=== PATIENT | male | born 1965 | race Caucasian/White ===

== ENCOUNTER 2016-11-14 22:20 | Inpatient (IN) | payer MEDICARE, OTHER ==
[2016-11-14 22:40] LABS: Glucose,Whole Blood 133 mg/dL (75-99)
[2016-11-14] MEDS ORDERED: SODIUM CHLORIDE 0.9% 1,000 ML IV STA (22:41)
--- NOTE | 2016-11-14 22:46 | ED ---
General Adult HPI - General Chief complaint: Weakness Stated complaint: weak Time Seen by Provider: 11/14/16 22:29 Source: patient, EMS, RN notes reviewed Mode of arrival: EMS Limitations: no limitations, physical limitation - History of Present Illness Initial comments: Patient is a 51-year-old male presenting to the emergency Department with generalized weakness. Patient is a poor historian. Patient states he has been more weak over the past 2-3 days. Patient has not been getting out of bed much. Patient did have a fall today however did not hurt himself. Patient has a known right foot infection and is on the wound VAC for this. Patient states he is not currently on antibiotics for this. Patient does have a history of kidney failure. - Related Data Home Medications Medication Instructions Recorded Confirmed Metoprolol Tartrate [Lopressor] 25 mg PO BID 08/09/14 11/11/16 Ubidecarenone [Co Q-10] 200 mg PO DAILY 08/09/14 11/11/16 Ascorbic Acid [Vitamin C] 500 mg PO DAILY 11/04/14 11/11/16 L.acidoph/B.long/L.plant/B.lac 1 cap PO BID 11/04/14 11/11/16 [Probiotic Acidophilus Beads] Sevelamer [Renvela] 3,200 mg PO TID 02/26/15 11/11/16 Amiodarone HCl [Cordarone] 200 mg PO BID 10/26/15 11/11/16 Famotidine [Pepcid] 20 mg PO DAILY 10/26/15 11/11/16 INSULIN LISPRO (humaLOG) [humaLOG See Protocol SQ ACHS 10/26/15 11/11/16 (formulary)] Sodium Bicarbonate Tab 1,300 mg PO BID 10/26/15 11/11/16 Brendon Packet 1 packet PO BID@0800,1700 11/19/15 11/11/16 Magnesium Oxide [Mag-Ox] 400 mg PO DAILY 11/19/15 11/11/16 Metoclopramide [Reglan] 10 mg PO Q8H PRN 11/19/15 11/11/16 Pravastatin Sodium [Pravachol] 80 mg PO HS 11/19/15 11/11/16 Cinacalcet HCl [Sensipar] 30 mg PO HS 01/21/16 11/11/16 Loratadine [Claritin] 10 mg PO DAILY PRN 02/04/16 11/11/16 Allopurinol [Zyloprim] 100 mg PO DAILY 02/16/16 11/11/16 Artificial Tears-Hypromellose 1 drops BOTH EYES Q6H PRN 02/16/16 11/11/16 [Artificial Tear Drops] Bacitracin Ophth Ointment 1 applic BOTH EYES Q2HR 02/16/16 11/11/16 Calcium Polycarbophil [Fibercon] 625 mg PO DAILY 02/16/16 11/11/16 Multivitamins, Thera [Multivitamin] 1 tab PO DAILY@1200 02/16/16 11/11/16 Sodium Chloride 0.65% Nasal [Deep 1 spray EA NOSTRIL QID PRN 02/16/16 11/11/16 Sea] Clopidogrel [Plavix] 75 mg PO DAILY 02/28/16 11/11/16 HYDROcodone/APAP 7.5-325MG [[place] 1 tab PO Q6HR PRN 04/15/16 11/11/16 7.5-325] Serum Tears 1 drop BOTH EYES QID 04/15/16 11/11/16 Cinacalcet [Sensipar] 30 mg PO DAILY 06/03/16 11/11/16 Cholecalciferol (Vitamin D3) 50,000 unit PO Q7DAYS 06/10/16 11/11/16 [Vitamin D3] DULoxetine HCL [Cymbalta] 30 mg PO DAILY 06/24/16 11/11/16 Insulin Detemir [Levemir] 40 unit SQ HS 06/24/16 11/11/16 Sevelamer [Renvela] 800 mg PO TID 06/24/16 11/11/16 Midodrine [ProAmatine] 5 mg PO DAILY 08/26/16 11/11/16 Previous Rx's Medication Instructions Recorded Bisacodyl [Dulcolax] 5 mg PO DAILY PRN #0 tablet. 11/25/15 Zolpidem [Ambien] 5 mg PO HS PRN #20 tab 02/28/16 Allergies Allergy/AdvReac Type Severity Reaction Status Date / Time losartan potassium Allergy Unknown LIGHTHEADED Verified 11/14/16 22:41 [From Cozaar] tomato Allergy Unknown Unknown Verified 01/14/17 22:41 Review of Systems ROS Statement: Those systems with pertinent positive or pertinent negative responses have been documented in the HPI. ROS Other: All systems not noted in ROS Statement are negative. Constitutional: Denies: fever Eyes: Reports: vision change (Chronic). Denies: eye pain ENT: Denies: ear pain Respiratory: Denies: dyspnea Cardiovascular: Denies: chest pain Endocrine: Reports: fatigue Gastrointestinal: Denies: abdominal pain Genitourinary: Denies: dysuria Musculoskeletal: Denies: back pain Skin: Reports: rash Neurological: Reports: weakness (Generalized) Past Medical History Past Medical History: Coronary Artery Disease (CAD), Diabetes Mellitus, Dialysis , Eye Disorder, Hyperlipidemia, Hypertension, Osteoarthritis (OA), Osteoarthritis (OA), Renal Disease, Sleep Apnea/CPAP/BIPAP, Sleep Apnea/CPAP/ BIPAP, Vascular Disorder, Vascular Disorder Additional Past Medical History / Comment(s): legally blind, ESRD with hemodialysis M,W, F-thru lerfupper arm graft, diabetic NEUROPATHY in bilateral legs and feet and , dizziness, PVD, KIDNEY STONES, gout, frequent diarrhea, DJD , anemia, thrombocytopenia. ESRD with hemodialysis M,W, F-thru R upper arm graft, diabetic NEUROPAT, PVD, KIDNEY STONES, gout, frequent diarrhea, DJD, anemia, thrombocytopenia. diabetic NEUROPATHY in bilateral legs and feet and , dizziness, PVD, KIDNEY STONES, gout, frequent diarrhea, DJD, anemia, thrombocytopenia. detached retina with surgeries, ALIYA USES C-PAP MACHINE, ESRD with hemodialysis M,W, F-thru R upper arm graft, diabetic NEUROPATHY bilateral legs and feet and starting in bilateral hands, gait dysfuction, hx of cellulitis bilateral legs/feet-pt states L leg/foot healthy at this time, PVD, KIDNEY STONES, gout, frequent diarrhea, DJD, anemia, thrombocytopenia. History of Any Multi-Drug Resistant Organisms: MRSA, MRSA, VRE Date of last positivie culture/infection: 10/07/16 MDRO Source:: Right Foot both MRSA and VRE Past Surgical History: Cholecystectomy, Coronary Bypass/CABG Additional Past Surgical History / Comment(s): 11/04/15 Keller cath for ABX therapy, , AMPUTATION GREAT L TOE , DEBRIDEMENT OF LEG, left eye surgery including retinal detachment repair and laser surgery and cataract removal, R eye surgery for blood behind eye twice, KIDNEY STONE REMOVAL, Multiple debridements done to the right foot wound. Past Anesthesia/Blood Transfusion Reactions: No Reported Reaction Additional Past Anesthesia/Blood Transfusion Reaction / Comment(s): NEVER HAD BLOOD TRANSFUSION Past Psychological History: Depression Additional Psychological History / Comment(s): PT LIVES WITH OF [address] [facility]. He uses a walker. HIS LEGS GET TIRED AND WEAK and he has had falls. He is legally blind. He is seen at [facility] wound center. He is ESRD and is on hemodialysis 3 days a week. He has a shunt. home. No recent travels. Smoking Status: Former smoker Past Alcohol Use History: None Reported Past Drug Use History: None Reported - Past Family History Father Family Medical History: Cancer Additional Family Medical History / Comment(s): PANCREATIC CANCER Sister(s) Family Medical History: Deep Vein Thrombosis (DVT) General Exam Limitations: physical limitation General appearance: alert, in no apparent distress Head exam: Present: atraumatic Eye exam: Present: other (Severe cataracts especially right eye) ENT exam: Present: mucous membranes dry Neck exam: Present: normal inspection Respiratory exam: Present: normal lung sounds bilaterally Cardiovascular Exam: Present: regular rate, normal rhythm GI/Abdominal exam: Present: soft. Absent: tenderness Extremities exam: Present: other (Right foot with erythema up to the knee. Her some skin desquamation. Wound VAC on the dorsal part of the foot. There is some moisture between the third and fourth toe.). Absent: tenderness Back exam: Present: normal inspection. Absent: tenderness Neurological exam: Present: alert Psychiatric exam: Present: normal affect, normal mood Skin exam: Present: erythema (Right foot and lower leg) Course Vital Signs 11/14/16 11/15/16 22:27 00:07 Temperature 99.1 F 99.4 F Pulse Rate 62 82 Respiratory 18 18 Rate Blood Pressure 147/83 142/78 O2 Sat by Pulse 97 97 Oximetry EKG Findings - EKG Comments: EKG Findings:: Normal sinus rhythm at 81. First-degree AV block with a IA 208. QRS 162. QT 462. QTC 536. Left axis. Left bundle branch block. Nonspecific ST-T. Medical Decision Making - Medical Decision Making Patient reevaluated and resting comfortably in bed. Patient will be covered by IV antibiotics for cellulitis. Record on-call will be consulted. Dr. william has been paged for admission for Dr. Quarles. Patient updated. - Lab Data Result diagrams: 11/14/16 00:05 11/14/16 00:05 Lab Results 11/14/16 11/14/16 11/14/16 Range/Units 00:05 00:05 00:05 WBC 6.2 (3.8-10.6) k/uL RBC 2.33 L (4.30-5.90) m/uL Hgb 7.8 L D (13.0-17.5) gm/dL Hct 24.0 L (39.0-53.0) % MCV 103.2 H (80.0-100.0) fL MCH 33.5 (25.0-35.0) pg MCHC 32.5 (31.0-37.0) g/dL RDW 15.5 (11.5-15.5) % Plt Count 116 L (150-450) k/uL Neutrophils % 88 % Lymphocytes % 5 % Monocytes % 4 % Eosinophils % 0 % Basophils % 0 % Neutrophils # 5.4 (1.3-7.7) k/uL Lymphocytes # 0.3 L (1.0-4.8) k/uL Monocytes # 0.3 (0-1.0) k/uL Eosinophils # 0.0 (0-0.7) k/uL Basophils # 0.0 (0-0.2) k/uL Hypochromasia Slight Poikilocytosis Slight Macrocytosis Slight PT 11.3 (9.0-12.0) sec INR 1.1 (<1.1) APTT 31.6 H (22.0-30.0) sec Sodium 135 L (137-145) mmol/L Potassium 4.0 (3.5-5.1) mmol/L Chloride 92 L (98-107) mmol/L Carbon Dioxide 31 H (22-30) mmol/L Anion Gap 12 mmol/L BUN 62 H (9-20) mg/dL Creatinine 5.80 H* (0.66-1.25) mg/dL Est GFR (MDRD) Af Amer 12 (>60 ml/min/1.73 sqM) Est GFR (MDRD) Non-Af 10 (>60 ml/min/1.73 sqM) Glucose 82 (74-99) mg/dL POC Glucose (mg/dL) (75-99) mg/dL POC [employer] Scientist ID Plasma Lactic Acid Rambo (0.7-2.0) mmol/L Calcium 7.4 L (8.4-10.2) mg/dL Phosphorus 2.8 (2.5-4.5) mg/dL Magnesium 2.0 (1.6-2.3) mg/dL Total Bilirubin 0.6 (0.2-1.3) mg/dL AST 22 (17-59) U/L ALT 57 (21-72) U/L Alkaline Phosphatase 126 (38-126) U/L Total Creatine Kinase (55-170) U/L CK-MB (CK-2) (0.0-2.4) ng/mL CK-MB (CK-2) Rel Index Troponin I (0.000-0.034) ng/mL Total Protein 5.0 L (6.3-8.2) g/dL Albumin 2.8 L (3.5-5.0) g/dL Free T4 1.51 (0.78-2.19) ng/dL Free T3 pg/mL 2.6 L (2.8-5.3) pg/ml Stool Occult Blood (Negative) 11/14/16 11/14/16 11/14/16 Range/Units 00:05 00:05 22:37 WBC (3.8-10.6) k/uL RBC (4.30-5.90) m/uL Hgb (13.0-17.5) gm/dL Hct (39.0-53.0) % MCV (80.0-100.0) fL MCH (25.0-35.0) pg MCHC (31.0-37.0) g/dL RDW (11.5-15.5) % Plt Count (150-450) k/uL Neutrophils % % Lymphocytes % % Monocytes % % Eosinophils % % Basophils % % Neutrophils # (1.3-7.7) k/uL Lymphocytes # (1.0-4.8) k/uL Monocytes # (0-1.0) k/uL Eosinophils # (0-0.7) k/uL Basophils # (0-0.2) k/uL Hypochromasia Poikilocytosis Macrocytosis PT (9.0-12.0) sec INR (<1.1) APTT (22.0-30.0) sec Sodium (137-145) mmol/L Potassium (3.5-5.1) mmol/L Chloride (98-107) mmol/L Carbon Dioxide (22-30) mmol/L Anion Gap mmol/L BUN (9-20) mg/dL Creatinine (0.66-1.25) mg/dL Est GFR (MDRD) Af Amer (>60 ml/min/1.73 sqM) Est GFR (MDRD) Non-Af (>60 ml/min/1.73 sqM) Glucose (74-99) mg/dL POC Glucose (mg/dL) 133 H (75-99) mg/dL POC Glu [employer] Scientist ID Talya Cho A Plasma Lactic Acid Rambo 1.7 (0.7-2.0) mmol/L Calcium (8.4-10.2) mg/dL Phosphorus (2.5-4.5) mg/dL Magnesium (1.6-2.3) mg/dL Total Bilirubin (0.2-1.3) mg/dL AST (17-59) U/L ALT (21-72) U/L Alkaline Phosphatase (38-126) U/L Total Creatine Kinase 79 (55-170) U/L CK-MB (CK-2) 0.9 (0.0-2.4) ng/mL CK-MB (CK-2) Rel Index 1.1 Troponin I 0.029 (0.000-0.034) ng/mL Total Protein (6.3-8.2) g/dL Albumin (3.5-5.0) g/dL Free T4 (0.78-2.19) ng/dL Free T3 pg/mL (2.8-5.3) pg/ml Stool Occult Blood (Negative) 11/15/16 Range/Units 00:50 WBC (3.8-10.6) k/uL RBC (4.30-5.90) m/uL Hgb (13.0-17.5) gm/dL Hct (39.0-53.0) % MCV (80.0-100.0) fL MCH (25.0-35.0) pg MCHC (31.0-37.0) g/dL RDW (11.5-15.5) % Plt Count (150-450) k/uL Neutrophils % % Lymphocytes % % Monocytes % % Eosinophils % % Basophils % % Neutrophils # (1.3-7.7) k/uL Lymphocytes # (1.0-4.8) k/uL Monocytes # (0-1.0) k/uL Eosinophils # (0-0.7) k/uL Basophils # (0-0.2) k/uL Hypochromasia Poikilocytosis Macrocytosis PT (9.0-12.0) sec INR (<1.1) APTT (22.0-30.0) sec Sodium (137-145) mmol/L Potassium (3.5-5.1) mmol/L Chloride (98-107) mmol/L Carbon Dioxide (22-30) mmol/L Anion Gap mmol/L BUN (9-20) mg/dL Creatinine (0.66-1.25) mg/dL Est GFR (MDRD) Af Amer (>60 ml/min/1.73 sqM) Est GFR (MDRD) Non-Af (>60 ml/min/1.73 sqM) Glucose (74-99) mg/dL POC Glucose (mg/dL) (75-99) mg/dL POC Glu [employer] Scientist ID Plasma Lactic Acid Rambo (0.7-2.0) mmol/L Calcium (8.4-10.2) mg/dL Phosphorus (2.5-4.5) mg/dL Magnesium (1.6-2.3) mg/dL Total Bilirubin (0.2-1.3) mg/dL AST (17-59) U/L ALT (21-72) U/L Alkaline Phosphatase (38-126) U/L Total Creatine Kinase (55-170) U/L CK-MB (CK-2) (0.0-2.4) ng/mL CK-MB (CK-2) Rel Index Troponin I (0.000-0.034) ng/mL Total Protein (6.3-8.2) g/dL Albumin (3.5-5.0) g/dL Free T4 (0.78-2.19) ng/dL Free T3 pg/mL (2.8-5.3) pg/ml Stool Occult Blood Negative (Negative) - Radiology Data Radiology results: image reviewed (Chest x-ray shows no acute process. X-ray of the foot shows amputations and soft tissue swelling without specific evidence for osteomyelitis.) Disposition Clinical Impression: Weakness, Cellulitis of leg, right, Anemia Disposition: ADMITTED IP TO THIS HOSP
[2016-11-15 00:26] LABS: INR 1.1 (<1.1); Partial Thromboplastin Time 31.6 sec (22.0-30.0); Prothrombin Time 11.3 sec (9.0-12.0)
[2016-11-15 00:29] LABS: Calcium 7.4 mg/dL (8.4-10.2); Phosphorous 2.8 mg/dL (2.5-4.5); Total Bilirubin 0.6 mg/dL (0.2-1.3)
[2016-11-15 00:30] LABS: Basophils % (A) 0 %; CH 33.4; CHCM 32.6; Eosinophils % (A) 0 %; HDW 3.54; Hypochromasia Slight; Luc # (Auto) 0.15; Luc % (Auto) 2; Lymphocytes # (A) 0.3 k/uL (1.0-4.8); Lymphocytes % (A) 5 %; MCH 33.5 pg (25.0-35.0); MCHC 32.5 g/dL (31.0-37.0); MCV 103.2 fL (80.0-100.0); Macrocytosis Slight; Mean Platelet Volume 7.3; Monocytes # (A) 0.3 k/uL (0-1.0); Monocytes % (A) 4 %; Neutrophils # (A) 5.4 k/uL (1.3-7.7); Neutrophils % (A) 88 %; Poikilocytosis Slight; RBC 2.33 m/uL (4.30-5.90); RDW 15.5 % (11.5-15.5); WBC 6.2 k/uL (3.8-10.6); WBC (Perox) 6.92
[2016-11-15 00:37] LABS: HGB 7.8 gm/dL (13.0-17.5)
[2016-11-15 00:44] LABS: Creatine Kinase MB 0.9 ng/mL (0.0-2.4); Troponin I 0.029 ng/mL (0.000-0.034)
--- NOTE | 2016-11-15 00:53 | XR ---
EXAMINATION TYPE: XR foot complete RT DATE OF EXAM: 11/15/2016 12:41 AM COMPARISON: 10/07/2014 HISTORY: Foot infection. TECHNIQUE: 3 views FINDINGS: There is soft tissue swelling of the foot. There is amputation deformity of the fifth digit and fifth metatarsal. There is amputation of the big toe at the first MP joint. There is some erosio n of the fourth metatarsal head. I see no fracture. There is mild pes planus deformity. IMPRESSION: Amputation deformities. Soft tissue swelling. No specific evidence for osteomyelitis. Fif th metatarsal and fifth toe amputation is new compared to old exam. The pes planus deformity is worse than old exam.
--- NOTE | 2016-11-15 00:55 | XR ---
EXAMINATION TYPE: XR chest 2V DATE OF EXAM: 11/15/2016 12:41 AM COMPARISON: 02/15/2016 HISTORY: Weakness TECHNIQUE: Frontal and lateral views of the chest are obtained. FINDINGS: There is no heart failure nor confluent pneumonic infiltrate. There are no hilar masses. T here are sternal wires. Costophrenic angles are clear. Bony thorax is intact. IMPRESSION: No active cardiopulmonary disease. No change.
[2016-11-15] MEDS ORDERED: NALOXONE 0.4 MG/ML 1 ML VIAL IV PRN (01:53)
[2016-11-15] MEDS ORDERED: AMPICILLIN-SULBACTAM 1.5 GM in SODIUM CHLORIDE 0.9% 50 ML IVPB STA (01:55)
[2016-11-15] MEDS ORDERED: IV VANCOMYCIN PER PHARMACY 1 EACH MISC MISCELLANE PRN (01:55)
[2016-11-15] MEDS ORDERED: VANCOMYCIN 2,000 MG in SODIUM CHLORIDE 0.9% 500 ML IVPB ONE ×2 (03:00→06:00)
[2016-11-15] MEDS: SODIUM CHLORIDE 0.9% 1,000 ML IV SCH (04:17)
[2016-11-15 07:35] LABS: Basophils % (A) 0 %; CH 33.5; CHCM 32.6; Eosinophils % (A) 0 %; HCT 27.7 % (39.0-53.0); HDW 3.46; HGB 8.9 gm/dL (13.0-17.5); Hypochromasia Slight; Luc # (Auto) 0.22; Luc % (Auto) 3; Lymphocytes # (A) 0.4 k/uL (1.0-4.8); Lymphocytes % (A) 6 %; MCH 33.2 pg (25.0-35.0); MCHC 32.1 g/dL (31.0-37.0); MCV 103.3 fL (80.0-100.0); Macrocytosis Slight; Mean Platelet Volume 7.9; Monocytes # (A) 0.3 k/uL (0-1.0); Monocytes % (A) 5 %; Neutrophils # (A) 6.1 k/uL (1.3-7.7); Neutrophils % (A) 86 %; Poikilocytosis Slight; RBC 2.68 m/uL (4.30-5.90); RDW 15.5 % (11.5-15.5); WBC 7.1 k/uL (3.8-10.6); WBC (Perox) 7.65
[2016-11-15 08:04] LABS: Glucose,Whole Blood 85 mg/dL (75-99)
[2016-11-15] MEDS: PANTOPRAZOLE 40 MG/10 ML VIAL IV SCH (08:36)
[2016-11-15] MEDS: AMPICILLIN-SULBACTAM 1.5 GM in SODIUM CHLORIDE 0.9% 50 ML IVPB SCH ×2 (09:06→14:53)
[2016-11-15] MEDS ORDERED: HYDROcodone/APAP 7.5-325MG 1 EACH TAB PO PRN ×2 (09:54→11:59)
--- NOTE | 2016-11-15 11:06 | P.CON ---
Consult Note - . Consult date: 11/15/16 Assessment/Plan:: Vascular surgery consult: Reason for consult: Cellulitis right lower extremity. History of chief complaint: This 51-year-old gentleman is well known to me. He is a very poor historian. He has historically been not very compliant with diet or instructions regarding treatment of his leg. He is diabetic and has chronic renal failure. He is on dialysis. He was admitted for significant swelling and discoloration of the right lower leg. He does not complain of any pain in the area. This is significantly different than recent issues with his leg. We have been treating him for a lateral ulcer on the right foot. His medications are numerous. And are recorded He is an extremely poor historian and we're not able to get a great review of systems. Physical examination: Morbidly obese 51-year-old gentleman looking significantly older than his chronologic years. ENT: Grossly normal. Lungs: Well aerated bilaterally Heart: Normal sinus rhythm Abdomen: Dramatically obese. Extremities: No pulses below the femorals. Ruborous discoloration of the right leg below the knee. Some area of loose and skin which suggests a previous amount of swelling causing some slough of the superficial skin. He has an ulceration on the lateral right foot which is about 1.4 x 3.5 cm in dimension. It is fairly clean and does not appear to be associated with the cellulitic issue of the lower leg. Chest x-ray and foot x-ray showed no related issues. Impression: Cellulitic changes right lower extremity. Contributing factors include his obesity, his diabetes, and his renal failure. His foot has been a bit slow to heal but does appear to be improving and is not likely to be related to the cellulitic change. Recommendation: I would continue to treat his foot as it has been in the wound center. We will get a venous duplex for the sake of completeness. He is on antibiotics. Infectious disease consult might be helpful. Leg elevation and the use of a gentle Odilon wrap for compression may help with the swelling. I'll be happy to follow him as needed.
[2016-11-15 11:54] LABS: Glucose,Whole Blood 195 mg/dL (75-99)
[2016-11-15] MEDS ORDERED: BISACODYL 5 MG TABLET.DR PO PRN (11:59)
[2016-11-15] MEDS ORDERED: ZOLPIDEM 5 MG TAB PO PRN (11:59)
[2016-11-15] MEDS ORDERED: ARTIFICIAL TEARS-HYPROMELLOSE DROPS 15 ML BTL BOTH EYES PRN (11:59)
[2016-11-15] MEDS ORDERED: MULTIVITAMINS, THERA 1 EACH TAB PO SCH (12:00)
[2016-11-15] MEDS ORDERED: DARBEPOETIN ALFA 60 MCG/0.3 ML SYRINGE SQ SCH (12:00)
--- NOTE | 2016-11-15 12:01 | P.NPCON ---
History of Present Illness - Reason for Consult end stage renal disease - Chief Complaint Right foot cellulitis - History of Present Illness This is a 51-year-old male with ESRD on dialysis Wednesday. He was admitted with pain in his right foot since 2 days prior to admission with cellulitis. In the past had amputation of 2 of his right toes. His been mostly off of his feet for the last 1 year because of peripheral vascular disease. No fever chills no nausea vomiting but he has had a poor appetite. He had some occasional loose stools. No abdominal pain. 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 Past Medical History Past Medical History: Coronary Artery Disease (CAD), Diabetes Mellitus, Dialysis , Eye Disorder, Hyperlipidemia, Hypertension, Osteoarthritis (OA), Osteoarthritis (OA), Renal Disease, Sleep Apnea/CPAP/BIPAP, Sleep Apnea/CPAP/ BIPAP, Vascular Disorder, Vascular Disorder Additional Past Medical History / Comment(s): legally blind, ESRD with hemodialysis M,W, F-thru lerfupper arm graft, diabetic NEUROPATHY in bilateral legs and feet and , dizziness, PVD, KIDNEY STONES, gout, frequent diarrhea, DJD , anemia, thrombocytopenia. ESRD with hemodialysis M,W, F-thru R upper arm graft, diabetic NEUROPAT, PVD, KIDNEY STONES, gout, frequent diarrhea, DJD, anemia, thrombocytopenia. diabetic NEUROPATHY in bilateral legs and feet and , dizziness, PVD, KIDNEY STONES, gout, frequent diarrhea, DJD, anemia, thrombocytopenia. detached retina with surgeries, ALIYA USES C-PAP MACHINE, ESRD with hemodialysis M,W, F-thru R upper arm graft, diabetic NEUROPATHY bilateral legs and feet and starting in bilateral hands, gait dysfuction, hx of cellulitis bilateral legs/feet-pt states L leg/foot healthy at this time, PVD, KIDNEY STONES, gout, frequent diarrhea, DJD, anemia, thrombocytopenia. History of Any Multi-Drug Resistant Organisms: MRSA, MRSA, VRE Date of last positivie culture/infection: 10/07/16 MDRO Source:: Right Foot both MRSA and VRE Past Surgical History: Cholecystectomy, Coronary Bypass/CABG Additional Past Surgical History / Comment(s): 11/04/15 Keller cath for ABX therapy, , AMPUTATION GREAT R TOE , DEBRIDEMENT OF LEG, left eye surgery including retinal detachment repair and laser surgery and cataract removal, R eye surgery for blood behind eye twice, KIDNEY STONE REMOVAL, Multiple debridements done to the right foot wound. Past Anesthesia/Blood Transfusion Reactions: No Reported Reaction Additional Past Anesthesia/Blood Transfusion Reaction / Comment(s): NEVER HAD BLOOD TRANSFUSION Past Psychological History: Depression Additional Psychological History / Comment(s): PT LIVES WITH OF 20 YEARS at [facility]. He uses a walker. HIS LEGS GET TIRED AND WEAK and he has had falls. He is legally blind. He is seen at [facility] wound center. He is ESRD and is on hemodialysis 3 days a week. He has a shunt. home. No recent travels. Smoking Status: Current some day smoker Past Alcohol Use History: None Reported Past Drug Use History: None Reported - Past Family History Father Family Medical History: Cancer Additional Family Medical History / Comment(s): PANCREATIC CANCER Sister(s) Family Medical History: Deep Vein Thrombosis (DVT) Medications and Allergies Home Medications Medication Instructions Recorded Confirmed Type Metoprolol Tartrate [Lopressor] 25 mg PO BID 08/09/14 11/15/16 History Ubidecarenone [Co Q-10] 200 mg PO DAILY 08/09/14 11/15/16 History Ascorbic Acid [Vitamin C] 500 mg PO DAILY 11/04/14 11/15/16 History L.acidoph/B.long/L.plant/B.lac 1 cap PO BID 11/04/14 11/15/16 History [Probiotic Acidophilus Beads] Sevelamer [Renvela] 3,200 mg PO TID 02/26/15 11/15/16 History Amiodarone HCl [Cordarone] 200 mg PO BID 10/26/15 11/15/16 History Famotidine [Pepcid] 20 mg PO DAILY 10/26/15 11/15/16 History INSULIN LISPRO (humaLOG) [humaLOG See Protocol SQ ACHS 10/26/15 11/15/16 History (formulary)] Sodium Bicarbonate Tab 1,300 mg PO BID 10/26/15 11/15/16 History Brendon Packet 1 packet PO BID@0800,1700 11/19/15 11/15/16 History Magnesium Oxide [Mag-Ox] 400 mg PO DAILY 11/19/15 11/15/16 History Metoclopramide [Reglan] 10 mg PO Q8H PRN 11/19/15 11/15/16 History Pravastatin Sodium [Pravachol] 80 mg PO HS 11/19/15 11/15/16 History Cinacalcet HCl [Sensipar] 30 mg PO HS 01/21/16 11/15/16 History Loratadine [Claritin] 10 mg PO DAILY PRN 02/04/16 11/15/16 History Allopurinol [Zyloprim] 100 mg PO DAILY 02/16/16 11/15/16 History Artificial Tears-Hypromellose 1 drops BOTH EYES Q6H PRN 02/16/16 11/15/16 History [Artificial Tear Drops] Bacitracin Ophth Ointment 1 applic BOTH EYES Q2HR 02/16/16 11/15/16 History Calcium Polycarbophil [Fibercon] 625 mg PO DAILY 02/16/16 11/15/16 History Multivitamins, Thera [Multivitamin] 1 tab PO DAILY@1200 02/16/16 11/15/16 History Sodium Chloride 0.65% Nasal [Deep 1 spray EA NOSTRIL QID PRN 02/16/16 11/15/16 History Sea] Clopidogrel [Plavix] 75 mg PO DAILY 02/28/16 11/15/16 History HYDROcodone/APAP 7.5-325MG [[place] 1 tab PO Q6HR PRN 04/15/16 11/15/16 History 7.5-325] Serum Tears 1 drop BOTH EYES QID 04/15/16 11/15/16 History Cinacalcet [Sensipar] 30 mg PO DAILY 06/03/16 11/15/16 History Cholecalciferol (Vitamin D3) 50,000 unit PO Q7DAYS 06/10/16 11/15/16 History [Vitamin D3] DULoxetine HCL [Cymbalta] 30 mg PO DAILY 06/24/16 11/15/16 History Insulin Detemir [Levemir] 40 unit SQ HS 06/24/16 11/15/16 History Sevelamer [Renvela] 800 mg PO TID 06/24/16 11/15/16 History Midodrine [ProAmatine] 5 mg PO DAILY 08/26/16 11/15/16 History Allergies Allergy/AdvReac Type Severity Reaction Status Date / Time losartan potassium Allergy Unknown LIGHTHEADED Verified 11/14/16 22:41 [From Cozaar] tomato Allergy Unknown Unknown Verified 11/14/16 22:41 Physical Exam Vitals: Vital Signs Temp Pulse Pulse Resp BP BP Pulse Ox 11/15/16 07:00 98.2 F 79 18 127/56 99 11/15/16 03:47 98.3 F 75 18 114/52 99 11/15/16 02:58 100.3 F H 79 20 128/72 97 Intake and Output 11/14/16 11/15/16 11/15/16 22:59 06:59 14:59 Intake Total 60 Balance 60 Intake: IV 60 Sodium Chloride 0.9% 1, 60 000 ml @ 20 mls/hr IV . Q24H [facility] Rx#:[id number] Other: Voiding Method Urinal Diaper On examination he looks ill in pain HEENT exam exam no JVP neck is supple no facial asymmetry no card bruit thyromegaly or lymphadenopathy in the neck Lungs are clear to auscultation with good air entry bilaterally normal to percussion. Heart sounds are unremarkable for any murmur rub gallop Abdomen soft nontender Extremity exam was mild edema of the right trace on the left. The right foot is inflamed with redness as well as the right lower leg. There is Remote amputation of the rights great and second toe. Warm to touch. Neurologically awake alert oriented. No focal motor deficit Results - Lab Results Most recent lab results Calcium 7.4 mg/dL (8.4-10.2) L 11/14/16 00:05 Phosphorus 2.8 mg/dL (2.5-4.5) 11/14/16 00:05 Magnesium 2.0 mg/dL (1.6-2.3) 11/14/16 00:05 11/15/16 07:04 11/14/16 00:05 Assessment and Plan Plan: Impression. 1. ESRD on dialysis Wednesday was a Wednesday. Fistula in his left upper arm. 2. Admitted with cellulitis right leg and foot. 3. Diabetic complications including retinopathy and nephropathy and neuropathy. 4. Peripheral vascular disease with remote amputation of right great toe and second toe. 5. History of obstructive sleep apnea, ASHD with coronary artery bypass graft, cholelithiasis, peripheral vascular disease, sleep apnea,. 6. Anemia with hemoglobin is 8.9, rule out an deficiency. 7. Hypocalcemia is an 7.4 with ionized calcium 4.1 which is low normal being 4.5. 8. Phosphorus was normal at 2.8. 9. Malnutrition with Albumin 2.8 Recommendation. 1. Dialysis tomorrow, 4 hours, 1 L of 2. Start calcitriol 0.25 g daily because of the low calcium. 3. Check iron saturation. 4. Start Aranesp, 60 stacie q wk 5. DC IV fluids
--- NOTE | 2016-11-15 12:45 | US ---
EXAMINATION TYPE: US venous doppler duplex LE BI DATE OF EXAM: 11/15/2016 12:22 PM COMPARISON: NONE CLINICAL HISTORY: Bilateral leg swelling, morbidly obese patient carrying most of weight in abdomen, some technical limitations. SIDE PERFORMED: Bilateral TECHNOLOGIST IMPRESSION: prominent lymph nodes noted in groin, largest measuring 3.2cm VESSELS IMAGED: External Iliac Vein (EIV) Common Femoral Vein Deep Femoral Vein Greater Saphenous Vein * Femoral Vein Popliteal Vein Small Saphenous Vein * Proximal Calf Veins (* superficial vessels) Right Leg: Negative for DVT Left Leg: Negative for DVT IMPRESSION: Normal exam. No evidence of deep venous thrombosis in the left and right leg.
[2016-11-15] MEDS: INSULIN LISPRO (humaLOG) 300 UNIT/3 ML VIAL SQ SCH ×3 (13:12→21:10)
[2016-11-15] MEDS: CALCITRIOL 0.25 MCG CAP PO SCH (13:13)
[2016-11-15] MEDS ORDERED: MORPHINE SULFATE 4 MG/ML SYRINGE IVP PRN (14:05)
[2016-11-15 14:14] LABS: Appearance,Urine Clear (Clear); Bilirubin,Urine Negative (Negative); Glucose,Urine (UA) Negative (Negative); Ketones,Urine Negative (Negative); Leukocyte Esterase,Urine Negative (Negative); Nitrite,Urine Negative (Negative); PH, Urine 8.5 (5.0-8.0); Particle Count 972; Protein,Urine 2+ (Negative); RBC,Urine 8 /hpf (0-5); Specific Gravity,Urine 1.009 (1.001-1.035); UA Billing (MACRO vs. MICRO) MICRO; Urobilinogen,Urine <2.0 mg/dL (<2.0); WBC,Urine 2 /hpf (0-5)
[2016-11-15] MEDS: HYDROcodone/APAP 7.5-325MG 1 EACH TAB PO PRN (14:44)
[2016-11-15] MEDS: BACITRACIN BOTH EYES SCH ×6 (14:53→23:34)
[2016-11-15] MEDS: HYDROmorphone 1 MG/ML 1 ML SYRINGE IM PRN ×3 (14:55→21:09)
--- NOTE | 2016-11-15 15:19 | P.CONS ---
History of Present Illness - Reason for Consult Consult date: 11/15/16 - Chief Complaint Cellulitis right leg - History of Present Illness 51-year-old male please note infectious disease service from his many hospitalizations and ongoing difficulties with ulceration to his right foot. His many Occasions to his diabetes mellitus type 2 that included peripheral vascular disease, coronary disease, end-stage renal disease on hemodialysis. 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 And also has had other toe amputations. In the fall he was having difficulties with severe ulceration of the foot and underwent further amputation. He was treated with a protracted course of intravenous antibiotic therapy for the hospitalist service foot. Eventually this improved and his antibiotic therapy completed. He's been following the wound center with some local wound care. Was doing relatively well [place] had the sudden onset of pain and swelling and erythema to the right leg. With this he presented to Hospital and had evaluation was requested. The patient relates that he's had a bit of a fever in the home setting. In the legs become uncomfortable swollen and quite tender to touch. He believes he is and a low-grade fever with chill but no rigor. Left leg without acute change. Has been going to dialysis. It apparently and his last dialysis he actually arrived at a lower than his normal dry weight because he was started to feel poorly. Review of Systems HEENT: Currently without headaches but has had some headaches. He has noted his vision is now considerably worse than even a few months ago due to his diabetic retinopathy and bleeds. He's had several surgeries with little improvement of his vision. He finds is very discouraging. Lungs: Denies cough, sputum production, or hemoptysis. Cardiovascular: Relates to some ongoing shortness of breath but denies chest pain, chest wall pain, orthopnea, dyspnea on exertion, syncope Gastrointestinal:Denies nausea, vomiting, diarrhea, constipation, hematemesis, melena, hematochezia. No no significant change of bowel habit noticed. Musculoskeletal: Complains of diffuse pains from his multiple falls. With his diabetes he has significant neuropathy which also causes further difficulties. Especially of pain to his extremities. Skin: Complains of worsening wounds to the right leg Neuro: No headache currently but has been having chronic headaches, complaints of the vertigo. Currently while lying in bed has no dizziness or headache. Psychiatric:Denies anxiety or depression. Endocrine: Denies significant fatigue, denies significant weight loss or weight gain. 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 Past Medical History Past Medical History: Coronary Artery Disease (CAD), Diabetes Mellitus, Dialysis , Eye Disorder, Hyperlipidemia, Hypertension, Osteoarthritis (OA), Osteoarthritis (OA), Renal Disease, Sleep Apnea/CPAP/BIPAP, Sleep Apnea/CPAP/ BIPAP, Vascular Disorder, Vascular Disorder Additional Past Medical History / Comment(s): legally blind, ESRD with hemodialysis M,W, F-thru lerfupper arm graft, diabetic NEUROPATHY in bilateral legs and feet and , dizziness, PVD, KIDNEY STONES, gout, frequent diarrhea, DJD , anemia, thrombocytopenia. ESRD with hemodialysis M,W, F-thru R upper arm graft, diabetic NEUROPAT, PVD, KIDNEY STONES, gout, frequent diarrhea, DJD, anemia, thrombocytopenia. diabetic NEUROPATHY in bilateral legs and feet and , dizziness, PVD, KIDNEY STONES, gout, frequent diarrhea, DJD, anemia, thrombocytopenia. detached retina with surgeries, ALIYA USES C-PAP MACHINE, ESRD with hemodialysis M,W, F-thru R upper arm graft, diabetic NEUROPATHY bilateral legs and feet and starting in bilateral hands, gait dysfuction, hx of cellulitis bilateral legs/feet-pt states L leg/foot healthy at this time, PVD, KIDNEY STONES, gout, frequent diarrhea, DJD, anemia, thrombocytopenia. History of Any Multi-Drug Resistant Organisms: MRSA, MRSA, VRE Year Discovered:: 10/07/16 MDRO Source:: Right Foot both MRSA and VRE Past Surgical History: Cholecystectomy, Coronary Bypass/CABG Additional Past Surgical History / Comment(s): 11/04/15 [place] cath for ABX therapy, , AMPUTATION GREAT R TOE , DEBRIDEMENT OF LEG, left eye surgery including retinal detachment repair and laser surgery and cataract removal, R eye surgery for blood behind eye twice, KIDNEY STONE REMOVAL, Multiple debridements done to the right foot wound. Past Anesthesia/Blood Transfusion Reactions: No Reported Reaction Additional Past Anesthesia/Blood Transfusion Reaction / Comm: NEVER HAD BLOOD TRANSFUSION Past Psychological History: Depression Additional Psychological History / Comment(s): PT LIVES WITH OF 20 YEARS at [facility]. He uses a walker. HIS LEGS GET TIRED AND WEAK and he has had falls. He is legally blind. He is seen at [facility] wound center. He is ESRD and is on hemodialysis 3 days a week. He has a shunt. home. No recent travels. Smoking Status: Current some day smoker Past Alcohol Use History: None Reported Past Drug Use History: None Reported - Past Family History Father Family Medical History: Cancer Additional Family Medical History / Comment(s): PANCREATIC CANCER Sister(s) Family Medical History: Deep Vein Thrombosis (DVT) Medications and Allergies Home Medications and Allergies Comment(s): Current Medications Acetaminophen/Hydrocodone Bitart ([place] 7.5-325) 1 each PO Q4HR PRN PRN Reason: Pain Last Admin: 11/15/16 14:44 Dose: 1 each Allopurinol (Zyloprim) 100 mg PO DAILY [facility] Amiodarone HCl (Cordarone) 200 mg PO BID [facility] Artificial Tears (Artificial Tear Drops) 1 drops BOTH EYES Q6H PRN PRN Reason: DRY EYES Last Admin: 11/15/16 14:57 Dose: 1 drops Ascorbic Acid (Vitamin C) 500 mg PO DAILY [facility] Bacitracin (Bacitracin Ophth Ointment) 1 applic BOTH EYES Q2HR [facility] Last Admin: 11/15/16 15:04 Dose: Not Given Bisacodyl (Dulcolax) 5 mg PO DAILY PRN PRN Reason: Constipation Calcitriol (Rocaltrol) 0.25 mcg PO Q48H [facility] Last Admin: 11/15/16 13:13 Dose: 0.25 mcg Calcium Polycarbophil (Fibercon) 625 mg PO DAILY [facility] Cinacalcet (Sensipar) 30 mg PO BID [facility] Clopidogrel Bisulfate (Plavix) 75 mg PO DAILY [facility] Darbepoetin Beto (Aranesp) 60 mcg SQ Q7D [facility] Last Admin: 11/15/16 14:52 Dose: 60 mcg Duloxetine HCl (Cymbalta) 30 mg PO DAILY [facility] Ergocalciferol (Vitamin D2) 50,000 unit PO Q7DAYS [facility] Famotidine (Pepcid) 20 mg PO DAILY [facility] Hydromorphone HCl (Dilaudid) 1 mg IM Q3HR PRN PRN Reason: Pain Last Admin: 11/15/16 14:55 Dose: 1 mg Sodium Chloride (Saline 0.9%) 1,000 mls @ 20 mls/hr IV .Q24H [facility] Last Admin: 11/15/16 04:17 Dose: Not Given Ampicillin Sodium/Sulbactam (Sodium 1.5 gm/ Sodium Chloride) 50 mls @ 100 mls/ hr IVPB Q8HR [facility] Last Admin: 11/15/16 14:53 Dose: 100 mls/hr Vancomycin HCl 2,000 mg/ (Sodium Chloride) 500 mls @ 167 mls/hr IVPB ONCE ONE Stop: 11/16/16 08:59 Insulin Detemir (Levemir) 40 unit SQ HS [facility] Insulin Human Lispro (Humalog) 0 unit SQ ACHS [facility] PRN Reason: Protocol Last Admin: 11/15/16 13:12 Dose: 3 unit Metoprolol Tartrate (Lopressor) 25 mg PO BID [facility] Miscellaneous Information (Pharmacy To Dose Iv Vancomycin) 1 each MISCELLANE DIRECTED PRN PRN Reason: Per Protocol Multivitamins (Theragran) 1 each PO DAILY@1200 [facility] Last Admin: 11/15/16 13:13 Dose: 1 each Naloxone HCl (Narcan) 0.2 mg IV Q2M PRN PRN Reason: Opioid Reversal Pantoprazole Sodium (Protonix) 40 mg IV DAILY [facility] Last Admin: 11/15/16 08:36 Dose: 40 mg Pravastatin Sodium (Pravachol) 80 mg PO HS [facility] Sevelamer Carbonate (Renvela) 3,200 mg PO TID-W/MEALS [facility] Sodium Bicarbonate (Sodium Bicarbonate Tab) 1,300 mg PO BID [facility] Tramadol HCl (Ultram) 50 mg PO QID [facility] Zolpidem Tartrate (Ambien) 5 mg PO HS PRN PRN Reason: Insomnia Home Medications Medication Instructions Recorded Confirmed Type Metoprolol Tartrate [Lopressor] 25 mg PO BID 08/09/14 11/15/16 History Ubidecarenone [Co Q-10] 200 mg PO DAILY 08/09/14 11/15/16 History Ascorbic Acid [Vitamin C] 500 mg PO DAILY 11/04/14 11/15/16 History L.acidoph/B.long/L.plant/B.lac 1 cap PO BID 11/04/14 11/15/16 History [Probiotic Acidophilus Beads] Sevelamer [Renvela] 3,200 mg PO TID@0800,1200,1700 02/26/15 11/15/16 History Amiodarone HCl [Cordarone] 200 mg PO BID 10/26/15 11/15/16 History Famotidine [Pepcid] 20 mg PO DAILY 10/26/15 11/15/16 History INSULIN LISPRO (humaLOG) [humaLOG 19 units SQ AC-TID 10/26/15 11/15/16 History (formulary)] [place]on Packet 1 packet PO BID 11/19/15 11/15/16 History Magnesium Oxide [Mag-Ox] 400 mg PO DAILY 11/19/15 11/15/16 History Pravastatin Sodium [Pravachol] 80 mg PO HS 11/19/15 11/15/16 History Cinacalcet HCl [Sensipar] 30 mg PO HS 01/21/16 11/15/16 History Loratadine [Claritin] 10 mg PO DAILY PRN 02/04/16 11/15/16 History Allopurinol [Zyloprim] 100 mg PO DAILY 02/16/16 11/15/16 History Artificial Tears-Hypromellose 1 drops BOTH EYES BID PRN 02/16/16 11/15/16 History [Artificial Tear Drops] Bacitracin Ophth Ointment 1 applic BOTH EYES BID 02/16/16 11/15/16 History Multivitamins, Thera [Multivitamin] 1 tab PO DAILY 02/16/16 11/15/16 History Clopidogrel [Plavix] 75 mg PO DAILY 02/28/16 11/15/16 History HYDROcodone/APAP 7.5-325MG [[place] 1 tab PO Q4H PRN 04/15/16 11/15/16 History 7.5-325] DULoxetine HCL [Cymbalta] 30 mg PO DAILY 06/24/16 11/15/16 History Insulin Detemir [Levemir] 42 unit SQ HS 06/24/16 11/15/16 History Midodrine [ProAmatine] 5 mg PO MOWEFR 08/26/16 11/15/16 History Atropine Sulfate [Atropine Sulfate 1 drop RIGHT EYE DAILY 11/15/16 11/15/16 History 1%] Difluprednate [Durezol] 1 drop RIGHT EYE QID 11/15/16 11/15/16 History Diphenox-Atrop 2.5-0.025 mg 2 tab PO QID PRN 11/15/16 11/15/16 History [Lomotil] Ergocalciferol (Vitamin D2) 50,000 unit PO [facility] 11/15/16 11/15/16 History [Vitamin D2] INSULIN LISPRO (humaLOG) [HumaLOG] See Protocol SQ ACHS 11/15/16 11/15/16 History Allergies Allergy/AdvReac Type Severity Reaction Status Date / Time losartan potassium Allergy Unknown LIGHTHEADED Verified 11/15/16 12:01 [From Cozaar] tomato Allergy Unknown Unknown Verified 11/15/16 12:01 Physical Exam Vitals: Vital Signs Temp Pulse Pulse Resp BP BP Pulse Ox 11/15/16 08:00 18 11/15/16 07:00 98.2 F 79 18 127/56 99 11/15/16 03:47 98.3 F 75 18 114/52 99 11/15/16 02:58 100.3 F H 79 20 128/72 97 Intake and Output 11/15/16 11/15/16 11/15/16 06:59 14:59 22:59 Intake Total 60 Output Total 1200 Balance 60 -1200 Intake: IV 60 Sodium Chloride 0.9% 1, 60 000 ml @ 20 mls/hr IV . Q24H [facility] Rx#:[id number] Output: Urine 1200 Straight 600 Other: Voiding Method Urinal Diaper Diaper 51-year-old male who suffers from superobesity, and sleep apnea. Relates it is not very comfortable because of pain to the right leg. HEENT: Anicteric conjunctiva are pink and moist nasal mucosa grossly intact without significant lesions, there is no thrush. Poor dentition Neck: The neck is supple without significant lymphadenopathy or thyromegaly. Lungs: Symmetrical air entry is noted. Expiratory wheezes are scattered throughout the lung joseph. But no joshua bronchial sounds are heard. No egophony. Heart: Irregular with an audible S1 and S2 positive S4 no audible murmur click or rub. Abdomen: Obese, Positive bowel sounds soft and nontender without palpable masses or organomegaly. There was no guarding or rebound. Extremities: The upper extremity show evidence of no stiff in lesions and the shunt to the left arm is functioning well But no open ulcers are seen on the right upper extremity left arm without lesions. IV site looks intact in the right arm. the right anterior chest wall is without erythema or tenderness. The lower extremity show evidence of some lower extremity edema greater on the right than the left. Left foot without acute lesions. The right lower extremity shows evidence of the significant changes. There is evidence of extensive erythema that is present from the foot to the leg especially anteriorly. There is been some skin peeling. It is tender it is with some warmth and erythema. The chronic ulceration to the lateral aspect of the foot is quite stable. There is some granulation and some slough. There is no sticking gangrenous change seen at that area. There is some drainage that's evident between the toes. But they're not very tender but he does have snoring and neuropathy. Neuro: Awake alert oriented to person place and time. He has very poor vision and has significant peripheral neuropathy from his diabetes but no acute gross focal sensory motor deficits are noted. Results CBC & Chem 7: 11/15/16 07:04 11/14/16 00:05 Labs: Abnormal Lab Results - Last 24 Hours (Table) 11/15/16 11/15/16 11/15/16 Range/Units 07:04 07:04 11:43 RBC 2.68 L (4.30-5.90) m/uL Hgb 8.9 L (13.0-17.5) gm/dL Hct 27.7 L (39.0-53.0) % MCV 103.3 H (80.0-100.0) fL Plt Count 129 L (150-450) k/uL Lymphocytes # 0.4 L (1.0-4.8) k/uL POC Glucose (mg/dL) 195 H (75-99) mg/dL Ionized Calcium Hai 4.1 L (4.5-5.3) mg/dL Laboratory Results WBC 7.1 k/uL (3.8-10.6) 11/15/16 07:04 RBC 2.68 m/uL (4.30-5.90) L 11/15/16 07:04 Hgb 8.9 gm/dL (13.0-17.5) L 11/15/16 07:04 Hct 27.7 % (39.0-53.0) L 11/15/16 07:04 MCV 103.3 fL (80.0-100.0) H 11/15/16 07:04 MCH 33.2 pg (25.0-35.0) 11/15/16 07:04 MCHC 32.1 g/dL (31.0-37.0) 11/15/16 07:04 RDW 15.5 % (11.5-15.5) 11/15/16 07:04 Plt Count 129 k/uL (150-450) L 11/15/16 07:04 Neutrophils % 86 % 11/15/16 07:04 Lymphocytes % 6 % 11/15/16 07:04 Monocytes % 5 % 11/15/16 07:04 Eosinophils % 0 % 11/15/16 07:04 Basophils % 0 % 11/15/16 07:04 Neutrophils # 6.1 k/uL (1.3-7.7) 11/15/16 07:04 Lymphocytes # 0.4 k/uL (1.0-4.8) L 11/15/16 07:04 Monocytes # 0.3 k/uL (0-1.0) 11/15/16 07:04 Eosinophils # 0.0 k/uL (0-0.7) 11/15/16 07:04 Basophils # 0.0 k/uL (0-0.2) 11/15/16 07:04 Hypochromasia Slight 11/15/16 07:04 Poikilocytosis Slight 11/15/16 07:04 Macrocytosis Slight 11/15/16 07:04 PT 11.3 sec (9.0-12.0) 11/14/16 00:05 INR 1.1 (<1.1) 11/14/16 00:05 APTT 31.6 sec (22.0-30.0) H 11/14/16 00:05 Sodium 135 mmol/L (137-145) L 11/14/16 00:05 Potassium 4.0 mmol/L (3.5-5.1) 11/14/16 00:05 Chloride 92 mmol/L (98-107) L 11/14/16 00:05 Carbon Dioxide 31 mmol/L (22-30) H 11/14/16 00:05 Anion Gap 12 mmol/L 11/14/16 00:05 BUN 62 mg/dL (9-20) H 11/14/16 00:05 Creatinine 5.80 mg/dL (0.66-1.25) H* 11/14/16 00:05 Est GFR (MDRD) Af Amer 12 (>60 ml/min/1.73 sqM) 11/14/16 00:05 Est GFR (MDRD) Non-Af 10 (>60 ml/min/1.73 sqM) 11/14/16 00:05 Glucose 82 mg/dL (74-99) 11/14/16 00:05 POC Glucose (mg/dL) 195 mg/dL (75-99) H 11/15/16 11:43 POC Glu Rn Case Manager Hospice ID Nidhi Jaffe 11/15/16 11:43 Plasma Lactic Acid [place] 1.7 mmol/L (0.7-2.0) 11/14/16 00:05 Calcium 7.4 mg/dL (8.4-10.2) L 11/14/16 00:05 Ionized Calcium Hai 4.1 mg/dL (4.5-5.3) L 11/15/16 07:04 Phosphorus 2.8 mg/dL (2.5-4.5) 11/14/16 00:05 Magnesium 2.0 mg/dL (1.6-2.3) 11/14/16 00:05 Total Bilirubin 0.6 mg/dL (0.2-1.3) 11/14/16 00:05 AST 22 U/L (17-59) 11/14/16 00:05 ALT 57 U/L (21-72) 11/14/16 00:05 Alkaline Phosphatase 126 U/L (38-126) 11/14/16 00:05 Total Creatine Kinase 79 U/L (55-170) 11/14/16 00:05 CK-MB (CK-2) 0.9 ng/mL (0.0-2.4) 11/14/16 00:05 CK-MB (CK-2) Rel Index 1.1 11/14/16 00:05 Troponin I 0.029 ng/mL (0.000-0.034) 11/14/16 00:05 Total Protein 5.0 g/dL (6.3-8.2) L 11/14/16 00:05 Albumin 2.8 g/dL (3.5-5.0) L 11/14/16 00:05 TSH 2.760 mIU/L (0.465-4.680) 11/14/16 00:05 Free T4 1.51 ng/dL (0.78-2.19) 11/14/16 00:05 Free T3 pg/mL 2.6 pg/ml (2.8-5.3) L 11/14/16 00:05 Urine Color Yellow 11/14/16 13:55 Urine Appearance Clear (Clear) 11/14/16 13:55 Urine pH 8.5 (5.0-8.0) H 11/14/16 13:55 Ur Specific [place] 1.009 (1.001-1.035) 11/14/16 13:55 Urine Protein 2+ (Negative) H 11/14/16 13:55 Urine Glucose (UA) Negative (Negative) 11/14/16 13:55 Urine Ketones Negative (Negative) 11/14/16 13:55 Urine Blood Negative (Negative) 11/14/16 13:55 Urine Nitrate Negative (Negative) 11/14/16 13:55 Urine Bilirubin Negative (Negative) 11/14/16 13:55 Urine Urobilinogen <2.0 mg/dL (<2.0) 11/14/16 13:55 Ur Leukocyte Esterase Negative (Negative) 11/14/16 13:55 Urine RBC 8 /hpf (0-5) H 11/14/16 13:55 Urine WBC 2 /hpf (0-5) 11/14/16 13:55 Stool Occult Blood Negative (Negative) 11/15/16 00:50 Microbiology 11/14/16 23:30 Leg - Right Gram Stain - Preliminary 11/14/16 23:30 Leg - Right Wound Culture - Preliminary Assessment and Plan (1) Cellulitis of leg, right Narrative/Plan: 51-year-old male who has multiple medical troubles that include end- stage renal disease, diabetes mellitus type 2, peripheral vascular disease. His CSF and ulceration to his right foot throughout the last year has had the amputation of the fourth and fifth toes. This pattern open ulceration the recent evaluation 10 showed evidence of no ongoing active osteomyelitis. Recent x-rays at this time also failed to show evidence of osteomyelitis. However there is no extensive cellulitis occurring to that right lower extremity it is quite uncomfortable. The patient does feel poorly overall related to this acute infectious process. Antibiotic therapy with vancomycin will be utilized and also adding gram-negative coverage with his known history of prior pseudomonas at that site. Ceftazidime will be initiated and local wound care can be done with a Silvadene wrap and minimal compression. Elevational he is at rest. Has been evaluated by vascular surgery without plans for an acute surgical intervention. Continue with his hemodialysis to maintain as much edema control as possible. Ongoing close glucose monitoring. His anemia is about his baseline and does not have significant leukocytosis. Fever is improved. Status: Acute (2) Fever Status: Acute (3) Atherosclerosis of [place] artery of left lower extremity with ulceration Status: Acute
[2016-11-15] MEDS ORDERED: SEVELAMER 800 MG TAB PO SCH ×2 (16:00)
[2016-11-15 17:12] LABS: Glucose,Whole Blood 179 mg/dL (75-99)
[2016-11-15] MEDS: SEVELAMER 800 MG TAB PO SCH (18:04)
[2016-11-15] MEDS: traMADol 50 MG TAB PO SCH ×2 (18:11→22:41)
[2016-11-15] MEDS: SILVER sulfADIAZINE Cream 400 GM 1 APPLIC APPLIC TOPICAL SCH (19:24)
[2016-11-15 20:09] LABS: Glucose,Whole Blood 211 mg/dL (75-99)
[2016-11-15] MEDS: SODIUM BICARBONATE TAB 650 MG TAB PO SCH (21:10)
[2016-11-15] MEDS: INSULIN DETEMIR 100 UNIT/ML 10 ML VIAL SQ SCH (21:10)
--- NOTE | 2016-11-15 21:10 | HP ---
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 Patient denied any nausea, vomiting. Patient had fever at home. Patient denied any nausea, vomiting. Patient denied any abdominal pain. Patient in the past had wound VAC in the past. Patient has multiple comorbidities. REVIEW OF SYSTEMS: CONSTITUTIONAL: No fever, no malaise, no fatigue. HEENT: No recent visual problems or hearing problems. Denied any sore throat. CARDIOVASCULAR: No chest pain, orthopnea, PND, no palpitations, no syncope. PULMONARY: No shortness of breath, no cough, no hemoptysis. GASTROINTESTINAL: No diarrhea, no nausea, no vomiting, no abdominal pain. Normoactive bowel sounds. NEUROLOGICAL: No headaches, no weakness, no numbness. HEMATOLOGICAL: Denies any bleeding or petechiae. GENITOURINARY: Denies any burning micturition, frequency, or urgency. MUSCULOSKELETAL/RHEUMATOLOGICAL: Denies any joint pain, swelling, or any muscle pain. ENDOCRINE: Denies any polyuria or polydipsia. Dermatologic: As described in history of present illness. The rest of the 14 point review of systems is negative. Medications include: 1. Metoprolol. 2. ( ). 3. Ascorbic acid. 4. ( ) Amiodarone. 5. Famotidine. 6. Insulin. 7. Sodium bicarb. 8. Magnesium oxide. 9. Metoclopramide. 10. Pravastatin. 11. ( ). 12. Loratadine. 13. Artificial tears. 14. Bacitracin. 15. Plavix. 16. Hydrocodone. 17. Acetaminophen. 18. Cholecalciferol. 19. Duloxetine. 20. ( ). 21. Midodrine. 22. Bisacodyl. 23. Ambien on a p.r.n. basis. ALLERGIES: ALLERGIC TO LOSARTAN AND TOMATO. Past medical history significant for coronary artery disease, diabetes mellitus, hyperlipidemia, hypertension, osteoarthritis, sleep apnea, peripheral vascular disease, uses CPAP machine at home, end stage renal disease, hemodialysis-dependent and patient has diabetic nephropathy, cholecystectomy. 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 Psychological history is significant for depression. FAMILY HISTORY: Significant for pancreatic cancer in father. Mother and sister had DVT in the past. PHYSICAL EXAMINATION: VITAL SIGNS: Temperature 98.2, pulse of 79, respiratory rate of 18, blood pressure is 127/56, saturating at 98% on room air. GENERAL: Morbidly obese gentleman and alert and oriented x3, is in severe pain and is in distress because of severe pain in the right lower leg and right extremity patient has a beefy looking reddish discoloration of the right leg extending up to a few cm above the knee with multiple skin breakdowns with areas of pus pockets and foul-smelling discharge coming out of the multiple areas of skin breakdowns which are stage III ulcers multiple of them. HEENT: Pupils are round and equally reacting to light. EOMI. No scleral icterus. No conjunctival pallor. Normocephalic, atraumatic. No pharyngeal erythema. No thyromegaly. CARDIOVASCULAR: S1 and S2 present. No murmurs, rubs, or gallops. PULMONARY: Chest is clear to auscultation, no wheezing or crackles. ABDOMEN: Soft, nontender, nondistended, normoactive bowel sounds. No palpable organomegaly. MUSCULOSKELETAL: No joint swelling or deformity. EXTREMITIES: No cyanosis, clubbing, or pedal edema. NEUROLOGICAL: Gross neurological examination did not reveal any focal deficits. SKIN: No rashes. LABORATORY DATA: CBC and BMP are abnormal for macrocytic anemia, We will obtain a B12 level and BUN of 62, creatinine of 5.8. UA is essentially negative. A chest x-ray did not show any significant abnormality. Venous Doppler of the lower extremity any right lower extremity negative for DVT and foot x-ray did not show any significant osteomyelitis and fifth metatarsal amputation. ASSESSMENT AND PLAN: 1. Sepsis secondary to severe right lower limb cellulitis with wounds which are secondary to peripheral vascular disease as well as diabetes mellitus. Patient was started on broad-spectrum antibiotics and infectious disease was consulted. Patient was started on vancomycin and Unasyn, considering that patient has pseudomonas in the past, probably patient will be benefit from Zosyn and local wound care. I will leave the decision of changing the antibiotic to Dr. Carlos. 2. Urinary retention from narcotic pain medications, but patient is having severe pain so I have to go ahead and give him morphine and we do not have much other choices. Actually Dilaudid is preferable because of his renal dysfunction. 3. End stage renal disease, the patient is hemodialysis -dependent. Patient is Wednesday, Wednesday, Wednesday hemodialysis, which he will start from tomorrow here. Nephrology was consulted. 4. End stage renal disease secondary to diabetic nephropathy. 5. Anemia of chronic disease or anemia of chronic kidney disease, although patient has microcytic anemia and I will obtain a B12 level. Patient may have mixed anemia. 6. Legally blind. 7. Type 2 diabetes mellitus. 8. Metabolic bone disease and ( ) for which patient is on high doses of ( ), which will be continued. 9. Peripheral vascular disease. 10. History of carotid endarterectomy and multiple amputation procedures in the past. Patient has multiple medical problems, on multiple medications and IV antibiotics. Continue hemodialysis. Pain management. Consult infectious disease.
[2016-11-15] MEDS: PRAVASTATIN SODIUM 80 MG TAB PO SCH (21:11)
[2016-11-15] MEDS: CINACALCET 30 MG TAB PO SCH (21:11)
[2016-11-15] MEDS: METOPROLOL TARTRATE 25 MG TAB PO SCH (21:11)
[2016-11-15] MEDS: AMIODARONE 200 MG TAB PO SCH (21:12)
[2016-11-16] MEDS: BACITRACIN BOTH EYES SCH ×12 (02:34→23:44)
[2016-11-16] MEDS: HYDROmorphone 1 MG/ML 1 ML SYRINGE IM PRN ×3 (02:36→20:16)
[2016-11-16] MEDS: HYDROcodone/APAP 7.5-325MG 1 EACH TAB PO PRN ×3 (02:39→20:15)
[2016-11-16] MEDS: SODIUM CHLORIDE 0.9% 1,000 ML IV SCH (05:35)
[2016-11-16] MEDS ORDERED: VANCOMYCIN 2,000 MG in SODIUM CHLORIDE 0.9% 500 ML IVPB ONE (06:00)
[2016-11-16 07:36] LABS: CH 33.1; CHCM 31.6; HCT 28.2 % (39.0-53.0); HDW 3.31; HGB 8.8 gm/dL (13.0-17.5); Hypochromasia Slight; MCH 32.9 pg (25.0-35.0); MCHC 31.1 g/dL (31.0-37.0); MCV 105.5 fL (80.0-100.0); Macrocytosis Moderate; Mean Platelet Volume 8.5; RBC 2.67 m/uL (4.30-5.90); RDW 15.6 % (11.5-15.5)
[2016-11-16 08:03] LABS: Glucose,Whole Blood 138 mg/dL (75-99)
[2016-11-16 08:40] LABS: Calcium 7.8 mg/dL (8.4-10.2); Phosphorous 4.4 mg/dL (2.5-4.5); Potassium 4.5 mmol/L (3.5-5.1)
[2016-11-16 08:56] LABS: Hemoglobin A1C 5.3 % (4.2-6.1)
[2016-11-16] MEDS ORDERED: CINACALCET 30 MG TAB PO SCH (09:00)
[2016-11-16] MEDS: INSULIN LISPRO (humaLOG) 300 UNIT/3 ML VIAL SQ SCH ×4 (09:44→20:21)
[2016-11-16] MEDS: SEVELAMER 800 MG TAB PO SCH ×3 (09:52→18:50)
[2016-11-16] MEDS: ALLOPURINOL 100 MG TAB PO SCH (09:54)
[2016-11-16] MEDS: AMIODARONE 200 MG TAB PO SCH ×2 (09:54→20:18)
[2016-11-16] MEDS: CLOPIDOGREL 75 MG TAB PO SCH (09:56)
[2016-11-16] MEDS: CALCIUM POLYCARBOPHIL 625 MG TAB PO SCH (09:56)
[2016-11-16] MEDS: CINACALCET 30 MG TAB PO SCH ×2 (09:57→20:17)
[2016-11-16] MEDS: DULoxetine HCL 30 MG CAPSULE.DR PO SCH (09:58)
[2016-11-16] MEDS: FAMOTIDINE 20 MG TAB PO SCH (09:58)
[2016-11-16] MEDS: METOPROLOL TARTRATE 25 MG TAB PO SCH ×2 (09:58→20:18)
[2016-11-16] MEDS: SILVER sulfADIAZINE Cream 400 GM 1 APPLIC APPLIC TOPICAL SCH ×2 (09:59→20:18)
[2016-11-16] MEDS: PANTOPRAZOLE 40 MG/10 ML VIAL IV SCH (09:59)
[2016-11-16] MEDS: SODIUM BICARBONATE TAB 650 MG TAB PO SCH ×2 (10:00→20:18)
[2016-11-16] MEDS ORDERED: GELATIN SPONGE,ABSORB (SMALL) 1 EACH SPONGE ONE (10:00)
[2016-11-16] MEDS: traMADol 50 MG TAB PO SCH ×4 (10:03→23:12)
--- NOTE | 2016-11-16 10:35 | P.PN ---
Subjective Patient is seen in follow-up for end-stage renal disease. He is maintained on hemodialysis on a Wednesday schedule via left upper extremity AV fistula. Patient presented with weakness and aches in his right lower extremity. Appetite is good. Denies any chest pain or shortness of breath. No vomiting or diarrhea. Currently maintained on antibiotics for cellulitis. Vital signs are stable. General: The patient appeared well nourished and normally developed. HEENT: Head exam is unremarkable. Neck is without jugular venous distension. LUNGS: Lungs are clear to auscultation and percussion. Breath sounds decreased. HEART: Rate and Rhythm are regular. First and second heart sounds normal. No murmurs, rubs or gallops. ABDOMEN: Abdominal exam reveals normal bowel sounds. Non-tender and non- distended. No evidence of peritonitis. EXTREMITITES: No clubbing, cyanosis, or edema. No obvious drainage from wound dressing. Objective - Vital Signs Vital signs: Vital Signs Temp 97.9 F 11/16/16 07:00 Pulse 73 11/16/16 07:00 Resp 17 11/16/16 07:00 BP 129/61 11/16/16 07:00 Pulse Ox 98 11/16/16 07:00 Intake & Output 11/15/16 11/16/16 11/16/16 18:59 06:59 18:59 Intake Total 420 Output Total 1200 Balance -1200 420 Intake: IV 240 Sodium Chloride 0.9% 1, 240 000 ml @ 20 mls/hr IV . Q24H [facility] Rx#:[id number] Oral 180 Output: Urine 1200 Straight 600 Other: Voiding Method Diaper Diaper - Labs CBC & Chem 7: 11/16/16 07:08 11/16/16 07:08 Labs: Abnormal Lab Results - Last 24 Hours (Table) 11/15/16 11/15/16 11/15/16 Range/Units 11:43 17:10 20:02 RBC (4.30-5.90) m/uL Hgb (13.0-17.5) gm/dL Hct (39.0-53.0) % MCV (80.0-100.0) fL RDW (11.5-15.5) % Plt Count (150-450) k/uL Sodium (137-145) mmol/L Chloride (98-107) mmol/L BUN (9-20) mg/dL Creatinine (0.66-1.25) mg/dL Glucose (74-99) mg/dL POC Glucose (mg/dL) 195 H 179 H 211 H (75-99) mg/dL Calcium (8.4-10.2) mg/dL 11/16/16 11/16/16 11/16/16 Range/Units 07:08 07:08 07:43 RBC 2.67 L (4.30-5.90) m/uL Hgb 8.8 L (13.0-17.5) gm/dL Hct 28.2 L (39.0-53.0) % MCV 105.5 H (80.0-100.0) fL RDW 15.6 H (11.5-15.5) % Plt Count 115 L (150-450) k/uL Sodium 134 L (137-145) mmol/L Chloride 92 L (98-107) mmol/L BUN 92 H* (9-20) mg/dL Creatinine 8.17 H* (0.66-1.25) mg/dL Glucose 137 H (74-99) mg/dL POC Glucose (mg/dL) 138 H (75-99) mg/dL Calcium 7.8 L (8.4-10.2) mg/dL Assessment and Plan Plan: Assessment: #1. End-stage renal disease maintained on hemodialysis on a Wednesday schedule via left upper extremity AV fistula. #2. Right lower extremity cellulitis. #3. Anemia of chronic kidney disease. #4. Chronic kidney disease mineral bone disease. #5. Diabetes mellitus. #6. Hypocalcemia secondary to chronic kidney disease as well as hypoalbuminemia. Plan: Hemodialysis today with goal to liters ultrafiltration. Maintain Aranesp. Check ferritin level and iron studies. Maintain Renvela with meals. Nephrocaps daily. Antibiotics per infectious disease recommendations. Monitor bicarb and calcium. Doses of bicarbonate supplementation as well as calcitriol may need to be decreased.
[2016-11-16 11:23] LABS: % Iron Saturation 20.2 % (20-50)
[2016-11-16 11:41] LABS: Glucose,Whole Blood 138 mg/dL (75-99)
[2016-11-16] MEDS: FOLIC ACID-VIT B COMPLEX-VIT C 1 CAP PO SCH (12:34)
[2016-11-16] MEDS: ASCORBIC ACID 500 MG TAB PO SCH (12:35)
--- NOTE | 2016-11-16 15:17 | P.PN ---
Subjective Date of service 11/16/2016. Progress note being dictated for Dr. Matthews asthma. Interval history: This 51-year-old gentleman admitted with sepsis secondary to severe right lower limb cellulitis, wounds related to peripheral vascular disease, diabetes mellitus, in a patient with history of Pseudomonas, end-stage renal disease on dialysis and multiple other medical issues. Maintained on Zosyn and vancomycin as per infectious disease. Scheduled for dialysis today. Good diet intake with no nausea or vomiting. Denies chest pain, palpitations or increasing shortness of breath. Objective - Vital Signs Vital signs: Vital Signs Temp 97.9 F 11/16/16 07:00 Pulse 73 11/16/16 07:00 Resp 17 11/16/16 07:00 BP 129/61 11/16/16 07:00 Pulse Ox 98 11/16/16 07:00 Intake & Output 11/15/16 11/16/16 11/16/16 18:59 06:59 18:59 Intake Total 420 Output Total 1200 Balance -1200 420 Intake: IV 240 Sodium Chloride 0.9% 1, 240 000 ml @ 20 mls/hr IV . Q24H [facility] Rx#:[id number] Oral 180 Output: Urine 1200 Straight 600 Other: Voiding Method Diaper Diaper - Exam PHYSICAL EXAM: VITAL SIGNS: As above GENERAL: [Sitting up in bed, a & O 3, tired appearing] HEENT: conjunctiva normal, normocephalic, atraumatic.] NECK: [Supple, no JVD] RESPIRATORY EFFORT:[Normal] LUNGS: [Diminished, no wheezing, no crackles] CARDIOVASCULAR[regular S1 and S2, no murmurs rubs or gallops] GI: [Abdomen soft, nontender, positive bowel sounds, no organomegaly.] PSYCH: [Alert and oriented -3, mood and affect normal.] SKIN: Right leg dressing clean dry and intact NEURO: Gross neurological examination did not reveal any focal deficits Microbiology 11/14/16 13:55 Urine,Catheterized Urine Culture - Final 11/14/16 00:05 Blood Blood Culture - Preliminary No Growth after 24 hours 11/14/16 23:30 Leg - Right Gram Stain - Preliminary 11/14/16 23:30 Leg - Right Wound Culture - Preliminary - Labs CBC & Chem 7: 11/16/16 07:08 11/16/16 07:08 Labs: Abnormal Lab Results - Last 24 Hours (Table) 11/15/16 11/15/16 11/16/16 Range/Units 17:10 20:02 07:08 RBC (4.30-5.90) m/uL Hgb (13.0-17.5) gm/dL Hct (39.0-53.0) % MCV (80.0-100.0) fL RDW (11.5-15.5) % Plt Count (150-450) k/uL Sodium 134 L (137-145) mmol/L Chloride 92 L (98-107) mmol/L BUN 92 H* (9-20) mg/dL Creatinine 8.17 H* (0.66-1.25) mg/dL Glucose 137 H (74-99) mg/dL POC Glucose (mg/dL) 179 H 211 H (75-99) mg/dL Calcium 7.8 L (8.4-10.2) mg/dL 11/16/16 11/16/16 11/16/16 Range/Units 07:08 07:43 11:35 RBC 2.67 L (4.30-5.90) m/uL Hgb 8.8 L (13.0-17.5) gm/dL Hct 28.2 L (39.0-53.0) % MCV 105.5 H (80.0-100.0) fL RDW 15.6 H (11.5-15.5) % Plt Count 115 L (150-450) k/uL Sodium (137-145) mmol/L Chloride (98-107) mmol/L BUN (9-20) mg/dL Creatinine (0.66-1.25) mg/dL Glucose (74-99) mg/dL POC Glucose (mg/dL) 138 H 138 H (75-99) mg/dL Calcium (8.4-10.2) mg/dL Assessment and Plan Plan: 1. [Sepsis secondary to severe right lower limb cellulitis with wounds, related to peripheral vascular disease and diabetes mellitus in a patient with history of Pseudomonas]. 2. [Urinary retention secondary to narcotics]. 3. [End-stage renal disease on hemodialysis Wednesday, Wednesday, Wednesday]. 4. [Anemia, of chronic disease]. 5. [Legally blind]. 6. [Diabetes mellitus type 2]. 7. [Chronic kidney disease Min[place] bone disease]. 8. Peripheral vascular disease 9. History of carotid endarterectomy and multiple amputation procedures in the past. 10. Hypocalcemia secondary to CKD, hypoalbuminemia Plan: Continue on current medication regime ,monitoring and symptomatic treatment. Ferritin/iron studies pending. Antibiotics and wound care as per ID. Scheduled for dialysis today. Pain management. Further recommendations to follow. The impression and plan of care has been dictated as directed. : I performed a H&P examination of this patient and discussed the same with the dictator. I agree with the dictator's note. Any additional findings/opinions/ etc. will be noted.
[2016-11-16 17:25] LABS: Hepatitis B Surface Ag Index 0.08
[2016-11-16 17:25] LABS: Glucose,Whole Blood 113 mg/dL (75-99)
[2016-11-16 17:30] LABS: Hepatitis B Core IgM Index 0.03
[2016-11-16 17:44] LABS: Hepatitis B Surface Antibody Negative (Negative)
[2016-11-16 20:17] LABS: Glucose,Whole Blood 135 mg/dL (75-99)
[2016-11-16] MEDS: PRAVASTATIN SODIUM 80 MG TAB PO SCH (20:18)
[2016-11-16] MEDS: INSULIN DETEMIR 100 UNIT/ML 10 ML VIAL SQ SCH (20:20)
--- NOTE | 2016-11-16 22:17 | P.PN ---
Subjective Principal diagnosis: cellulitis right leg 51-year-old male please note infectious disease service from his many hospitalizations and ongoing difficulties with ulceration to his right foot. His many Occasions to his diabetes mellitus type 2 that included peripheral vascular disease, coronary disease, end-stage renal disease on hemodialysis. 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 And also has had other toe amputations. In the fall he was having difficulties with severe ulceration of the foot and underwent further amputation. He was treated with a protracted course of intravenous antibiotic therapy for the hospitalist service foot. Eventually this improved and his antibiotic therapy completed. He's been following the wound center with some local wound care. Was doing relatively well [place] had the sudden onset of pain and swelling and erythema to the right leg. With this he presented to Hospital and had evaluation was requested. The patient relates that he's had a bit of a fever in the home setting. In the legs become uncomfortable swollen and quite tender to touch. He believes he is and a low-grade fever with chill but no rigor. Left leg without acute change. Has been going to dialysis. as just completed dialysis today. The leg is feeling better. Objective - Vital Signs Vital signs: Vital Signs Temp 97.6 F 11/16/16 15:00 Pulse 67 11/16/16 16:00 Resp 18 11/16/16 16:00 BP 117/59 11/16/16 15:00 Pulse Ox 98 11/16/16 15:00 Intake & Output 11/16/16 11/16/16 11/17/16 06:59 18:59 06:59 Intake Total 420 240 Balance 420 240 Intake: IV 240 240 Sodium Chloride 0.9% 1, 240 240 000 ml @ 20 mls/hr IV . Q24H [facility] Rx#:[id number] Oral 180 Other: Voiding Method Diaper Diaper - Exam 51-year-old male who suffers from superobesity, and sleep apnea. Relates it is not very comfortable because of pain to the right leg. HEENT: Anicteric conjunctiva are pink and moist nasal mucosa grossly intact without significant lesions, there is no thrush. Poor dentition Neck: The neck is supple without significant lymphadenopathy or thyromegaly. Lungs: Symmetrical air entry is noted. Expiratory wheezes are scattered throughout the lung joseph. But no joshua bronchial sounds are heard. No egophony. Heart: Irregular with an audible S1 and S2 positive S4 no audible murmur click or rub. Abdomen: Obese, Positive bowel sounds soft and nontender without palpable masses or organomegaly. There was no guarding or rebound. Extremities: The upper extremity show evidence of no stiff in lesions and the shunt to the left arm is functioning well But no open ulcers are seen on the right upper extremity left arm without lesions. IV site looks intact in the right arm. the right anterior chest wall is without erythema or tenderness. The lower extremity show evidence of some lower extremity edema greater on the right than the left. Left foot without acute lesions. The right lower extremity shows evidence of the significant changes. There is evidence of extensive erythema that is present from the foot to the leg especially anteriorly. There is been some skin peeling. It is tender it is with some warmth and erythema. The chronic ulceration to the lateral aspect of the foot is quite stable. There is some granulation and some slough. There is no gangrenous change seen at that area. There is some drainage that's evident between the toes. But they're not very tender but he does have neuropathy. Neuro: Awake alert oriented to person place and time. He has very poor vision and has significant peripheral neuropathy from his diabetes but no acute gross focal sensory motor deficits are noted. - Labs CBC & Chem 7: 11/16/16 07:08 11/16/16 07:08 Labs: Abnormal Lab Results - Last 24 Hours (Table) 11/16/16 11/16/16 11/16/16 Range/Units 07:08 07:08 07:08 RBC 2.67 L (4.30-5.90) m/uL Hgb 8.8 L (13.0-17.5) gm/dL Hct 28.2 L (39.0-53.0) % MCV 105.5 H (80.0-100.0) fL RDW 15.6 H (11.5-15.5) % Plt Count 115 L (150-450) k/uL Sodium 134 L (137-145) mmol/L Chloride 92 L (98-107) mmol/L BUN 92 H* (9-20) mg/dL Creatinine 8.17 H* (0.66-1.25) mg/dL Glucose 137 H (74-99) mg/dL POC Glucose (mg/dL) (75-99) mg/dL Calcium 7.8 L (8.4-10.2) mg/dL Iron 39 L (49-181) ug/dL TIBC 193 L (261-462) ug/dL Ferritin 1970 H (18-464) ng/mL 11/16/16 11/16/16 11/16/16 Range/Units 07:43 11:35 17:16 RBC (4.30-5.90) m/uL Hgb (13.0-17.5) gm/dL Hct (39.0-53.0) % MCV (80.0-100.0) fL RDW (11.5-15.5) % Plt Count (150-450) k/uL Sodium (137-145) mmol/L Chloride (98-107) mmol/L BUN (9-20) mg/dL Creatinine (0.66-1.25) mg/dL Glucose (74-99) mg/dL POC Glucose (mg/dL) 138 H 138 H 113 H (75-99) mg/dL Calcium (8.4-10.2) mg/dL Iron (49-181) ug/dL TIBC (261-462) ug/dL Ferritin (18-464) ng/mL 11/16/16 Range/Units 20:13 RBC (4.30-5.90) m/uL Hgb (13.0-17.5) gm/dL Hct (39.0-53.0) % MCV (80.0-100.0) fL RDW (11.5-15.5) % Plt Count (150-450) k/uL Sodium (137-145) mmol/L Chloride (98-107) mmol/L BUN (9-20) mg/dL Creatinine (0.66-1.25) mg/dL Glucose (74-99) mg/dL POC Glucose (mg/dL) 135 H (75-99) mg/dL Calcium (8.4-10.2) mg/dL Iron (49-181) ug/dL TIBC (261-462) ug/dL Ferritin (18-464) ng/mL Laboratory Results WBC 7.0 k/uL (3.8-10.6) 11/16/16 07:08 RBC 2.67 m/uL (4.30-5.90) L 11/16/16 07:08 Hgb 8.8 gm/dL (13.0-17.5) L 11/16/16 07:08 Hct 28.2 % (39.0-53.0) L 11/16/16 07:08 MCV 105.5 fL (80.0-100.0) H 11/16/16 07:08 MCH 32.9 pg (25.0-35.0) 11/16/16 07:08 MCHC 31.1 g/dL (31.0-37.0) 11/16/16 07:08 RDW 15.6 % (11.5-15.5) H 11/16/16 07:08 Plt Count 115 k/uL (150-450) L 11/16/16 07:08 Neutrophils % 86 % 11/15/16 07:04 Lymphocytes % 6 % 11/15/16 07:04 Monocytes % 5 % 11/15/16 07:04 Eosinophils % 0 % 11/15/16 07:04 Basophils % 0 % 11/15/16 07:04 Neutrophils # 6.1 k/uL (1.3-7.7) 11/15/16 07:04 Lymphocytes # 0.4 k/uL (1.0-4.8) L 11/15/16 07:04 Monocytes # 0.3 k/uL (0-1.0) 11/15/16 07:04 Eosinophils # 0.0 k/uL (0-0.7) 11/15/16 07:04 Basophils # 0.0 k/uL (0-0.2) 11/15/16 07:04 Hypochromasia Slight 11/16/16 07:08 Poikilocytosis Slight 11/15/16 07:04 Macrocytosis Moderate 11/16/16 07:08 PT 11.3 sec (9.0-12.0) 11/14/16 00:05 INR 1.1 (<1.1) 11/14/16 00:05 APTT 31.6 sec (22.0-30.0) H 11/14/16 00:05 Sodium 134 mmol/L (137-145) L 11/16/16 07:08 Potassium 4.5 mmol/L (3.5-5.1) 11/16/16 07:08 Chloride 92 mmol/L (98-107) L 11/16/16 07:08 Carbon Dioxide 26 mmol/L (22-30) 11/16/16 07:08 Anion Gap 16 mmol/L 11/16/16 07:08 BUN 92 mg/dL (9-20) H* 11/16/16 07:08 Creatinine 8.17 mg/dL (0.66-1.25) H* 11/16/16 07:08 Est GFR (MDRD) Af Amer 8 (>60 ml/min/1.73 sqM) 11/16/16 07:08 Est GFR (MDRD) Non-Af 7 (>60 ml/min/1.73 sqM) 11/16/16 07:08 Glucose 137 mg/dL (74-99) H 11/16/16 07:08 POC Glucose (mg/dL) 135 mg/dL (75-99) H 11/16/16 20:13 POC Glu [employer] Maintenance Supervisor Laurie Peterson 11/16/16 20:[address] Glu mg/dL 105 mg/dL 11/15/16 07:04 Hemoglobin A1c 5.3 % (4.2-6.1) 11/15/16 07:04 Plasma Lactic Acid Rambo 1.7 mmol/L (0.7-2.0) 11/14/16 00:05 Calcium 7.8 mg/dL (8.4-10.2) L 11/16/16 07:08 Ionized Calcium Hai 4.1 mg/dL (4.5-5.3) L 11/15/16 07:04 Phosphorus 4.4 mg/dL (2.5-4.5) 11/16/16 07:08 Magnesium 2.0 mg/dL (1.6-2.3) 11/14/16 00:05 Iron 39 ug/dL (49-181) L 11/16/16 07:08 TIBC 193 ug/dL (261-462) L 11/16/16 07:08 % Saturation 20.2 % (20-50) 11/16/16 07:08 Ferritin 1970 ng/mL (18-464) H 11/16/16 07:08 Total Bilirubin 0.6 mg/dL (0.2-1.3) 11/14/16 00:05 AST 22 U/L (17-59) 11/14/16 00:05 ALT 57 U/L (21-72) 11/14/16 00:05 Alkaline Phosphatase 126 U/L (38-126) 11/14/16 00:05 Total Creatine Kinase 79 U/L (55-170) 11/14/16 00:05 CK-MB (CK-2) 0.9 ng/mL (0.0-2.4) 11/14/16 00:05 CK-MB (CK-2) Rel Index 1.1 11/14/16 00:05 Troponin I 0.029 ng/mL (0.000-0.034) 11/14/16 00:05 Total Protein 5.0 g/dL (6.3-8.2) L 11/14/16 00:05 Albumin 2.8 g/dL (3.5-5.0) L 11/14/16 00:05 Vitamin B12 393 pg/mL (239-931) 11/16/16 07:08 TSH 2.760 mIU/L (0.465-4.680) 11/14/16 00:05 Free T4 1.51 ng/dL (0.78-2.19) 11/14/16 00:05 Free T3 pg/mL 2.6 pg/ml (2.8-5.3) L 11/14/16 00:05 Urine Color Yellow 11/14/16 13:55 Urine Appearance Clear (Clear) 11/14/16 13:55 Urine pH 8.5 (5.0-8.0) H 11/14/16 13:55 Ur Specific [facility] [place] 1.009 (1.001-1.035) 11/14/16 13:55 Urine Protein 2+ (Negative) H 11/14/16 13:55 Urine Glucose (UA) Negative (Negative) 11/14/16 13:55 Urine Ketones Negative (Negative) 11/14/16 13:55 Urine Blood Negative (Negative) 11/14/16 13:55 Urine Nitrate Negative (Negative) 11/14/16 13:55 Urine Bilirubin Negative (Negative) 11/14/16 13:55 Urine Urobilinogen <2.0 mg/dL (<2.0) 11/14/16 13:55 Ur Leukocyte Esterase Negative (Negative) 11/14/16 13:55 Urine RBC 8 /hpf (0-5) H 11/14/16 13:55 Urine WBC 2 /hpf (0-5) 11/14/16 13:55 Stool Occult Blood Negative (Negative) 11/15/16 00:50 Hep Bs Antigen Negative 11/16/16 16:12 Hep Bs Antibody Negative (Negative) 11/16/16 16:12 Hep B Core IgM Ab NEGATIVE 11/16/16 16:12 Microbiology 11/14/16 13:55 Urine,Catheterized Urine Culture - Final 11/14/16 00:05 Blood Blood Culture - Preliminary No Growth after 24 hours 11/14/16 23:30 Leg - Right Gram Stain - Preliminary 11/14/16 23:30 Leg - Right Wound Culture - Preliminary Assessment and Plan (1) Cellulitis of leg, right Narrative/Plan: 51-year-old male who has multiple medical troubles that include end- stage renal disease, diabetes mellitus type 2, peripheral vascular disease. His CSF and ulceration to his right foot throughout the last year has had the amputation of the fourth and fifth toes. This pattern open ulceration the recent evaluation 10 showed evidence of no ongoing active osteomyelitis. Recent x-rays at this time also failed to show evidence of osteomyelitis. However there is no extensive cellulitis occurring to that right lower extremity it is quite uncomfortable. The patient does feel poorly overall related to this acute infectious process. Antibiotic therapy with vancomycin will be utilized and also adding gram-negative coverage with his known history of prior pseudomonas at that site. Ceftazidime will be initiated and local wound care can be done with a Silvadene wrap and minimal compression. Elevational he is at rest. Has been evaluated by vascular surgery without plans for an acute surgical intervention. Continue with his hemodialysis to maintain as much edema control as possible. The leg is heavily improved today. Erythema is improved. There is evidence of some residual blistering but this is also improved. No other new lesions are seen. Patient does feel better. Did well with dialysis. Ongoing close glucose monitoring. His anemia is about his baseline and does not have significant leukocytosis. Fever is improved. 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
[2016-11-17] MEDS: HYDROcodone/APAP 7.5-325MG 1 EACH TAB PO PRN ×4 (00:49→18:15)
[2016-11-17] MEDS: BACITRACIN BOTH EYES SCH ×11 (00:55→22:58)
[2016-11-17] MEDS: SODIUM CHLORIDE 0.9% 1,000 ML IV SCH (04:35)
[2016-11-17 08:15] LABS: Glucose,Whole Blood 107 mg/dL (75-99)
[2016-11-17 08:21] LABS: Calcium 7.7 mg/dL (8.4-10.2); Potassium 4.1 mmol/L (3.5-5.1)
[2016-11-17] MEDS: INSULIN LISPRO (humaLOG) 300 UNIT/3 ML VIAL SQ SCH ×4 (08:26→21:26)
[2016-11-17] MEDS: traMADol 50 MG TAB PO SCH ×4 (08:37→21:33)
[2016-11-17] MEDS: SEVELAMER 800 MG TAB PO SCH ×3 (08:38→18:16)
[2016-11-17] MEDS: AMIODARONE 200 MG TAB PO SCH ×2 (08:39→21:26)
[2016-11-17] MEDS: ALLOPURINOL 100 MG TAB PO SCH (08:39)
[2016-11-17] MEDS: CINACALCET 30 MG TAB PO SCH ×2 (08:40→21:26)
[2016-11-17] MEDS: CALCIUM POLYCARBOPHIL 625 MG TAB PO SCH (08:40)
[2016-11-17] MEDS: ASCORBIC ACID 500 MG TAB PO SCH (08:41)
[2016-11-17] MEDS: SODIUM BICARBONATE TAB 650 MG TAB PO SCH (08:41)
[2016-11-17] MEDS: DULoxetine HCL 30 MG CAPSULE.DR PO SCH (08:41)
[2016-11-17] MEDS: CLOPIDOGREL 75 MG TAB PO SCH (08:41)
[2016-11-17] MEDS: FAMOTIDINE 20 MG TAB PO SCH (08:41)
[2016-11-17] MEDS: METOPROLOL TARTRATE 25 MG TAB PO SCH ×2 (08:42→21:26)
[2016-11-17] MEDS: SILVER sulfADIAZINE Cream 400 GM 1 APPLIC APPLIC TOPICAL SCH ×2 (08:42→21:27)
[2016-11-17] MEDS: PANTOPRAZOLE 40 MG/10 ML VIAL IV SCH (08:42)
[2016-11-17] MEDS: FOLIC ACID-VIT B COMPLEX-VIT C 1 CAP PO SCH (08:43)
[2016-11-17] MEDS: HYDROmorphone 1 MG/ML 1 ML SYRINGE IM PRN (11:26)
--- NOTE | 2016-11-17 11:31 | P.PN ---
Subjective Patient is seen in follow-up for end-stage renal disease. He is maintained on hemodialysis on a Wednesday schedule via left upper extremity AV fistula. Patient presented with weakness and aches in his right lower extremity. Appetite is good. Denies any chest pain or shortness of breath. No vomiting or diarrhea. Currently maintained on antibiotics for cellulitis. No other complaints at this time. Vital signs are stable. General: The patient appeared well nourished and normally developed. HEENT: Head exam is unremarkable. Neck is without jugular venous distension. LUNGS: Lungs are clear to auscultation and percussion. Breath sounds decreased. HEART: Rate and Rhythm are regular. First and second heart sounds normal. No murmurs, rubs or gallops. ABDOMEN: Abdominal exam reveals normal bowel sounds. Non-tender and non- distended. No evidence of peritonitis. EXTREMITITES: No clubbing, cyanosis, or edema. No obvious drainage from wound dressing. Objective - Vital Signs Vital signs: Vital Signs Temp 98.1 F 11/17/16 07:00 Pulse 72 11/17/16 08:00 Resp 16 11/17/16 08:00 BP 107/49 11/17/16 07:00 Pulse Ox 98 11/17/16 07:00 Intake & Output 11/16/16 11/17/16 11/17/16 18:59 06:59 18:59 Intake Total 240 780 Balance 240 780 Intake: IV 240 260 Sodium Chloride 0.9% 1, 240 260 000 ml @ 20 mls/hr IV . Q24H [facility] Rx#:[id number] Oral 520 Other: Voiding Method Diaper Toilet Toilet - Labs CBC & Chem 7: 11/16/16 07:08 11/17/16 07:31 Labs: Abnormal Lab Results - Last 24 Hours (Table) 11/16/16 11/16/16 11/16/16 Range/Units 07:08 11:35 17:16 Sodium (137-145) mmol/L Chloride (98-107) mmol/L BUN (9-20) mg/dL Creatinine (0.66-1.25) mg/dL Glucose (74-99) mg/dL POC Glucose (mg/dL) 138 H 113 H (75-99) mg/dL Calcium (8.4-10.2) mg/dL Iron 39 L (49-181) ug/dL TIBC 193 L (261-462) ug/dL Ferritin 1970 H (18-464) ng/mL 11/16/16 11/17/16 11/17/16 Range/Units 20:13 07:31 08:01 Sodium 135 L (137-145) mmol/L Chloride 92 L (98-107) mmol/L BUN 67 H (9-20) mg/dL Creatinine 6.82 H* (0.66-1.25) mg/dL Glucose 111 H (74-99) mg/dL POC Glucose (mg/dL) 135 H 107 H (75-99) mg/dL Calcium 7.7 L (8.4-10.2) mg/dL Iron (49-181) ug/dL TIBC (261-462) ug/dL Ferritin (18-464) ng/mL Assessment and Plan Plan: Assessment: #1. End-stage renal disease maintained on hemodialysis on a Wednesday schedule via left upper extremity AV fistula. #2. Right lower extremity cellulitis. #3. Anemia of chronic kidney disease. #4. Chronic kidney disease mineral bone disease. #5. Diabetes mellitus. #6. Hypocalcemia secondary to chronic kidney disease as well as hypoalbuminemia. Plan: Hemodialysis tomorrow with goal 2 liters ultrafiltration. Maintain Aranesp. Maintain Renvela with meals. Nephrocaps daily. Antibiotics per infectious disease recommendations. Discontinue sodium bicarbonate supplementation.
[2016-11-17 13:02] LABS: Glucose,Whole Blood 183 mg/dL (75-99)
[2016-11-17] MEDS: CALCITRIOL 0.25 MCG CAP PO SCH (13:43)
--- NOTE | 2016-11-17 17:39 | P.PN ---
Subjective Date of service 11/17/2016. Progress note being dictated for Dr. Zapata. Interval history: This 51-year-old gentleman admitted with sepsis secondary to severe right lower limb cellulitis, wounds related to peripheral vascular disease, diabetes mellitus, in a patient with history of Pseudomonas, end-stage renal disease on dialysis and multiple other medical issues. Received dialysis yesterday, tolerated well. Feeling better today, less pain/discomfort. Maintained on IV antibiotics as per infectious disease for cellulitis. Fair diet intake with no nausea or vomiting. Denies chest pain, palpitations or increasing shortness of breath. Afebrile Objective - Vital Signs Vital signs: Vital Signs Temp 98.1 F 11/17/16 07:00 Pulse 72 11/17/16 16:00 Resp 16 11/17/16 16:00 BP 107/49 11/17/16 07:00 Pulse Ox 98 11/17/16 07:00 Intake & Output 11/16/16 11/17/16 11/17/16 18:59 06:59 18:59 Intake Total 240 780 Balance 240 780 Intake: IV 240 260 Sodium Chloride 0.9% 1, 240 260 000 ml @ 20 mls/hr IV . Q24H [facility] Rx#:[id number] Oral 520 Other: Voiding Method Diaper Toilet Toilet - Exam PHYSICAL EXAM: VITAL SIGNS: As above GENERAL: [Sitting up in bed, a & O 3, no acute distress HEENT: conjunctiva normal, normocephalic, atraumatic.] NECK: [Supple, no JVD] RESPIRATORY EFFORT:[Normal] LUNGS: [Diminished, no wheezing, no crackles] CARDIOVASCULAR[regular S1 and S2, no murmurs rubs or gallops] GI: [Abdomen soft, nontender, positive bowel sounds, no organomegaly.] PSYCH: [Alert and oriented -3, mood and affect normal.] SKIN: Right leg dressing clean dry and intact, left upper extremity AV fistula dressing clean dry and intact NEURO: Gross neurological examination did not reveal any focal deficits Microbiology 11/14/16 23:30 Leg - Right Gram Stain - Final 11/14/16 23:30 Leg - Right Wound Culture - Final 11/14/16 00:05 Blood Blood Culture - Preliminary No Growth after 48 hours 11/14/16 13:55 Urine,Catheterized Urine Culture - Final - Labs CBC & Chem 7: 11/16/16 07:08 11/17/16 07:31 Labs: Abnormal Lab Results - Last 24 Hours (Table) 11/16/16 11/17/16 11/17/16 Range/Units 20:13 07:31 08:01 Sodium 135 L (137-145) mmol/L Chloride 92 L (98-107) mmol/L BUN 67 H (9-20) mg/dL Creatinine 6.82 H* (0.66-1.25) mg/dL Glucose 111 H (74-99) mg/dL POC Glucose (mg/dL) 135 H 107 H (75-99) mg/dL Calcium 7.7 L (8.4-10.2) mg/dL 11/17/16 Range/Units 12:25 Sodium (137-145) mmol/L Chloride (98-107) mmol/L BUN (9-20) mg/dL Creatinine (0.66-1.25) mg/dL Glucose (74-99) mg/dL POC Glucose (mg/dL) 183 H (75-99) mg/dL Calcium (8.4-10.2) mg/dL Assessment and Plan Plan: 1. [Sepsis secondary to severe right lower limb cellulitis with wounds, related to peripheral vascular disease and diabetes mellitus in a patient with history of Pseudomonas]. 2. [Urinary retention secondary to narcotics]. 3. [End-stage renal disease on hemodialysis Wednesday, Wednesday, Wednesday]. 4. [Anemia, of chronic disease]. 5. [Legally blind]. 6. [Diabetes mellitus type 2]. 7. [Chronic kidney disease Mineral bone disease]. 8. Peripheral vascular disease 9. History of carotid endarterectomy and multiple amputation procedures in the past. 10. Hypocalcemia secondary to CKD, hypoalbuminemia Plan: Continue on current medication regime ,monitoring and symptomatic treatment. Sodium bicarb discontinued as per nephrology. Follow cultures closely. Antibiotics and wound care as per ID. close monitoring of Accu-Cheks .Scheduled for dialysis tomorrow. Further recommendations to follow. The impression and plan of care has been dictated as directed. : I performed a H&P examination of this patient and discussed the same with the dictator. I agree with the dictator's note. Any additional findings/opinions/ etc. will be noted.
[2016-11-17 17:52] LABS: Glucose,Whole Blood 216 mg/dL (75-99)
[2016-11-17 20:33] LABS: Glucose,Whole Blood 202 mg/dL (75-99)
[2016-11-17] MEDS: PRAVASTATIN SODIUM 80 MG TAB PO SCH (21:26)
[2016-11-17] MEDS: INSULIN DETEMIR 100 UNIT/ML 10 ML VIAL SQ SCH (21:27)
--- NOTE | 2016-11-17 22:09 | P.PN ---
Subjective Principal diagnosis: cellulitis right leg 51-year-old male please note infectious disease service from his many hospitalizations and ongoing difficulties with ulceration to his right foot. His many Occasions to his diabetes mellitus type 2 that included peripheral vascular disease, coronary disease, end-stage renal disease on hemodialysis. 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 And also has had other toe amputations. In the fall he was having difficulties with severe ulceration of the foot and underwent further amputation. He was treated with a protracted course of intravenous antibiotic therapy for the hospitalist service foot. Eventually this improved and his antibiotic therapy completed. He's been following the wound center with some local wound care. Was doing relatively well [place] had the sudden onset of pain and swelling and erythema to the right leg. With this he presented to Hospital and had evaluation was requested. The patient relates that he's had a bit of a fever in the home setting. In the legs become uncomfortable swollen and quite tender to touch. He believes he is and a low-grade fever with chill but no rigor. Left leg without acute change. Has been going well with dialysis. The leg is feeling better. Objective - Vital Signs Vital signs: Vital Signs Temp 98 F 11/17/16 15:00 Pulse 72 11/17/16 16:00 Resp 16 11/17/16 16:00 BP 89/55 11/17/16 15:00 Pulse Ox 95 11/17/16 15:00 Intake & Output 11/17/16 11/17/16 11/18/16 06:59 18:59 06:59 Intake Total 780 Balance 780 Intake: IV 260 Sodium Chloride 0.9% 1, 260 000 ml @ 20 mls/hr IV . Q24H [facility] Rx#:[id number] Oral 520 Other: Voiding Method Toilet Toilet - Exam 51-year-old male who suffers from superobesity, and sleep apnea. Relates it is not very comfortable because of pain to the right leg. HEENT: Anicteric conjunctiva are pink and moist nasal mucosa grossly intact without significant lesions, there is no thrush. Poor dentition Neck: The neck is supple without significant lymphadenopathy or thyromegaly. Lungs: Symmetrical air entry is noted. Expiratory wheezes are scattered throughout the lung joseph. But no joshua bronchial sounds are heard. No egophony. Heart: Irregular with an audible S1 and S2 positive S4 no audible murmur click or rub. Abdomen: Obese, Positive bowel sounds soft and nontender without palpable masses or organomegaly. There was no guarding or rebound. Extremities: The upper extremity show evidence of no stiff in lesions and the shunt to the left arm is functioning well But no open ulcers are seen on the right upper extremity left arm without lesions. IV site looks intact in the right arm. the right anterior chest wall is without erythema or tenderness. The lower extremity show evidence of some lower extremity edema greater on the right than the left. Left foot without acute lesions. The right lower extremity shows evidence of the significant changes. There is evidence of extensive erythema that is present from the foot to the leg especially anteriorly. There is been some skin peeling. It is tender it is with some warmth and erythema. The chronic ulceration to the lateral aspect of the foot is quite stable. There is some granulation and some slough. There is no gangrenous change seen at that area. There is some drainage that's evident between the toes But they're not very tender but he does have neuropathy. The erythema does track upon the anterior thigh this area is also tender but improved from yesterday Neuro: Awake alert oriented to person place and time. He has very poor vision and has significant peripheral neuropathy from his diabetes but no acute gross focal sensory motor deficits are noted. - Labs CBC & Chem 7: 11/16/16 07:08 11/17/16 07:31 Labs: Abnormal Lab Results - Last 24 Hours (Table) 11/17/16 11/17/16 11/17/16 Range/Units 07:31 08:01 12:25 Sodium 135 L (137-145) mmol/L Chloride 92 L (98-107) mmol/L BUN 67 H (9-20) mg/dL Creatinine 6.82 H* (0.66-1.25) mg/dL Glucose 111 H (74-99) mg/dL POC Glucose (mg/dL) 107 H 183 H (75-99) mg/dL Calcium 7.7 L (8.4-10.2) mg/dL 11/17/16 11/17/16 Range/Units 17:21 20:31 Sodium (137-145) mmol/L Chloride (98-107) mmol/L BUN (9-20) mg/dL Creatinine (0.66-1.25) mg/dL Glucose (74-99) mg/dL POC Glucose (mg/dL) 216 H 202 H (75-99) mg/dL Calcium (8.4-10.2) mg/dL Laboratory Results WBC 7.0 k/uL (3.8-10.6) 11/16/16 07:08 RBC 2.67 m/uL (4.30-5.90) L 11/16/16 07:08 Hgb 8.8 gm/dL (13.0-17.5) L 11/16/16 07:08 Hct 28.2 % (39.0-53.0) L 11/16/16 07:08 MCV 105.5 fL (80.0-100.0) H 11/16/16 07:08 MCH 32.9 pg (25.0-35.0) 11/16/16 07:08 MCHC 31.1 g/dL (31.0-37.0) 11/16/16 07:08 RDW 15.6 % (11.5-15.5) H 11/16/16 07:08 Plt Count 115 k/uL (150-450) L 11/16/16 07:08 Neutrophils % 86 % 11/15/16 07:04 Lymphocytes % 6 % 11/15/16 07:04 Monocytes % 5 % 11/15/16 07:04 Eosinophils % 0 % 11/15/16 07:04 Basophils % 0 % 11/15/16 07:04 Neutrophils # 6.1 k/uL (1.3-7.7) 11/15/16 07:04 Lymphocytes # 0.4 k/uL (1.0-4.8) L 11/15/16 07:04 Monocytes # 0.3 k/uL (0-1.0) 11/15/16 07:04 Eosinophils # 0.0 k/uL (0-0.7) 11/15/16 07:04 Basophils # 0.0 k/uL (0-0.2) 11/15/16 07:04 Hypochromasia Slight 11/16/16 07:08 Poikilocytosis Slight 11/15/16 07:04 Macrocytosis Moderate 11/16/16 07:08 PT 11.3 sec (9.0-12.0) 11/14/16 00:05 INR 1.1 (<1.1) 11/14/16 00:05 APTT 31.6 sec (22.0-30.0) H 11/14/16 00:05 Sodium 135 mmol/L (137-145) L 11/17/16 07:31 Potassium 4.1 mmol/L (3.5-5.1) 11/17/16 07:31 Chloride 92 mmol/L (98-107) L 11/17/16 07:31 Carbon Dioxide 30 mmol/L (22-30) 11/17/16 07:31 Anion Gap 13 mmol/L 11/17/16 07:31 BUN 67 mg/dL (9-20) H 11/17/16 07:31 Creatinine 6.82 mg/dL (0.66-1.25) H* 11/17/16 07:31 Est GFR (MDRD) Af Amer 10 (>60 ml/min/1.73 sqM) 11/17/16 07:31 Est GFR (MDRD) Non-Af 9 (>60 ml/min/1.73 sqM) 11/17/16 07:31 Glucose 111 mg/dL (74-99) H 11/17/16 07:31 POC Glucose (mg/dL) 202 mg/dL (75-99) H 11/17/16 20:31 POC Glu [employer] Lathe Machine Operator ID [place] 11/17/16 20:[address] Glu mg/dL 105 mg/dL 11/15/16 07:04 Hemoglobin A1c 5.3 % (4.2-6.1) 11/15/16 07:04 Plasma Lactic Acid [place] 1.7 mmol/L (0.7-2.0) 11/14/16 00:05 Calcium 7.7 mg/dL (8.4-10.2) L 11/17/16 07:31 Ionized Calcium Hai 4.1 mg/dL (4.5-5.3) L 11/15/16 07:04 Phosphorus 4.4 mg/dL (2.5-4.5) 11/16/16 07:08 Magnesium 2.0 mg/dL (1.6-2.3) 11/14/16 00:05 Iron 39 ug/dL (49-181) L 11/16/16 07:08 TIBC 193 ug/dL (261-462) L 11/16/16 07:08 % Saturation 20.2 % (20-50) 11/16/16 07:08 Ferritin 1970 ng/mL (18-464) H 11/16/16 07:08 Total Bilirubin 0.6 mg/dL (0.2-1.3) 11/14/16 00:05 AST 22 U/L (17-59) 11/14/16 00:05 ALT 57 U/L (21-72) 11/14/16 00:05 Alkaline Phosphatase 126 U/L (38-126) 11/14/16 00:05 Total Creatine Kinase 79 U/L (55-170) 11/14/16 00:05 CK-MB (CK-2) 0.9 ng/mL (0.0-2.4) 11/14/16 00:05 CK-MB (CK-2) Rel Index 1.1 11/14/16 00:05 Troponin I 0.029 ng/mL (0.000-0.034) 11/14/16 00:05 Total Protein 5.0 g/dL (6.3-8.2) L 11/14/16 00:05 Albumin 2.8 g/dL (3.5-5.0) L 11/14/16 00:05 Vitamin B12 393 pg/mL (239-931) 11/16/16 07:08 TSH 2.760 mIU/L (0.465-4.680) 11/14/16 00:05 Free T4 1.51 ng/dL (0.78-2.19) 11/14/16 00:05 Free T3 pg/mL 2.6 pg/ml (2.8-5.3) L 11/14/16 00:05 Urine Color Yellow 11/14/16 13:55 Urine Appearance Clear (Clear) 11/14/16 13:55 Urine pH 8.5 (5.0-8.0) H 11/14/16 13:55 Ur Specific [place] 1.009 (1.001-1.035) 11/14/16 13:55 Urine Protein 2+ (Negative) H 11/14/16 13:55 Urine Glucose (UA) Negative (Negative) 11/14/16 13:55 Urine Ketones Negative (Negative) 11/14/16 13:55 Urine Blood Negative (Negative) 11/14/16 13:55 Urine Nitrate Negative (Negative) 11/14/16 13:55 Urine Bilirubin Negative (Negative) 11/14/16 13:55 Urine Urobilinogen <2.0 mg/dL (<2.0) 11/14/16 13:55 Ur Leukocyte Esterase Negative (Negative) 11/14/16 13:55 Urine RBC 8 /hpf (0-5) H 11/14/16 13:55 Urine WBC 2 /hpf (0-5) 11/14/16 13:55 Stool Occult Blood Negative (Negative) 11/15/16 00:50 Hep Bs Antigen Negative 11/16/16 16:12 Hep Bs Antibody Negative (Negative) 11/16/16 16:12 Hep B Core IgM Ab NEGATIVE 11/16/16 16:12 Microbiology 11/14/16 23:30 Leg - Right Gram Stain - Final 11/14/16 23:30 Leg - Right Wound Culture - Final 11/14/16 00:05 Blood Blood Culture - Preliminary No Growth after 48 hours 11/14/16 13:55 Urine,Catheterized Urine Culture - Final Assessment and Plan (1) Cellulitis of leg, right Narrative/Plan: 51-year-old male who has multiple medical troubles that include end- stage renal disease, diabetes mellitus type 2, peripheral vascular disease. His diabetic ulceration to his right foot throughout the last year has had the amputation of the fourth and fifth toes. This pattern open ulceration the recent evaluation 10 showed evidence of no ongoing active osteomyelitis. Recent x-rays at this time also failed to show evidence of osteomyelitis. However there is no extensive cellulitis occurring to that right lower extremity it is quite uncomfortable. The patient does feel poorly overall related to this acute infectious process. Antibiotic therapy with vancomycin will be utilized and also adding gram- negative coverage with his known history of prior pseudomonas at that site. Ceftazidime will be initiated and local wound care can be done with a Silvadene wrap and minimal compression. Elevational he is at rest. Elevation is stressed again today. Has been evaluated by vascular surgery without plans for an acute surgical intervention. Continue with his hemodialysis to maintain as much edema control as possible. The leg is improved today. Erythema is improved. There is evidence of some residual blistering but this is also improved. No other new lesions are seen. Patient does feel better. Did well with dialysis. Ongoing close glucose monitoring. His anemia is about his baseline and does not have significant leukocytosis. Fever is improved. 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
[2016-11-18] MEDS: BACITRACIN BOTH EYES SCH ×5 (05:30→20:43)
[2016-11-18] MEDS: SODIUM CHLORIDE 0.9% 1,000 ML IV SCH (07:30)
[2016-11-18 07:46] LABS: Glucose,Whole Blood 80 mg/dL (75-99)
[2016-11-18 08:14] LABS: Calcium 7.8 mg/dL (8.4-10.2); Potassium 4.1 mmol/L (3.5-5.1)
[2016-11-18] MEDS: SEVELAMER 800 MG TAB PO SCH ×3 (09:06→17:48)
[2016-11-18] MEDS: INSULIN LISPRO (humaLOG) 300 UNIT/3 ML VIAL SQ SCH ×4 (09:06→20:43)
[2016-11-18] MEDS: AMIODARONE 200 MG TAB PO SCH ×2 (09:07→20:43)
[2016-11-18] MEDS: ASCORBIC ACID 500 MG TAB PO SCH (09:07)
[2016-11-18] MEDS: ALLOPURINOL 100 MG TAB PO SCH (09:07)
[2016-11-18] MEDS: CALCIUM POLYCARBOPHIL 625 MG TAB PO SCH (09:07)
[2016-11-18] MEDS: CLOPIDOGREL 75 MG TAB PO SCH (09:08)
[2016-11-18] MEDS: METOPROLOL TARTRATE 25 MG TAB PO SCH ×2 (09:08→20:46)
[2016-11-18] MEDS: DULoxetine HCL 30 MG CAPSULE.DR PO SCH (09:08)
[2016-11-18] MEDS: FAMOTIDINE 20 MG TAB PO SCH (09:08)
[2016-11-18] MEDS: FOLIC ACID-VIT B COMPLEX-VIT C 1 CAP PO SCH (09:08)
[2016-11-18] MEDS: CINACALCET 30 MG TAB PO SCH ×2 (09:08→20:43)
[2016-11-18] MEDS: SILVER sulfADIAZINE Cream 400 GM 1 APPLIC APPLIC TOPICAL SCH ×2 (09:09→20:44)
[2016-11-18] MEDS: traMADol 50 MG TAB PO SCH ×4 (09:17→22:24)
[2016-11-18 12:07] LABS: Glucose,Whole Blood 134 mg/dL (75-99)
[2016-11-18] MEDS: HYDROcodone/APAP 7.5-325MG 1 EACH TAB PO PRN (12:26)
--- NOTE | 2016-11-18 14:13 | P.PN ---
Subjective Patient is seen in follow-up for end-stage renal disease. He is maintained on hemodialysis on a Wednesday schedule via left upper extremity AV fistula. Patient presented with weakness and aches in his right lower extremity. Appetite is good. Denies any chest pain or shortness of breath. No vomiting or diarrhea. Currently maintained on antibiotics for cellulitis. No other complaints at this time. Vital signs are stable. General: The patient appeared well nourished and normally developed. HEENT: Head exam is unremarkable. Neck is without jugular venous distension. LUNGS: Lungs are clear to auscultation and percussion. Breath sounds decreased. HEART: Rate and Rhythm are regular. First and second heart sounds normal. No murmurs, rubs or gallops. ABDOMEN: Abdominal exam reveals normal bowel sounds. Non-tender and non- distended. No evidence of peritonitis. EXTREMITITES: No clubbing, cyanosis, or edema. No obvious drainage from wound dressing. Objective - Vital Signs Vital signs: Vital Signs Temp 98.1 F 11/18/16 07:00 Pulse 71 11/18/16 07:00 Resp 18 11/18/16 07:00 BP 110/65 11/18/16 07:00 Pulse Ox 99 11/18/16 07:00 Intake & Output 11/17/16 11/18/16 11/18/16 18:59 06:59 18:59 Intake Total 400 Balance 400 Intake: IV 160 Sodium Chloride 0.9% 1, 160 000 ml @ 20 mls/hr IV . Q24H [facility] Rx#:[id number] Oral 240 Other: Voiding Method Toilet Toilet Toilet # Voids 2 - Labs CBC & Chem 7: 11/16/16 07:08 11/18/16 07:26 Labs: Abnormal Lab Results - Last 24 Hours (Table) 11/17/16 11/17/16 11/18/16 Range/Units 17:21 20:31 07:26 Sodium 135 L (137-145) mmol/L Chloride 92 L (98-107) mmol/L BUN 87 H* (9-20) mg/dL Creatinine 8.19 H* (0.66-1.25) mg/dL POC Glucose (mg/dL) 216 H 202 H (75-99) mg/dL Calcium 7.8 L (8.4-10.2) mg/dL 11/18/16 Range/Units 11:43 Sodium (137-145) mmol/L Chloride (98-107) mmol/L BUN (9-20) mg/dL Creatinine (0.66-1.25) mg/dL POC Glucose (mg/dL) 134 H (75-99) mg/dL Calcium (8.4-10.2) mg/dL Assessment and Plan Plan: Assessment: #1. End-stage renal disease maintained on hemodialysis on a Wednesday schedule via left upper extremity AV fistula. #2. Right lower extremity cellulitis. #3. Anemia of chronic kidney disease. #4. Chronic kidney disease mineral bone disease. #5. Diabetes mellitus. #6. Hypocalcemia secondary to chronic kidney disease as well as hypoalbuminemia. Plan: Hemodialysis today with goal 2 liters ultrafiltration. Maintain Aranesp. Maintain Renvela with meals. Nephrocaps daily. Antibiotics per infectious disease recommendations. Discontinued sodium bicarbonate supplementation as of November 17.
[2016-11-18] MEDS: HYDROmorphone 1 MG/ML 1 ML SYRINGE IM PRN ×2 (15:33→20:17)
[2016-11-18 17:01] LABS: Glucose,Whole Blood 164 mg/dL (75-99)
--- NOTE | 2016-11-18 17:48 | P.PN ---
Subjective Principal diagnosis: Patient resting comfortably in bed no complaints expressed Objective - Vital Signs Vital signs: Vital Signs Temp 98.1 F 11/18/16 07:00 Pulse 71 11/18/16 07:00 Resp 18 11/18/16 07:00 BP 110/65 11/18/16 07:00 Pulse Ox 99 11/18/16 07:00 Intake & Output 11/17/16 11/18/16 11/18/16 18:59 06:59 18:59 Intake Total 400 160 Balance 400 160 Intake: IV 160 160 Sodium Chloride 0.9% 1, 160 160 000 ml @ 20 mls/hr IV . Q24H [facility] Rx#:[id number] Oral 240 Other: Voiding Method Toilet Toilet Toilet # Voids 2 - Constitutional General appearance: Present: obese - EENT Eyes: Present: PERRLA Ears: bilateral: normal - Neck Neck: Present: normal ROM - Respiratory Respiratory: bilateral: CTA - Cardiovascular Rhythm: regular - Gastrointestinal General gastrointestinal: Present: soft - Integumentary Integumentary Comment(s): Erythema noted to right lower extremity to the knee - Neurologic Neurologic: Present: CNII-XII intact - Musculoskeletal Musculoskeletal: Present: generalized weakness - Psychiatric Psychiatric: Present: A&O x's 3, appropriate affect, intact judgment & insight - Labs CBC & Chem 7: 11/16/16 07:08 11/18/16 07:26 Labs: Abnormal Lab Results - Last 24 Hours (Table) 11/17/16 11/17/16 11/18/16 Range/Units 17:21 20:31 07:26 Sodium 135 L (137-145) mmol/L Chloride 92 L (98-107) mmol/L BUN 87 H* (9-20) mg/dL Creatinine 8.19 H* (0.66-1.25) mg/dL POC Glucose (mg/dL) 216 H 202 H (75-99) mg/dL Calcium 7.8 L (8.4-10.2) mg/dL 11/18/16 11/18/16 Range/Units 11:43 16:41 Sodium (137-145) mmol/L Chloride (98-107) mmol/L BUN (9-20) mg/dL Creatinine (0.66-1.25) mg/dL POC Glucose (mg/dL) 134 H 164 H (75-99) mg/dL Calcium (8.4-10.2) mg/dL Assessment and Plan Plan: Assessment Sepsis secondary severe right lower limb cellulitis Urinary retention from narcotic pain medication End-stage renal disease patient is on hemodialysis on Wednesday and Wednesday Anemia chronic disease microcytic anemia Medically blind Diabetes type 2 Peripheral vascular disease Plan IV antibiotics continued hemodialysis pain management Consult with vascular surgeon Dr. Olivas Continue consultation with Dr. Terrance Gerwal for hemodialysis
[2016-11-18 20:29] LABS: Glucose,Whole Blood 214 mg/dL (75-99)
[2016-11-18] MEDS: PRAVASTATIN SODIUM 80 MG TAB PO SCH (20:43)
[2016-11-18] MEDS: INSULIN DETEMIR 100 UNIT/ML 10 ML VIAL SQ SCH (20:43)
--- NOTE | 2016-11-18 21:48 | P.PN ---
Subjective Principal diagnosis: cellulitis right leg 51-year-old male please note infectious disease service from his many hospitalizations and ongoing difficulties with ulceration to his right foot. His many Occasions to his diabetes mellitus type 2 that included peripheral vascular disease, coronary disease, end-stage renal disease on hemodialysis. 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 And also has had other toe amputations. In the fall he was having difficulties with severe ulceration of the foot and underwent further amputation. He was treated with a protracted course of intravenous antibiotic therapy for the hospitalist service foot. Eventually this improved and his antibiotic therapy completed. He's been following the wound center with some local wound care. Was doing relatively well [place] had the sudden onset of pain and swelling and erythema to the right leg. With this he presented to Hospital and had evaluation was requested. The patient relates that he's had a bit of a fever in the home setting. The right leg became uncomfortable swollen and quite tender to touch. He believes he is having a low-grade fever with chill but no rigor. Left leg without acute change. Has been going well with dialysis. The leg is feeling better. Still has significant tenderness especially at the medial aspect of the knee on the right. Objective - Vital Signs Vital signs: Vital Signs Temp 98.1 F 11/18/16 07:00 Pulse 71 11/18/16 07:00 Resp 18 11/18/16 07:00 BP 110/65 11/18/16 07:00 Pulse Ox 99 11/18/16 07:00 Intake & Output 11/18/16 11/18/16 11/19/16 06:59 18:59 06:59 Intake Total 400 160 Balance 400 160 Intake: IV 160 160 Sodium Chloride 0.9% 1, 160 160 000 ml @ 20 mls/hr IV . Q24H [facility] Rx#:[id number] Oral 240 Other: Voiding Method Toilet Toilet # Voids 2 - Exam 51-year-old male who suffers from superobesity, and sleep apnea. Relates it is not very comfortable because of pain to the right leg. HEENT: Anicteric conjunctiva are pink and moist nasal mucosa grossly intact without significant lesions, there is no thrush. Poor dentition Neck: The neck is supple without significant lymphadenopathy or thyromegaly. Lungs: Symmetrical air entry is noted. Expiratory wheezes are scattered throughout the lung joseph. But no joshua bronchial sounds are heard. No egophony. Heart: Irregular with an audible S1 and S2 positive S4 no audible murmur click or rub. Abdomen: Obese, Positive bowel sounds soft and nontender without palpable masses or organomegaly. There was no guarding or rebound. Extremities: The upper extremity show evidence of no stiff in lesions and the shunt to the left arm is functioning well But no open ulcers are seen on the right upper extremity left arm without lesions. IV site looks intact in the right arm. the right anterior chest wall is without erythema or tenderness. The lower extremity show evidence of some lower extremity edema greater on the right than the left. Left foot without acute lesions. The right lower extremity shows evidence of the significant changes. There is evidence of extensive erythema that is present from the foot to the leg especially anteriorly. There is been some skin peeling. It is tender it is with some warmth and erythema. The chronic ulceration to the lateral aspect of the foot is quite stable. There is some granulation and some slough. There is no gangrenous change seen at that area. There is some drainage that's evident between the toes But they're not very tender but he does have neuropathy. The erythema does track upon the anterior thigh this area is also tender but improved from yesterday but is very tender at the medial aspect of the knee. This is increased from yesterday. Neuro: Awake alert oriented to person place and time. He has very poor vision and has significant peripheral neuropathy from his diabetes but no acute gross focal sensory motor deficits are noted. - Labs CBC & Chem 7: 11/16/16 07:08 11/18/16 07:26 Labs: Abnormal Lab Results - Last 24 Hours (Table) 11/18/16 11/18/16 11/18/16 Range/Units 07:26 11:43 16:41 Sodium 135 L (137-145) mmol/L Chloride 92 L (98-107) mmol/L BUN 87 H* (9-20) mg/dL Creatinine 8.19 H* (0.66-1.25) mg/dL POC Glucose (mg/dL) 134 H 164 H (75-99) mg/dL Calcium 7.8 L (8.4-10.2) mg/dL 11/18/16 Range/Units 20:27 Sodium (137-145) mmol/L Chloride (98-107) mmol/L BUN (9-20) mg/dL Creatinine (0.66-1.25) mg/dL POC Glucose (mg/dL) 214 H (75-99) mg/dL Calcium (8.4-10.2) mg/dL Laboratory Results WBC 7.0 k/uL (3.8-10.6) 11/16/16 07:08 RBC 2.67 m/uL (4.30-5.90) L 11/16/16 07:08 Hgb 8.8 gm/dL (13.0-17.5) L 11/16/16 07:08 Hct 28.2 % (39.0-53.0) L 11/16/16 07:08 MCV 105.5 fL (80.0-100.0) H 11/16/16 07:08 MCH 32.9 pg (25.0-35.0) 11/16/16 07:08 MCHC 31.1 g/dL (31.0-37.0) 11/16/16 07:08 RDW 15.6 % (11.5-15.5) H 11/16/16 07:08 Plt Count 115 k/uL (150-450) L 11/16/16 07:08 Neutrophils % 86 % 11/15/16 07:04 Lymphocytes % 6 % 11/15/16 07:04 Monocytes % 5 % 11/15/16 07:04 Eosinophils % 0 % 11/15/16 07:04 Basophils % 0 % 11/15/16 07:04 Neutrophils # 6.1 k/uL (1.3-7.7) 11/15/16 07:04 Lymphocytes # 0.4 k/uL (1.0-4.8) L 11/15/16 07:04 Monocytes # 0.3 k/uL (0-1.0) 11/15/16 07:04 Eosinophils # 0.0 k/uL (0-0.7) 11/15/16 07:04 Basophils # 0.0 k/uL (0-0.2) 11/15/16 07:04 Hypochromasia Slight 11/16/16 07:08 Poikilocytosis Slight 11/15/16 07:04 Macrocytosis Moderate 11/16/16 07:08 PT 11.3 sec (9.0-12.0) 11/14/16 00:05 INR 1.1 (<1.1) 11/14/16 00:05 APTT 31.6 sec (22.0-30.0) H 11/14/16 00:05 Sodium 135 mmol/L (137-145) L 11/18/16 07:26 Potassium 4.1 mmol/L (3.5-5.1) 11/18/16 07:26 Chloride 92 mmol/L (98-107) L 11/18/16 07:26 Carbon Dioxide 26 mmol/L (22-30) 11/18/16 07:26 Anion Gap 17 mmol/L 11/18/16 07:26 BUN 87 mg/dL (9-20) H* 11/18/16 07:26 Creatinine 8.19 mg/dL (0.66-1.25) H* 11/18/16 07:26 Est GFR (MDRD) Af Amer 8 (>60 ml/min/1.73 sqM) 11/18/16 07:26 Est GFR (MDRD) Non-Af 7 (>60 ml/min/1.73 sqM) 11/18/16 07:26 Glucose 78 mg/dL (74-99) 11/18/16 07:26 POC Glucose (mg/dL) 214 mg/dL (75-99) H 11/18/16 20:27 POC Glu [employer] ID [place]y Sol[place] 11/18/16 20:[address] Glu mg/dL 105 mg/dL 11/15/16 07:04 Hemoglobin A1c 5.3 % (4.2-6.1) 11/15/16 07:04 Plasma Lactic Acid Rambo 1.7 mmol/L (0.7-2.0) 11/14/16 00:05 Calcium 7.8 mg/dL (8.4-10.2) L 11/18/16 07:26 Ionized Calcium Hai 4.1 mg/dL (4.5-5.3) L 11/15/16 07:04 Phosphorus 4.4 mg/dL (2.5-4.5) 11/16/16 07:08 Magnesium 2.0 mg/dL (1.6-2.3) 11/14/16 00:05 Iron 39 ug/dL (49-181) L 11/16/16 07:08 TIBC 193 ug/dL (261-462) L 11/16/16 07:08 % Saturation 20.2 % (20-50) 11/16/16 07:08 Ferritin 1970 ng/mL (18-464) H 11/16/16 07:08 Total Bilirubin 0.6 mg/dL (0.2-1.3) 11/14/16 00:05 AST 22 U/L (17-59) 11/14/16 00:05 ALT 57 U/L (21-72) 11/14/16 00:05 Alkaline Phosphatase 126 U/L (38-126) 11/14/16 00:05 Total Creatine Kinase 79 U/L (55-170) 11/14/16 00:05 CK-MB (CK-2) 0.9 ng/mL (0.0-2.4) 11/14/16 00:05 CK-MB (CK-2) Rel Index 1.1 11/14/16 00:05 Troponin I 0.029 ng/mL (0.000-0.034) 11/14/16 00:05 Total Protein 5.0 g/dL (6.3-8.2) L 11/14/16 00:05 Albumin 2.8 g/dL (3.5-5.0) L 11/14/16 00:05 Vitamin B12 393 pg/mL (239-931) 11/16/16 07:08 TSH 2.760 mIU/L (0.465-4.680) 11/14/16 00:05 Free T4 1.51 ng/dL (0.78-2.19) 11/14/16 00:05 Free T3 pg/mL 2.6 pg/ml (2.8-5.3) L 11/14/16 00:05 Urine Color Yellow 11/14/16 13:55 Urine Appearance Clear (Clear) 11/14/16 13:55 Urine pH 8.5 (5.0-8.0) H 11/14/16 13:55 Ur Specific [place] 1.009 (1.001-1.035) 11/14/16 13:55 Urine Protein 2+ (Negative) H 11/14/16 13:55 Urine Glucose (UA) Negative (Negative) 11/14/16 13:55 Urine Ketones Negative (Negative) 11/14/16 13:55 Urine Blood Negative (Negative) 11/14/16 13:55 Urine Nitrate Negative (Negative) 11/14/16 13:55 Urine Bilirubin Negative (Negative) 11/14/16 13:55 Urine Urobilinogen <2.0 mg/dL (<2.0) 11/14/16 13:55 Ur Leukocyte Esterase Negative (Negative) 11/14/16 13:55 Urine RBC 8 /hpf (0-5) H 11/14/16 13:55 Urine WBC 2 /hpf (0-5) 11/14/16 13:55 Stool Occult Blood Negative (Negative) 11/15/16 00:50 Random Vancomycin 20.2 ug/mL 11/18/16 07:26 Hep Bs Antigen Negative 11/16/16 16:12 Hep Bs Antibody Negative (Negative) 11/16/16 16:12 Hep B Core IgM Ab NEGATIVE 11/16/16 16:12 Microbiology 11/14/16 00:05 Blood Blood Culture - Preliminary No Growth after 72 hours 11/14/16 23:30 Leg - Right Gram Stain - Final 11/14/16 23:30 Leg - Right Wound Culture - Final 11/14/16 13:55 Urine,Catheterized Urine Culture - Final Assessment and Plan (1) Cellulitis of leg, right Narrative/Plan: 51-year-old male who has multiple medical troubles that include end- stage renal disease, diabetes mellitus type 2, peripheral vascular disease. His diabetic ulceration to his right foot throughout the last year has had the amputation of the fourth and fifth toes. This pattern open ulceration the recent evaluation 10 showed evidence of no ongoing active osteomyelitis. Recent x-rays at this time also failed to show evidence of osteomyelitis. However there is no extensive cellulitis occurring to that right lower extremity it is quite uncomfortable. The patient does feel poorly overall related to this acute infectious process. Antibiotic therapy with vancomycin will be utilized and also adding gram- negative coverage with his known history of prior pseudomonas at that site. Ceftazidime will be initiated and local wound care can be done with a Silvadene wrap and minimal compression. Elevational he is at rest. Elevation is stressed again today. Has been evaluated by vascular surgery without plans for an acute surgical intervention. Continue with his hemodialysis to maintain as much edema control as possible. There is some improvement of the leg today. The swelling and erythema distally seems to be improved. Peeling skin is showing evidence of some intact tissue beneath. However along the medial aspect of the right knee there is no increasing amounts of erythema is very tender. There are gas will be requested. Concern is could be gout. Also endorsing infection. Vancomycin changed to daptomycin. Continue ceftazidime for now while cultures are in process. There is evidence of some residual blistering but this is also improved. No other new lesions are seen. Patient does feel better. Did well with dialysis. Ongoing close glucose monitoring. His anemia is about his baseline and does not have significant leukocytosis. Fever is improved. Status: Acute (2) Fever Status: Acute (3) Atherosclerosis of [place] artery of left lower extremity with ulceration Status: Acute
[2016-11-18] MEDS ORDERED: DAPTOmycin 500 MG in SODIUM CHLORIDE 0.9% 50 ML IV SCH (22:00)
[2016-11-19] MEDS: HYDROcodone/APAP 7.5-325MG 1 EACH TAB PO PRN ×3 (02:16→18:44)
[2016-11-19] MEDS ORDERED: VANCOMYCIN 2,000 MG in SODIUM CHLORIDE 0.9% 500 ML IVPB ONE (06:00)
[2016-11-19 07:34] LABS: Glucose,Whole Blood 96 mg/dL (75-99)
[2016-11-19] MEDS: SODIUM CHLORIDE 0.9% 1,000 ML IV SCH ×2 (08:28)
[2016-11-19] MEDS: INSULIN LISPRO (humaLOG) 300 UNIT/3 ML VIAL SQ SCH ×4 (08:29→21:40)
[2016-11-19] MEDS: SEVELAMER 800 MG TAB PO SCH ×3 (08:29→17:53)
[2016-11-19] MEDS: AMIODARONE 200 MG TAB PO SCH ×2 (08:30→21:39)
[2016-11-19] MEDS: CLOPIDOGREL 75 MG TAB PO SCH (08:30)
[2016-11-19] MEDS: METOPROLOL TARTRATE 25 MG TAB PO SCH ×2 (08:31→21:39)
[2016-11-19] MEDS: ALLOPURINOL 100 MG TAB PO SCH (08:31)
[2016-11-19] MEDS: traMADol 50 MG TAB PO SCH ×4 (08:32→21:39)
[2016-11-19] MEDS: CALCIUM POLYCARBOPHIL 625 MG TAB PO SCH (08:34)
[2016-11-19] MEDS: ASCORBIC ACID 500 MG TAB PO SCH (08:34)
[2016-11-19] MEDS: DULoxetine HCL 30 MG CAPSULE.DR PO SCH (08:34)
[2016-11-19] MEDS: CINACALCET 30 MG TAB PO SCH ×2 (08:34→21:39)
[2016-11-19] MEDS: FAMOTIDINE 20 MG TAB PO SCH (08:35)
[2016-11-19] MEDS: FOLIC ACID-VIT B COMPLEX-VIT C 1 CAP PO SCH (08:35)
[2016-11-19] MEDS: SILVER sulfADIAZINE Cream 400 GM 1 APPLIC APPLIC TOPICAL SCH ×2 (08:36→21:41)
[2016-11-19] MEDS: BACITRACIN BOTH EYES SCH ×2 (08:36→21:39)
[2016-11-19 08:40] LABS: Calcium 7.8 mg/dL (8.4-10.2); Potassium 4.1 mmol/L (3.5-5.1)
--- NOTE | 2016-11-19 10:52 | P.PN ---
Subjective Patient is seen in follow-up for end-stage renal disease. He is maintained on hemodialysis on a Wednesday schedule via left upper extremity AV fistula. Patient presented with weakness and aches in his right lower extremity. Appetite is good. Denies any chest pain or shortness of breath. No vomiting or diarrhea. Currently maintained on antibiotics for cellulitis. No other complaints at this time. Underwent hemodialysis yesterday without any problems. Vital signs are stable. General: The patient appeared well nourished and normally developed. HEENT: Head exam is unremarkable. Neck is without jugular venous distension. LUNGS: Lungs are clear to auscultation and percussion. Breath sounds decreased. HEART: Rate and Rhythm are regular. First and second heart sounds normal. No murmurs, rubs or gallops. ABDOMEN: Abdominal exam reveals normal bowel sounds. Non-tender and non- distended. No evidence of peritonitis. EXTREMITITES: No clubbing, cyanosis, or edema. No obvious drainage from wound dressing. Objective - Vital Signs Vital signs: Vital Signs Temp 97.6 F 11/19/16 07:00 Pulse 63 11/19/16 07:00 Resp 17 11/19/16 07:00 BP 103/54 11/19/16 07:00 Pulse Ox 98 11/19/16 09:23 Intake & Output 11/18/16 11/19/16 11/19/16 18:59 06:59 18:59 Intake Total 160 480 Balance 160 480 Intake: IV 160 Sodium Chloride 0.9% 1, 160 000 ml @ 20 mls/hr IV . Q24H [facility] Rx#:[id number] Oral 480 Other: Voiding Method Toilet Toilet - Labs CBC & Chem 7: 11/16/16 07:08 11/19/16 08:00 Labs: Abnormal Lab Results - Last 24 Hours (Table) 11/18/16 11/18/16 11/18/16 Range/Units 11:43 16:41 20:27 Sodium (137-145) mmol/L Chloride (98-107) mmol/L BUN (9-20) mg/dL Creatinine (0.66-1.25) mg/dL POC Glucose (mg/dL) 134 H 164 H 214 H (75-99) mg/dL Calcium (8.4-10.2) mg/dL 11/19/16 Range/Units 08:00 Sodium 136 L (137-145) mmol/L Chloride 94 L (98-107) mmol/L BUN 65 H (9-20) mg/dL Creatinine 6.26 H* (0.66-1.25) mg/dL POC Glucose (mg/dL) (75-99) mg/dL Calcium 7.8 L (8.4-10.2) mg/dL Assessment and Plan Plan: Assessment: #1. End-stage renal disease maintained on hemodialysis on a Wednesday schedule via left upper extremity AV fistula. #2. Right lower extremity cellulitis. #3. Anemia of chronic kidney disease. #4. Chronic kidney disease mineral bone disease. #5. Diabetes mellitus. #6. Hypocalcemia secondary to chronic kidney disease as well as hypoalbuminemia. Plan: Hemodialysis tomorrow with goal 2 liters ultrafiltration. Maintain Aranesp. Maintain Renvela with meals. Nephrocaps daily. Antibiotics per infectious disease recommendations. Discontinued sodium bicarbonate supplementation as of November 17.
[2016-11-19 11:39] LABS: Glucose,Whole Blood 119 mg/dL (75-99)
[2016-11-19] MEDS: HYDROmorphone 1 MG/ML 1 ML SYRINGE IM PRN (11:42)
--- NOTE | 2016-11-19 12:02 | P.PN ---
Subjective Patient resting comfortably in bed. Noted continued erythema to the right lower leg with open blisters to all heel area. Patient is under the care of infectious disease Objective - Vital Signs Vital signs: Vital Signs Temp 97.6 F 11/19/16 07:00 Pulse 63 11/19/16 07:00 Resp 17 11/19/16 08:00 BP 103/54 11/19/16 07:00 Pulse Ox 98 11/19/16 09:23 Intake & Output 11/18/16 11/19/16 11/19/16 18:59 06:59 18:59 Intake Total 160 480 Balance 160 480 Intake: IV 160 Sodium Chloride 0.9% 1, 160 000 ml @ 20 mls/hr IV . Q24H [facility] Rx#:[id number] Oral 480 Other: Voiding Method Toilet Toilet Toilet - Constitutional General appearance: Present: morbidly obese - EENT EENT Comment(s): Patient medically blind Eyes: Present: PERRLA Ears: bilateral: normal - Neck Neck: Present: normal ROM - Respiratory Respiratory: bilateral: CTA - Cardiovascular Rhythm: regular - Gastrointestinal General gastrointestinal: Present: soft - Integumentary Integumentary Comment(s): Erythema and open blistering noted to right lower leg - Neurologic Neurologic: Present: CNII-XII intact - Musculoskeletal Musculoskeletal: Present: generalized weakness - Psychiatric Psychiatric: Present: A&O x's 3, appropriate affect, intact judgment & insight - Labs CBC & Chem 7: 11/16/16 07:08 11/19/16 08:00 Labs: Abnormal Lab Results - Last 24 Hours (Table) 11/18/16 11/18/16 11/18/16 Range/Units 11:43 16:41 20:27 Sodium (137-145) mmol/L Chloride (98-107) mmol/L BUN (9-20) mg/dL Creatinine (0.66-1.25) mg/dL POC Glucose (mg/dL) 134 H 164 H 214 H (75-99) mg/dL Calcium (8.4-10.2) mg/dL 11/19/16 11/19/16 Range/Units 08:00 11:35 Sodium 136 L (137-145) mmol/L Chloride 94 L (98-107) mmol/L BUN 65 H (9-20) mg/dL Creatinine 6.26 H* (0.66-1.25) mg/dL POC Glucose (mg/dL) 119 H (75-99) mg/dL Calcium 7.8 L (8.4-10.2) mg/dL Assessment and Plan Plan: Assessment Sepsis secondary to severe right lower limb cellulitis secondary to peripheral vascular disease as well as diabetes Urinary retention from narcotic medication End-stage renal disease with hemodialysis Wednesday and Wednesday Anemia chronic disease Legally blind Diabetes type 2 Peripheral vascular disease Atherosclerosis with right leg ulceration Plan Continue consultation with Dr. Avendaño regarding hemodialysis Dr. Olivas vascular surgeon Continue consultation with Dr. Carlos regarding cellulitis
[2016-11-19] MEDS: chlorproMAZINE 25 MG TAB PO SCH (13:01)
[2016-11-19] MEDS: CALCITRIOL 0.25 MCG CAP PO SCH (13:01)
[2016-11-19 16:52] LABS: Glucose,Whole Blood 210 mg/dL (75-99)
[2016-11-19 20:40] LABS: Glucose,Whole Blood 159 mg/dL (75-99)
[2016-11-19] MEDS: PRAVASTATIN SODIUM 80 MG TAB PO SCH (21:39)
[2016-11-19] MEDS: INSULIN DETEMIR 100 UNIT/ML 10 ML VIAL SQ SCH (21:40)
--- NOTE | 2016-11-19 23:02 | P.PN ---
Subjective Principal diagnosis: cellulitis right leg 51-year-old male please note infectious disease service from his many hospitalizations and ongoing difficulties with ulceration to his right foot. His many Occasions to his diabetes mellitus type 2 that included peripheral vascular disease, coronary disease, end-stage renal disease on hemodialysis. 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 And also has had other toe amputations. In the fall he was having difficulties with severe ulceration of the foot and underwent further amputation. He was treated with a protracted course of intravenous antibiotic therapy for the hospitalist service foot. Eventually this improved and his antibiotic therapy completed. He's been following the wound center with some local wound care. Was doing relatively well [place] had the sudden onset of pain and swelling and erythema to the right leg. With this he presented to Hospital and had evaluation was requested. The patient relates that he's had a bit of a fever in the home setting. The right leg became uncomfortable swollen and quite tender to touch. He believes he is having a low-grade fever with chill but no rigor. Left leg without acute change. Has been going well with dialysis. The leg is feeling better. The significant tenderness from the right medial aspect of the knee is improved tonight. Not resolved Objective - Vital Signs Vital signs: Vital Signs Temp 97.6 F 11/19/16 22:42 Pulse 64 11/19/16 22:42 Resp 20 11/19/16 22:42 BP 107/61 11/19/16 22:42 Pulse Ox 100 11/19/16 22:42 Intake & Output 11/19/16 11/19/16 11/20/16 06:59 18:59 06:59 Other: Voiding Method Toilet # Voids 1 # Bowel Movements 1 - Exam 51-year-old male who suffers from superobesity, and sleep apnea. Relates it is not very comfortable because of pain to the right leg. HEENT: Anicteric conjunctiva are pink and moist nasal mucosa grossly intact without significant lesions, there is no thrush. Poor dentition Neck: The neck is supple without significant lymphadenopathy or thyromegaly. Lungs: Symmetrical air entry is noted. Expiratory wheezes are scattered throughout the lung joseph. But no joshua bronchial sounds are heard. No egophony. Heart: Irregular with an audible S1 and S2 positive S4 no audible murmur click or rub. Abdomen: Obese, Positive bowel sounds soft and nontender without palpable masses or organomegaly. There was no guarding or rebound. Extremities: The upper extremity show evidence of no stiff in lesions and the shunt to the left arm is functioning well But no open ulcers are seen on the right upper extremity left arm without lesions. IV site looks intact in the right arm. the right anterior chest wall is without erythema or tenderness. The lower extremity show evidence of some lower extremity edema greater on the right than the left. Left foot without acute lesions. The right lower extremity shows evidence of the significant changes. There is evidence of extensive erythema that is present from the foot to the leg especially anteriorly. There is been some skin peeling. It is tender it is with some warmth and erythema. The chronic ulceration to the lateral aspect of the foot is quite stable. There is some granulation and some slough. There is no gangrenous change seen at that area. There is some drainage that's evident between the toes But they're not very tender but he does have neuropathy. The erythema does track upon the anterior thigh this area is also tender but improved from yesterday. The area of intense tenderness to the medial aspect of the right knee is definitely improved today. She believes at least 50% better than yesterday. No other lesions are seen. Neuro: Awake alert oriented to person place and time. He has very poor vision and has significant peripheral neuropathy from his diabetes but no acute gross focal sensory motor deficits are noted. - Labs CBC & Chem 7: 11/16/16 07:08 11/19/16 08:00 Labs: Abnormal Lab Results - Last 24 Hours (Table) 11/19/16 11/19/16 Range/Units 16:44 20:18 POC Glucose (mg/dL) 210 H 159 H (75-99) mg/dL Laboratory Results WBC 7.0 k/uL (3.8-10.6) 11/16/16 07:08 RBC 2.67 m/uL (4.30-5.90) L 11/16/16 07:08 Hgb 8.8 gm/dL (13.0-17.5) L 11/16/16 07:08 Hct 28.2 % (39.0-53.0) L 11/16/16 07:08 MCV 105.5 fL (80.0-100.0) H 11/16/16 07:08 MCH 32.9 pg (25.0-35.0) 11/16/16 07:08 MCHC 31.1 g/dL (31.0-37.0) 11/16/16 07:08 RDW 15.6 % (11.5-15.5) H 11/16/16 07:08 Plt Count 115 k/uL (150-450) L 11/16/16 07:08 Neutrophils % 86 % 11/15/16 07:04 Lymphocytes % 6 % 11/15/16 07:04 Monocytes % 5 % 11/15/16 07:04 Eosinophils % 0 % 11/15/16 07:04 Basophils % 0 % 11/15/16 07:04 Neutrophils # 6.1 k/uL (1.3-7.7) 11/15/16 07:04 Lymphocytes # 0.4 k/uL (1.0-4.8) L 11/15/16 07:04 Monocytes # 0.3 k/uL (0-1.0) 11/15/16 07:04 Eosinophils # 0.0 k/uL (0-0.7) 11/15/16 07:04 Basophils # 0.0 k/uL (0-0.2) 11/15/16 07:04 Hypochromasia Slight 11/16/16 07:08 Poikilocytosis Slight 11/15/16 07:04 Macrocytosis Moderate 11/16/16 07:08 PT 11.3 sec (9.0-12.0) 11/14/16 00:05 INR 1.1 (<1.1) 11/14/16 00:05 APTT 31.6 sec (22.0-30.0) H 11/14/16 00:05 Sodium 136 mmol/L (137-145) L 11/19/16 08:00 Potassium 4.1 mmol/L (3.5-5.1) 11/19/16 08:00 Chloride 94 mmol/L (98-107) L 11/19/16 08:00 Carbon Dioxide 22 mmol/L (22-30) 11/19/16 08:00 Anion Gap 20 mmol/L 11/19/16 08:00 BUN 65 mg/dL (9-20) H 11/19/16 08:00 Creatinine 6.26 mg/dL (0.66-1.25) H* 11/19/16 08:00 Est GFR (MDRD) Af Amer 11 (>60 ml/min/1.73 sqM) 11/19/16 08:00 Est GFR (MDRD) Non-Af 9 (>60 ml/min/1.73 sqM) 11/19/16 08:00 Glucose 74 mg/dL (74-99) 11/19/16 08:00 POC Glucose (mg/dL) 159 mg/dL (75-99) H 11/19/16 20:18 POC Glu Manganese Wheeler ID Sahara Villalobos 11/19/16 20:[address] Glu mg/dL 105 mg/dL 11/15/16 07:04 Hemoglobin A1c 5.3 % (4.2-6.1) 11/15/16 07:04 Plasma Lactic Acid Rambo 1.7 mmol/L (0.7-2.0) 11/14/16 00:05 Uric Acid 7.2 mg/dL (3.5-8.5) 11/18/16 07:26 Calcium 7.8 mg/dL (8.4-10.2) L 11/19/16 08:00 Ionized Calcium Hai 4.1 mg/dL (4.5-5.3) L 11/15/16 07:04 Phosphorus 4.4 mg/dL (2.5-4.5) 11/16/16 07:08 Magnesium 2.0 mg/dL (1.6-2.3) 11/14/16 00:05 Iron 39 ug/dL (49-181) L 11/16/16 07:08 TIBC 193 ug/dL (261-462) L 11/16/16 07:08 % Saturation 20.2 % (20-50) 11/16/16 07:08 Ferritin 1970 ng/mL (18-464) H 11/16/16 07:08 Total Bilirubin 0.6 mg/dL (0.2-1.3) 11/14/16 00:05 AST 22 U/L (17-59) 11/14/16 00:05 ALT 57 U/L (21-72) 11/14/16 00:05 Alkaline Phosphatase 126 U/L (38-126) 11/14/16 00:05 Total Creatine Kinase 79 U/L (55-170) 11/14/16 00:05 CK-MB (CK-2) 0.9 ng/mL (0.0-2.4) 11/14/16 00:05 CK-MB (CK-2) Rel Index 1.1 11/14/16 00:05 Troponin I 0.029 ng/mL (0.000-0.034) 11/14/16 00:05 Total Protein 5.0 g/dL (6.3-8.2) L 11/14/16 00:05 Albumin 2.8 g/dL (3.5-5.0) L 11/14/16 00:05 Vitamin B12 393 pg/mL (239-931) 11/16/16 07:08 TSH 2.760 mIU/L (0.465-4.680) 11/14/16 00:05 Free T4 1.51 ng/dL (0.78-2.19) 11/14/16 00:05 Free T3 pg/mL 2.6 pg/ml (2.8-5.3) L 11/14/16 00:05 Urine Color Yellow 11/14/16 13:55 Urine Appearance Clear (Clear) 11/14/16 13:55 Urine pH 8.5 (5.0-8.0) H 11/14/16 13:55 Ur Specific [place] 1.009 (1.001-1.035) 11/14/16 13:55 Urine Protein 2+ (Negative) H 11/14/16 13:55 Urine Glucose (UA) Negative (Negative) 11/14/16 13:55 Urine Ketones Negative (Negative) 11/14/16 13:55 Urine Blood Negative (Negative) 11/14/16 13:55 Urine Nitrate Negative (Negative) 11/14/16 13:55 Urine Bilirubin Negative (Negative) 11/14/16 13:55 Urine Urobilinogen <2.0 mg/dL (<2.0) 11/14/16 13:55 Ur Leukocyte Esterase Negative (Negative) 11/14/16 13:55 Urine RBC 8 /hpf (0-5) H 11/14/16 13:55 Urine WBC 2 /hpf (0-5) 11/14/16 13:55 Stool Occult Blood Negative (Negative) 11/15/16 00:50 Random Vancomycin 20.2 ug/mL 11/18/16 07:26 Hep Bs Antigen Negative 11/16/16 16:12 Hep Bs Antibody Negative (Negative) 11/16/16 16:12 Hep B Core IgM Ab NEGATIVE 11/16/16 16:12 Microbiology 11/14/16 00:05 Blood Blood Culture - Preliminary No Growth after 96 hours 11/14/16 23:30 Leg - Right Gram Stain - Final 11/14/16 23:30 Leg - Right Wound Culture - Final 11/14/16 13:55 Urine,Catheterized Urine Culture - Final Uric acid normal at 7.2 Assessment and Plan (1) Cellulitis of leg, right Narrative/Plan: 51-year-old male who has multiple medical troubles that include end- stage renal disease, diabetes mellitus type 2, peripheral vascular disease. His diabetic ulceration to his right foot throughout the last year has had the amputation of the fourth and fifth toes. This pattern open ulceration the recent evaluation 10 showed evidence of no ongoing active osteomyelitis. Recent x-rays at this time also failed to show evidence of osteomyelitis. However there is no extensive cellulitis occurring to that right lower extremity it is quite uncomfortable. The patient does feel poorly overall related to this acute infectious process. Antibiotic therapy with vancomycin will be utilized and also adding gram- negative coverage with his known history of prior pseudomonas at that site. Ceftazidime will be initiated and local wound care can be done with a Silvadene wrap and minimal compression. Elevational he is at rest. Elevation is stressed again today. Has been evaluated by vascular surgery without plans for an acute surgical intervention. Continue with his hemodialysis to maintain as much edema control as possible. There is some improvement of the leg today. The swelling and erythema distally seems to be improved. Peeling skin is showing evidence of some intact tissue beneath. However along the medial aspect of the right knee there is no increasing amounts of erythema is very tender. Concerns to doubt and uric acid was checked and appears to be normal. Does not rule out possibility but seems less likely In [place] vancomycin was not treating underlying infection and antibiotic therapy was changed Vancomycin changed to daptomycin. Continue ceftazidime for now while cultures are in process. There is evidence of some residual blistering but this is also improved. No other new lesions are seen. Patient does feel better. Did well with dialysis. Ongoing close glucose monitoring. His anemia is about his baseline and does not have significant leukocytosis. Fever is improved. Status: Acute (2) Fever Status: Acute (3) Atherosclerosis of [place] artery of left lower extremity with ulceration Status: Acute
[2016-11-20 07:34] LABS: Glucose,Whole Blood 108 mg/dL (75-99)
[2016-11-20 07:59] VITALS: RESP 18
[2016-11-20 08:00] LABS: Calcium 7.7 mg/dL (8.4-10.2); Potassium 4.5 mmol/L (3.5-5.1)
--- NOTE | 2016-11-20 08:26 | P.PN ---
Subjective Patient is seen in follow-up for end-stage renal disease. He is maintained on hemodialysis on a Wednesday schedule via left upper extremity AV fistula. Patient presented with weakness and aches in his right lower extremity. Appetite is good. Denies any chest pain or shortness of breath. No vomiting or diarrhea. Currently maintained on antibiotics for lower extremity cellulitis. No other complaints at this time. He is eager to go home. Vital signs are stable. General: The patient appeared well nourished and normally developed. HEENT: Head exam is unremarkable. Neck is without jugular venous distension. LUNGS: Lungs are clear to auscultation and percussion. Breath sounds decreased. HEART: Rate and Rhythm are regular. First and second heart sounds normal. No murmurs, rubs or gallops. ABDOMEN: Abdominal exam reveals normal bowel sounds. Non-tender and non- distended. No evidence of peritonitis. EXTREMITITES: No clubbing, cyanosis, or edema. No obvious drainage from wound dressing. Objective - Vital Signs Vital signs: Vital Signs Temp 97.9 F 11/20/16 07:00 Pulse 65 11/20/16 07:00 Resp 18 11/20/16 07:00 BP 116/53 11/20/16 07:00 Pulse Ox 98 11/20/16 07:00 Intake & Output 11/19/16 11/20/16 11/20/16 18:59 06:59 18:59 Intake Total 160 Balance 160 Intake: IV 160 Sodium Chloride 0.9% 1, 160 000 ml @ 20 mls/hr IV . Q24H [facility] Rx#:[id number] Other: Voiding Method Toilet Toilet # Voids 1 # Bowel Movements 1 - Labs CBC & Chem 7: 11/16/16 07:08 11/20/16 07:05 Labs: Abnormal Lab Results - Last 24 Hours (Table) 11/19/16 11/19/16 11/20/16 Range/Units 16:44 20:18 07:01 Sodium (137-145) mmol/L Chloride (98-107) mmol/L Carbon Dioxide (22-30) mmol/L BUN (9-20) mg/dL Creatinine (0.66-1.25) mg/dL Glucose (74-99) mg/dL POC Glucose (mg/dL) 210 H 159 H 108 H (75-99) mg/dL Calcium (8.4-10.2) mg/dL 11/20/16 Range/Units 07:05 Sodium 136 L (137-145) mmol/L Chloride 97 L (98-107) mmol/L Carbon Dioxide 21 L (22-30) mmol/L BUN 89 H* (9-20) mg/dL Creatinine 8.12 H* (0.66-1.25) mg/dL Glucose 101 H (74-99) mg/dL POC Glucose (mg/dL) (75-99) mg/dL Calcium 7.7 L (8.4-10.2) mg/dL Assessment and Plan Plan: Assessment: #1. End-stage renal disease maintained on hemodialysis on a Wednesday schedule via left upper extremity AV fistula. #2. Right lower extremity cellulitis. #3. Anemia of chronic kidney disease. #4. Chronic kidney disease mineral bone disease. #5. Diabetes mellitus. #6. Hypocalcemia secondary to chronic kidney disease as well as hypoalbuminemia. Plan: Hemodialysis today with goal 2 liters ultrafiltration. Maintain Aranesp. Maintain Renvela with meals. Nephrocaps daily. Antibiotics per infectious disease recommendations. Stable to be discharged back to [facility] from nephrology standpoint after dialysis today.
[2016-11-20] MEDS: SODIUM CHLORIDE 0.9% 1,000 ML IV SCH ×2 (08:59→09:10)
[2016-11-20] MEDS: HYDROcodone/APAP 7.5-325MG 1 EACH TAB PO PRN ×2 (09:02→14:01)
[2016-11-20] MEDS: INSULIN LISPRO (humaLOG) 300 UNIT/3 ML VIAL SQ SCH ×2 (09:04→13:12)
[2016-11-20] MEDS: SEVELAMER 800 MG TAB PO SCH ×2 (09:04→13:12)
[2016-11-20] MEDS: FOLIC ACID-VIT B COMPLEX-VIT C 1 CAP PO SCH (09:05)
[2016-11-20] MEDS: DULoxetine HCL 30 MG CAPSULE.DR PO SCH (09:05)
[2016-11-20] MEDS: CLOPIDOGREL 75 MG TAB PO SCH (09:05)
[2016-11-20] MEDS: CALCIUM POLYCARBOPHIL 625 MG TAB PO SCH (09:06)
[2016-11-20] MEDS: CINACALCET 30 MG TAB PO SCH (09:06)
[2016-11-20] MEDS: chlorproMAZINE 25 MG TAB PO SCH (09:06)
[2016-11-20] MEDS: FAMOTIDINE 20 MG TAB PO SCH (09:07)
[2016-11-20] MEDS: AMIODARONE 200 MG TAB PO SCH (09:07)
[2016-11-20] MEDS: BACITRACIN BOTH EYES SCH (09:07)
[2016-11-20] MEDS: ALLOPURINOL 100 MG TAB PO SCH (09:07)
[2016-11-20] MEDS: ASCORBIC ACID 500 MG TAB PO SCH (09:08)
[2016-11-20] MEDS: METOPROLOL TARTRATE 25 MG TAB PO SCH (09:08)
[2016-11-20] MEDS: traMADol 50 MG TAB PO SCH ×2 (09:09→13:13)
[2016-11-20] MEDS: SILVER sulfADIAZINE Cream 400 GM 1 APPLIC APPLIC TOPICAL SCH (09:10)
[2016-11-20] MEDS ORDERED: GELATIN SPONGE,ABSORB (SMALL) 1 EACH SPONGE ONE (10:00)
[2016-11-20 11:30] LABS: Glucose,Whole Blood 150 mg/dL (75-99)
[2016-11-20 15:00] VITALS: BP 105/52; PULSE 71; TEMP 98
--- NOTE | 2016-11-20 16:48 | DS ---
DATE OF ADMISSION: 11/19/2016 DATE OF DISCHARGE: FINAL DIAGNOSES: 1. Acute severe right lower leg cellulitis with sepsis related to peripheral vascular disease and diabetes mellitus in a patient with history of pseudomonas aeruginosa. The current cultures are showing no significant growth. 2. Urinary retention secondary to narcotics. 3. Endstage renal disease, chronic kidney disease stage IV on hemodialysis Wednesday, Wednesday, Wednesday. 4. Anemia of chronic disease secondary to renal disease. 5. Legally blind. 6. Diabetes mellitus type 2. 7. Chronic kidney disease with mineral bone disease. 8. Peripheral vascular disease. 9. History of carotid endarterectomy, multiple amputation procedures in the past. 10. Hypocalcemia secondary to CKD. 11. Hypoalbuminemia. DISCHARGE DISPOSITION: The patient will be discharged in stable condition with guarded with guarded prognosis. Discharge cleared by multiple consultants. Total time taken 35 minutes. HISTORY OF PRESENT ILLNESS: This 51-year-old gentleman with a past medical history of multiple medical problems being followed by Dr. Des Acuña in the outpatient setting presented from the long-term with features of acute right leg cellulitis and blisters. The patient was treated IV antibiotics. Dr. Carlos saw the patient and local treatment was also provided. Patient improved significantly. On exam, vitals are stable. CARDIOVASCULAR: S1, S2. ABDOMEN: Soft, nontender. NERVOUS SYSTEM: No focal deficits. Right leg cellulitis present. The patient will be discharged to [facility] with the following advice: 1. Diet is cardiac. 2. Activity limited until follow up. 3. Follow-up with Dr. Quarles in 1 to 2 days. 4. Follow with Dr. Des Acuña in 2 to 3 weeks after discharge from the [facility]. 5. Follow with Dr. Carlos as recommended and follow-up labs. Medications are: 1. Allopurinol 100 mg p.o. daily. 2. Cordarone 200 mg p.o. b.i.d. 3. Artificial Tears both eyes p.r.n. for dry eyes. 4. Vitamin C 500 mg p.o. daily. 5. Atropine sulfate one drop right eye daily. 6. Bacitracin one application both eyes b.i.d. 7. Dulcolax 5 mg daily p.r.n. for constipation. 8. Calcitriol 0.25 mg q.48h. 9. Calcium polycarbophil 620 mg p.o. daily. 10. Fortaz 2 grams IV Mondays, Wednesday and Wednesday per ID. 11. Sensipar 30 mg q.h.s. 12. Plavix 75 mg p.o. daily. 13. Cubicin 500 mg IV q.48 hours x4 bags. 14. Cymbalta 30 mg p.o. daily. 15. Durezol one drop right eye q.i.d. 16. Diphenoxylate atropine 2.5/0.0252, two tablets q.i.d. p.r.n. 17. Vitamin D2, 50,000 units q.7 days. 18. Pepcid 20 mg daily. 19. Foltx 1 p.o. daily. 20. [place] 7.5 q.6 p.r.n. 21. Humalog 19 units a.c. t.i.d. 22. Humalog scale per protocol 100 to 200 two units, 201 to 250 four, 251 to 300 six, 301 to 350 eight, 351 to 400 ten, more than 400 call. 23. Levemir 42 units subcu q.h.s. 25. Lactobacillus acidophilus 1 p.o. b.i.d. 26. Claritin 10 mg daily p.r.n. 27. Magnesium oxide 400 mg p.o. daily. 28. Lopressor 25 mg p.o. b.i.d. 29. Midodrine 5 mg p.o. Wednesday, Wednesday, Wednesday. 30. Multivitamin 1 p.o. daily. 31. Pravachol 80 mg q.h.s. 32. Sulfadiazine local cream for application. 33. Wound care per Infectious Disease. 34. Renvela 3.2 grams p.o. t.i.d. 35. Co-Enzyme Q 200 mg p.o. daily. 36. Ambien 5 mg q.h.s. p.r.n. Once again the patient will be discharged in a stable condition with guarded prognosis. MTDD
--- NOTE | 2016-11-20 23:21 | P.PN ---
Subjective Principal diagnosis: cellulitis right leg 51-year-old male please note infectious disease service from his many hospitalizations and ongoing difficulties with ulceration to his right foot. His many Occasions to his diabetes mellitus type 2 that included peripheral vascular disease, coronary disease, end-stage renal disease on hemodialysis. 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 And also has had other toe amputations. In the fall he was having difficulties with severe ulceration of the foot and underwent further amputation. He was treated with a protracted course of intravenous antibiotic therapy for the hospitalist service foot. Eventually this improved and his antibiotic therapy completed. He's been following the wound center with some local wound care. Was doing relatively well [place] had the sudden onset of pain and swelling and erythema to the right leg. With this he presented to Hospital and had evaluation was requested. The patient relates that he's had a bit of a fever in the home setting. The right leg became uncomfortable swollen and quite tender to touch. He believes he is having a low-grade fever with chill but no rigor. Left leg without acute change. Has been going well with dialysis. The leg is feeling better. The significant tenderness from the right medial aspect of the knee is further improved Objective - Vital Signs Vital signs: Vital Signs Temp 98.0 F 11/20/16 15:00 Pulse 71 11/20/16 15:00 Resp 18 11/20/16 15:00 BP 105/52 11/20/16 15:00 Pulse Ox 100 11/20/16 15:00 Intake & Output 11/20/16 11/20/16 11/21/16 06:59 18:59 06:59 Intake Total 160 160 Output Total 2500 Balance 160 -2340 Intake: IV 160 160 Sodium Chloride 0.9% 1, 160 160 000 ml @ 20 mls/hr IV . Q24H PRISCILLA Rx#:[id number] Output: Other 2500 Other: Voiding Method Toilet Toilet # Voids 1 # Bowel Movements 1 - Exam 51-year-old male who suffers from superobesity, and sleep apnea. Relates it is not very comfortable because of pain to the right leg. HEENT: Anicteric conjunctiva are pink and moist nasal mucosa grossly intact without significant lesions, there is no thrush. Poor dentition Neck: The neck is supple without significant lymphadenopathy or thyromegaly. Lungs: Symmetrical air entry is noted. Expiratory wheezes are scattered throughout the lung joseph. But no joshua bronchial sounds are heard. No egophony. Heart: Irregular with an audible S1 and S2 positive S4 no audible murmur click or rub. Abdomen: Obese, Positive bowel sounds soft and nontender without palpable masses or organomegaly. There was no guarding or rebound. Extremities: The upper extremity show evidence of no stiff in lesions and the shunt to the left arm is functioning well But no open ulcers are seen on the right upper extremity left arm without lesions. IV site looks intact in the right arm. the right anterior chest wall is without erythema or tenderness. The lower extremity show evidence of some lower extremity edema greater on the right than the left. Left foot without acute lesions. The right lower extremity shows evidence of the significant changes. There is evidence of extensive erythema that is present from the foot to the leg especially anteriorly. There is been some skin peeling. It is tender it is with some warmth and erythema. The chronic ulceration to the lateral aspect of the foot is quite stable. There is some granulation and some slough. There is no gangrenous change seen at that area. There is some drainage that's evident between the toes But they're not very tender but he does have neuropathy. The erythema does track upon the anterior thigh this area is also tender but improved from yesterday. The area of intense tenderness to the medial aspect of the right knee is definitely improved today. the pain and erythema to the knee has further improved. Neuro: Awake alert oriented to person place and time. He has very poor vision and has significant peripheral neuropathy from his diabetes but no acute gross focal sensory motor deficits are noted. - Labs CBC & Chem 7: 11/16/16 07:08 11/20/16 07:05 Labs: Abnormal Lab Results - Last 24 Hours (Table) 11/20/16 11/20/16 11/20/16 Range/Units 07:01 07:05 11:25 Sodium 136 L (137-145) mmol/L Chloride 97 L (98-107) mmol/L Carbon Dioxide 21 L (22-30) mmol/L BUN 89 H* (9-20) mg/dL Creatinine 8.12 H* (0.66-1.25) mg/dL Glucose 101 H (74-99) mg/dL POC Glucose (mg/dL) 108 H 150 H (75-99) mg/dL Calcium 7.7 L (8.4-10.2) mg/dL Laboratory Results WBC 7.0 k/uL (3.8-10.6) 11/16/16 07:08 RBC 2.67 m/uL (4.30-5.90) L 11/16/16 07:08 Hgb 8.8 gm/dL (13.0-17.5) L 11/16/16 07:08 Hct 28.2 % (39.0-53.0) L 11/16/16 07:08 MCV 105.5 fL (80.0-100.0) H 11/16/16 07:08 MCH 32.9 pg (25.0-35.0) 11/16/16 07:08 MCHC 31.1 g/dL (31.0-37.0) 11/16/16 07:08 RDW 15.6 % (11.5-15.5) H 11/16/16 07:08 Plt Count 115 k/uL (150-450) L 11/16/16 07:08 Neutrophils % 86 % 11/15/16 07:04 Lymphocytes % 6 % 11/15/16 07:04 Monocytes % 5 % 11/15/16 07:04 Eosinophils % 0 % 11/15/16 07:04 Basophils % 0 % 11/15/16 07:04 Neutrophils # 6.1 k/uL (1.3-7.7) 11/15/16 07:04 Lymphocytes # 0.4 k/uL (1.0-4.8) L 11/15/16 07:04 Monocytes # 0.3 k/uL (0-1.0) 11/15/16 07:04 Eosinophils # 0.0 k/uL (0-0.7) 11/15/16 07:04 Basophils # 0.0 k/uL (0-0.2) 11/15/16 07:04 Hypochromasia Slight 11/16/16 07:08 Poikilocytosis Slight 11/15/16 07:04 Macrocytosis Moderate 11/16/16 07:08 PT 11.3 sec (9.0-12.0) 11/14/16 00:05 INR 1.1 (<1.1) 11/14/16 00:05 APTT 31.6 sec (22.0-30.0) H 11/14/16 00:05 Sodium 136 mmol/L (137-145) L 11/20/16 07:05 Potassium 4.5 mmol/L (3.5-5.1) 11/20/16 07:05 Chloride 97 mmol/L (98-107) L 11/20/16 07:05 Carbon Dioxide 21 mmol/L (22-30) L 11/20/16 07:05 Anion Gap 18 mmol/L 11/20/16 07:05 BUN 89 mg/dL (9-20) H* 11/20/16 07:05 Creatinine 8.12 mg/dL (0.66-1.25) H* 11/20/16 07:05 Est GFR (MDRD) Af Amer 8 (>60 ml/min/1.73 sqM) 11/20/16 07:05 Est GFR (MDRD) Non-Af 7 (>60 ml/min/1.73 sqM) 11/20/16 07:05 Glucose 101 mg/dL (74-99) H 11/20/16 07:05 POC Glucose (mg/dL) 150 mg/dL (75-99) H 11/20/16 11:25 POC Glu Hide Paster ID Nidhi Jaffe 11/20/16 11:[address] Glu mg/dL 105 mg/dL 11/15/16 07:04 Hemoglobin A1c 5.3 % (4.2-6.1) 11/15/16 07:04 Plasma Lactic Acid Rambo 1.7 mmol/L (0.7-2.0) 11/14/16 00:05 Uric Acid 7.2 mg/dL (3.5-8.5) 11/18/16 07:26 Calcium 7.7 mg/dL (8.4-10.2) L 11/20/16 07:05 Ionized Calcium Hai 4.1 mg/dL (4.5-5.3) L 11/15/16 07:04 Phosphorus 4.4 mg/dL (2.5-4.5) 11/16/16 07:08 Magnesium 2.0 mg/dL (1.6-2.3) 11/14/16 00:05 Iron 39 ug/dL (49-181) L 11/16/16 07:08 TIBC 193 ug/dL (261-462) L 11/16/16 07:08 % Saturation 20.2 % (20-50) 11/16/16 07:08 Ferritin 1970 ng/mL (18-464) H 11/16/16 07:08 Total Bilirubin 0.6 mg/dL (0.2-1.3) 11/14/16 00:05 AST 22 U/L (17-59) 11/14/16 00:05 ALT 57 U/L (21-72) 11/14/16 00:05 Alkaline Phosphatase 126 U/L (38-126) 11/14/16 00:05 Total Creatine Kinase 79 U/L (55-170) 11/14/16 00:05 CK-MB (CK-2) 0.9 ng/mL (0.0-2.4) 11/14/16 00:05 CK-MB (CK-2) Rel Index 1.1 11/14/16 00:05 Troponin I 0.029 ng/mL (0.000-0.034) 11/14/16 00:05 Total Protein 5.0 g/dL (6.3-8.2) L 11/14/16 00:05 Albumin 2.8 g/dL (3.5-5.0) L 11/14/16 00:05 Vitamin B12 393 pg/mL (239-931) 11/16/16 07:08 TSH 2.760 mIU/L (0.465-4.680) 11/14/16 00:05 Free T4 1.51 ng/dL (0.78-2.19) 11/14/16 00:05 Free T3 pg/mL 2.6 pg/ml (2.8-5.3) L 11/14/16 00:05 Urine Color Yellow 11/14/16 13:55 Urine Appearance Clear (Clear) 11/14/16 13:55 Urine pH 8.5 (5.0-8.0) H 11/14/16 13:55 Ur Specific [place] 1.009 (1.001-1.035) 11/14/16 13:55 Urine Protein 2+ (Negative) H 11/14/16 13:55 Urine Glucose (UA) Negative (Negative) 11/14/16 13:55 Urine Ketones Negative (Negative) 11/14/16 13:55 Urine Blood Negative (Negative) 11/14/16 13:55 Urine Nitrate Negative (Negative) 11/14/16 13:55 Urine Bilirubin Negative (Negative) 11/14/16 13:55 Urine Urobilinogen <2.0 mg/dL (<2.0) 11/14/16 13:55 Ur Leukocyte Esterase Negative (Negative) 11/14/16 13:55 Urine RBC 8 /hpf (0-5) H 11/14/16 13:55 Urine WBC 2 /hpf (0-5) 11/14/16 13:55 Stool Occult Blood Negative (Negative) 11/15/16 00:50 Random Vancomycin 20.2 ug/mL 11/18/16 07:26 Hep Bs Antigen Negative 11/16/16 16:12 Hep Bs Antibody Negative (Negative) 11/16/16 16:12 Hep B Core IgM Ab NEGATIVE 11/16/16 16:12 Microbiology 11/14/16 00:05 Blood Blood Culture - Preliminary No Growth after 120 hours 11/14/16 23:30 Leg - Right Gram Stain - Final 11/14/16 23:30 Leg - Right Wound Culture - Final 11/14/16 13:55 Urine,Catheterized Urine Culture - Final Assessment and Plan (1) Cellulitis of leg, right Narrative/Plan: 51-year-old male who has multiple medical troubles that include end- stage renal disease, diabetes mellitus type 2, peripheral vascular disease. His diabetic ulceration to his right foot throughout the last year has had the amputation of the fourth and fifth toes. This pattern open ulceration the recent evaluation 10 showed evidence of no ongoing active osteomyelitis. Recent x-rays at this time also failed to show evidence of osteomyelitis. However there is no extensive cellulitis occurring to that right lower extremity it is quite uncomfortable. The patient does feel poorly overall related to this acute infectious process. Antibiotic therapy with vancomycin will be utilized and also adding gram- negative coverage with his known history of prior pseudomonas at that site. Ceftazidime will be initiated and local wound care can be done with a Silvadene wrap and minimal compression. Elevational he is at rest. Elevation is stressed again today. Has been evaluated by vascular surgery without plans for an acute surgical intervention. Continue with his hemodialysis to maintain as much edema control as possible. There is some improvement of the leg today. The swelling and erythema distally seems to be improved. Peeling skin is showing evidence of some intact tissue beneath. However along the medial aspect of the right knee there is no increasing amounts of erythema is very tender. Concerns to doubt and uric acid was checked and appears to be normal. Does not rule out possibility but seems less likely In [place] vancomycin was not treating underlying infection and antibiotic therapy was changed Vancomycin changed to daptomycin. Continue ceftazidime also planning for 2 weeks at the [facility] where the IV antibiotic will be arranged There is evidence of some residual blistering but this is also improved. No other new lesions are seen. Patient does feel better. Did well with dialysis. Ongoing close glucose monitoring. His anemia is about his baseline and does not have significant leukocytosis. Fever is improved. Status: Acute (2) Fever Status: Acute (3) Atherosclerosis of [place] artery of left lower extremity with ulceration Status: Acute
[2016-11-22] MEDS ORDERED: ERGOCALCIFEROL 50,000 UNIT CAP PO SCH (09:00)
== END 2016-11-20 17:30 | DRG 871 ==
LOC: SUPCPDRO 22:20 → EC 22:20 → INTOOBSV 11-15 01:53 → 5MS5E 11-15 01:53 → OBSVTOIN 11-19 14:07
PROVIDERS: ADMIT Family Medicine; ATTEND Family Medicine
PROC: 5A1D60Z (ICD-10-PCS; principal; 2016-11-16)
DX: A41.9 Sepsis, unspecified organism (principal); N18.6 End stage renal disease; E11.21 Type 2 diabetes mellitus with diabetic nephropathy; I12.0 Hypertensive chronic kidney disease with stage 5 chronic kidney disease or end stage renal disease; D69.6 Thrombocytopenia, unspecified; E46 Unspecified protein-calorie malnutrition; L03.115 Cellulitis of right lower limb; Z68.41 Body mass index [BMI] 40.0-44.9, adult; L97.812 Non-pressure chronic ulcer of other part of right lower leg with fat layer exposed; E11.40 Type 2 diabetes mellitus with diabetic neuropathy, unspecified; E11.51 Type 2 diabetes mellitus with diabetic peripheral angiopathy without gangrene; D50.9 Iron deficiency anemia, unspecified; E83.51 Hypocalcemia; E88.09 Other disorders of plasma-protein metabolism, not elsewhere classified; E11.22 Type 2 diabetes mellitus with diabetic chronic kidney disease; D63.1 Anemia in chronic kidney disease; E78.5 Hyperlipidemia, unspecified; I25.10 Atherosclerotic heart disease of native coronary artery without angina pectoris; T40.605A Adverse effect of unspecified narcotics, initial encounter; E66.01 Morbid (severe) obesity due to excess calories; E11.319 Type 2 diabetes mellitus with unspecified diabetic retinopathy without macular edema; R33.0 Drug induced retention of urine; G47.33 Obstructive sleep apnea (adult) (pediatric); E11.621 Type 2 diabetes mellitus with foot ulcer; I44.0 Atrioventricular block, first degree; H54.8 Legal blindness, as defined in USA; I44.7 Left bundle-branch block, unspecified; E11.628 Type 2 diabetes mellitus with other skin complications; E11.622 Type 2 diabetes mellitus with other skin ulcer; M19.90 Unspecified osteoarthritis, unspecified site; F32.9 Major depressive disorder, single episode, unspecified; R29.6 Repeated falls; R53.1 Weakness; M10.9 Gout, unspecified; R51 Headache; R42 Dizziness and giddiness; R06.6 Hiccough; F17.200 Nicotine dependence, unspecified, uncomplicated; Z91.81 History of falling; Z79.4 Long term (current) use of insulin; Z99.2 Dependence on renal dialysis; Z95.1 Presence of aortocoronary bypass graft; Z16.24 Resistance to multiple antibiotics; Z86.79 Personal history of other diseases of the circulatory system; Z86.19 Personal history of other infectious and parasitic diseases; Z86.14 Personal history of Methicillin resistant Staphylococcus aureus infection; Z88.8 Allergy status to other drugs, medicaments and biological substances; Z91.018 Allergy to other foods; Z90.49 Acquired absence of other specified parts of digestive tract; Z87.442 Personal history of urinary calculi; Z80.0 Family history of malignant neoplasm of digestive organs; Z98.49 Cataract extraction status, unspecified eye; Z79.02 Long term (current) use of antithrombotics/antiplatelets; Z79.891 Long term (current) use of opiate analgesic; Z79.899 Other long term (current) drug therapy; Z91.11 Patient's noncompliance with dietary regimen; Z91.19 Patient's noncompliance with other medical treatment and regimen; Z89.411 Acquired absence of right great toe; Z89.421 Acquired absence of other right toe(s)
CPT/HCPCS: 36415; 71020; 80048; 80053; 80202; 81001; 82272; 82330; 82550; 82553; 82607; 82728; 83036; 83540; 83550; 83605; 83735; 84100; 84439; 84443; 84481; 84484; 84550; 85025; 85027; 85610; 85730; 86705; 86706; 87040; 87070; 87086; 87205; 87340; 90935; 93005; 93965; 93970; 94760; 96361; 96365; 96366; 96367; 96372; 96375; 99285

== ENCOUNTER 2017-08-11 08:12 | Inpatient (IN) | payer MEDICARE, OTHER ==
[2017-08-11] MEDS ORDERED: ACETAMINOPHEN TAB 500 MG TAB PO STA (08:49)
[2017-08-11] MEDS ORDERED: IBUPROFEN 600 MG TAB PO STA (08:49)
--- NOTE | 2017-08-11 08:53 | ED ---
General Adult HPI - General Chief complaint: Fever Stated complaint: vomiting, sick Time Seen by Provider: 08/11/17 08:20 Source: patient, RN notes reviewed Mode of arrival: wheelchair Limitations: no limitations - History of Present Illness Initial comments: This is a 52-year-old male who presents emergency department with past medical history significant for dialysis as well as diabetes. Patient comes in today stating that he has been sick for a month. Patient states this morning Dr. Quarles was supposed to come to the medical [place] where he resides and did not. Patient states because of that he came in for his 8:00 wound care appointment decided to skip that and be seen in the emergency department. Patient states everything is wrong. Patient complains about having chronic back pain chronic leg pain states his whole abdomen hurts patient complains about a sore throat patient planes about sinus congestion patient states she also had a fever. Patient states all of these things have been ongoing for a month. Patient denies any chest pain palpitations difficulty breathing or shortness of breath. Patient denies any headache patient denies numbness or weakness. Patient denies any lightheadedness dizziness or near syncopal episode. Patient states there was no acute episode of symptoms that brought him into the emergency department today he stated that he came in because Dr. Quarles didn't see him and he figured this was a way to be seen immediately even though his symptoms have been ongoing for 1 month - Related Data Home Medications Medication Instructions Recorded Confirmed Metoprolol Tartrate [Lopressor] 25 mg PO BID 08/09/14 08/11/17 Ubidecarenone [Co Q-10] 200 mg PO DAILY 08/09/14 08/11/17 Ascorbic Acid [Vitamin C] 500 mg PO HS 11/04/14 08/11/17 Sevelamer [Renvela] 3,200 mg PO TID@0800,1200,1700 02/26/15 08/11/17 Amiodarone HCl [Cordarone] 100 mg PO DAILY 10/26/15 08/11/17 Famotidine [Pepcid] 20 mg PO DAILY 10/26/15 08/11/17 INSULIN LISPRO (humaLOG) [humaLOG 19 units SQ AC-TID 10/26/15 08/11/17 (formulary)] Brendon Packet 1 packet PO BID 11/19/15 08/11/17 Loratadine [Claritin] 10 mg PO HS 02/04/16 08/11/17 Allopurinol [Zyloprim] 100 mg PO DAILY 02/16/16 08/11/17 Multivitamins, Thera [Multivitamin 1 tab PO DAILY 02/16/16 08/11/17 (formulary)] Clopidogrel [Plavix] 75 mg PO HS 02/28/16 08/11/17 DULoxetine HCL [Cymbalta] 30 mg PO DAILY 06/24/16 08/11/17 Midodrine [ProAmatine] 5 mg PO MOWEFR 08/26/16 08/11/17 Atropine Sulfate [Atropine Sulfate 1 drop RIGHT EYE DAILY 11/15/16 08/11/17 1%] Difluprednate [Durezol] 1 drop RIGHT EYE QID 11/15/16 08/11/17 Diphenox-Atrop 2.5-0.025 mg 2 tab PO Q4H PRN 11/15/16 08/11/17 [Lomotil] Autologous Serum Tears 50% 1 drop BOTH EYES BID 08/11/17 08/11/17 Cinacalcet HCl [Sensipar] 60 mg PO HS 08/11/17 08/11/17 Fluticasone Nasal [place] [Flonase 1 spray EA NOSTRIL BID 08/11/17 08/11/17 Nasal [place]] HYDROcodone/APAP 7.5-325MG [[place] 1 tab PO Q4H PRN 08/11/17 08/11/17 7.5-325] Insulin Glargine [Lantus] 42 unit SQ DAILY@199908/11/17 08/11/17 L.acidoph,Paracasei, B.lactis 1 cap PO BID 08/11/17 08/11/17 [Probiotic] Pravastatin Sodium [Pravachol] 40 mg PO HS 08/11/17 08/11/17 Saline Nasal [place] 1 spray EA NOSTRIL Q1H PRN 08/11/17 08/11/17 guaiFENesin [guaiFENesin Oral 200 mg PO Q4H PRN 08/11/17 08/11/17 Solution] Previous Rx's Medication Instructions Recorded Zolpidem [Ambien] 5 mg PO HS PRN #20 tab 11/20/16 Amoxicillin/Potassium Clav 1 each PO Q12HR #28 tab 08/11/17 [Augmentin 875-125 Tablet] Allergies Allergy/AdvReac Type Severity Reaction Status Date / Time tomato Allergy Unknown Unknown Verified 08/11/17 08:23 losartan potassium AdvReac Unknown LIGHTHEADED Verified 08/11/17 08:40 [From Cozaar] Review of Systems ROS Statement: Those systems with pertinent positive or pertinent negative responses have been documented in the HPI. ROS Other: All systems not noted in ROS Statement are negative. Past Medical History Past Medical History: Coronary Artery Disease (CAD), Diabetes Mellitus, Dialysis , Eye Disorder, Hyperlipidemia, Hypertension, Osteoarthritis (OA), Osteoarthritis (OA), Renal Disease, Sleep Apnea/CPAP/BIPAP, Sleep Apnea/CPAP/ BIPAP, Vascular Disorder, Vascular Disorder Additional Past Medical History / Comment(s): legally blind, ESRD with hemodialysis M,W, F-thru lerfupper arm graft, diabetic NEUROPATHY in bilateral legs and feet and , dizziness, PVD, KIDNEY STONES, gout, frequent diarrhea, DJD , anemia, thrombocytopenia. ESRD with hemodialysis M,W, F-thru R upper arm graft, diabetic NEUROPAT, PVD, KIDNEY STONES, gout, frequent diarrhea, DJD, anemia, thrombocytopenia. diabetic NEUROPATHY in bilateral legs and feet and , dizziness, PVD, KIDNEY STONES, gout, frequent diarrhea, DJD, anemia, thrombocytopenia. detached retina with surgeries, ALIYA USES C-PAP MACHINE, ESRD with hemodialysis M,W, F-thru R upper arm graft, diabetic NEUROPATHY bilateral legs and feet and starting in bilateral hands, gait dysfuction, hx of cellulitis bilateral legs/feet-pt states L leg/foot healthy at this time, PVD, KIDNEY STONES, gout, frequent diarrhea, DJD, anemia, thrombocytopenia. History of Any Multi-Drug Resistant Organisms: MRSA, MRSA, VRE Date of last positivie culture/infection: 10/07/16 MDRO Source:: [email or web address] Past Surgical History: Cholecystectomy, Coronary Bypass/CABG Additional Past Surgical History / Comment(s): 11/04/15 [place] cath for ABX therapy, , AMPUTATION GREAT R TOE , DEBRIDEMENT OF LEG, left eye surgery including retinal detachment repair and laser surgery and cataract removal, R eye surgery for blood behind eye twice, KIDNEY STONE REMOVAL, Multiple debridements done to the right foot wound. Past Anesthesia/Blood Transfusion Reactions: No Reported Reaction Additional Past Anesthesia/Blood Transfusion Reaction / Comment(s): NEVER HAD BLOOD TRANSFUSION Past Psychological History: Depression Smoking Status: Current some day smoker Past Alcohol Use History: None Reported Past Drug Use History: None Reported - Past Family History Father Family Medical History: Cancer Additional Family Medical History / Comment(s): PANCREATIC CANCER Sister(s) Family Medical History: Deep Vein Thrombosis (DVT) General Exam - General Exam Comments Initial Comments: GENERAL: Patient is well-developed and well-nourished. Patient is nontoxic and well- hydrated and is in mild distress. ENT: Neck is soft and supple. No significant lymphadenopathy is noted. Oropharynx is clear. Moist mucous membranes. Neck has full range of motion without eliciting any pain. EYES: The sclera were anicteric and conjunctiva were pink and moist. Extraocular movements were intact and pupils were equal round and reactive to light. Eyelids were unremarkable. PULMONARY: Unlabored respirations. Good breath sounds bilaterally. No audible rales rhonchi or wheezing was noted. CARDIOVASCULAR: There is a regular rate and rhythm without any murmurs gallops or rubs. ABDOMEN: Soft and nontender with normal bowel sounds. No palpable organomegaly was noted. There is no palpable pulsatile mass. SKIN: Skin is clear with no lesions or rashes and otherwise unremarkable. NEUROLOGIC: Patient is alert and oriented x3. Cranial nerves II through XII are grossly intact. Motor and sensory are also intact. Normal speech, volume and content. Symmetrical smile. MUSCULOSKELETAL: Normal extremities with adequate strength and full range of motion. Patient is wearing a protective boot on the left foot LYMPHATICS: No significant lymphadenopathy is noted PSYCHIATRIC: Normal psychiatric evaluation. Limitations: no limitations Course Vital Signs 08/11/17 08/11/17 08/11/17 08:19 09:27 10:19 Temperature 100.5 F H 99.0 F 99.2 F Pulse Rate 95 87 91 Respiratory 22 18 18 Rate Blood Pressure 108/52 97/63 92/47 O2 Sat by Pulse 100 100 100 Oximetry 08/11/17 08/11/17 11:45 12:28 Temperature Pulse Rate 85 87 Respiratory 100 H 18 Rate Blood Pressure 93/55 115/53 O2 Sat by Pulse 98 98 Oximetry Medical Decision Making - Medical Decision Making EKG shows normal sinus rhythm at 93 bpm AL interval is 176 QRS is 176 QT interval is 458 QTC is 569. Patient has a left bundle branch block. Chest x-ray shows no acute abnormality. I spoke with Dr. Quarles about this and he agreed that the patient could be followed up by himself tomorrow. I gave the patient a gram of Rocephin and sent the patient home on Augmentin. The patient's blood pressure started to drop a little bit in because of this associated with the fever and the white count I decided to admit the patient. No source was found at this time. I spoke with Dr. Vivas he agreed to accept the patient's admission and we continued the Rocephin as an inpatient. I wrote admitting orders. - Lab Data Result diagrams: 08/11/17 08:42 08/11/17 08:42 Lab Results 08/11/17 08/11/17 08/11/17 Range/Units 08:42 08:42 08:42 WBC 11.7 H (3.8-10.6) k/uL RBC 2.87 L (4.30-5.90) m/uL Hgb 9.3 L (13.0-17.5) gm/dL Hct 28.7 L (39.0-53.0) % MCV 100.0 (80.0-100.0) fL MCH 32.5 (25.0-35.0) pg MCHC 32.5 (31.0-37.0) g/dL RDW 15.5 (11.5-15.5) % Plt Count 208 (150-450) k/uL Neutrophils % 88 % Lymphocytes % 5 % Monocytes % 5 % Eosinophils % 0 % Basophils % 0 % Neutrophils # 10.3 H (1.3-7.7) k/uL Lymphocytes # 0.6 L (1.0-4.8) k/uL Monocytes # 0.6 (0-1.0) k/uL Eosinophils # 0.0 (0-0.7) k/uL Basophils # 0.0 (0-0.2) k/uL Hypochromasia Slight Poikilocytosis Slight Macrocytosis Slight PT (9.0-12.0) sec INR (<1.2) APTT (22.0-30.0) sec Sodium 133 L (137-145) mmol/L Potassium 4.2 (3.5-5.1) mmol/L Chloride 87 L (98-107) mmol/L Carbon Dioxide 24 (22-30) mmol/L Anion Gap 22 mmol/L BUN 80 H* (9-20) mg/dL Creatinine 8.90 H* (0.66-1.25) mg/dL Est GFR (MDRD) Af Amer 8 (>60 ml/min/1.73 sqM) Est GFR (MDRD) Non-Af 6 (>60 ml/min/1.73 sqM) Glucose 202 H (74-99) mg/dL Lactic Ac Sepsis Rflx Plasma Lactic Acid Rambo 2.1 H* (0.7-2.0) mmol/L Calcium 8.0 L (8.4-10.2) mg/dL Total Bilirubin 0.8 (0.2-1.3) mg/dL AST 20 (17-59) U/L ALT 29 (21-72) U/L Alkaline Phosphatase 186 H (38-126) U/L Total Protein 6.7 (6.3-8.2) g/dL Albumin 3.6 (3.5-5.0) g/dL Urine Color Urine Appearance (Clear) Urine pH (5.0-8.0) Ur Specific [place] (1.001-1.035) Urine Protein (Negative) Urine Glucose (UA) (Negative) Urine Ketones (Negative) Urine Blood (Negative) Urine Nitrite (Negative) Urine Bilirubin (Negative) Urine Urobilinogen (<2.0) mg/dL Ur Leukocyte Esterase (Negative) Urine RBC (0-5) /hpf Urine WBC (0-5) /hpf Ur Squamous Epith Cells (0-4) /hpf 08/11/17 08/11/17 08/11/17 Range/Units 08:42 09:33 10:31 WBC (3.8-10.6) k/uL RBC (4.30-5.90) m/uL Hgb (13.0-17.5) gm/dL Hct (39.0-53.0) % MCV (80.0-100.0) fL MCH (25.0-35.0) pg MCHC (31.0-37.0) g/dL RDW (11.5-15.5) % Plt Count (150-450) k/uL Neutrophils % % Lymphocytes % % Monocytes % % Eosinophils % % Basophils % % Neutrophils # (1.3-7.7) k/uL Lymphocytes # (1.0-4.8) k/uL Monocytes # (0-1.0) k/uL Eosinophils # (0-0.7) k/uL Basophils # (0-0.2) k/uL Hypochromasia Poikilocytosis Macrocytosis PT 11.7 (9.0-12.0) sec INR 1.2 H (<1.2) APTT 30.0 (22.0-30.0) sec Sodium (137-145) mmol/L Potassium (3.5-5.1) mmol/L Chloride (98-107) mmol/L Carbon Dioxide (22-30) mmol/L Anion Gap mmol/L BUN (9-20) mg/dL Creatinine (0.66-1.25) mg/dL Est GFR (MDRD) Af Amer (>60 ml/min/1.73 sqM) Est GFR (MDRD) Non-Af (>60 ml/min/1.73 sqM) Glucose (74-99) mg/dL Lactic Ac Sepsis Rflx Y Plasma Lactic Acid [place] (0.7-2.0) mmol/L Calcium (8.4-10.2) mg/dL Total Bilirubin (0.2-1.3) mg/dL AST (17-59) U/L ALT (21-72) U/L Alkaline Phosphatase (38-126) U/L Total Protein (6.3-8.2) g/dL Albumin (3.5-5.0) g/dL Urine Color Yellow Urine Appearance Clear (Clear) Urine pH 7.5 (5.0-8.0) Ur Specific [place] 1.012 (1.001-1.035) Urine Protein 2+ H (Negative) Urine Glucose (UA) Negative (Negative) Urine Ketones Negative (Negative) Urine Blood Negative (Negative) Urine Nitrite Negative (Negative) Urine Bilirubin Negative (Negative) Urine Urobilinogen <2.0 (<2.0) mg/dL Ur Leukocyte Esterase Negative (Negative) Urine RBC 1 (0-5) /hpf Urine WBC 4 (0-5) /hpf Ur Squamous Epith Cells <1 (0-4) /hpf Disposition Clinical Impression: Febrile illness, Renal failure Disposition: ADMITTED IP TO THIS HOSP Prescriptions: Amoxicillin/Potassium Clav [Augmentin 875-125 Tablet] 1 each PO Q12HR #28 tab Referrals: Des Acuña MD [STAFF PHYSICIAN] - 1-2 days Time of Disposition: 12:24
[2017-08-11 09:03] LABS: Basophils % (A) 0 %; CH 32.3; CHCM 32.5; Eosinophils % (A) 0 %; HCT 28.7 % (39.0-53.0); HDW 3.57; HGB 9.3 gm/dL (13.0-17.5); Hypochromasia Slight; Luc # (Auto) 0.15; Luc % (Auto) 1; Lymphocytes # (A) 0.6 k/uL (1.0-4.8); Lymphocytes % (A) 5 %; MCH 32.5 pg (25.0-35.0); MCHC 32.5 g/dL (31.0-37.0); Macrocytosis Slight; Mean Platelet Volume 8.1; Monocytes # (A) 0.6 k/uL (0-1.0); Monocytes % (A) 5 %; Neutrophils # (A) 10.3 k/uL (1.3-7.7); Neutrophils % (A) 88 %; Poikilocytosis Slight; RBC 2.87 m/uL (4.30-5.90); RDW 15.5 % (11.5-15.5); WBC 11.7 k/uL (3.8-10.6); WBC (Perox) 12.01
[2017-08-11 09:12] LABS: INR 1.2 (<1.2); Prothrombin Time 11.7 sec (9.0-12.0)
[2017-08-11 09:13] LABS: Potassium 4.2 mmol/L (3.5-5.1); Total Bilirubin 0.8 mg/dL (0.2-1.3); Total Protein 6.7 g/dL (6.3-8.2)
--- NOTE | 2017-08-11 09:41 | XR ---
2 view chest x-ray HISTORY: Fever, COPD 2 views of the chest correlated to prior 11/15/2016 There is no significant interval change. Postoperative changes are again noted. Central venous cathet er is present as on prior exam, distal tip overlying the cavoatrial junction level. Stents are presen t within the left upper extremity as on prior exam. There is elevation of the right hemidiaphragm. Pa tient is post median sternotomy. No airspace disease, pneumothorax, or pleural effusion. Cardiomedias tinal silhouette, pulmonary vascularity and echo are stable. IMPRESSION: No acute cardiopulmonary disease evident
[2017-08-11 10:44] LABS: Appearance,Urine Clear (Clear); Bilirubin,Urine Negative (Negative); Glucose,Urine (UA) Negative (Negative); Ketones,Urine Negative (Negative); Leukocyte Esterase,Urine Negative (Negative); Nitrite,Urine Negative (Negative); PH, Urine 7.5 (5.0-8.0); Particle Count 2962; Protein,Urine 2+ (Negative); RBC,Urine 1 /hpf (0-5); Specific Gravity,Urine 1.012 (1.001-1.035); Squamous Epithelial Cell,Urine <1 /hpf (0-4); UA Billing (MACRO vs. MICRO) MICRO; Urobilinogen,Urine <2.0 mg/dL (<2.0); WBC,Urine 4 /hpf (0-5)
[2017-08-11] MEDS ORDERED: SODIUM CHLORIDE 0.9% 500 ML IV ONE (12:29)
[2017-08-11] MEDS ORDERED: SODIUM CHLORIDE 0.9% 1,000 ML IV ONE (12:41)
[2017-08-11] MEDS ORDERED: ZOLPIDEM 5 MG TAB PO PRN (16:46)
[2017-08-11] MEDS ORDERED: guaiFENesin SYRUP 100MG/5ML 200 MG/10 ML CUP PO PRN (16:46)
[2017-08-11] MEDS ORDERED: SODIUM CHLORIDE 0.65% NASAL SPRAY 44 ML BTL NASAL PRN (16:46)
[2017-08-11 16:52] LABS: Glucose,Whole Blood 191 mg/dL (75-99)
[2017-08-11] MEDS ORDERED: NON-FORMULARY DRUG (Difluprednate [Durezol] 1 DROP) RIGHT EYE SCH (18:00)
[2017-08-11] MEDS: MIDODRINE 5 MG TAB PO SCH (20:08)
[2017-08-11] MEDS: SEVELAMER 800 MG TAB PO SCH (20:08)
[2017-08-11] MEDS ORDERED: JUVEN PO SCH (21:00)
[2017-08-11] MEDS ORDERED: [UNRECOGNIZED DRUG - OTHER] BOTH EYES SCH (21:00)
[2017-08-11 21:17] LABS: Glucose,Whole Blood 192 mg/dL (75-99)
[2017-08-11] MEDS: ASCORBIC ACID 500 MG TAB PO SCH (21:30)
[2017-08-11] MEDS: METOPROLOL TARTRATE 25 MG TAB PO SCH (21:30)
[2017-08-11] MEDS: PRAVASTATIN SODIUM 40 MG TAB PO SCH (21:30)
[2017-08-11] MEDS: FLUTICASONE 50MCG/SPRAY NASAL 16GM EA NOSTRIL SCH (21:30)
[2017-08-11] MEDS: CLOPIDOGREL 75 MG TAB PO SCH (21:30)
[2017-08-11] MEDS: LORATADINE 10 MG TAB PO SCH (21:30)
[2017-08-11] MEDS: INSULIN LISPRO (humaLOG) 300 UNIT/3 ML VIAL SQ SCH ×2 (21:31→21:37)
[2017-08-11] MEDS: INSULIN GLARGINE 100 UNIT/ML 10 ML VIAL SQ SCH (21:31)
[2017-08-11] MEDS ORDERED: IV VANCOMYCIN PER PHARMACY 1 EACH MISC MISCELLANE PRN (21:36)
--- NOTE | 2017-08-11 21:36 | P.CONS ---
History of Present Illness - Reason for Consult Consult date: 08/11/17 - Chief Complaint Fever and weakness - History of Present Illness 52-year-old male presents to the emergency center from his extended care facility complaining of a month of increasing illness. The patient relates over the last several weeks he's having increasing weakness and generalized malaise. He continues to go to dialysis but despite that he is feeling worse. He's had some generalized abdominal pain. He's had difficulty with some nausea without emesis or hematemesis. He is denying diarrhea again has some generalized abdominal discomfort. He has increasing fatigue and malaise. He's had some headache. He's had some generalized body ache. Abdomen is developed some fever. He denies high-grade chills or rigors but is aware of his fever. A continues relate that he just feels poorly overall. Upon arrival to the emergency center a fever was noted that he has been admitted. The concerns of sepsis the infectious diseases consultation was requested. Review of Systems As noted is complaining of fever and generalized malaise. HEENT: Currently without headaches but has had some headaches. He has noted his vision is now considerably worse than even a few months ago due to his diabetic retinopathy and bleeds. He's had several surgeries with little improvement of his vision. He finds is very discouraging. Lungs: Denies cough, sputum production, or hemoptysis. Cardiovascular: Relates to some ongoing shortness of breath but denies chest pain, chest wall pain, orthopnea, dyspnea on exertion, syncope Gastrointestinal: He's had some generalized abdominal pain. Appetite poor. Denies nausea or emesis or hematemesis. Denies significant diarrhea. Musculoskeletal: Complains of diffuse pains from his multiple falls. With his diabetes he has significant neuropathy which also causes further difficulties. Especially of pain to his extremities. Skin: Complains of worsening wounds to the right leg Neuro: No headache currently but has been having chronic headaches, complaints of the vertigo. Currently while lying in bed has no dizziness or headache. Psychiatric:Denies anxiety or depression. Endocrine: He has ongoing worsening fatigue, is maintaining his dry weight at hemodialysis. 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 Past Medical History Past Medical History: Asthma, Coronary Artery Disease (CAD), Diabetes Mellitus, Dialysis, Eye Disorder, Hyperlipidemia, Hypertension, Osteoarthritis (OA), Osteoarthritis (OA), Renal Disease, Skin Disorder, Sleep Apnea/CPAP/BIPAP, Sleep Apnea/CPAP/BIPAP, Vascular Disorder, Vascular Disorder Additional Past Medical History / Comment(s): Current R foot wound-diaz 2 ulcer-seen in wound center, ESRD with hemodialysis M,W, F-thru left upper arm graft-last hemo on 08/09/17, IDDM type II, diabetic NEUROPATHY in bilateral legs and feet and starting in his hands, legally blind-pt unsure why but thinks could be d/t retinopathy, vertigo, PVD, KIDNEY STONES, gout, frequent diarrhea, DJD, anemia, thrombocytopenia, ALIYA USES C-PAP MACHINE, DJD, arthritis bilateral hips and knees, back pain at times, gait dysfuction, hx of cellulitis bilateral legs/feet, BPH, bronchitis, bacterial overgrowth syndrome, past L wrist fracture. History of Any Multi-Drug Resistant Organisms: MRSA, MRSA, VRE Year Discovered:: 10/07/16 MDRO Source:: [email or web address] Past Surgical History: Cholecystectomy, Coronary Bypass/CABG, Heart Catheterization, Orthopedic Surgery Additional Past Surgical History / Comment(s): 11/04/15 Keller cath for ABX therapy, , AMPUTATION GREAT R TOE , DEBRIDEMENT OF LEG/R foot, left eye surgery including retinal detachment repair and laser surgery and cataract removal, R eye surgery for blood behind eye twice, KIDNEY STONE REMOVAL, R carpal tunnel surgery, CABG-4 vessel, EGD/colonoscopy. Past Anesthesia/Blood Transfusion Reactions: No Reported Reaction Additional Past Anesthesia/Blood Transfusion Reaction / Comm: NEVER HAD BLOOD TRANSFUSION Additional Psychological History / Comment(s): PT LIVES WITH OF 20 YEARS at [facility]. He uses a walker. HIS LEGS GET TIRED AND WEAK and he has had falls. He is legally blind. He is seen at [facility] wound center. He is ESRD and is on hemodialysis 3 days a week. He has a shunt. home. No recent travels. Smoking Status: Current some day smoker - Past Family History Mother Family Medical History: No Reported History Additional Family Medical History / Comment(s): Mother is 77yrs old and healthy. She is still working. Father Family Medical History: Cancer Additional Family Medical History / Comment(s): CANCER-Pt is unsure of type. Father at the age of 77yrs. Sister(s) Family Medical History: Deep Vein Thrombosis (DVT) Medications and Allergies Home Medications and Allergies Comment(s): Current Medications Amiodarone HCl (Cordarone) 100 mg PO DAILY [facility] Ascorbic Acid (Vitamin C) 500 mg PO HS [facility] Atropine Sulfate (Isopto Atropine 1% 5ml) 1 drops RIGHT EYE DAILY [facility] Clopidogrel Bisulfate (Plavix) 75 mg PO HS [facility] Diphenoxylate HCl/Atropine (Lomotil) 2 each PO Q4H PRN PRN Reason: Diarrhea Duloxetine HCl (Cymbalta) 30 mg PO DAILY [facility] Enoxaparin Sodium (Lovenox) 40 mg SQ DAILY [facility] Famotidine (Pepcid) 20 mg PO DAILY [facility] Fluticasone Propionate (Flonase Nasal [place]) 1 spray EA NOSTRIL BID [facility] Guaifenesin (Robitussin) 200 mg PO Q4H PRN PRN Reason: Cough Ceftriaxone Sodium 1,000 mg/ (Sodium Chloride) 50 mls @ 100 mls/hr IVPB Q24HR [facility] Sodium Chloride (Saline 0.9%) 1,000 mls @ 75 mls/hr IV .[id number] ONE Stop: 08/12/17 02:00 Last Admin: 08/11/17 13:54 Dose: 75 mls/hr Insulin Glargine (Lantus) 42 unit SQ DAILY@2000 [facility] Insulin Human Lispro (Humalog) 19 unit SQ AC-TID [facility] Loratadine (Claritin) 10 mg PO HS [facility] Metoprolol Tartrate (Lopressor) 25 mg PO BID [facility] Midodrine (Proamatine) 5 mg PO MOWEFR [facility] Last Admin: 08/11/17 20:08 Dose: Not Given Multivitamins (Theragran) 1 each PO DAILY@1200 [facility] Non-Formulary Medication (Difluprednate [Durezol]) 1 drop RIGHT EYE QID [facility] Pravastatin Sodium (Pravachol) 40 mg PO HS [facility] Sevelamer Carbonate (Renvela) 3,200 mg PO TID@0800,1200,1700 [facility] Last Admin: 08/11/17 20:08 Dose: Not Given Sodium Chloride (Deep Sea) 1 spray NASAL Q1H PRN PRN Reason: DRYNESS Zolpidem Tartrate (Ambien) 5 mg PO HS PRN PRN Reason: Insomnia Home Medications Medication Instructions Recorded Confirmed Type Metoprolol Tartrate [Lopressor] 25 mg PO BID 08/09/14 08/11/17 History Ubidecarenone [Co Q-10] 200 mg PO DAILY 08/09/14 08/11/17 History Ascorbic Acid [Vitamin C] 500 mg PO HS 11/04/14 08/11/17 History Sevelamer [Renvela] 3,200 mg PO TID@0800,1200,1700 02/26/15 08/11/17 History Amiodarone HCl [Cordarone] 100 mg PO DAILY 10/26/15 08/11/17 History Famotidine [Pepcid] 20 mg PO DAILY 10/26/15 08/11/17 History INSULIN LISPRO (humaLOG) [humaLOG 19 units SQ AC-TID 10/26/15 08/11/17 History (formulary)] Brendon Packet 1 packet PO BID 11/19/15 08/11/17 History Loratadine [Claritin] 10 mg PO HS 02/04/16 08/11/17 History Allopurinol [Zyloprim] 100 mg PO DAILY 02/16/16 08/11/17 History Multivitamins, Thera [Multivitamin 1 tab PO DAILY 02/16/16 08/11/17 History (formulary)] Clopidogrel [Plavix] 75 mg PO HS 02/28/16 08/11/17 History DULoxetine HCL [Cymbalta] 30 mg PO DAILY 06/24/16 08/11/17 History Midodrine [ProAmatine] 5 mg PO MOWEFR 08/26/16 08/11/17 History Atropine Sulfate [Atropine Sulfate 1 drop RIGHT EYE DAILY 11/15/16 08/11/17 History 1%] Difluprednate [Durezol] 1 drop RIGHT EYE QID 11/15/16 08/11/17 History Diphenox-Atrop 2.5-0.025 mg 2 tab PO Q4H PRN 11/15/16 08/11/17 History [Lomotil] Zolpidem [Ambien] 5 mg PO HS PRN #20 tab 11/20/16 08/11/17 Rx Amoxicillin/Potassium Clav 1 each PO Q12HR #28 tab 08/11/17 Rx [Augmentin 875-125 Tablet] Autologous Serum Tears 50% 1 drop BOTH EYES BID 08/11/17 08/11/17 History Cinacalcet HCl [Sensipar] 60 mg PO HS 08/11/17 08/11/17 History Fluticasone Nasal [place] [Flonase 1 spray EA NOSTRIL BID 08/11/17 08/11/17 History Nasal [place]] HYDROcodone/APAP 7.5-325MG [[place] 1 tab PO Q4H PRN 08/11/17 08/11/17 History 7.5-325] Insulin Glargine [Lantus] 42 unit SQ DAILY@199908/11/17 08/11/17 History L.acidoph,Paracasei, B.lactis 1 cap PO BID 08/11/17 08/11/17 History [Probiotic] Pravastatin Sodium [Pravachol] 40 mg PO HS 08/11/17 08/11/17 History Saline Nasal [place] 1 spray EA NOSTRIL Q1H PRN 08/11/17 08/11/17 History guaiFENesin [guaiFENesin Oral 200 mg PO Q4H PRN 08/11/17 08/11/17 History Solution] Allergies Allergy/AdvReac Type Severity Reaction Status Date / Time tomato Allergy Unknown Unknown Verified 08/11/17 08:23 losartan potassium AdvReac Unknown LIGHTHEADED Verified 08/11/17 08:40 [From [facility]] Physical Exam Vitals: Vital Signs Temp Pulse Pulse Resp BP BP Pulse Ox 08/11/17 15:35 97.0 F L 78 16 85/48 96 08/11/17 14:21 98.8 F 91 18 96/51 98 08/11/17 13:58 98.8 F 91 18 96/51 98 08/11/17 12:28 87 18 115/53 98 08/11/17 11:45 85 100 H 93/55 98 08/11/17 10:19 99.2 F 91 18 92/47 100 08/11/17 09:27 99.0 F 87 18 97/63 100 08/11/17 08:19 100.5 F H 95 22 108/52 100 Intake and Output 08/11/17 08/11/17 08/11/17 06:59 14:59 22:59 Intake Total 100 Balance 100 Intake: Oral 100 Other: Weight 136.985 kg Patient Weight 08/12/17 06:59 Weight 136.985 kg 52-year-old male who suffers from superobesity, and sleep apnea. Relates it is not very comfortable but does not complain of one distinct problem at this time HEENT: Anicteric conjunctiva are pink and moist nasal mucosa grossly intact without significant lesions, there is no thrush. Poor dentition Neck: The neck is supple without significant lymphadenopathy or thyromegaly. Lungs: Symmetrical air entry is noted. Expiratory wheezes are scattered throughout the lung joseph. But no joshua bronchial sounds are heard. No egophony. Heart: Irregular with an audible S1 and S2 positive S4 no audible murmur click or rub. Abdomen: Obese, Positive bowel sounds soft and nontender without palpable masses or organomegaly. There was no guarding or rebound. Extremities: The upper extremity show evidence of no significant lesions and the shunt to the left and right arms are not functioning well But no open ulcers are seen on the right upper extremity left arm without lesions. IV site looks intact in the right arm. the right anterior chest wall is without erythema or tenderness. The lower extremity show evidence of some lower extremity edema greater on the right than the left. Left foot without acute lesions. The right lower extremity shows evidence of the near healing of the prior surgical amputation sites. Dry eschar is seen laterally on the foot without drainage on the dressings. Neuro: Awake alert oriented to person place and time. He has very poor vision and has significant peripheral neuropathy from his diabetes but no acute gross focal sensory motor deficits are noted. Results CBC & Chem 7: 08/11/17 08:42 08/11/17 08:42 Labs: Abnormal Lab Results - Last 24 Hours (Table) 08/11/17 08/11/17 08/11/17 Range/Units 08:42 08:42 08:42 WBC 11.7 H (3.8-10.6) k/uL RBC 2.87 L (4.30-5.90) m/uL Hgb 9.3 L (13.0-17.5) gm/dL Hct 28.7 L (39.0-53.0) % Neutrophils # 10.3 H (1.3-7.7) k/uL Lymphocytes # 0.6 L (1.0-4.8) k/uL INR (<1.2) Sodium 133 L (137-145) mmol/L Chloride 87 L (98-107) mmol/L BUN 80 H* (9-20) mg/dL Creatinine 8.90 H* (0.66-1.25) mg/dL Glucose 202 H (74-99) mg/dL POC Glucose (mg/dL) (75-99) mg/dL Plasma Lactic Acid Rambo 2.1 H* (0.7-2.0) mmol/L Calcium 8.0 L (8.4-10.2) mg/dL Alkaline Phosphatase 186 H (38-126) U/L Urine Protein (Negative) 08/11/17 08/11/17 08/11/17 Range/Units 08:42 10:31 16:45 WBC (3.8-10.6) k/uL RBC (4.30-5.90) m/uL Hgb (13.0-17.5) gm/dL Hct (39.0-53.0) % Neutrophils # (1.3-7.7) k/uL Lymphocytes # (1.0-4.8) k/uL INR 1.2 H (<1.2) Sodium (137-145) mmol/L Chloride (98-107) mmol/L BUN (9-20) mg/dL Creatinine (0.66-1.25) mg/dL Glucose (74-99) mg/dL POC Glucose (mg/dL) 191 H (75-99) mg/dL Plasma Lactic Acid Rambo (0.7-2.0) mmol/L Calcium (8.4-10.2) mg/dL Alkaline Phosphatase (38-126) U/L Urine Protein 2+ H (Negative) 08/11/17 Range/Units 21:15 WBC (3.8-10.6) k/uL RBC (4.30-5.90) m/uL Hgb (13.0-17.5) gm/dL Hct (39.0-53.0) % Neutrophils # (1.3-7.7) k/uL Lymphocytes # (1.0-4.8) k/uL INR (<1.2) Sodium (137-145) mmol/L Chloride (98-107) mmol/L BUN (9-20) mg/dL Creatinine (0.66-1.25) mg/dL Glucose (74-99) mg/dL POC Glucose (mg/dL) 192 H (75-99) mg/dL Plasma Lactic Acid Rambo (0.7-2.0) mmol/L Calcium (8.4-10.2) mg/dL Alkaline Phosphatase (38-126) U/L Urine Protein (Negative) Microbiology - Last 24 Hours (Table) 08/11/17 10:31 Urine Culture - Preliminary Urine,Catheterized Laboratory Results WBC 11.7 k/uL (3.8-10.6) H 08/11/17 08:42 RBC 2.87 m/uL (4.30-5.90) L 08/11/17 08:42 Hgb 9.3 gm/dL (13.0-17.5) L 08/11/17 08:42 Hct 28.7 % (39.0-53.0) L 08/11/17 08:42 MCV 100.0 fL (80.0-100.0) 08/11/17 08:42 MCH 32.5 pg (25.0-35.0) 08/11/17 08:42 MCHC 32.5 g/dL (31.0-37.0) 08/11/17 08:42 RDW 15.5 % (11.5-15.5) 08/11/17 08:42 Plt Count 208 k/uL (150-450) 08/11/17 08:42 Neutrophils % 88 % 08/11/17 08:42 Lymphocytes % 5 % 08/11/17 08:42 Monocytes % 5 % 08/11/17 08:42 Eosinophils % 0 % 08/11/17 08:42 Basophils % 0 % 08/11/17 08:42 Neutrophils # 10.3 k/uL (1.3-7.7) H 08/11/17 08:42 Lymphocytes # 0.6 k/uL (1.0-4.8) L 08/11/17 08:42 Monocytes # 0.6 k/uL (0-1.0) 08/11/17 08:42 Eosinophils # 0.0 k/uL (0-0.7) 08/11/17 08:42 Basophils # 0.0 k/uL (0-0.2) 08/11/17 08:42 Hypochromasia Slight 08/11/17 08:42 Poikilocytosis Slight 08/11/17 08:42 Macrocytosis Slight 08/11/17 08:42 PT 11.7 sec (9.0-12.0) 08/11/17 08:42 INR 1.2 (<1.2) H 08/11/17 08:42 APTT 30.0 sec (22.0-30.0) 08/11/17 08:42 Sodium 133 mmol/L (137-145) L 08/11/17 08:42 Potassium 4.2 mmol/L (3.5-5.1) 08/11/17 08:42 Chloride 87 mmol/L (98-107) L 08/11/17 08:42 Carbon Dioxide 24 mmol/L (22-30) 08/11/17 08:42 Anion Gap 22 mmol/L 08/11/17 08:42 BUN 80 mg/dL (9-20) H* 08/11/17 08:42 Creatinine 8.90 mg/dL (0.66-1.25) H* 08/11/17 08:42 Est GFR (MDRD) Af Amer 8 (>60 ml/min/1.73 sqM) 08/11/17 08:42 Est GFR (MDRD) Non-Af 6 (>60 ml/min/1.73 sqM) 08/11/17 08:42 Glucose 202 mg/dL (74-99) H 08/11/17 08:42 POC Glucose (mg/dL) 192 mg/dL (75-99) H 08/11/17 21:15 POC Glu Administrative Office Assistant ID Omar Vela 08/11/17 21:15 Lactic Ac Sepsis Rflx Y 08/11/17 09:33 Plasma Lactic Acid Rambo 1.2 mmol/L (0.7-2.0) 08/11/17 12:50 Calcium 8.0 mg/dL (8.4-10.2) L 08/11/17 08:42 Total Bilirubin 0.8 mg/dL (0.2-1.3) 08/11/17 08:42 AST 20 U/L (17-59) 08/11/17 08:42 ALT 29 U/L (21-72) 08/11/17 08:42 Alkaline Phosphatase 186 U/L (38-126) H 08/11/17 08:42 Total Protein 6.7 g/dL (6.3-8.2) 08/11/17 08:42 Albumin 3.6 g/dL (3.5-5.0) 08/11/17 08:42 Urine Color Yellow 08/11/17 10:31 Urine Appearance Clear (Clear) 08/11/17 10:31 Urine pH 7.5 (5.0-8.0) 08/11/17 10:31 Ur Specific [place] 1.012 (1.001-1.035) 08/11/17 10:31 Urine Protein 2+ (Negative) H 08/11/17 10:31 Urine Glucose (UA) Negative (Negative) 08/11/17 10:31 Urine Ketones Negative (Negative) 08/11/17 10:31 Urine Blood Negative (Negative) 08/11/17 10:31 Urine Nitrite Negative (Negative) 08/11/17 10:31 Urine Bilirubin Negative (Negative) 08/11/17 10:31 Urine Urobilinogen <2.0 mg/dL (<2.0) 08/11/17 10:31 Ur Leukocyte Esterase Negative (Negative) 08/11/17 10:31 Urine RBC 1 /hpf (0-5) 08/11/17 10:31 Urine WBC 4 /hpf (0-5) 08/11/17 10:31 Ur Squamous Epith Cells <1 /hpf (0-4) 08/11/17 10:31 Microbiology 08/11/17 10:31 Urine,Catheterized Urine Culture - Preliminary Assessment and Plan (1) Fever Narrative/Plan: 52-year-old male presents [facility] with a month history of feeling poorly. The patient relates that over this last month he's been having increasing generalized malaise and fatigue. He's having some vague abdominal symptoms. She's not having nausea or emesis but appetites poor. Denies significant diarrhea nonrotation of melena or hematochezia. He does have hemodialysis via the catheter in the right anterior chest wall. Shows the arms are not working. He relates is being followed by the vascular surgeons in [place] and when he is well the plan and placing a specialty fistula on his right anterior chest wall to eliminate the external catheter. If this time blood cultures are pending and there is concern that he could have catheter-related infection. It is not noted some data from the current dialysis center for there have been positive cultures as of late. The patient has a minimal leukocytosis is being monitored. The near foot losing infections to the right foot are unremarkable controlled this point in time. Only one small eschar is seen in appears to be completely healed around the site. Dry dressings can be used. No other acute sources of infection being seen at this point in time. Cultures are in process. Vancomycin will be added pending further culture data. Status: Acute (2) ESRD (end stage renal disease) on dialysis Status: Acute (3) Leukocytosis Status: Acute
[2017-08-11] MEDS ORDERED: VANCOMYCIN 2,000 MG in SODIUM CHLORIDE 0.9% 500 ML IVPB ONE (23:00)
[2017-08-12] MEDS ORDERED: ONDANSETRON 4 MG/2 ML VIAL IVP PRN (04:01)
[2017-08-12] MEDS: HYDROcodone/APAP 5-325MG 1 EACH TAB PO PRN ×2 (04:20→13:59)
[2017-08-12 06:00] LABS: Glucose,Whole Blood 179 mg/dL (75-99)
[2017-08-12] MEDS: INSULIN LISPRO (humaLOG) 300 UNIT/3 ML VIAL SQ SCH ×4 (07:12→17:10)
[2017-08-12] MEDS: ATROPINE OPHTH SOLN 1% 5ML BTL RIGHT EYE SCH (08:57)
[2017-08-12] MEDS: FLUTICASONE 50MCG/SPRAY NASAL 16GM EA NOSTRIL SCH ×2 (08:57→20:52)
[2017-08-12] MEDS: ENOXAPARIN 40 MG/0.4 ML SYRINGE SQ SCH (08:57)
[2017-08-12] MEDS ORDERED: DARBEPOETIN ALFA 40 MCG/0.4 ML SYRINGE SQ SCH (10:00)
--- NOTE | 2017-08-12 10:20 | P.NPCON ---
History of Present Illness - Reason for Consult end stage renal disease - History of Present Illness Reason for consultation: End-stage renal disease History of present illness: Patient is a 52-year-old male seen in renal consultation for end-stage renal disease. He is maintained on hemodialysis on a Wednesday schedule via right chest permacath. Patient states he's been feeling ill for about the last 1 month now. He's been having fever along with a sore throat. Also admits to chronic pain in his neck and also discomfort in his abdomen. He was having emesis which seems to have resolved now. His oral intake is gradually improving. In the hospital he is noted to be afebrile. Hemodynamically he is stable with a blood pressure of 108/46 from this morning. He is currently resting in bed. He feels tired. Denies cough. Denies any drainage from his catheter site. Vital signs are stable. General: The patient appeared well nourished and normally developed. HEENT: Head exam is unremarkable. Neck is without jugular venous distension. LUNGS: Lungs are clear to auscultation and percussion. Breath sounds decreased. HEART: Rate and Rhythm are regular. First and second heart sounds normal. No murmurs, rubs or gallops. ABDOMEN: Abdominal exam reveals normal bowel sounds. Mild generalized tenderness. EXTREMITITES: No clubbing, cyanosis, or edema. Past Medical History Past Medical History: Asthma, Coronary Artery Disease (CAD), Diabetes Mellitus, Dialysis, Eye Disorder, Hyperlipidemia, Hypertension, Osteoarthritis (OA), Osteoarthritis (OA), Renal Disease, Skin Disorder, Sleep Apnea/CPAP/BIPAP, Sleep Apnea/CPAP/BIPAP, Vascular Disorder, Vascular Disorder Additional Past Medical History / Comment(s): Current R foot wound-diaz 2 ulcer-seen in wound center, ESRD with hemodialysis M,W, F-thru left upper arm graft-last hemo on 08/09/17, IDDM type II, diabetic NEUROPATHY in bilateral legs and feet and starting in his hands, legally blind-pt unsure why but thinks could be d/t retinopathy, vertigo, PVD, KIDNEY STONES, gout, frequent diarrhea, DJD, anemia, thrombocytopenia, ALIYA USES C-PAP MACHINE, DJD, arthritis bilateral hips and knees, back pain at times, gait dysfuction, hx of cellulitis bilateral legs/feet, BPH, bronchitis, bacterial overgrowth syndrome, past L wrist fracture. History of Any Multi-Drug Resistant Organisms: MRSA, MRSA, VRE Date of last positivie culture/infection: 10/07/16 MDRO Source:: [email or web address] Past Surgical History: Cholecystectomy, Coronary Bypass/CABG, Heart Catheterization, Orthopedic Surgery Additional Past Surgical History / Comment(s): 11/04/15 Keller cath for ABX therapy, , AMPUTATION GREAT R TOE , DEBRIDEMENT OF LEG/R foot, left eye surgery including retinal detachment repair and laser surgery and cataract removal, R eye surgery for blood behind eye twice, KIDNEY STONE REMOVAL, R carpal tunnel surgery, CABG-4 vessel, EGD/colonoscopy. Past Anesthesia/Blood Transfusion Reactions: No Reported Reaction Additional Past Anesthesia/Blood Transfusion Reaction / Comment(s): NEVER HAD BLOOD TRANSFUSION Additional Psychological History / Comment(s): PT LIVES WITH OF [address] [facility]. He uses a walker. HIS LEGS GET TIRED AND WEAK and he has had falls. He is legally blind. He is seen at [facility] wound center. He is ESRD and is on hemodialysis 3 days a week. He has a shunt. home. No recent travels. Smoking Status: Current some day smoker - Past Family History Mother Family Medical History: No Reported History Additional Family Medical History / Comment(s): Mother is 77yrs old and healthy. She is still working. Father Family Medical History: Cancer Additional Family Medical History / Comment(s): CANCER-Pt is unsure of type. Father at the age of 77yrs. Sister(s) Family Medical History: Deep Vein Thrombosis (DVT) Medications and Allergies Home Medications Medication Instructions Recorded Confirmed Type Metoprolol Tartrate [Lopressor] 25 mg PO BID 08/09/14 08/11/17 History Ubidecarenone [Co Q-10] 200 mg PO DAILY 08/09/14 08/11/17 History Ascorbic Acid [Vitamin C] 500 mg PO HS 11/04/14 08/11/17 History Sevelamer [Renvela] 3,200 mg PO TID@0800,1200,1700 02/26/15 08/11/17 History Amiodarone HCl [Cordarone] 100 mg PO DAILY 10/26/15 08/11/17 History Famotidine [Pepcid] 20 mg PO DAILY 10/26/15 08/11/17 History INSULIN LISPRO (humaLOG) [humaLOG 19 units SQ AC-TID 10/26/15 08/11/17 History (formulary)] Brendon Packet 1 packet PO BID 11/19/15 08/11/17 History Loratadine [Claritin] 10 mg PO HS 02/04/16 08/11/17 History Allopurinol [Zyloprim] 100 mg PO DAILY 02/16/16 08/11/17 History Multivitamins, Thera [Multivitamin 1 tab PO DAILY 02/16/16 08/11/17 History (formulary)] Clopidogrel [Plavix] 75 mg PO HS 02/28/16 08/11/17 History DULoxetine HCL [Cymbalta] 30 mg PO DAILY 06/24/16 08/11/17 History Midodrine [ProAmatine] 5 mg PO MOWEFR 08/26/16 08/11/17 History Atropine Sulfate [Atropine Sulfate 1 drop RIGHT EYE DAILY 11/15/16 08/11/17 History 1%] Difluprednate [Durezol] 1 drop RIGHT EYE QID 11/15/16 08/11/17 History Diphenox-Atrop 2.5-0.025 mg 2 tab PO Q4H PRN 11/15/16 08/11/17 History [Lomotil] Zolpidem [Ambien] 5 mg PO HS PRN #20 tab 11/20/16 08/11/17 Rx Amoxicillin/Potassium Clav 1 each PO Q12HR #28 tab 08/11/17 Rx [Augmentin 875-125 Tablet] Autologous Serum Tears 50% 1 drop BOTH EYES BID 08/11/17 08/11/17 History Cinacalcet HCl [Sensipar] 60 mg PO HS 08/11/17 08/11/17 History Fluticasone Nasal [place] [Flonase 1 spray EA NOSTRIL BID 08/11/17 08/11/17 History Nasal [place]] HYDROcodone/APAP 7.5-325MG [[place] 1 tab PO Q4H PRN 08/11/17 08/11/17 History 7.5-325] Insulin Glargine [Lantus] 42 unit SQ DAILY@199908/11/17 08/11/17 History L.acidoph,Paracasei, B.lactis 1 cap PO BID 08/11/17 08/11/17 History [Probiotic] Pravastatin Sodium [Pravachol] 40 mg PO HS 08/11/17 08/11/17 History Saline Nasal [place] 1 spray EA NOSTRIL Q1H PRN 08/11/17 08/11/17 History guaiFENesin [guaiFENesin Oral 200 mg PO Q4H PRN 08/11/17 08/11/17 History Solution] Allergies Allergy/AdvReac Type Severity Reaction Status Date / Time tomato Allergy Unknown Unknown Verified 08/11/17 08:23 losartan potassium AdvReac Unknown LIGHTHEADED Verified 08/11/17 08:40 [From Jam] Physical Exam Vitals: Vital Signs Temp Pulse Pulse Resp BP BP Pulse Ox 08/12/17 08:30 97.8 F 85 18 100/49 96 08/12/17 06:15 94 08/12/17 03:55 98.6 F 105 H 18 108/46 97 08/12/17 00:00 97.1 F L 83 18 128/54 100 08/11/17 20:00 96.9 F L 77 18 115/51 100 08/11/17 15:35 97.0 F L 78 16 85/48 96 08/11/17 14:21 98.8 F 91 18 96/51 98 08/11/17 13:58 98.8 F 91 18 96/51 98 08/11/17 12:28 87 18 115/53 98 08/11/17 11:45 85 100 H 93/55 98 08/11/17 10:19 99.2 F 91 18 92/47 100 Intake and Output 08/11/17 08/12/17 08/12/17 22:59 06:59 14:59 Intake Total 100 1175 0 Balance 100 1175 0 Intake: Intake, IV Titration 375 Amount Sodium Chloride 0.9% 1, 375 000 ml @ 75 mls/hr IV . [id number] ONE Rx#:[id number] Oral 100 800 0 Other: Voiding Method Urinal Urinal Urinal Weight 141.5 kg Results - Lab Results Most recent lab results Calcium 8.0 mg/dL (8.4-10.2) L 08/11/17 08:42 08/11/17 08:42 08/11/17 08:42 Assessment and Plan Plan: Assessment: #1. End-stage renal disease maintained on hemodialysis on a Wednesday schedule via right chest permacath. Patient missed yesterday's treatment. #2. Fever. Seems to have resolved now. No evidence of UTI or pneumonia. Doubt catheter related infection but definitely a possibility. #3. Anemia of chronic kidney disease. Rule out iron deficiency. #4. Chronic kidney disease mineral bone disease. #5. Diabetes mellitus. Plan: Hemodialysis today with goal 1-1/2 L ultrafiltration. Another treatment tomorrow per his outpatient schedule. Check iron studies. Check phosphorus level. Maintain Renvela with meals. Start Aranesp. Follow-up cultures. I will also check a set of cultures from the catheter during dialysis today. Infectious disease following. Thank you for the consultation. I will continue to follow the patient with you during his hospital stay.
[2017-08-12 10:44] LABS: Phosphorous 3.5 mg/dL (2.5-4.5)
[2017-08-12 11:58] LABS: Glucose,Whole Blood 125 mg/dL (75-99)
--- NOTE | 2017-08-12 12:31 | P.HPIM ---
History of Present Illness 52-year-old male was brought to the emergency room with complaints of just not feeling well for 1 month[address] Has been seeing Dr. Quarles. Has been residing in assisted living. Patient's end-stage renal failure on dialysis. His diabetic with peripheral vascular disease patient to be evaluated by infectious disease Dr. Carlos and and Efe for dialysis orders Review of Systems Constitutional: Reports fatigue Ears, nose, mouth and throat: Reports sinus pressure, Reports sore throat Musculoskeletal: Reports low back pain Past Medical History Past Medical History: Asthma, Coronary Artery Disease (CAD), Diabetes Mellitus, Dialysis, Eye Disorder, Hyperlipidemia, Hypertension, Osteoarthritis (OA), Osteoarthritis (OA), Renal Disease, Skin Disorder, Sleep Apnea/CPAP/BIPAP, Sleep Apnea/CPAP/BIPAP, Vascular Disorder, Vascular Disorder Additional Past Medical History / Comment(s): Current R foot wound-diaz 2 ulcer-seen in wound center, ESRD with hemodialysis M,W, F-thru left upper arm graft-last hemo on 08/09/17, IDDM type II, diabetic NEUROPATHY in bilateral legs and feet and starting in his hands, legally blind-pt unsure why but thinks could be d/t retinopathy, vertigo, PVD, KIDNEY STONES, gout, frequent diarrhea, DJD, anemia, thrombocytopenia, ALIYA USES C-PAP MACHINE, DJD, arthritis bilateral hips and knees, back pain at times, gait dysfuction, hx of cellulitis bilateral legs/feet, BPH, bronchitis, bacterial overgrowth syndrome, past L wrist fracture. History of Any Multi-Drug Resistant Organisms: MRSA, MRSA, VRE Date of last positivie culture/infection: 10/07/16 MDRO Source:: [email or web address] Past Surgical History: Cholecystectomy, Coronary Bypass/CABG, Heart Catheterization, Orthopedic Surgery Additional Past Surgical History / Comment(s): 11/04/15 Keller cath for ABX therapy, , AMPUTATION GREAT R TOE , DEBRIDEMENT OF LEG/R foot, left eye surgery including retinal detachment repair and laser surgery and cataract removal, R eye surgery for blood behind eye twice, KIDNEY STONE REMOVAL, R carpal tunnel surgery, CABG-4 vessel, EGD/colonoscopy. Past Anesthesia/Blood Transfusion Reactions: No Reported Reaction Additional Past Anesthesia/Blood Transfusion Reaction / Comment(s): NEVER HAD BLOOD TRANSFUSION Additional Psychological History / Comment(s): PT LIVES WITH OF 20 YEARS at [facility]. He uses a walker. HIS LEGS GET TIRED AND WEAK and he has had falls. He is legally blind. He is seen at [facility] center. He is ESRD and is on hemodialysis 3 days a week. He has a shunt. home. No recent travels. Smoking Status: Current some day smoker - Past Family History Mother Family Medical History: No Reported History Additional Family Medical History / Comment(s): Mother is 77yrs old and healthy. She is still working. Father Family Medical History: Cancer Additional Family Medical History / Comment(s): CANCER-Pt is unsure of type. Father at the age of 77yrs. Sister(s) Family Medical History: Deep Vein Thrombosis (DVT) Medications and Allergies Home Medications Medication Instructions Recorded Confirmed Type Metoprolol Tartrate [Lopressor] 25 mg PO BID 08/09/14 08/11/17 History Ubidecarenone [Co Q-10] 200 mg PO DAILY 08/09/14 08/11/17 History Ascorbic Acid [Vitamin C] 500 mg PO HS 11/04/14 08/11/17 History Sevelamer [Renvela] 3,200 mg PO TID@0800,1200,1700 02/26/15 08/11/17 History Amiodarone HCl [Cordarone] 100 mg PO DAILY 10/26/15 08/11/17 History Famotidine [Pepcid] 20 mg PO DAILY 10/26/15 08/11/17 History INSULIN LISPRO (humaLOG) [humaLOG 19 units SQ AC-TID 10/26/15 08/11/17 History (formulary)] Brendon Packet 1 packet PO BID 11/19/15 08/11/17 History Loratadine [Claritin] 10 mg PO HS 02/04/16 08/11/17 History Allopurinol [Zyloprim] 100 mg PO DAILY 02/16/16 08/11/17 History Multivitamins, Thera [Multivitamin 1 tab PO DAILY 02/16/16 08/11/17 History (formulary)] Clopidogrel [Plavix] 75 mg PO HS 02/28/16 08/11/17 History DULoxetine HCL [Cymbalta] 30 mg PO DAILY 06/24/16 08/11/17 History Midodrine [ProAmatine] 5 mg PO MOWEFR 08/26/16 08/11/17 History Atropine Sulfate [Atropine Sulfate 1 drop RIGHT EYE DAILY 11/15/16 08/11/17 History 1%] Difluprednate [Durezol] 1 drop RIGHT EYE QID 11/15/16 08/11/17 History Diphenox-Atrop 2.5-0.025 mg 2 tab PO Q4H PRN 11/15/16 08/11/17 History [Lomotil] Zolpidem [Ambien] 5 mg PO HS PRN #20 tab 11/20/16 08/11/17 Rx Amoxicillin/Potassium Clav 1 each PO Q12HR #28 tab 08/11/17 Rx [Augmentin 875-125 Tablet] Autologous Serum Tears 50% 1 drop BOTH EYES BID 08/11/17 08/11/17 History Cinacalcet HCl [Sensipar] 60 mg PO HS 08/11/17 08/11/17 History Fluticasone Nasal [place] [Flonase 1 spray EA NOSTRIL BID 08/11/17 08/11/17 History Nasal [place]] HYDROcodone/APAP 7.5-325MG [[place] 1 tab PO Q4H PRN 08/11/17 08/11/17 History 7.5-325] Insulin Glargine [Lantus] 42 unit SQ DAILY@199908/11/17 08/11/17 History L.acidoph,Paracasei, B.lactis 1 cap PO BID 08/11/17 08/11/17 History [Probiotic] Pravastatin Sodium [Pravachol] 40 mg PO HS 08/11/17 08/11/17 History Saline Nasal [place] 1 spray EA NOSTRIL Q1H PRN 08/11/17 08/11/17 History guaiFENesin [guaiFENesin Oral 200 mg PO Q4H PRN 08/11/17 08/11/17 History Solution] Allergies Allergy/AdvReac Type Severity Reaction Status Date / Time tomato Allergy Unknown Unknown Verified 08/11/17 08:23 losartan potassium AdvReac Unknown LIGHTHEADED Verified 08/11/17 08:40 [From [facility]] Physical Exam Vitals: Vital Signs Temp Pulse Pulse Resp BP BP Pulse Ox 08/12/17 08:30 97.8 F 85 18 100/49 96 08/12/17 06:15 94 08/12/17 03:55 98.6 F 105 H 18 108/46 97 08/12/17 00:00 97.1 F L 83 18 128/54 100 08/11/17 20:00 96.9 F L 77 18 115/51 100 08/11/17 15:35 97.0 F L 78 16 85/48 96 08/11/17 14:21 98.8 F 91 18 96/51 98 08/11/17 13:58 98.8 F 91 18 96/51 98 08/11/17 12:28 87 18 115/53 98 Intake and Output 08/11/17 08/12/17 08/12/17 22:59 06:59 14:59 Intake Total 100 1175 0 Balance 100 1175 0 Intake: Intake, IV Titration 375 Amount Sodium Chloride 0.9% 1, 375 000 ml @ 75 mls/hr IV . [id number] ONE Rx#:[id number] Oral 100 800 0 Other: Voiding Method Urinal Urinal Urinal Weight 141.5 kg 141.5 kg Patient Weight 08/13/17 06:59 Weight 141.5 kg - Constitutional General appearance: mild distress, morbidly obese - EENT Patient legally blind Ears: bilateral: normal - Respiratory Respiratory: bilateral: CTA - Gastrointestinal General gastrointestinal: soft - Integumentary Has boot to right foot Integumentary: normal - Neurologic Neurologic: CNII-XII intact - Musculoskeletal Musculoskeletal: generalized weakness - Psychiatric Psychiatric: A&O x's 3, appropriate affect, intact judgment & insight Results CBC & Chem 7: 08/11/17 08:42 08/11/17 08:42 Labs: Abnormal Lab Results - Last 24 Hours (Table) 08/11/17 08/11/17 08/11/17 Range/Units 08:42 16:45 21:15 POC Glucose (mg/dL) 191 H 192 H (75-99) mg/dL Iron 34 L (49-181) ug/dL 08/12/17 08/12/17 Range/Units 05:58 11:47 POC Glucose (mg/dL) 179 H 125 H (75-99) mg/dL Iron (49-181) ug/dL Microbiology - Last 24 Hours (Table) 08/11/17 08:42 Blood Culture - Preliminary Blood No Growth after 24 hours 08/11/17 08:42 Blood Culture Gram Stain - Preliminary Blood 08/11/17 10:31 Urine Culture - Preliminary Urine,Catheterized Chest x-ray: report reviewed Thrombosis Risk Factor Assmnt - Choose All That Apply Any of the Below Risk Factors Present?: Yes Each Factor Represents 1 point: Age 41-60 years, Obesity (BMI >25) Other Risk Factors: No Other congenital or acquired thrombophilia - If yes, enter type in comment: No Thrombosis Risk Factor Assessment Total Risk Factor Score: 2 Thrombosis Risk Factor Assessment Level: Low Risk Assessment and Plan Plan: Assessment Leukocytosis with sepsis End-stage renal failure on dialysis Anemia secondary to chronic renal failure Legally blind Morbid obesity History of coronary disease with CABG History of asthma stable Diabetes type 2 Sleep apnea Peripheral vascular disease Right foot wound history of MRSA Plan Continued scheduled dialysis with orders for Dr. Wilks Continue consultation with Dr. Carlos on vancomycin Rocephin If determined that the dialysis catheter is a source of infection patient will need to be transferred to [place] for a catheter change
[2017-08-12] MEDS ORDERED: HEPARIN SODIUM,PORCINE 5,000 UNIT/ML 1 ML VIAL ONE (13:30)
[2017-08-12] MEDS: SEVELAMER 800 MG TAB PO SCH ×3 (13:43→17:08)
[2017-08-12] MEDS: DULoxetine HCL 30 MG CAPSULE.DR PO SCH (13:45)
[2017-08-12] MEDS: AMIODARONE 100 MG TAB PO SCH (13:45)
[2017-08-12] MEDS: METOPROLOL TARTRATE 25 MG TAB PO SCH ×2 (13:45→20:52)
[2017-08-12] MEDS: FAMOTIDINE 20 MG TAB PO SCH (13:45)
[2017-08-12] MEDS: MULTIVITAMINS, THERA 1 EACH TAB PO SCH (13:46)
[2017-08-12 15:19] LABS: Iron Saturation 10.48 (15.00-50.00)
[2017-08-12 16:56] LABS: Glucose,Whole Blood 157 mg/dL (75-99)
--- NOTE | 2017-08-12 20:23 | P.PN ---
Subjective Progress Note Date: 08/12/17 Principal diagnosis: Fever 52-year-old male presents to the emergency center from his extended care facility complaining of a month of increasing illness. The patient relates over the last several weeks he's having increasing weakness and generalized malaise. He continues to go to dialysis but despite that he is feeling worse. He's had some generalized abdominal pain. He's had difficulty with some nausea without emesis or hematemesis. He is denying diarrhea again has some generalized abdominal discomfort. He has increasing fatigue and malaise. He's had some headache. He's had some generalized body ache. Abdomen is developed some fever. He denies high-grade chills or rigors but is aware of his fever. A continues relate that he just feels poorly overall. Upon arrival to the emergency center a fever was noted that he has been admitted. Objective - Vital Signs Vital signs: Vital Signs Temp 97.2 F L 08/12/17 15:21 Pulse 92 08/12/17 15:21 Resp 18 08/12/17 15:21 BP 104/59 08/12/17 15:21 Pulse Ox 95 08/12/17 15:21 Intake & Output 08/12/17 08/12/17 08/13/17 06:59 18:59 06:59 Intake Total 1175 200 Balance 1175 200 Weight 141.5 kg 141.5 kg Intake: Intake, IV Titration 375 Amount Sodium Chloride 0.9% 1, 375 000 ml @ 75 mls/hr IV . [id number] ONE Rx#:[id number] Oral 800 200 Other: Voiding Method Urinal Urinal # Voids 0 - Exam 52-year-old male who suffers from superobesity, and sleep apnea. Relates it is not very comfortable but does not complain of one distinct problem at this time HEENT: Anicteric conjunctiva are pink and moist nasal mucosa grossly intact without significant lesions, there is no thrush. Poor dentition Neck: The neck is supple without significant lymphadenopathy or thyromegaly. Lungs: Symmetrical air entry is noted. Expiratory wheezes are scattered throughout the lung joseph. But no joshua bronchial sounds are heard. No egophony. Heart: Irregular with an audible S1 and S2 positive S4 no audible murmur click or rub. Abdomen: Obese, Positive bowel sounds soft and nontender without palpable masses or organomegaly. There was no guarding or rebound. Extremities: The upper extremity show evidence of no significant lesions and the shunt to the left and right arms are not functioning well But no open ulcers are seen on the right upper extremity left arm without lesions. IV site looks intact in the right arm. the right anterior chest wall is without erythema or tenderness. The lower extremity show evidence of some lower extremity edema greater on the right than the left. Left foot without acute lesions. The right lower extremity shows evidence of the near healing of the prior surgical amputation sites. Dry eschar is seen laterally on the foot without drainage on the dressings. Neuro: Awake alert oriented to person place and time. He has very poor vision and has significant peripheral neuropathy from his diabetes but no acute gross focal sensory motor deficits are noted. - Labs CBC & Chem 7: 08/11/17 08:42 08/11/17 08:42 Labs: Abnormal Lab Results - Last 24 Hours (Table) 08/11/17 08/11/17 08/11/17 Range/Units 08:42 08:42 21:15 POC Glucose (mg/dL) 192 H (75-99) mg/dL Iron 34 L 22 L (49-181) ug/dL TIBC 210 L (228-460) ug/dL Iron Saturation 10.48 L (15.00-50.00) 08/12/17 08/12/17 08/12/17 Range/Units 05:58 11:47 16:37 POC Glucose (mg/dL) 179 H 125 H 157 H (75-99) mg/dL Iron (49-181) ug/dL TIBC (228-460) ug/dL Iron Saturation (15.00-50.00) Microbiology - Last 24 Hours (Table) 08/11/17 10:31 Urine Culture - Final Urine,Catheterized 08/11/17 08:42 Blood Culture - Preliminary Blood No Growth after 24 hours 08/11/17 08:42 Blood Culture Gram Stain - Preliminary Blood Laboratory Results WBC 11.7 k/uL (3.8-10.6) H 08/11/17 08:42 RBC 2.87 m/uL (4.30-5.90) L 08/11/17 08:42 Hgb 9.3 gm/dL (13.0-17.5) L 08/11/17 08:42 Hct 28.7 % (39.0-53.0) L 08/11/17 08:42 MCV 100.0 fL (80.0-100.0) 08/11/17 08:42 MCH 32.5 pg (25.0-35.0) 08/11/17 08:42 MCHC 32.5 g/dL (31.0-37.0) 08/11/17 08:42 RDW 15.5 % (11.5-15.5) 08/11/17 08:42 Plt Count 208 k/uL (150-450) 08/11/17 08:42 Neutrophils % 88 % 08/11/17 08:42 Lymphocytes % 5 % 08/11/17 08:42 Monocytes % 5 % 08/11/17 08:42 Eosinophils % 0 % 08/11/17 08:42 Basophils % 0 % 08/11/17 08:42 Neutrophils # 10.3 k/uL (1.3-7.7) H 08/11/17 08:42 Lymphocytes # 0.6 k/uL (1.0-4.8) L 08/11/17 08:42 Monocytes # 0.6 k/uL (0-1.0) 08/11/17 08:42 Eosinophils # 0.0 k/uL (0-0.7) 08/11/17 08:42 Basophils # 0.0 k/uL (0-0.2) 08/11/17 08:42 Hypochromasia Slight 08/11/17 08:42 Poikilocytosis Slight 08/11/17 08:42 Macrocytosis Slight 08/11/17 08:42 PT 11.7 sec (9.0-12.0) 08/11/17 08:42 INR 1.2 (<1.2) H 08/11/17 08:42 APTT 30.0 sec (22.0-30.0) 08/11/17 08:42 Sodium 133 mmol/L (137-145) L 08/11/17 08:42 Potassium 4.2 mmol/L (3.5-5.1) 08/11/17 08:42 Chloride 87 mmol/L (98-107) L 08/11/17 08:42 Carbon Dioxide 24 mmol/L (22-30) 08/11/17 08:42 Anion Gap 22 mmol/L 08/11/17 08:42 BUN 80 mg/dL (9-20) H* 08/11/17 08:42 Creatinine 8.90 mg/dL (0.66-1.25) H* 08/11/17 08:42 Est GFR (MDRD) Af Amer 8 (>60 ml/min/1.73 sqM) 08/11/17 08:42 Est GFR (MDRD) Non-Af 6 (>60 ml/min/1.73 sqM) 08/11/17 08:42 Glucose 202 mg/dL (74-99) H 08/11/17 08:42 POC Glucose (mg/dL) 157 mg/dL (75-99) H 08/12/17 16:37 POC Glu Slate Worker Nidhi Patterson 08/12/17 16:37 Lactic Ac Sepsis Rflx Y 08/11/17 09:33 Plasma Lactic Acid Rambo 1.2 mmol/L (0.7-2.0) 08/11/17 12:50 Calcium 8.0 mg/dL (8.4-10.2) L 08/11/17 08:42 Phosphorus 3.5 mg/dL (2.5-4.5) 08/11/17 08:42 Iron 22 ug/dL (65-175) L 08/11/17 08:42 TIBC 210 ug/dL (228-460) L 08/11/17 08:42 Iron Saturation 10.48 (15.00-50.00) L 08/11/17 08:42 Total Bilirubin 0.8 mg/dL (0.2-1.3) 08/11/17 08:42 AST 20 U/L (17-59) 08/11/17 08:42 ALT 29 U/L (21-72) 08/11/17 08:42 Alkaline Phosphatase 186 U/L (38-126) H 08/11/17 08:42 Total Protein 6.7 g/dL (6.3-8.2) 08/11/17 08:42 Albumin 3.6 g/dL (3.5-5.0) 08/11/17 08:42 Urine Color Yellow 08/11/17 10:31 Urine Appearance Clear (Clear) 08/11/17 10:31 Urine pH 7.5 (5.0-8.0) 08/11/17 10:31 Ur Specific [place] 1.012 (1.001-1.035) 08/11/17 10:31 Urine Protein 2+ (Negative) H 08/11/17 10:31 Urine Glucose (UA) Negative (Negative) 08/11/17 10:31 Urine Ketones Negative (Negative) 08/11/17 10:31 Urine Blood Negative (Negative) 08/11/17 10:31 Urine Nitrite Negative (Negative) 08/11/17 10:31 Urine Bilirubin Negative (Negative) 08/11/17 10:31 Urine Urobilinogen <2.0 mg/dL (<2.0) 08/11/17 10:31 Ur Leukocyte Esterase Negative (Negative) 08/11/17 10:31 Urine RBC 1 /hpf (0-5) 08/11/17 10:31 Urine WBC 4 /hpf (0-5) 08/11/17 10:31 Ur Squamous Epith Cells <1 /hpf (0-4) 08/11/17 10:31 Microbiology 08/11/17 10:31 Urine,Catheterized Urine Culture - Final 08/11/17 08:42 Blood Blood Culture - Preliminary No Growth after 24 hours 08/11/17 08:42 Blood Blood Culture Gram Stain - Preliminary Assessment and Plan (1) Fever Narrative/Plan: 52-year-old male presents neck [facility] with a month history of feeling poorly. The patient relates that over this last month he's been having increasing generalized malaise and fatigue. He's having some vague abdominal symptoms. She's not having nausea or emesis but appetites poor. Denies significant diarrhea nonrotation of melena or hematochezia. He does have hemodialysis via the catheter in the right anterior chest wall. Shows the arms are not working. He relates is being followed by the vascular surgeons in [place] and when he is well the plan and placing a specialty fistula on his right anterior chest wall to eliminate the external catheter. There is now a positive blood culture and there is concern that he could have catheter-related infection. It is not noted some data from the current dialysis center for there have been positive cultures as of late. The patient has a minimal leukocytosis is being monitored. The near foot losing infections to the right foot are unremarkable controlled this point in time. Only one small eschar is seen in appears to be completely healed around the site. Dry dressings can be used. No other acute sources of infection being seen at this point in time. Cultures are in process. Vancomycin will be added pending further culture data. The follow-up cultures are currently pending. Multiple positive cultures are obtained within need transfer to his vascular surgeon in the [place] area for removal of the current hemodialysis catheter and further IV access could not be placed at this facility. Status: Acute (2) ESRD (end stage renal disease) on dialysis Status: Acute (3) Leukocytosis Status: Acute
[2017-08-12] MEDS: PRAVASTATIN SODIUM 40 MG TAB PO SCH (20:52)
[2017-08-12] MEDS: ASCORBIC ACID 500 MG TAB PO SCH (20:52)
[2017-08-12] MEDS: LORATADINE 10 MG TAB PO SCH (20:52)
[2017-08-12] MEDS: CLOPIDOGREL 75 MG TAB PO SCH (20:52)
[2017-08-12 20:55] LABS: Glucose,Whole Blood 141 mg/dL (75-99)
[2017-08-12] MEDS ORDERED: VANCOMYCIN 2,000 MG in SODIUM CHLORIDE 0.9% 500 ML IVPB ONE (21:00)
[2017-08-12] MEDS: INSULIN GLARGINE 100 UNIT/ML 10 ML VIAL SQ SCH (21:03)
[2017-08-13] MEDS: HYDROcodone/APAP 5-325MG 1 EACH TAB PO PRN ×2 (03:10→19:03)
[2017-08-13] MEDS: INSULIN LISPRO (humaLOG) 300 UNIT/3 ML VIAL SQ SCH ×3 (06:18→19:00)
[2017-08-13 06:24] LABS: Glucose,Whole Blood 127 mg/dL (75-99)
[2017-08-13 07:06] LABS: Basophils % (A) 0 %; CHCM 31.3; Eosinophils # (A) 0.1 k/uL (0-0.7); Eosinophils % (A) 1 %; HCT 23.5 % (39.0-53.0); Hypochromasia Moderate; Luc # (Auto) 0.19; Luc % (Auto) 2; Lymphocytes # (A) 0.7 k/uL (1.0-4.8); Lymphocytes % (A) 8 %; MCH 31.3 pg (25.0-35.0); MCHC 30.4 g/dL (31.0-37.0); MCV 103.2 fL (80.0-100.0); Macrocytosis Moderate; Mean Platelet Volume 8.3; Monocytes # (A) 0.6 k/uL (0-1.0); Monocytes % (A) 6 %; Neutrophils # (A) 7.8 k/uL (1.3-7.7); Neutrophils % (A) 83 %; Poikilocytosis Slight; RBC 2.27 m/uL (4.30-5.90); RDW 15.8 % (11.5-15.5); WBC 9.4 k/uL (3.8-10.6); WBC (Perox) 9.75
[2017-08-13 07:22] LABS: Calcium 7.8 mg/dL (8.4-10.2); Potassium 3.8 mmol/L (3.5-5.1)
[2017-08-13 07:28] LABS: HGB 7.1 gm/dL (13.0-17.5)
[2017-08-13] MEDS: SEVELAMER 800 MG TAB PO SCH ×3 (10:20→18:59)
[2017-08-13] MEDS: ATROPINE OPHTH SOLN 1% 5ML BTL RIGHT EYE SCH (10:20)
[2017-08-13] MEDS: ENOXAPARIN 40 MG/0.4 ML SYRINGE SQ SCH (10:20)
[2017-08-13] MEDS: FLUTICASONE 50MCG/SPRAY NASAL 16GM EA NOSTRIL SCH ×3 (10:20→20:48)
--- NOTE | 2017-08-13 11:28 | P.PN ---
Subjective Patient is seen in follow-up for end-stage renal disease. He is maintained on hemodialysis on a Wednesday schedule via right chest permacath. Patient presented with generalized weakness along with a fever and sore throat. One set of blood cultures is positive for staph aureus. Patient's currently sitting up in chair. Denies vomiting or diarrhea. He is afebrile this morning. Denies chest pain or shortness of breath. Vital signs are stable. General: The patient appeared well nourished and normally developed. HEENT: Head exam is unremarkable. Neck is without jugular venous distension. LUNGS: Lungs are clear to auscultation and percussion. Breath sounds decreased. HEART: Rate and Rhythm are regular. First and second heart sounds normal. No murmurs, rubs or gallops. ABDOMEN: Abdominal exam reveals normal bowel sounds. Non-tender and non- distended. No evidence of peritonitis. EXTREMITITES: No clubbing, cyanosis, or edema. Objective - Vital Signs Vital signs: Vital Signs Temp 98.9 F 08/13/17 08:00 Pulse 90 08/13/17 08:00 Resp 18 08/13/17 08:00 BP 108/65 08/13/17 08:00 Pulse Ox 95 08/13/17 08:00 Intake & Output 08/12/17 08/13/17 08/13/17 18:59 06:59 18:59 Intake Total 200 1120 Balance 200 1120 Weight 141.5 kg 140 kg Intake: IV 220 0.9% 220 Intake, IV Titration 60 Amount Sodium Chloride 0.9% 1, 60 000 ml @ 75 mls/hr IV . [id number] ONE Rx#:[id number] Oral 200 840 Other: Voiding Method Urinal Urinal Urinal # Voids 0 0 - Labs CBC & Chem 7: 08/13/17 06:21 08/13/17 06:21 Labs: Abnormal Lab Results - Last 24 Hours (Table) 08/11/17 08/12/17 08/12/17 Range/Units 08:42 11:47 16:37 RBC (4.30-5.90) m/uL Hgb (13.0-17.5) gm/dL Hct (39.0-53.0) % MCV (80.0-100.0) fL MCHC (31.0-37.0) g/dL RDW (11.5-15.5) % Neutrophils # (1.3-7.7) k/uL Lymphocytes # (1.0-4.8) k/uL Sodium (137-145) mmol/L Chloride (98-107) mmol/L BUN (9-20) mg/dL Creatinine (0.66-1.25) mg/dL Glucose (74-99) mg/dL POC Glucose (mg/dL) 125 H 157 H (75-99) mg/dL Calcium (8.4-10.2) mg/dL Iron 22 L (65-175) ug/dL TIBC 210 L (228-460) ug/dL Iron Saturation 10.48 L (15.00-50.00) Ferritin 3281.0 H (22.0-322.0) ng/mL 08/12/17 08/13/17 08/13/17 Range/Units 20:53 06:14 06:21 RBC 2.27 L (4.30-5.90) m/uL Hgb 7.1 L D (13.0-17.5) gm/dL Hct 23.5 L (39.0-53.0) % MCV 103.2 H (80.0-100.0) fL MCHC 30.4 L (31.0-37.0) g/dL RDW 15.8 H (11.5-15.5) % Neutrophils # 7.8 H (1.3-7.7) k/uL Lymphocytes # 0.7 L (1.0-4.8) k/uL Sodium (137-145) mmol/L Chloride (98-107) mmol/L BUN (9-20) mg/dL Creatinine (0.66-1.25) mg/dL Glucose (74-99) mg/dL POC Glucose (mg/dL) 141 H 127 H (75-99) mg/dL Calcium (8.4-10.2) mg/dL Iron (65-175) ug/dL TIBC (228-460) ug/dL Iron Saturation (15.00-50.00) Ferritin (22.0-322.0) ng/mL 08/13/17 Range/Units 06:21 RBC (4.30-5.90) m/uL Hgb (13.0-17.5) gm/dL Hct (39.0-53.0) % MCV (80.0-100.0) fL MCHC (31.0-37.0) g/dL RDW (11.5-15.5) % Neutrophils # (1.3-7.7) k/uL Lymphocytes # (1.0-4.8) k/uL Sodium 135 L (137-145) mmol/L Chloride 94 L (98-107) mmol/L BUN 59 H (9-20) mg/dL Creatinine 7.16 H* (0.66-1.25) mg/dL Glucose 115 H (74-99) mg/dL POC Glucose (mg/dL) (75-99) mg/dL Calcium 7.8 L (8.4-10.2) mg/dL Iron (65-175) ug/dL TIBC (228-460) ug/dL Iron Saturation (15.00-50.00) Ferritin (22.0-322.0) ng/mL Microbiology - Last 24 Hours (Table) 08/11/17 08:42 Blood Culture - Preliminary Blood No Growth after 48 hours 08/11/17 08:42 Blood Culture Gram Stain - Preliminary Blood Blood Culture - Preliminary Presumptive Staph aureus 08/12/17 10:20 Blood Culture Gram Stain - Preliminary Blood 08/12/17 10:20 Blood Culture - Final Blood 08/11/17 10:31 Urine Culture - Final Urine,Catheterized Assessment and Plan Plan: Assessment: #1. End-stage renal disease maintained on hemodialysis on a Wednesday schedule via right chest permacath. #2. Fever. Seems to have resolved now. No evidence of UTI or pneumonia. One set of blood cultures positive for staph aureus. Dialysis catheter possible source. #3. Anemia of chronic kidney disease. #4. Chronic kidney disease mineral bone disease. #5. Diabetes mellitus. Plan: Hemodialysis today with goal 1-1/2 L ultrafiltration. Maintain Renvela with meals. Maintain Aranesp. Antibiotics per infectious disease recommendations. Follow-up cultures. Patient's dialysis catheter may need to be removed to keep him catheter free to bacteremia resolves. His vascular surgeon is out of [place] and may need to be transferred there.
[2017-08-13 11:52] LABS: Glucose,Whole Blood 188 mg/dL (75-99)
[2017-08-13] MEDS: DIPHENOX-ATROP 2.5-0.025 MG 1 EACH TAB PO PRN ×2 (14:30→18:57)
[2017-08-13] MEDS ORDERED: LIDOCAINE 1% (PF) 10 MG/ML (30 ML SDV) SQ ONE (16:30)
[2017-08-13 16:45] LABS: Glucose,Whole Blood 163 mg/dL (75-99)
--- NOTE | 2017-08-13 17:51 | P.PN ---
Subjective Progress Note Date: 08/13/17 Principal diagnosis: Fever 52-year-old male presents to the emergency center from his extended care facility complaining of a month of increasing illness. The patient relates over the last several weeks he's having increasing weakness and generalized malaise. He continues to go to dialysis but despite that he is feeling worse. He's had some generalized abdominal pain. He's had difficulty with some nausea without emesis or hematemesis. He is denying diarrhea again has some generalized abdominal discomfort. He has increasing fatigue and malaise. He's had some headache. He's had some generalized body ache. Abdomen is developed some fever. He denies high-grade chills or rigors but is aware of his fever. He continues relate that he just feels poorly overall. Upon arrival to the emergency center a fever was noted that he has been admitted. The fever is now improving. Objective - Vital Signs Vital signs: Vital Signs Temp 97.1 F L 08/13/17 16:22 Pulse 82 08/13/17 16:22 Resp 16 08/13/17 16:22 BP 135/60 08/13/17 16:22 Pulse Ox 95 08/13/17 16:22 Intake & Output 08/12/17 08/13/17 08/13/17 18:59 06:59 18:59 Intake Total 200 1120 90 Balance 200 1120 90 Weight 141.5 kg 140 kg 140 kg Intake: IV 220 0.9% 220 Intake, IV Titration 60 Amount Sodium Chloride 0.9% 1, 60 000 ml @ 75 mls/hr IV . [id number] ONE Rx#:[id number] Oral 200 840 90 Blood Product 0 Rc As-1 Unit 0 [id number] Other: Voiding Method Urinal Urinal Urinal # Voids 0 0 # Bowel Movements 1 - Exam 52-year-old male who suffers from superobesity, and sleep apnea. Relates it is not very comfortable but does not complain of one distinct problem at this time HEENT: Anicteric conjunctiva are pink and moist nasal mucosa grossly intact without significant lesions, there is no thrush. Poor dentition Neck: The neck is supple without significant lymphadenopathy or thyromegaly. Lungs: Symmetrical air entry is noted. Expiratory wheezes are scattered throughout the lung joseph. But no joshua bronchial sounds are heard. No egophony. Heart: Irregular with an audible S1 and S2 positive S4 no audible murmur click or rub. Abdomen: Obese, Positive bowel sounds soft and nontender without palpable masses or organomegaly. There was no guarding or rebound. Extremities: The upper extremity show evidence of no significant lesions and the shunt to the left and right arms are not functioning well But no open ulcers are seen on the right upper extremity left arm without lesions. IV site looks intact in the right arm. the right anterior chest wall is without erythema or tenderness. The lower extremity show evidence of some lower extremity edema greater on the right than the left. Left foot without acute lesions. The right lower extremity shows evidence of the near healing of the prior surgical amputation sites. Dry eschar is seen laterally on the foot without drainage on the dressings. Neuro: Awake alert oriented to person place and time. He has very poor vision and has significant peripheral neuropathy from his diabetes but no acute gross focal sensory motor deficits are noted. - Labs CBC & Chem 7: 08/13/17 06:21 08/13/17 06:21 Labs: Abnormal Lab Results - Last 24 Hours (Table) 08/11/17 08/12/17 08/13/17 Range/Units 08:42 20:53 06:14 RBC (4.30-5.90) m/uL Hgb (13.0-17.5) gm/dL Hct (39.0-53.0) % MCV (80.0-100.0) fL MCHC (31.0-37.0) g/dL RDW (11.5-15.5) % Neutrophils # (1.3-7.7) k/uL Lymphocytes # (1.0-4.8) k/uL Sodium (137-145) mmol/L Chloride (98-107) mmol/L BUN (9-20) mg/dL Creatinine (0.66-1.25) mg/dL Glucose (74-99) mg/dL POC Glucose (mg/dL) 141 H 127 H (75-99) mg/dL Calcium (8.4-10.2) mg/dL Ferritin 3281.0 H (22.0-322.0) ng/mL Crossmatch 08/13/17 08/13/17 08/13/17 Range/Units 06:21 06:21 11:42 RBC 2.27 L (4.30-5.90) m/uL Hgb 7.1 L D (13.0-17.5) gm/dL Hct 23.5 L (39.0-53.0) % MCV 103.2 H (80.0-100.0) fL MCHC 30.4 L (31.0-37.0) g/dL RDW 15.8 H (11.5-15.5) % Neutrophils # 7.8 H (1.3-7.7) k/uL Lymphocytes # 0.7 L (1.0-4.8) k/uL Sodium 135 L (137-145) mmol/L Chloride 94 L (98-107) mmol/L BUN 59 H (9-20) mg/dL Creatinine 7.16 H* (0.66-1.25) mg/dL Glucose 115 H (74-99) mg/dL POC Glucose (mg/dL) 188 H (75-99) mg/dL Calcium 7.8 L (8.4-10.2) mg/dL Ferritin (22.0-322.0) ng/mL Crossmatch 08/13/17 08/13/17 Range/Units 14:10 16:40 RBC (4.30-5.90) m/uL Hgb (13.0-17.5) gm/dL Hct (39.0-53.0) % MCV (80.0-100.0) fL MCHC (31.0-37.0) g/dL RDW (11.5-15.5) % Neutrophils # (1.3-7.7) k/uL Lymphocytes # (1.0-4.8) k/uL Sodium (137-145) mmol/L Chloride (98-107) mmol/L BUN (9-20) mg/dL Creatinine (0.66-1.25) mg/dL Glucose (74-99) mg/dL POC Glucose (mg/dL) 163 H (75-99) mg/dL Calcium (8.4-10.2) mg/dL Ferritin (22.0-322.0) ng/mL Crossmatch See Detail Microbiology - Last 24 Hours (Table) 08/12/17 10:20 Blood Culture Gram Stain - Preliminary Blood 08/11/17 08:42 Blood Culture - Preliminary Blood No Growth after 48 hours 08/11/17 08:42 Blood Culture Gram Stain - Preliminary Blood Blood Culture - Preliminary Presumptive Staph aureus 08/12/17 10:20 Blood Culture - Final Blood 08/11/17 10:31 Urine Culture - Final Urine,Catheterized Laboratory Results WBC 9.4 k/uL (3.8-10.6) 08/13/17 06:21 RBC 2.27 m/uL (4.30-5.90) L 08/13/17 06:21 Hgb 7.1 gm/dL (13.0-17.5) L D 08/13/17 06:21 Hct 23.5 % (39.0-53.0) L 08/13/17 06:21 MCV 103.2 fL (80.0-100.0) H 08/13/17 06:21 MCH 31.3 pg (25.0-35.0) 08/13/17 06:21 MCHC 30.4 g/dL (31.0-37.0) L 08/13/17 06:21 RDW 15.8 % (11.5-15.5) H 08/13/17 06:21 Plt Count 186 k/uL (150-450) 08/13/17 06:21 Neutrophils % 83 % 08/13/17 06:21 Lymphocytes % 8 % 08/13/17 06:21 Monocytes % 6 % 08/13/17 06:21 Eosinophils % 1 % 08/13/17 06:21 Basophils % 0 % 08/13/17 06:21 Neutrophils # 7.8 k/uL (1.3-7.7) H 08/13/17 06:21 Lymphocytes # 0.7 k/uL (1.0-4.8) L 08/13/17 06:21 Monocytes # 0.6 k/uL (0-1.0) 08/13/17 06:21 Eosinophils # 0.1 k/uL (0-0.7) 08/13/17 06:21 Basophils # 0.0 k/uL (0-0.2) 08/13/17 06:21 Hypochromasia Moderate 08/13/17 06:21 Poikilocytosis Slight 08/13/17 06:21 Macrocytosis Moderate 08/13/17 06:21 PT 11.7 sec (9.0-12.0) 08/11/17 08:42 INR 1.2 (<1.2) H 08/11/17 08:42 APTT 30.0 sec (22.0-30.0) 08/11/17 08:42 Sodium 135 mmol/L (137-145) L 08/13/17 06:21 Potassium 3.8 mmol/L (3.5-5.1) 08/13/17 06:21 Chloride 94 mmol/L (98-107) L 08/13/17 06:21 Carbon Dioxide 26 mmol/L (22-30) 08/13/17 06:21 Anion Gap 15 mmol/L 08/13/17 06:21 BUN 59 mg/dL (9-20) H 08/13/17 06:21 Creatinine 7.16 mg/dL (0.66-1.25) H* 08/13/17 06:21 Est GFR (MDRD) Af Amer 10 (>60 ml/min/1.73 sqM) 08/13/17 06:21 Est GFR (MDRD) Non-Af 8 (>60 ml/min/1.73 sqM) 08/13/17 06:21 Glucose 115 mg/dL (74-99) H 08/13/17 06:21 POC Glucose (mg/dL) 163 mg/dL (75-99) H 08/13/17 16:40 POC Glu Refining Supervisor Nidhi Patterson 08/13/17 16:40 Lactic Ac Sepsis Rflx Y 08/11/17 09:33 Plasma Lactic Acid Rambo 1.2 mmol/L (0.7-2.0) 08/11/17 12:50 Calcium 7.8 mg/dL (8.4-10.2) L 08/13/17 06:21 Phosphorus 3.5 mg/dL (2.5-4.5) 08/11/17 08:42 Iron 22 ug/dL (65-175) L 08/11/17 08:42 TIBC 210 ug/dL (228-460) L 08/11/17 08:42 Iron Saturation 10.48 (15.00-50.00) L 08/11/17 08:42 Ferritin 3281.0 ng/mL (22.0-322.0) H 08/11/17 08:42 Total Bilirubin 0.8 mg/dL (0.2-1.3) 08/11/17 08:42 AST 20 U/L (17-59) 08/11/17 08:42 ALT 29 U/L (21-72) 08/11/17 08:42 Alkaline Phosphatase 186 U/L (38-126) H 08/11/17 08:42 Total Protein 6.7 g/dL (6.3-8.2) 08/11/17 08:42 Albumin 3.6 g/dL (3.5-5.0) 08/11/17 08:42 Urine Color Yellow 08/11/17 10:31 Urine Appearance Clear (Clear) 08/11/17 10:31 Urine pH 7.5 (5.0-8.0) 08/11/17 10:31 Ur Specific [place] 1.012 (1.001-1.035) 08/11/17 10:31 Urine Protein 2+ (Negative) H 08/11/17 10:31 Urine Glucose (UA) Negative (Negative) 08/11/17 10:31 Urine Ketones Negative (Negative) 08/11/17 10:31 Urine Blood Negative (Negative) 08/11/17 10:31 Urine Nitrite Negative (Negative) 08/11/17 10:31 Urine Bilirubin Negative (Negative) 08/11/17 10:31 Urine Urobilinogen <2.0 mg/dL (<2.0) 08/11/17 10:31 Ur Leukocyte Esterase Negative (Negative) 08/11/17 10:31 Urine RBC 1 /hpf (0-5) 08/11/17 10:31 Urine WBC 4 /hpf (0-5) 08/11/17 10:31 Ur Squamous Epith Cells <1 /hpf (0-4) 08/11/17 10:31 Random Vancomycin 29.4 ug/mL 08/13/17 06:21 Blood Type A Positive 08/13/17 14:10 Blood Type Recheck No 08/13/17 14:10 Antibody Screen NEGATIVE 08/13/17 14:10 Crossmatch See Detail 08/13/17 14:10 Spec Expiration Date 08/16/2017 - 230908/13/17 14:10 Microbiology 08/12/17 10:20 Blood Blood Culture Gram Stain - Preliminary 08/11/17 08:42 Blood Blood Culture - Preliminary No Growth after 48 hours 08/11/17 08:42 Blood Blood Culture Gram Stain - Preliminary 08/11/17 08:42 Blood Blood Culture - Preliminary Presumptive Staph aureus 08/12/17 10:20 Blood Blood Culture - Final 08/11/17 10:31 Urine,Catheterized Urine Culture - Final Assessment and Plan (1) Fever Narrative/Plan: 52-year-old male presents neck [facility] with a month history of feeling poorly. The patient relates that over this last month he's been having increasing generalized malaise and fatigue. He's having some vague abdominal symptoms. She's not having nausea or emesis but appetites poor. Denies significant diarrhea nonrotation of melena or hematochezia. He does have hemodialysis via the catheter in the right anterior chest wall. Shows the arms are not working. He relates is being followed by the vascular surgeons in [place] and when he is well the plan and placing a specialty fistula on his right anterior chest wall to eliminate the external catheter. There is now a positive blood culture and there is concern that he could have catheter-related infection. It is not noted some data from the current dialysis center for there have been positive cultures as of late. The patient has a minimal leukocytosis is being monitored. The near foot losing infections to the right foot are unremarkable controlled this point in time. Only one small eschar is seen in appears to be completely healed around the site. Dry dressings can be used. No other acute sources of infection being seen at this point in time. Blood Cultures are all revealing evidence of staph aureus, await if it is MRSA. Vancomycin will be added pending further culture data. The case was discussed with the weatherstrip machine operator as well as the vascular surgeon. Given the multiple positive blood cultures with staph aureus it is highly likely that he has catheter-related sepsis. After his dialysis session today the catheter will be removed. He will then be without dialysis catheter until early next week. If the patient does not want our local surgeons may need transfer to his vascular surgeon in [place]. Implantation of any permanent material though is on hold until he clears his current infection over the next few weeks. Status: Acute (2) ESRD (end stage renal disease) on dialysis Status: Acute (3) Leukocytosis Status: Acute
[2017-08-13] MEDS: AMIODARONE 100 MG TAB PO SCH (18:58)
[2017-08-13] MEDS: MULTIVITAMINS, THERA 1 EACH TAB PO SCH (18:58)
[2017-08-13] MEDS: FAMOTIDINE 20 MG TAB PO SCH (18:58)
[2017-08-13] MEDS: METOPROLOL TARTRATE 25 MG TAB PO SCH ×2 (18:58→20:43)
[2017-08-13] MEDS: DULoxetine HCL 30 MG CAPSULE.DR PO SCH (18:58)
[2017-08-13] MEDS: MIDODRINE 5 MG TAB PO SCH (18:59)
[2017-08-13 20:39] LABS: Glucose,Whole Blood 266 mg/dL (75-99)
[2017-08-13] MEDS: PRAVASTATIN SODIUM 40 MG TAB PO SCH (20:42)
[2017-08-13] MEDS: INSULIN GLARGINE 100 UNIT/ML 10 ML VIAL SQ SCH (20:42)
[2017-08-13] MEDS: ASCORBIC ACID 500 MG TAB PO SCH (20:43)
[2017-08-13] MEDS: CLOPIDOGREL 75 MG TAB PO SCH (20:43)
[2017-08-13] MEDS: LORATADINE 10 MG TAB PO SCH (20:43)
[2017-08-14] MEDS: HYDROcodone/APAP 5-325MG 1 EACH TAB PO PRN ×3 (03:13→21:01)
[2017-08-14 05:47] LABS: Glucose,Whole Blood 193 mg/dL (75-99)
[2017-08-14 06:23] LABS: Anisocytosis Slight; Basophils % (A) 0 %; CH 32.2; CHCM 31.8; Eosinophils # (A) 0.1 k/uL (0-0.7); Eosinophils % (A) 1 %; HCT 26.9 % (39.0-53.0); HGB 8.5 gm/dL (13.0-17.5); Hypochromasia Slight; Luc % (Auto) 2; Lymphocytes # (A) 0.8 k/uL (1.0-4.8); Lymphocytes % (A) 8 %; MCH 32.1 pg (25.0-35.0); MCHC 31.4 g/dL (31.0-37.0); MCV 102.1 fL (80.0-100.0); Macrocytosis Slight; Mean Platelet Volume 8.2; Monocytes # (A) 0.6 k/uL (0-1.0); Monocytes % (A) 6 %; Neutrophils # (A) 7.7 k/uL (1.3-7.7); Neutrophils % (A) 82 %; Poikilocytosis Slight; RBC 2.63 m/uL (4.30-5.90); RDW 16.2 % (11.5-15.5); WBC 9.3 k/uL (3.8-10.6); WBC (Perox) 9.47
[2017-08-14 06:39] LABS: Calcium 7.9 mg/dL (8.4-10.2); Potassium 3.7 mmol/L (3.5-5.1)
[2017-08-14] MEDS: INSULIN LISPRO (humaLOG) 300 UNIT/3 ML VIAL SQ SCH ×3 (07:05→17:21)
--- NOTE | 2017-08-14 09:08 | P.PN ---
Subjective Patient is seen in follow-up for end-stage renal disease. He is maintained on hemodialysis on a Wednesday schedule via right chest permacath. Patient presented with generalized weakness along with a fever and sore throat. Blood cultures are positive for staph aureus. Patient's currently resting in bed. Denies vomiting or diarrhea. He did have a fever of 100.4F last night. Denies chest pain or shortness of breath. Vital signs are stable. General: The patient appeared well nourished and normally developed. HEENT: Head exam is unremarkable. Neck is without jugular venous distension. LUNGS: Lungs are clear to auscultation and percussion. Breath sounds decreased. HEART: Rate and Rhythm are regular. First and second heart sounds normal. No murmurs, rubs or gallops. ABDOMEN: Abdominal exam reveals normal bowel sounds. Non-tender and non- distended. No evidence of peritonitis. EXTREMITITES: No clubbing, cyanosis, or edema. Feet wrapped. No obvious drainage. Objective - Vital Signs Vital signs: Vital Signs Temp 100.4 F H 08/14/17 03:10 Pulse 88 08/14/17 03:10 Resp 18 08/14/17 03:10 BP 112/53 08/14/17 03:10 Pulse Ox 99 08/14/17 03:10 Intake & Output 08/13/17 08/14/17 08/14/17 18:59 06:59 18:59 Intake Total 630 240 440 Output Total 0 Balance 630 240 440 Weight 140 kg 140 kg Intake: Oral 320 240 440 Blood Product 310 Rc As-1 Unit 310 [id number] Output: Urine 0 Other: Voiding Method Urinal Urinal # Bowel Movements 1 - Labs CBC & Chem 7: 08/14/17 05:33 08/14/17 05:33 Labs: Abnormal Lab Results - Last 24 Hours (Table) 08/13/17 08/13/17 08/13/17 Range/Units 11:42 14:10 16:40 RBC (4.30-5.90) m/uL Hgb (13.0-17.5) gm/dL Hct (39.0-53.0) % MCV (80.0-100.0) fL RDW (11.5-15.5) % Lymphocytes # (1.0-4.8) k/uL Sodium (137-145) mmol/L Chloride (98-107) mmol/L BUN (9-20) mg/dL Creatinine (0.66-1.25) mg/dL Glucose (74-99) mg/dL POC Glucose (mg/dL) 188 H 163 H (75-99) mg/dL Calcium (8.4-10.2) mg/dL Crossmatch See Detail 08/13/17 08/14/17 08/14/17 Range/Units 20:37 05:33 05:33 RBC 2.63 L (4.30-5.90) m/uL Hgb 8.5 L (13.0-17.5) gm/dL Hct 26.9 L (39.0-53.0) % MCV 102.1 H (80.0-100.0) fL RDW 16.2 H (11.5-15.5) % Lymphocytes # 0.8 L (1.0-4.8) k/uL Sodium 135 L (137-145) mmol/L Chloride 95 L (98-107) mmol/L BUN 44 H (9-20) mg/dL Creatinine 5.60 H* (0.66-1.25) mg/dL Glucose 188 H (74-99) mg/dL POC Glucose (mg/dL) 266 H (75-99) mg/dL Calcium 7.9 L (8.4-10.2) mg/dL Crossmatch 08/14/17 Range/Units 05:45 RBC (4.30-5.90) m/uL Hgb (13.0-17.5) gm/dL Hct (39.0-53.0) % MCV (80.0-100.0) fL RDW (11.5-15.5) % Lymphocytes # (1.0-4.8) k/uL Sodium (137-145) mmol/L Chloride (98-107) mmol/L BUN (9-20) mg/dL Creatinine (0.66-1.25) mg/dL Glucose (74-99) mg/dL POC Glucose (mg/dL) 193 H (75-99) mg/dL Calcium (8.4-10.2) mg/dL Crossmatch Microbiology - Last 24 Hours (Table) 08/11/17 08:42 Blood Culture Gram Stain - Final Blood Blood Culture - Final Staphylococcus aureus 08/12/17 10:20 Blood Culture Gram Stain - Preliminary Blood Blood Culture - Preliminary Presumptive Staph aureus 08/11/17 08:42 Blood Culture - Preliminary Blood No Growth after 48 hours Assessment and Plan Plan: Assessment: #1. End-stage renal disease maintained on hemodialysis on a Wednesday schedule via right chest permacath. #2. Staph aureus bacteremia. Permacath catheter appears to be the source. #3. Anemia of chronic kidney disease. #4. Chronic kidney disease mineral bone disease. #5. Diabetes mellitus. Plan: Maintain Renvela with meals. Maintain Aranesp. Antibiotics per infectious disease recommendations. Case was discussed with infectious disease. Permacatheter to be discontinued today. He will need a new catheter in the next 48-72 hours. Hopefully repeat cultures are negative by then.
[2017-08-14] MEDS: SEVELAMER 800 MG TAB PO SCH ×3 (09:10→17:19)
[2017-08-14] MEDS: FAMOTIDINE 20 MG TAB PO SCH (09:12)
[2017-08-14] MEDS: AMIODARONE 100 MG TAB PO SCH (09:13)
[2017-08-14] MEDS: ENOXAPARIN 30 MG/0.3 ML SYRINGE SQ SCH (09:13)
[2017-08-14] MEDS: ATROPINE OPHTH SOLN 1% 5ML BTL RIGHT EYE SCH (09:13)
[2017-08-14] MEDS: FLUTICASONE 50MCG/SPRAY NASAL 16GM EA NOSTRIL SCH ×2 (09:14→21:10)
[2017-08-14] MEDS: METOPROLOL TARTRATE 25 MG TAB PO SCH ×2 (09:14→21:09)
[2017-08-14] MEDS: DULoxetine HCL 30 MG CAPSULE.DR PO SCH (09:15)
[2017-08-14] MEDS: MULTIVITAMINS, THERA 1 EACH TAB PO SCH (11:15)
[2017-08-14] MEDS: DIPHENOX-ATROP 2.5-0.025 MG 1 EACH TAB PO PRN ×2 (11:15→21:01)
[2017-08-14 11:43] LABS: Glucose,Whole Blood 248 mg/dL (75-99)
--- NOTE | 2017-08-14 13:21 | CONS ---
CONSULTATION This is a 52-year-old gentleman who has a history of chronic failure, history of peripheral disease, history of diabetes. Patient has been on dialysis for a long time. He had multiple of upper arm grafts placed in the past which have been occluded, and he had also on the right upper arm placed in [place]. His graft was occluded and he went for evaluation. He had a dialysis catheter placed in the right neck and he was scheduled to have placement of a HeRO catheter. He has been admitted to [facility] with a positive blood culture of Staph aureus x4. I was called in by Dr. James Carlos to remove this catheter. I have discussed with him in detail. We will remove this catheter. If the jugular vein is not accessible, then he will need a dialysis catheter in the left groin. PAST HISTORY: Patient had multiple catheters and fistulas in both arms. He had a right iliac stent placed in the past. He has a chronic venostasis ulcer, lower extremity, under care of Dr. Carlos. PHYSICAL EXAMINATION: NECK: Supple. No tenderness noted in the neck area. No discharge noted. His chest has a few crackles at lung bases. ABDOMEN: Soft. Femorals are 1+. I had a long discussion with the patient. 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 We will consider placing in the femoral vein, and he understands. We will remove the catheter, send for culture and repeat the culture in 48 hours. MMODL / IJN: [id number] /
--- NOTE | 2017-08-14 13:40 | P.PN ---
Subjective patient with end-stage renal disease, on hemodialysis legally blind is admitted for bacteremia secondary to insulin distant staph aureus patient is on IV antibiotics central line which is in this which is a subclavian line was discontinued awaiting repeat blood cultures. Constitutional: Denied any fatigue denied any fever. Cardio vascular: denied any chest pain, palpitations Gastrointestinal denied any nausea vomiting Pulmonary: Denied any shortness of breath cough Neurologic denied any new focal deficits Objective - Vital Signs Vital signs: Vital Signs Temp 100.4 F H 08/14/17 03:10 Pulse 80 08/14/17 09:15 Resp 18 08/14/17 09:15 BP 112/53 08/14/17 03:10 Pulse Ox 99 08/14/17 03:10 Intake & Output 08/13/17 08/14/17 08/14/17 18:59 06:59 18:59 Intake Total 630 240 440 Output Total 0 Balance 630 240 440 Weight 140 kg 140 kg Intake: Oral 320 240 440 Blood Product 310 Rc As-1 Unit 310 [id number] Output: Urine 0 Other: Voiding Method Urinal Urinal Urinal # Voids 0 # Bowel Movements 1 0 - Exam PHYSICAL EXAMINATION: GENERAL: The patient is alert and oriented x3, not in any acute distress. Well developed, well nourished. HEENT: patient is legally blind. No scleral icterus. No conjunctival pallor. Normocephalic, atraumatic. No pharyngeal erythema. No thyromegaly. CARDIOVASCULAR: S1 and S2 present. No murmurs, rubs, or gallops. PULMONARY: Chest is clear to auscultation, no wheezing or crackles. ABDOMEN: Soft, nontender, nondistended, normoactive bowel sounds. No palpable organomegaly. MUSCULOSKELETAL: No joint swelling or deformity. EXTREMITIES: No cyanosis, clubbing, or pedal edema. NEUROLOGICAL: Gross neurological examination did not reveal any focal deficits. SKIN: No rashes. - Labs CBC & Chem 7: 08/14/17 05:33 08/14/17 05:33 Labs: Abnormal Lab Results - Last 24 Hours (Table) 08/13/17 08/13/17 08/13/17 Range/Units 14:10 16:40 20:37 RBC (4.30-5.90) m/uL Hgb (13.0-17.5) gm/dL Hct (39.0-53.0) % MCV (80.0-100.0) fL RDW (11.5-15.5) % Lymphocytes # (1.0-4.8) k/uL Sodium (137-145) mmol/L Chloride (98-107) mmol/L BUN (9-20) mg/dL Creatinine (0.66-1.25) mg/dL Glucose (74-99) mg/dL POC Glucose (mg/dL) 163 H 266 H (75-99) mg/dL Calcium (8.4-10.2) mg/dL Crossmatch See Detail 08/14/17 08/14/17 08/14/17 Range/Units 05:33 05:33 05:45 RBC 2.63 L (4.30-5.90) m/uL Hgb 8.5 L (13.0-17.5) gm/dL Hct 26.9 L (39.0-53.0) % MCV 102.1 H (80.0-100.0) fL RDW 16.2 H (11.5-15.5) % Lymphocytes # 0.8 L (1.0-4.8) k/uL Sodium 135 L (137-145) mmol/L Chloride 95 L (98-107) mmol/L BUN 44 H (9-20) mg/dL Creatinine 5.60 H* (0.66-1.25) mg/dL Glucose 188 H (74-99) mg/dL POC Glucose (mg/dL) 193 H (75-99) mg/dL Calcium 7.9 L (8.4-10.2) mg/dL Crossmatch 08/14/17 Range/Units 11:32 RBC (4.30-5.90) m/uL Hgb (13.0-17.5) gm/dL Hct (39.0-53.0) % MCV (80.0-100.0) fL RDW (11.5-15.5) % Lymphocytes # (1.0-4.8) k/uL Sodium (137-145) mmol/L Chloride (98-107) mmol/L BUN (9-20) mg/dL Creatinine (0.66-1.25) mg/dL Glucose (74-99) mg/dL POC Glucose (mg/dL) 248 H (75-99) mg/dL Calcium (8.4-10.2) mg/dL Crossmatch Microbiology - Last 24 Hours (Table) 08/11/17 08:42 Blood Culture - Preliminary Blood No Growth after 72 hours 08/11/17 08:42 Blood Culture Gram Stain - Final Blood Blood Culture - Final Staphylococcus aureus 08/12/17 10:20 Blood Culture Gram Stain - Preliminary Blood Blood Culture - Preliminary Presumptive Staph aureus Assessment and Plan Plan: #1 sepsis and bacteremia secondary to hemodialysis catheter-related infection, which was removed and patient is on IV vancomycin antibiotics as per infectious disease, hematemesis catheter was removed #2end-stage renal disease secondary diabetic nephropathy patient will be reinitiated back on hemodialysis once his bacteremia clears and receives and another central line for hemodialysis, patient is not in respiratory failure at doesn't have any pulmonary edema at this point of time. #3 type 2 diabetes mellitus continue present regimen blood sugars are uncontrolled titrate depending on his blood sugars next 24 hours #4hyperlipidemia #5 coronary artery disease #6 asthma without any acute exacerbation #7 hypertension #8 obesity #9 obstructive sleep apnea for which patient uses CPAP machine. For above-mentioned chronic medical problems patient will be continued on appropriate home medications
--- NOTE | 2017-08-14 13:57 | PCN ---
PROCEDURE NOTE PREOP DIAGNOSIS: Chronic renal failure with positive blood culture x4 for Staph aureus. PROCEDURE: Removal of the dialysis catheter. DESCRIPTION OF PROCEDURE: The patient was seen in his room. Right side of the neck and chest were prepped and draped in the usual sterile manner. 1% lidocaine was infiltrated. A small incision made at the exit site of the catheter, went circumferentially around the catheter and the catheter was removed. The tip of the catheter was sent for cultures and sensitivity. Pressure was held. An occlusive dressing was applied. The patient tolerated the procedure well. MMODL / IJN: [id number] /
[2017-08-14 17:00] LABS: Glucose,Whole Blood 261 mg/dL (75-99)
[2017-08-14] MEDS: PRAVASTATIN SODIUM 40 MG TAB PO SCH (21:09)
[2017-08-14] MEDS: ASCORBIC ACID 500 MG TAB PO SCH (21:09)
[2017-08-14] MEDS: CLOPIDOGREL 75 MG TAB PO SCH (21:09)
[2017-08-14] MEDS: LORATADINE 10 MG TAB PO SCH (21:09)
[2017-08-14] MEDS: INSULIN GLARGINE 100 UNIT/ML 10 ML VIAL SQ SCH (21:09)
[2017-08-14 21:13] LABS: Glucose,Whole Blood 255 mg/dL (75-99)
[2017-08-15 05:54] LABS: Glucose,Whole Blood 214 mg/dL (75-99)
[2017-08-15 07:05] LABS: CHCM 30.9; HCT 25.5 % (39.0-53.0); HDW 3.69; HGB 7.9 gm/dL (13.0-17.5); Hypochromasia Moderate; MCH 31.1 pg (25.0-35.0); MCHC 30.9 g/dL (31.0-37.0); MCV 100.9 fL (80.0-100.0); Macrocytosis Slight; Mean Platelet Volume 7.4; Poikilocytosis Slight; RBC 2.53 m/uL (4.30-5.90); RDW 15.5 % (11.5-15.5); WBC 8.5 k/uL (3.8-10.6)
[2017-08-15 07:17] LABS: Potassium 3.9 mmol/L (3.5-5.1)
[2017-08-15] MEDS: INSULIN LISPRO (humaLOG) 300 UNIT/3 ML VIAL SQ SCH ×3 (07:18→20:49)
[2017-08-15] MEDS: SEVELAMER 800 MG TAB PO SCH ×3 (08:37→16:35)
[2017-08-15] MEDS: METOPROLOL TARTRATE 25 MG TAB PO SCH ×2 (08:38→22:20)
[2017-08-15] MEDS: ATROPINE OPHTH SOLN 1% 5ML BTL RIGHT EYE SCH (08:39)
[2017-08-15] MEDS: FAMOTIDINE 20 MG TAB PO SCH (08:40)
[2017-08-15] MEDS: DULoxetine HCL 30 MG CAPSULE.DR PO SCH (08:40)
[2017-08-15] MEDS ORDERED: VANCOMYCIN 2,000 MG in SODIUM CHLORIDE 0.9% 500 ML IVPB ONE (09:00)
--- NOTE | 2017-08-15 09:07 | P.PN ---
Subjective Patient is seen in follow-up for end-stage renal disease. He is maintained on hemodialysis on a Wednesday schedule via right chest permacath. Patient presented with generalized weakness along with a fever and sore throat. Blood cultures are positive for staph aureus. Patient's currently resting in bed. Denies vomiting or diarrhea. Denies chest pain or shortness of breath. P- cath discontinued on 08/14/17. Vital signs are stable. General: The patient appeared well nourished and normally developed. HEENT: Head exam is unremarkable. Neck is without jugular venous distension. LUNGS: Lungs are clear to auscultation and percussion. Breath sounds decreased. HEART: Rate and Rhythm are regular. First and second heart sounds normal. No murmurs, rubs or gallops. ABDOMEN: Abdominal exam reveals normal bowel sounds. Non-tender and non- distended. No evidence of peritonitis. EXTREMITITES: No clubbing, cyanosis, or edema. Feet wrapped. No obvious drainage. Objective - Vital Signs Vital signs: Vital Signs Temp 98.6 F 08/15/17 04:00 Pulse 80 08/15/17 08:00 Resp 19 08/15/17 08:00 BP 112/58 08/15/17 08:00 Pulse Ox 96 08/15/17 08:00 Intake & Output 08/14/17 08/15/17 08/15/17 18:59 06:59 18:59 Intake Total 1110 200 Output Total 200 Balance 910 200 Weight 140 kg Intake: Intake, IV Titration 50 Amount cefTRIAXone 1,000 mg In 50 Sodium Chloride 0.9% 50 ml @ 100 mls/hr IVPB Q24HR [facility] Rx#:[id number] Oral 1060 200 Output: Urine 200 Other: Voiding Method Urinal Urinal # Voids 0 0 # Bowel Movements 0 - Labs CBC & Chem 7: 08/15/17 06:04 08/15/17 06:04 Labs: Abnormal Lab Results - Last 24 Hours (Table) 08/14/17 08/14/17 08/14/17 Range/Units 11:32 16:53 21:09 RBC (4.30-5.90) m/uL Hgb (13.0-17.5) gm/dL Hct (39.0-53.0) % MCV (80.0-100.0) fL MCHC (31.0-37.0) g/dL Chloride (98-107) mmol/L BUN (9-20) mg/dL Creatinine (0.66-1.25) mg/dL Glucose (74-99) mg/dL POC Glucose (mg/dL) 248 H 261 H 255 H (75-99) mg/dL Calcium (8.4-10.2) mg/dL 08/15/17 08/15/17 08/15/17 Range/Units 05:52 06:04 06:04 RBC 2.53 L (4.30-5.90) m/uL Hgb 7.9 L (13.0-17.5) gm/dL Hct 25.5 L (39.0-53.0) % MCV 100.9 H (80.0-100.0) fL MCHC 30.9 L (31.0-37.0) g/dL Chloride 97 L (98-107) mmol/L BUN 62 H (9-20) mg/dL Creatinine 7.81 H* (0.66-1.25) mg/dL Glucose 197 H (74-99) mg/dL POC Glucose (mg/dL) 214 H (75-99) mg/dL Calcium 8.0 L (8.4-10.2) mg/dL Microbiology - Last 24 Hours (Table) 08/12/17 10:20 Blood Culture Gram Stain - Final Blood Blood Culture - Final Staphylococcus aureus 08/14/17 10:30 Catheter Tip Culture - Preliminary Catheter Tip 08/11/17 08:42 Blood Culture - Preliminary Blood No Growth after 72 hours Assessment and Plan Plan: Assessment: #1. End-stage renal disease maintained on hemodialysis on a Wednesday schedule via right chest permacath. #2. Staph aureus bacteremia. Permacath catheter appears to be the source. #3. Anemia of chronic kidney disease. #4. Chronic kidney disease mineral bone disease. #5. Diabetes mellitus. Plan: Maintain Renvela with meals. Maintain Aranesp. Antibiotics per infectious disease recommendations. Case was discussed with infectious disease. Permacatheter discontinued . Repeat blood cultures today. Continue to assess on day-to-day basis for need for renal replacement therapy.
[2017-08-15] MEDS: FLUTICASONE 50MCG/SPRAY NASAL 16GM EA NOSTRIL SCH (11:07)
[2017-08-15] MEDS: MULTIVITAMINS, THERA 1 EACH TAB PO SCH (11:08)
[2017-08-15] MEDS: ENOXAPARIN 30 MG/0.3 ML SYRINGE SQ SCH (11:15)
[2017-08-15] MEDS: AMIODARONE 100 MG TAB PO SCH (11:15)
[2017-08-15 11:55] LABS: Glucose,Whole Blood 123 mg/dL (75-99)
--- NOTE | 2017-08-15 14:36 | P.PN ---
Subjective patient with end-stage renal disease, on hemodialysis legally blind is admitted for bacteremia secondary to insulin distant staph aureus patient is on IV antibiotics central line which is in this which is a subclavian line was discontinued awaiting repeat blood cultures. 08/15/2017 No overnight events patient is clinically doing well without any fevers. Continue with antibiotics repeat cultures from 12 the positive. We'll repeat the blood cultures today and tomorrow again Constitutional: Denied any fatigue denied any fever. Cardio vascular: denied any chest pain, palpitations Gastrointestinal denied any nausea vomiting Pulmonary: Denied any shortness of breath cough Neurologic denied any new focal deficits Objective - Vital Signs Vital signs: Vital Signs Temp 98.6 F 08/15/17 04:00 Pulse 84 08/15/17 12:33 Resp 18 08/15/17 12:33 BP 116/65 08/15/17 12:33 Pulse Ox 95 08/15/17 12:33 Intake & Output 08/14/17 08/15/17 08/15/17 18:59 06:59 18:59 Intake Total 1110 200 500 Output Total 200 Balance 910 200 500 Weight 140 kg Intake: Intake, IV Titration 50 Amount cefTRIAXone 1,000 mg In 50 Sodium Chloride 0.9% 50 ml @ 100 mls/hr IVPB Q24HR [facility] Rx#:[id number] Oral 1060 200 500 Output: Urine 200 Other: Voiding Method Urinal Urinal # Voids 0 0 # Bowel Movements 0 - Exam PHYSICAL EXAMINATION: GENERAL: The patient is alert and oriented x3, not in any acute distress. Well developed, well nourished. HEENT: patient is legally blind. No scleral icterus. No conjunctival pallor. Normocephalic, atraumatic. No pharyngeal erythema. No thyromegaly. CARDIOVASCULAR: S1 and S2 present. No murmurs, rubs, or gallops. PULMONARY: Chest is clear to auscultation, no wheezing or crackles. ABDOMEN: Soft, nontender, nondistended, normoactive bowel sounds. No palpable organomegaly. MUSCULOSKELETAL: No joint swelling or deformity. EXTREMITIES: No cyanosis, clubbing, or pedal edema. NEUROLOGICAL: Gross neurological examination did not reveal any focal deficits. SKIN: No rashes. - Labs CBC & Chem 7: 08/15/17 06:04 08/15/17 06:04 Labs: Abnormal Lab Results - Last 24 Hours (Table) 08/14/17 08/14/17 08/15/17 Range/Units 16:53 21:09 05:52 RBC (4.30-5.90) m/uL Hgb (13.0-17.5) gm/dL Hct (39.0-53.0) % MCV (80.0-100.0) fL MCHC (31.0-37.0) g/dL Chloride (98-107) mmol/L BUN (9-20) mg/dL Creatinine (0.66-1.25) mg/dL Glucose (74-99) mg/dL POC Glucose (mg/dL) 261 H 255 H 214 H (75-99) mg/dL Calcium (8.4-10.2) mg/dL 08/15/17 08/15/17 08/15/17 Range/Units 06:04 06:04 11:37 RBC 2.53 L (4.30-5.90) m/uL Hgb 7.9 L (13.0-17.5) gm/dL Hct 25.5 L (39.0-53.0) % MCV 100.9 H (80.0-100.0) fL MCHC 30.9 L (31.0-37.0) g/dL Chloride 97 L (98-107) mmol/L BUN 62 H (9-20) mg/dL Creatinine 7.81 H* (0.66-1.25) mg/dL Glucose 197 H (74-99) mg/dL POC Glucose (mg/dL) 123 H (75-99) mg/dL Calcium 8.0 L (8.4-10.2) mg/dL Microbiology - Last 24 Hours (Table) 08/11/17 08:42 Blood Culture - Preliminary Blood No Growth after 96 hours 08/14/17 10:30 Catheter Tip Culture - Preliminary Catheter Tip 08/12/17 10:20 Blood Culture Gram Stain - Final Blood Blood Culture - Final Staphylococcus aureus Assessment and Plan Plan: #1 sepsis and bacteremia secondary to hemodialysis catheter-related infection, which was removed and patient is on IV vancomycin antibiotics as per infectious disease, hematemesis catheter was removed #2end-stage renal disease secondary diabetic nephropathy patient will be reinitiated back on hemodialysis once his bacteremia clears and receives and another central line for hemodialysis, patient is not in respiratory failure at doesn't have any pulmonary edema at this point of time. #3 type 2 diabetes mellitus continue present regimen blood sugars are uncontrolled titrate depending on his blood sugars #4hyperlipidemia #5 coronary artery disease #6 asthma without any acute exacerbation #7 hypertension #8 obesity #9 obstructive sleep apnea for which patient uses CPAP machine. For above-mentioned chronic medical problems patient will be continued on appropriate home medications
[2017-08-15 17:08] LABS: Glucose,Whole Blood 201 mg/dL (75-99)
[2017-08-15 21:18] LABS: Glucose,Whole Blood 234 mg/dL (75-99)
[2017-08-15] MEDS: INSULIN GLARGINE 100 UNIT/ML 10 ML VIAL SQ SCH (22:17)
[2017-08-15] MEDS: LORATADINE 10 MG TAB PO SCH (22:19)
[2017-08-15] MEDS: CLOPIDOGREL 75 MG TAB PO SCH (22:19)
[2017-08-15] MEDS: PRAVASTATIN SODIUM 40 MG TAB PO SCH (22:19)
[2017-08-15] MEDS: HYDROcodone/APAP 5-325MG 1 EACH TAB PO PRN (22:24)
[2017-08-16 05:58] LABS: Glucose,Whole Blood 219 mg/dL (75-99)
[2017-08-16] MEDS: INSULIN LISPRO (humaLOG) 300 UNIT/3 ML VIAL SQ SCH ×3 (07:00→18:14)
[2017-08-16] MEDS: FLUTICASONE 50MCG/SPRAY NASAL 16GM EA NOSTRIL SCH ×3 (07:01→22:22)
[2017-08-16] MEDS: ASCORBIC ACID 500 MG TAB PO SCH ×2 (07:02→22:21)
--- NOTE | 2017-08-16 07:52 | P.PN ---
Subjective Patient is seen in follow-up for end-stage renal disease. He is maintained on hemodialysis on a Wednesday schedule via right chest permacath. Patient presented with generalized weakness along with a fever and sore throat. Blood cultures are positive for staph aureus. Patient's currently resting in bed. Denies vomiting or diarrhea. Denies chest pain or shortness of breath. P- cath discontinued on 08/14/17. He is afebrile now. Hemodynamically stable. Vital signs are stable. General: The patient appeared well nourished and normally developed. HEENT: Head exam is unremarkable. Neck is without jugular venous distension. LUNGS: Lungs are clear to auscultation and percussion. Breath sounds decreased. HEART: Rate and Rhythm are regular. First and second heart sounds normal. No murmurs, rubs or gallops. ABDOMEN: Abdominal exam reveals normal bowel sounds. Non-tender and non- distended. No evidence of peritonitis. EXTREMITITES: No clubbing, cyanosis, or edema. Feet wrapped. No obvious drainage. Objective - Vital Signs Vital signs: Vital Signs Temp 98.0 F 08/16/17 00:00 Pulse 80 08/16/17 00:00 Resp 19 08/16/17 00:00 BP 122/56 08/16/17 00:00 Pulse Ox 99 08/16/17 00:00 Intake & Output 08/15/17 08/16/17 08/16/17 18:59 06:59 18:59 Intake Total 1310 Output Total 300 Balance 1010 Weight 138 kg Intake: IV 60 0.9% 60 Intake, IV Titration 500 Amount Vancomycin 2,000 mg In 500 Sodium Chloride 0.9% 500 ml @ 167 mls/hr IVPB ONCE ONE Rx#:[id number] Oral 750 Output: Urine 300 Other: Voiding Method Bedside Commode Urinal Urinal # Voids 1 - Labs CBC & Chem 7: 08/15/17 06:04 08/16/17 06:11 Labs: Abnormal Lab Results - Last 24 Hours (Table) 08/15/17 08/15/17 08/15/17 Range/Units 11:37 16:42 21:14 Sodium (137-145) mmol/L Chloride (98-107) mmol/L Carbon Dioxide (22-30) mmol/L BUN (9-20) mg/dL Creatinine (0.66-1.25) mg/dL Glucose (74-99) mg/dL POC Glucose (mg/dL) 123 H 201 H 234 H (75-99) mg/dL Calcium (8.4-10.2) mg/dL 08/16/17 08/16/17 Range/Units 05:55 06:11 Sodium 135 L (137-145) mmol/L Chloride 97 L (98-107) mmol/L Carbon Dioxide 21 L (22-30) mmol/L BUN 78 H (9-20) mg/dL Creatinine 9.22 H* (0.66-1.25) mg/dL Glucose 206 H (74-99) mg/dL POC Glucose (mg/dL) 219 H (75-99) mg/dL Calcium 8.0 L (8.4-10.2) mg/dL Microbiology - Last 24 Hours (Table) 08/11/17 08:42 Blood Culture - Preliminary Blood No Growth after 96 hours 08/14/17 10:30 Catheter Tip Culture - Preliminary Catheter Tip Assessment and Plan Plan: Assessment: #1. End-stage renal disease maintained on hemodialysis on a Wednesday schedule via right chest permacath. Last hemodialysis on August 13. #2. Staph aureus bacteremia. Permacath catheter appears to be the source - discontinued on August 14. #3. Anemia of chronic kidney disease. #4. Chronic kidney disease mineral bone disease. #5. Diabetes mellitus. Plan: Maintain Renvela with meals. Maintain Aranesp. Antibiotics per infectious disease recommendations. Case was discussed with infectious disease. Permacatheter discontinued . Repeat blood cultures drawn August 15. Continue to assess on day-to-day basis for need for renal replacement therapy - no urgent need at this time.
[2017-08-16] MEDS: SEVELAMER 800 MG TAB PO SCH ×3 (09:34→18:07)
[2017-08-16] MEDS: AMIODARONE 100 MG TAB PO SCH (09:35)
[2017-08-16] MEDS: ENOXAPARIN 30 MG/0.3 ML SYRINGE SQ SCH (09:35)
[2017-08-16] MEDS: METOPROLOL TARTRATE 25 MG TAB PO SCH ×2 (09:35→22:21)
[2017-08-16] MEDS: FAMOTIDINE 20 MG TAB PO SCH (09:36)
[2017-08-16] MEDS: ATROPINE OPHTH SOLN 1% 5ML BTL RIGHT EYE SCH (09:36)
[2017-08-16] MEDS: DULoxetine HCL 30 MG CAPSULE.DR PO SCH (09:37)
[2017-08-16 12:17] LABS: Glucose,Whole Blood 181 mg/dL (75-99)
[2017-08-16] MEDS: MULTIVITAMINS, THERA 1 EACH TAB PO SCH (12:29)
[2017-08-16 13:42] VITALS: RESP 18
--- NOTE | 2017-08-16 14:39 | P.PN ---
Subjective patient with end-stage renal disease, on hemodialysis legally blind is admitted for bacteremia secondary to insulin distant staph aureus patient is on IV antibiotics central line which is in this which is a subclavian line was discontinued awaiting repeat blood cultures. 08/15/2017 No overnight events patient is clinically doing well without any fevers. Continue with antibiotics repeat cultures from 12 the positive. We'll repeat the blood cultures today and tomorrow again 08/16/2017 Patient is complaining of generalized tiredness, patient denied any shortness of breath patient does have oral thrush for which we'll use Will use nystatin swish and swallow. Repeat blood cultures from yesterday are negative so far, not febrile since last night Constitutional: as mentioned in HPI Cardio vascular: denied any chest pain, palpitations Gastrointestinal denied any nausea vomiting Pulmonary: Denied any shortness of breath cough Neurologic denied any new focal deficits Objective - Vital Signs Vital signs: Vital Signs Temp 97.2 F L 08/16/17 11:30 Pulse 71 08/16/17 11:30 Resp 18 08/16/17 11:30 BP 131/59 08/16/17 11:30 Pulse Ox 97 08/16/17 11:30 Intake & Output 08/15/17 08/16/17 08/16/17 18:59 06:59 18:59 Intake Total 1310 240 Output Total 300 500 Balance 1010 -260 Weight 138 kg Intake: IV 60 0.9% 60 Intake, IV Titration 500 Amount Vancomycin 2,000 mg In 500 Sodium Chloride 0.9% 500 ml @ 167 mls/hr IVPB ONCE ONE Rx#:[id number] Oral 750 240 Output: Urine 300 500 Other: Voiding Method Bedside Commode Urinal Urinal # Voids 1 - Exam PHYSICAL EXAMINATION: GENERAL: The patient is alert and oriented x3, not in any acute distress. Well developed, well nourished. HEENT: patient is legally blind. No scleral icterus. No conjunctival pallor. Normocephalic, atraumatic. No pharyngeal erythema. No thyromegaly. CARDIOVASCULAR: S1 and S2 present. No murmurs, rubs, or gallops. PULMONARY: Chest is clear to auscultation, no wheezing or crackles. ABDOMEN: Soft, nontender, nondistended, normoactive bowel sounds. No palpable organomegaly. MUSCULOSKELETAL: No joint swelling or deformity. EXTREMITIES: No cyanosis, clubbing, or pedal edema. NEUROLOGICAL: Gross neurological examination did not reveal any focal deficits. SKIN: No rashes. - Labs CBC & Chem 7: 08/15/17 06:04 08/16/17 06:11 Labs: Abnormal Lab Results - Last 24 Hours (Table) 08/15/17 08/15/17 08/16/17 Range/Units 16:42 21:14 05:55 Sodium (137-145) mmol/L Chloride (98-107) mmol/L Carbon Dioxide (22-30) mmol/L BUN (9-20) mg/dL Creatinine (0.66-1.25) mg/dL Glucose (74-99) mg/dL POC Glucose (mg/dL) 201 H 234 H 219 H (75-99) mg/dL Calcium (8.4-10.2) mg/dL 08/16/17 08/16/17 Range/Units 06:11 12:08 Sodium 135 L (137-145) mmol/L Chloride 97 L (98-107) mmol/L Carbon Dioxide 21 L (22-30) mmol/L BUN 78 H (9-20) mg/dL Creatinine 9.22 H* (0.66-1.25) mg/dL Glucose 206 H (74-99) mg/dL POC Glucose (mg/dL) 181 H (75-99) mg/dL Calcium 8.0 L (8.4-10.2) mg/dL Microbiology - Last 24 Hours (Table) 08/11/17 08:42 Blood Culture - Preliminary Blood No Growth after 120 hours 08/15/17 14:51 Blood Culture Gram Stain - Preliminary Blood 08/15/17 14:51 Blood Culture - Final Blood 08/11/17 08:42 Blood Culture Gram Stain - Final Blood Blood Culture - Final Staphylococcus aureus Assessment and Plan Plan: #1 sepsis and bacteremia secondary to hemodialysis catheter-related infection, which was removed and patient is on IV vancomycin antibiotics as per infectious disease, hemodialysis catheter was removed #2end-stage renal disease secondary diabetic nephropathy patient will be reinitiated back on hemodialysis once his bacteremia clears and receives and another central line for hemodialysis, patient is not in respiratory failure at doesn't have any pulmonary edema at this point of time. #3 type 2 diabetes mellitus continue present regimen blood sugars are uncontrolled titrate depending on his blood sugars #4hyperlipidemia #5 coronary artery disease #6 asthma without any acute exacerbation #7 hypertension #8 obesity #9 obstructive sleep apnea for which patient uses CPAP machine. For above-mentioned chronic medical problems patient will be continued on appropriate home medications
[2017-08-16 15:02] VITALS: BMI 41.2
--- NOTE | 2017-08-16 16:28 | P.PN ---
Progress Note - Text Progress Note Date: 08/16/17 DATE OF SERVICE: 08/16/2017 PRESENTING COMPLAINT: shortness of breath HISTORY OF PRESENT ILLNESS: 68-year-old male presented with complaints of progressive weakness and shortness of breath. on admission patient complained of bilateral lower extremity swelling and swelling in his abdomen.imaging revealed bilateral pulmonary infiltrates, low hemoglobin received a unit of blood. admitted for the same cardiology and GI consulted. INTERVAL HISTORY: 08/16/2017: Patient lying in bed appears pale and tired, states he has a poor appetite, paracentesis planned for later today. Patient has not been up out of bed has not walked since admission, becoming deconditioned patient was ambulatory at home 3 days ago.appetite poor, no BM since admission, patient expressed concerns because of recent diagnosis of colitis he has relapsing and remitting diarrhea and constipation. REVIEW OF SYSTEMS: Done for constitutional ,cardiovascular, GI, pulmonary with relevant findings as above. CURRENT MEDICATIONS Xanax 0.25 by mouth 3 times a day, ceftriaxone thousand milligrams IV piggyback , Lomotil by mouth 3 times a day, Lasix 40 mg IV every 12 hours, hydromorphone half milligrams IV push every 3 hours, Synthroid 75 g by mouth daily Imodium 4 mg by mouth 3 times a day, Protonix 40 mg IV push daily, Aldactone 25 mg by mouth twice a day, Restoril 15 mg by mouth at bedtime,vancomycin 1500 mg IV piggyback PHYSICAL EXAM VITAL SIGNS: temperature 96.9, pulse 87, respiratory rate 18, blood pressure 98/64,oxygen saturation 94% on room air. GENERAL APPEARANCE: Lying in bed, anxious appearing. EYES: Pupils equal. Conjunctiva normal. NECK: JVD not raised. Mass not palpable. RESPIRATORY: Respiratory effort normal. Lungs diminished bilaterally to auscultation. CARDIOVASCULAR: First and second sounds normal. moderate edema. ABDOMEN: Soft. Liver and spleen not palpable.ascites present,No tenderness. No mass palpable. PSYCHIATRY: Alert and oriented x3. Mood and affect anxious appearing. INVESTIGATIONS: hemoglobin 7.7, sodium 133, chloride 111, carbon dioxide 18,magnesium 1.5, BNP 3870 echocardiogram: Generalized pericardial effusion present, moderate pleural effusion, EF between 50 and 55%, systolic dysfunction, mild mitral and tricuspid regurgitation. ASSESSMENT: -generalized anasarca possible cirrhosis of the liver -Acute on chronic congestive heart failure exacerbation in a patient withsystolic dysfunction, EF between 50 and 55%. -hyponatremia likely hypoosmolar from decreased oral intake -macrocytic Anemia -Gastroesophageal reflux disease -Hypothyroidism -Lymphocytic colitis -Mild protein calorie malnutrition likely due to decreased oral intake -Medical debility PLAN: abdominal ultrasound with possible paracentesis pending for later today, continue IV Lasix and Aldactone.physical occupational therapy to evaluate and work with the patient.plan of care discussed with the patient at the bedsidehe is in agreement we'll continue to monitor closely. MA[employer]GER [employer] statement: Patient was seen and examined by nurse practitioner Lucille Alcantar and all elements of the case discussed with attending Dr. Vivas
[2017-08-16 16:37] LABS: Glucose,Whole Blood 147 mg/dL (75-99)
[2017-08-16] MEDS: MIDODRINE 5 MG TAB PO SCH (18:06)
[2017-08-16] MEDS: NYSTATIN 100,000 UNIT/ML SUSP 500,000 UNIT/5 ML CUP PO SCH ×3 (18:07→22:22)
--- NOTE | 2017-08-16 18:53 | P.PN ---
Subjective Progress Note Date: 08/16/17 Principal diagnosis: Fever 52-year-old male presents to the emergency center from his extended care facility complaining of a month of increasing illness. The patient relates over the last several weeks he's having increasing weakness and generalized malaise. He continues to go to dialysis but despite that he is feeling worse. He's had some generalized abdominal pain. He's had difficulty with some nausea without emesis or hematemesis. He is denying diarrhea again has some generalized abdominal discomfort. He has increasing fatigue and malaise. He's had some headache. He's had some generalized body ache. Abdomen is developed some fever. He denies high-grade chills or rigors but is aware of his fever. He continues relate that he just feels poorly overall. Upon arrival to the emergency center a fever was noted that he has been admitted. The fever is now improving. 97.2 today. The patient's hemodialysis catheter was removed. Objective - Vital Signs Vital signs: Vital Signs Temp 97.2 F L 08/16/17 11:30 Pulse 71 08/16/17 11:30 Resp 18 08/16/17 11:30 BP 131/59 08/16/17 11:30 Pulse Ox 97 08/16/17 11:30 Intake & Output 08/15/17 08/16/17 08/16/17 18:59 06:59 18:59 Intake Total 1310 240 Output Total 300 1000 Balance 1010 -760 Weight 138 kg 138 kg Intake: IV 60 0.9% 60 Intake, IV Titration 500 Amount Vancomycin 2,000 mg In 500 Sodium Chloride 0.9% 500 ml @ 167 mls/hr IVPB ONCE ONE Rx#:[id number] Oral 750 240 Output: Urine 300 1000 Other: Voiding Method Bedside Commode Urinal Urinal # Voids 1 - Exam 52-year-old male who suffers from superobesity, and sleep apnea. Relates it is not very comfortable but does not complain of one distinct problem at this time HEENT: Anicteric conjunctiva are pink and moist nasal mucosa grossly intact without significant lesions, there is no thrush. Poor dentition Neck: The neck is supple without significant lymphadenopathy or thyromegaly. Lungs: Symmetrical air entry is noted. Expiratory wheezes are scattered throughout the lung joseph. But no joshua bronchial sounds are heard. No egophony. Heart: Irregular with an audible S1 and S2 positive S4 no audible murmur click or rub. Abdomen: Obese, Positive bowel sounds soft and nontender without palpable masses or organomegaly. There was no guarding or rebound. Extremities: The upper extremity show evidence of no significant lesions and the shunt to the left and right arms are not functioning well But no open ulcers are seen on the right upper extremity left arm without lesions. IV site looks intact in the right arm. the right anterior chest wall is without erythema or tenderness. The lower extremity show evidence of some lower extremity edema greater on the right than the left. Left foot without acute lesions. The right lower extremity shows evidence of the near healing of the prior surgical amputation sites. Dry eschar is seen laterally on the foot without drainage on the dressings. There is now area of irritation to the anterior aspect of the ankle. Neuro: Awake alert oriented to person place and time. He has very poor vision and has significant peripheral neuropathy from his diabetes but no acute gross focal sensory motor deficits are noted. - Labs CBC & Chem 7: 08/15/17 06:04 08/16/17 06:11 Labs: Abnormal Lab Results - Last 24 Hours (Table) 08/15/17 08/16/17 08/16/17 Range/Units 21:14 05:55 06:11 Sodium 135 L (137-145) mmol/L Chloride 97 L (98-107) mmol/L Carbon Dioxide 21 L (22-30) mmol/L BUN 78 H (9-20) mg/dL Creatinine 9.22 H* (0.66-1.25) mg/dL Glucose 206 H (74-99) mg/dL POC Glucose (mg/dL) 234 H 219 H (75-99) mg/dL Calcium 8.0 L (8.4-10.2) mg/dL 08/16/17 08/16/17 Range/Units 12:08 16:34 Sodium (137-145) mmol/L Chloride (98-107) mmol/L Carbon Dioxide (22-30) mmol/L BUN (9-20) mg/dL Creatinine (0.66-1.25) mg/dL Glucose (74-99) mg/dL POC Glucose (mg/dL) 181 H 147 H (75-99) mg/dL Calcium (8.4-10.2) mg/dL Microbiology - Last 24 Hours (Table) 08/15/17 14:51 Blood Culture Gram Stain - Preliminary Blood 08/14/17 10:30 Catheter Tip Culture - Final Catheter Tip 08/11/17 08:42 Blood Culture - Preliminary Blood No Growth after 120 hours 08/15/17 14:51 Blood Culture - Final Blood 08/11/17 08:42 Blood Culture Gram Stain - Final Blood Blood Culture - Final Staphylococcus aureus Assessment and Plan (1) Fever Narrative/Plan: 52-year-old male presents [facility] with a month history of feeling poorly. The patient relates that over this last month he's been having increasing generalized malaise and fatigue. He's having some vague abdominal symptoms. She's not having nausea or emesis but appetites poor. Denies significant diarrhea nonrotation of melena or hematochezia. He does have hemodialysis via the catheter in the right anterior chest wall. Shows the arms are not working. He relates is being followed by the vascular surgeons in [place] and when he is well the plan and placing a specialty fistula on his right anterior chest wall to eliminate the external catheter. There is now a positive blood culture and there is concern that he could have catheter-related infection. It is not noted some data from the current dialysis center for there have been positive cultures as of late. The patient has a minimal leukocytosis is being monitored. The near foot losing infections to the right foot are unremarkable controlled this point in time. Only one small eschar is seen in appears to be completely healed around the site. Dry dressings can be used. No other acute sources of infection being seen at this point in time. Blood Cultures are all revealing evidence of staph aureus, await if it is MRSA. Vancomycin will be added pending further culture data. The case was discussed with the fur blower operator as well as the vascular surgeon. Given the multiple positive blood cultures with staph aureus it is highly likely that he has catheter-related sepsis. Consequently the hemodialysis catheter was removed. There were possible cultures that did follow. If the patient does not want our local surgeons may need transfer to his vascular surgeon in [place]. Implantation of any permanent material though is on hold until he clears his current infection over the next few weeks. The patient is point in time is refusing a femoral catheter. Likely be transferred to the facility in [place] to see if there are other access options are not available at this facility. Culture shows evidence of MSSA as microbial therapy is changed to Cefzil and 500 mg IV piggyback every 12 hours. Status: Acute (2) ESRD (end stage renal disease) on dialysis Status: Acute (3) Leukocytosis Status: Acute
[2017-08-16] MEDS ORDERED: SODIUM CHLORIDE 0.9% IVPB SCH (19:00)
[2017-08-16] MEDS ORDERED: CEFAZOLIN IVPB SCH (19:00)
[2017-08-16 21:02] LABS: Glucose,Whole Blood 180 mg/dL (75-99)
[2017-08-16] MEDS: INSULIN GLARGINE 100 UNIT/ML 10 ML VIAL SQ SCH (22:20)
[2017-08-16] MEDS: LORATADINE 10 MG TAB PO SCH (22:21)
[2017-08-16] MEDS: CLOPIDOGREL 75 MG TAB PO SCH (22:21)
[2017-08-16] MEDS: PRAVASTATIN SODIUM 40 MG TAB PO SCH (22:22)
[2017-08-16] MEDS: HYDROcodone/APAP 5-325MG 1 EACH TAB PO PRN (22:27)
[2017-08-17 06:19] LABS: Glucose,Whole Blood 178 mg/dL (75-99)
[2017-08-17 07:06] LABS: Calcium 8.1 mg/dL (8.4-10.2); Potassium 4.2 mmol/L (3.5-5.1)
[2017-08-17] MEDS: INSULIN LISPRO (humaLOG) 300 UNIT/3 ML VIAL SQ SCH ×3 (07:07→17:03)
[2017-08-17] MEDS: ENOXAPARIN 30 MG/0.3 ML SYRINGE SQ SCH (08:02)
[2017-08-17] MEDS: SEVELAMER 800 MG TAB PO SCH ×3 (08:02→17:03)
[2017-08-17] MEDS: NYSTATIN 100,000 UNIT/ML SUSP 500,000 UNIT/5 ML CUP PO SCH ×3 (08:02→17:03)
[2017-08-17] MEDS: ATROPINE OPHTH SOLN 1% 5ML BTL RIGHT EYE SCH (08:02)
[2017-08-17] MEDS: DULoxetine HCL 30 MG CAPSULE.DR PO SCH (08:02)
[2017-08-17] MEDS: AMIODARONE 100 MG TAB PO SCH (08:03)
[2017-08-17] MEDS: FAMOTIDINE 20 MG TAB PO SCH (08:03)
[2017-08-17] MEDS: METOPROLOL TARTRATE 25 MG TAB PO SCH (08:03)
[2017-08-17] MEDS: FLUTICASONE 50MCG/SPRAY NASAL 16GM EA NOSTRIL SCH (08:03)
--- NOTE | 2017-08-17 09:58 | P.PN ---
Subjective Patient is seen in follow-up for end-stage renal disease. He is maintained on hemodialysis on a Wednesday schedule via right chest permacath. Patient presented with generalized weakness along with a fever and sore throat. Blood cultures from August 15 are still positive for staph aureus. Patient' s currently resting in bed. Denies vomiting or diarrhea. Denies chest pain or shortness of breath. P-cath discontinued on 08/14/17. He is afebrile now. Hemodynamically stable. Vital signs are stable. General: The patient appeared well nourished and normally developed. HEENT: Head exam is unremarkable. Neck is without jugular venous distension. LUNGS: Lungs are clear to auscultation and percussion. Breath sounds decreased. HEART: Rate and Rhythm are regular. First and second heart sounds normal. No murmurs, rubs or gallops. ABDOMEN: Abdominal exam reveals normal bowel sounds. Non-tender and non- distended. No evidence of peritonitis. EXTREMITITES: No clubbing, cyanosis, or edema. Feet wrapped. No obvious drainage. Objective - Vital Signs Vital signs: Vital Signs Temp 98.8 F 08/17/17 08:00 Pulse 70 08/17/17 08:00 Resp 18 08/17/17 08:00 BP 133/61 08/17/17 08:00 Pulse Ox 100 08/17/17 08:00 Intake & Output 08/16/17 08/17/17 08/17/17 18:59 06:59 18:59 Intake Total 240 240 720 Output Total 1000 Balance -760 240 720 Weight 138 kg 138.1 kg Intake: Oral 240 240 720 Output: Urine 1000 Other: Voiding Method Urinal Urinal # Voids 0 # Bowel Movements 1 - Labs CBC & Chem 7: 08/15/17 06:04 08/17/17 05:59 Labs: Abnormal Lab Results - Last 24 Hours (Table) 08/16/17 08/16/17 08/16/17 Range/Units 12:08 16:34 20:58 Sodium (137-145) mmol/L Carbon Dioxide (22-30) mmol/L BUN (9-20) mg/dL Creatinine (0.66-1.25) mg/dL Glucose (74-99) mg/dL POC Glucose (mg/dL) 181 H 147 H 180 H (75-99) mg/dL Calcium (8.4-10.2) mg/dL 08/17/17 08/17/17 Range/Units 05:59 06:10 Sodium 136 L (137-145) mmol/L Carbon Dioxide 20 L (22-30) mmol/L BUN 93 H* (9-20) mg/dL Creatinine 10.33 H* (0.66-1.25) mg/dL Glucose 156 H (74-99) mg/dL POC Glucose (mg/dL) 178 H (75-99) mg/dL Calcium 8.1 L (8.4-10.2) mg/dL Microbiology - Last 24 Hours (Table) 08/16/17 06:11 Blood Culture - Preliminary Blood No Growth after 24 hours 08/15/17 14:51 Blood Culture Gram Stain - Preliminary Blood Blood Culture - Preliminary Presumptive Staph aureus 08/14/17 10:30 Catheter Tip Culture - Final Catheter Tip 08/11/17 08:42 Blood Culture - Preliminary Blood No Growth after 120 hours 08/15/17 14:51 Blood Culture - Final Blood 08/11/17 08:42 Blood Culture Gram Stain - Final Blood Blood Culture - Final Staphylococcus aureus Assessment and Plan Plan: Assessment: #1. End-stage renal disease maintained on hemodialysis on a Wednesday schedule via right chest permacath. Last hemodialysis on August 13. #2. Staph aureus bacteremia. Permacath catheter appears to be the source - discontinued on August 14. #3. Anemia of chronic kidney disease. #4. Chronic kidney disease mineral bone disease. #5. Diabetes mellitus. Plan: Maintain Renvela with meals. Maintain Aranesp. Antibiotics per infectious disease recommendations. Case was discussed with infectious disease. Permacatheter discontinued . Blood cultures from August 15 positive for staph aureus. Cultures from August 16 are negative so far. Continue to assess on day-to-day basis for need for renal replacement therapy - no urgent need at this time. Patient wishes to be transferred to [place] where his vascular surgeon as. I discussed with him. He will need a temporary dialysis catheter until his infection clears and then a new permacath can be placed. Patient is agreeable.
[2017-08-17 11:32] LABS: Glucose,Whole Blood 181 mg/dL (75-99)
[2017-08-17] MEDS: MULTIVITAMINS, THERA 1 EACH TAB PO SCH (12:12)
[2017-08-17] MEDS: DIPHENOX-ATROP 2.5-0.025 MG 1 EACH TAB PO PRN ×2 (13:51→17:03)
--- NOTE | 2017-08-17 15:47 | P.DS ---
Providers Date of admission: 08/11/17 12:41 Expected date of discharge: 08/17/17 Attending physician: Des Acuña Consults: 08/11/17 12:41 Consult Physician Urgent Consulting Provider: James Cralos Consult Reason/Comments: Febrile illness Do you want consulting provider notified?: Yes 08/11/17 20:16 Consult Physician Routine Consulting Provider: Lizzy Wilks Consult Reason/Comments: CKD, hemodialysis MWF Do you want consulting provider notified?: Yes 08/13/17 16:24 Consult Physician Urgent Consulting Provider: Lele Parkinson Consult Reason/Comments: Removal of dialysis catheter Do you want consulting provider notified?: Already Contacted Primary care physician: [facility] Course: 52-year-old male was brought to the emergency room found to be septic with positive blood cultures staph aureus. Patient has history of end-stage renal disease on the hemodialysis. Infectious disease felt that the catheter was a source of the sepsis the catheter was pulled.. Vascular surgeons requested transfer to on a clear and fluent for replacement of dialysis catheter. Nephrologists requesting temporary dialysis then a new permacath after sepsis resolved. Patient had a course of vancomycin and Rocephin creatinine at present is 10 Assessment Febrile illness sepsis staph aureus End-stage renal failure with dialysis Chronic anemia of renal failure Patient is legally blind History of coronary disease with CABG Asthma history stable Diabetes type 2 Sleep apnea Peripheral vascular disease with right foot wound history of MRSA Morbid obesity Plan Transfer to [facility] with Dr. Mendoza excepting transfer with consultation to Dr. Reid vascular surgeon Plan - Discharge Summary New Discharge Prescriptions: New Amoxicillin/Potassium Clav [Augmentin 875-125 Tablet] 1 each PO Q12HR #28 tab No Action Metoprolol Tartrate [Lopressor] 25 mg PO BID Ubidecarenone [Co Q-10] 200 mg PO DAILY Ascorbic Acid [Vitamin C] 500 mg PO HS Sevelamer [Renvela] 3,200 mg PO TID@0800,1200,1700 INSULIN LISPRO (humaLOG) [humaLOG (formulary)] 19 units SQ AC-TID Amiodarone HCl [Cordarone] 100 mg PO DAILY Famotidine [Pepcid] 20 mg PO DAILY Brendon Packet 1 packet PO BID Loratadine [Claritin] 10 mg PO HS Allopurinol [Zyloprim] 100 mg PO DAILY Multivitamins, Thera [Multivitamin (formulary)] 1 tab PO DAILY Clopidogrel [Plavix] 75 mg PO HS DULoxetine HCL [Cymbalta] 30 mg PO DAILY Midodrine [ProAmatine] 5 mg PO MOWEFR Diphenox-Atrop 2.5-0.025 mg [Lomotil] 2 tab PO Q4H PRN PRN Reason: Diarrhea Difluprednate [Durezol] 1 drop RIGHT EYE QID Atropine Sulfate [Atropine Sulfate 1%] 1 drop RIGHT EYE DAILY Zolpidem [Ambien] 5 mg PO HS PRN #20 tab PRN Reason: Insomnia Autologous Serum Tears 50% 1 drop BOTH EYES BID Cinacalcet HCl [Sensipar] 60 mg PO HS Fluticasone Nasal [place] [Flonase Nasal [place]] 1 spray EA NOSTRIL BID guaiFENesin [guaiFENesin Oral Solution] 200 mg PO Q4H PRN PRN Reason: Cough HYDROcodone/APAP 7.5-325MG [Lawn 7.5-325] 1 tab PO Q4H PRN PRN Reason: Pain Insulin Glargine [Lantus] 42 unit SQ DAILY@2000 L.acidoph,Paracasei, B.lactis [Probiotic] 1 cap PO BID Pravastatin Sodium [Pravachol] 40 mg PO HS Saline Nasal [place] 1 spray EA NOSTRIL Q1H PRN PRN Reason: DRYNESS Discharge Medication List Metoprolol Tartrate [Lopressor] 25 mg PO BID 08/09/14 [History] Ubidecarenone [Co Q-10] 200 mg PO DAILY 08/09/14 [History] Ascorbic Acid [Vitamin C] 500 mg PO HS 11/04/14 [History] Sevelamer [Renvela] 3,200 mg PO TID@0800,1200,1700 02/26/15 [History] Amiodarone HCl [Cordarone] 100 mg PO DAILY 10/26/15 [History] Famotidine [Pepcid] 20 mg PO DAILY 10/26/15 [History] INSULIN LISPRO (humaLOG) [humaLOG (formulary)] 19 units SQ AC-TID 10/26/15 [ History] Brendon Packet 1 packet PO BID 11/19/15 [History] Loratadine [Claritin] 10 mg PO HS 02/04/16 [History] Allopurinol [Zyloprim] 100 mg PO DAILY 02/16/16 [History] Multivitamins, Thera [Multivitamin (formulary)] 1 tab PO DAILY 02/16/16 [History ] Clopidogrel [Plavix] 75 mg PO HS 02/28/16 [History] DULoxetine HCL [Cymbalta] 30 mg PO DAILY 06/24/16 [History] Midodrine [ProAmatine] 5 mg PO MOWEFR 08/26/16 [History] Atropine Sulfate [Atropine Sulfate 1%] 1 drop RIGHT EYE DAILY 11/15/16 [History] Difluprednate [Durezol] 1 drop RIGHT EYE QID 11/15/16 [History] Diphenox-Atrop 2.5-0.025 mg [Lomotil] 2 tab PO Q4H PRN 11/15/16 [History] Zolpidem [Ambien] 5 mg PO HS PRN #20 tab 11/20/16 [Rx] Amoxicillin/Potassium Clav [Augmentin 875-125 Tablet] 1 each PO Q12HR #28 tab [Rx] Autologous Serum Tears 50% 1 drop BOTH EYES BID 08/11/17 [History] Cinacalcet HCl [Sensipar] 60 mg PO HS 08/11/17 [History] Fluticasone Nasal [place] [Flonase Nasal [place]] 1 spray EA NOSTRIL BID 08/11/17 [ History] HYDROcodone/APAP 7.5-325MG [Lawn 7.5-325] 1 tab PO Q4H PRN 08/11/17 [History] Insulin Glargine [Lantus] 42 unit SQ DAILY@199908/11/17 [History] L.acidoph,Paracasei, B.lactis [Probiotic] 1 cap PO BID 08/11/17 [History] Pravastatin Sodium [Pravachol] 40 mg PO HS 08/11/17 [History] Saline Nasal [place] 1 spray EA NOSTRIL Q1H PRN 08/11/17 [History] guaiFENesin [guaiFENesin Oral Solution] 200 mg PO Q4H PRN 08/11/17 [History] Follow up Appointment(s)/Referral(s): Des Acuña MD [STAFF PHYSICIAN] - 1-2 days
[2017-08-17 16:27] VITALS: BP 146/82; PULSE 86; TEMP 98.5
[2017-08-17 16:31] LABS: Glucose,Whole Blood 240 mg/dL (75-99)
--- NOTE | 2017-08-17 21:32 | P.PN ---
Subjective Progress Note Date: 08/17/17 Principal diagnosis: Fever 52-year-old male presents to the emergency center from his extended care facility complaining of a month of increasing illness. The patient relates over the last several weeks he's having increasing weakness and generalized malaise. He continues to go to dialysis but despite that he is feeling worse. He's had some generalized abdominal pain. He's had difficulty with some nausea without emesis or hematemesis. He is denying diarrhea again has some generalized abdominal discomfort. He has increasing fatigue and malaise. He's had some headache. He's had some generalized body ache. Abdomen is developed some fever. He denies high-grade chills or rigors but is aware of his fever. He continues relate that he just feels poorly overall. Upon arrival to the emergency center a fever was noted that he has been admitted. The fever is now improving. 97.2 today. The patient's hemodialysis catheter was removed. Was still bacteremic. But is now improving. However will need a temporary dialysis catheter. Objective - Vital Signs Vital signs: Vital Signs Temp 98.5 F 08/17/17 16:00 Pulse 86 08/17/17 16:00 Resp 18 08/17/17 16:00 BP 146/82 08/17/17 16:00 Pulse Ox 94 L 08/17/17 16:00 Intake & Output 08/17/17 08/17/17 08/18/17 06:59 18:59 06:59 Intake Total 240 1300 Output Total 200 Balance 240 1100 Weight 138.1 kg Intake: Intake, IV Titration 100 Amount ceFAZolin 500 mg In 100 Sodium Chloride 0.9% 50 ml @ 100 mls/hr IVPB Q12HR [facility] Rx#:[id number] Oral 240 1200 Output: Urine 200 Other: Voiding Method Urinal Urinal # Voids 0 # Bowel Movements 1 - Exam 52-year-old male who suffers from superobesity, and sleep apnea. Relates it is not very comfortable but does not complain of one distinct problem at this time HEENT: Anicteric conjunctiva are pink and moist nasal mucosa grossly intact without significant lesions, there is no thrush. Poor dentition Neck: The neck is supple without significant lymphadenopathy or thyromegaly. Lungs: Symmetrical air entry is noted. Expiratory wheezes are scattered throughout the lung joseph. But no joshua bronchial sounds are heard. No egophony. Heart: Irregular with an audible S1 and S2 positive S4 no audible murmur click or rub. Abdomen: Obese, Positive bowel sounds soft and nontender without palpable masses or organomegaly. There was no guarding or rebound. Extremities: The upper extremity show evidence of no significant lesions and the shunt to the left and right arms are not functioning well But no open ulcers are seen on the right upper extremity left arm without lesions. IV site looks intact in the right arm. the right anterior chest wall is without erythema or tenderness. The lower extremity show evidence of some lower extremity edema greater on the right than the left. Left foot without acute lesions. The right lower extremity shows evidence of the near healing of the prior surgical amputation sites. Dry eschar is seen laterally on the foot without drainage on the dressings. There is now area of irritation to the anterior aspect of the ankle. Neuro: Awake alert oriented to person place and time. He has very poor vision and has significant peripheral neuropathy from his diabetes but no acute gross focal sensory motor deficits are noted. - Labs CBC & Chem 7: 08/15/17 06:04 08/17/17 05:59 Labs: Abnormal Lab Results - Last 24 Hours (Table) 08/17/17 08/17/17 08/17/17 Range/Units 05:59 06:10 11:25 Sodium 136 L (137-145) mmol/L Carbon Dioxide 20 L (22-30) mmol/L BUN 93 H* (9-20) mg/dL Creatinine 10.33 H* (0.66-1.25) mg/dL Glucose 156 H (74-99) mg/dL POC Glucose (mg/dL) 178 H 181 H (75-99) mg/dL Calcium 8.1 L (8.4-10.2) mg/dL 08/17/17 Range/Units 16:28 Sodium (137-145) mmol/L Carbon Dioxide (22-30) mmol/L BUN (9-20) mg/dL Creatinine (0.66-1.25) mg/dL Glucose (74-99) mg/dL POC Glucose (mg/dL) 240 H (75-99) mg/dL Calcium (8.4-10.2) mg/dL Microbiology - Last 24 Hours (Table) 08/11/17 08:42 Blood Culture - Final Blood No Growth after 144 hours 08/16/17 06:11 Blood Culture - Preliminary Blood No Growth after 24 hours 08/15/17 14:51 Blood Culture Gram Stain - Preliminary Blood Blood Culture - Preliminary Presumptive Staph aureus Laboratory Results WBC 8.5 k/uL (3.8-10.6) 08/15/17 06:04 RBC 2.53 m/uL (4.30-5.90) L 08/15/17 06:04 Hgb 7.9 gm/dL (13.0-17.5) L 08/15/17 06:04 Hct 25.5 % (39.0-53.0) L 08/15/17 06:04 MCV 100.9 fL (80.0-100.0) H 08/15/17 06:04 MCH 31.1 pg (25.0-35.0) 08/15/17 06:04 MCHC 30.9 g/dL (31.0-37.0) L 08/15/17 06:04 RDW 15.5 % (11.5-15.5) 08/15/17 06:04 Plt Count 209 k/uL (150-450) 08/15/17 06:04 Neutrophils % 82 % 08/14/17 05:33 Lymphocytes % 8 % 08/14/17 05:33 Monocytes % 6 % 08/14/17 05:33 Eosinophils % 1 % 08/14/17 05:33 Basophils % 0 % 08/14/17 05:33 Neutrophils # 7.7 k/uL (1.3-7.7) 08/14/17 05:33 Lymphocytes # 0.8 k/uL (1.0-4.8) L 08/14/17 05:33 Monocytes # 0.6 k/uL (0-1.0) 08/14/17 05:33 Eosinophils # 0.1 k/uL (0-0.7) 08/14/17 05:33 Basophils # 0.0 k/uL (0-0.2) 08/14/17 05:33 Hypochromasia Moderate 08/15/17 06:04 Poikilocytosis Slight 08/15/17 06:04 Anisocytosis Slight 08/14/17 05:33 Macrocytosis Slight 08/15/17 06:04 PT 11.7 sec (9.0-12.0) 08/11/17 08:42 INR 1.2 (<1.2) H 08/11/17 08:42 APTT 30.0 sec (22.0-30.0) 08/11/17 08:42 Sodium 136 mmol/L (137-145) L 08/17/17 05:59 Potassium 4.2 mmol/L (3.5-5.1) 08/17/17 05:59 Chloride 99 mmol/L (98-107) 08/17/17 05:59 Carbon Dioxide 20 mmol/L (22-30) L 08/17/17 05:59 Anion Gap 17 mmol/L 08/17/17 05:59 BUN 93 mg/dL (9-20) H* 08/17/17 05:59 Creatinine 10.33 mg/dL (0.66-1.25) H* 08/17/17 05:59 Est GFR (MDRD) Af Amer 6 (>60 ml/min/1.73 sqM) 08/17/17 05:59 Est GFR (MDRD) Non-Af 5 (>60 ml/min/1.73 sqM) 08/17/17 05:59 Glucose 156 mg/dL (74-99) H 08/17/17 05:59 POC Glucose (mg/dL) 240 mg/dL (75-99) H 08/17/17 16:28 POC Glu Environmental Health Aide ID Fercho Rehman 08/17/17 16:28 Lactic Ac Sepsis Rflx Y 08/11/17 09:33 Plasma Lactic Acid Rambo 1.2 mmol/L (0.7-2.0) 08/11/17 12:50 Calcium 8.1 mg/dL (8.4-10.2) L 08/17/17 05:59 Phosphorus 3.5 mg/dL (2.5-4.5) 08/11/17 08:42 Iron 22 ug/dL (65-175) L 08/11/17 08:42 TIBC 210 ug/dL (228-460) L 08/11/17 08:42 Iron Saturation 10.48 (15.00-50.00) L 08/11/17 08:42 Ferritin 3281.0 ng/mL (22.0-322.0) H 08/11/17 08:42 Total Bilirubin 0.8 mg/dL (0.2-1.3) 08/11/17 08:42 AST 20 U/L (17-59) 08/11/17 08:42 ALT 29 U/L (21-72) 08/11/17 08:42 Alkaline Phosphatase 186 U/L (38-126) H 08/11/17 08:42 Total Protein 6.7 g/dL (6.3-8.2) 08/11/17 08:42 Albumin 3.6 g/dL (3.5-5.0) 08/11/17 08:42 Urine Color Yellow 08/11/17 10:31 Urine Appearance Clear (Clear) 08/11/17 10:31 Urine pH 7.5 (5.0-8.0) 08/11/17 10:31 Ur Specific [place] 1.012 (1.001-1.035) 08/11/17 10:31 Urine Protein 2+ (Negative) H 08/11/17 10:31 Urine Glucose (UA) Negative (Negative) 08/11/17 10:31 Urine Ketones Negative (Negative) 08/11/17 10:31 Urine Blood Negative (Negative) 08/11/17 10:31 Urine Nitrite Negative (Negative) 08/11/17 10:31 Urine Bilirubin Negative (Negative) 08/11/17 10:31 Urine Urobilinogen <2.0 mg/dL (<2.0) 08/11/17 10:31 Ur Leukocyte Esterase Negative (Negative) 08/11/17 10:31 Urine RBC 1 /hpf (0-5) 08/11/17 10:31 Urine WBC 4 /hpf (0-5) 08/11/17 10:31 Ur Squamous Epith Cells <1 /hpf (0-4) 08/11/17 10:31 Random Vancomycin 22.2 ug/mL 08/14/17 06:00 Blood Type A Positive 08/13/17 14:10 Blood Type Recheck No 08/13/17 14:10 Antibody Screen NEGATIVE 08/13/17 14:10 Crossmatch See Detail 08/13/17 14:10 Spec Expiration Date 08/16/2017 - 8991 08/13/17 14:10 Microbiology 08/11/17 08:42 Blood Blood Culture - Final No Growth after 144 hours 08/16/17 06:11 Blood Blood Culture - Preliminary No Growth after 24 hours 08/15/17 14:51 Blood Blood Culture Gram Stain - Preliminary 08/15/17 14:51 Blood Blood Culture - Preliminary Presumptive Staph aureus 08/14/17 10:30 Catheter Tip Catheter Tip Culture - Final 08/15/17 14:51 Blood Blood Culture - Final 08/11/17 08:42 Blood Blood Culture Gram Stain - Final 08/11/17 08:42 Blood Blood Culture - Final Staphylococcus aureus 08/12/17 10:20 Blood Blood Culture Gram Stain - Final 08/12/17 10:20 Blood Blood Culture - Final Staphylococcus aureus 08/12/17 10:20 Blood Blood Culture - Final 08/11/17 10:31 Urine,Catheterized Urine Culture - Final Assessment and Plan (1) Fever Narrative/Plan: 52-year-old male presents [facility] with a month history of feeling poorly. The patient relates that over this last month he's been having increasing generalized malaise and fatigue. He's having some vague abdominal symptoms. She's not having nausea or emesis but appetites poor. Denies significant diarrhea nonrotation of melena or hematochezia. He does have hemodialysis via the catheter in the right anterior chest wall. Shows the arms are not working. He relates is being followed by the vascular surgeons in [place] and when he is well the plan and placing a specialty fistula on his right anterior chest wall to eliminate the external catheter. There is now a positive blood culture and there is concern that he could have catheter-related infection. It is not noted some data from the current dialysis center for there have been positive cultures as of late. The patient has a minimal leukocytosis is being monitored. The near foot losing infections to the right foot are unremarkable controlled this point in time. Only one small eschar is seen in appears to be completely healed around the site. Dry dressings can be used. No other acute sources of infection being seen at this point in time. Blood Cultures are all revealing evidence of staph aureus, await if it is MRSA. Vancomycin will be added pending further culture data. The case was discussed with the business assistant as well as the vascular surgeon. Given the multiple positive blood cultures with staph aureus it is highly likely that he has catheter-related sepsis. Consequently the hemodialysis catheter was removed. There were possible cultures that did follow. Implantation of any permanent material though is on hold until he clears his current infection over the next few weeks. The patient is point in time is refusing a femoral catheter. Likely be transferred to the facility in [place] to see if there are other access options are not available at this facility. Culture shows evidence of MSSA antimicrobial therapy is changed to Ancef 500 mg IV piggyback every 12 hours. The case is discussed with the caregiver, nephrology and vascular surgery. The patient will need a temporary catheter. And then will need to have the more permanent hemodialysis catheter placed. The patient would prefer to have his surgeons in [place] and consequently transfer plans are in process. The data from her laboratory can be sent further assessment and once her is evidence of clearance of his bacteremia and he is improved then consideration for more permanent device can be made. He will need temporary hemodialysis catheter in the groin as a stopgap measure. He'll be transferred today. Status: Acute Code(s): R50.9 - FEVER, UNSPECIFIED SNOMED Code(s): 233598127 (2) ESRD (end stage renal disease) on dialysis Status: Acute Code(s): N18.6 - END STAGE RENAL DISEASE SNOMED Code(s): 381904336 (3) Leukocytosis Status: Acute Code(s): D72.829 - ELEVATED WHITE BLOOD CELL COUNT, UNSPECIFIED SNOMED Code(s): 180096518
== END 2017-08-17 19:05 | disposition short-term general hospital (02) | DRG 314 ==
LOC: EC 08:12 → 6SEL 12:41
PROVIDERS: ADMIT Family Medicine; ATTEND Family Medicine
PROC: 5A1D70Z Performance of Urinary Filtration, Intermittent, Less than 6 Hours Per Day (ICD-10-PCS; 2017-08-11)
PROC: 30233N1 Transfusion of Nonautologous Red Blood Cells into Peripheral Vein, Percutaneous Approach (ICD-10-PCS; principal; 2017-08-13)
PROC: 05PYX3Z Removal of Infusion Device from Upper Vein, External Approach (ICD-10-PCS; 2017-08-14)
DX: T82.7XXA Infection and inflammatory reaction due to other cardiac and vascular devices, implants and grafts, initial encounter (principal); A41.01 Sepsis due to Methicillin susceptible Staphylococcus aureus; N18.6 End stage renal disease; I50.23 Acute on chronic systolic (congestive) heart failure; I13.2 Hypertensive heart and chronic kidney disease with heart failure and with stage 5 chronic kidney disease, or end stage renal disease; E44.1 Mild protein-calorie malnutrition; E87.1 Hypo-osmolality and hyponatremia; E11.22 Type 2 diabetes mellitus with diabetic chronic kidney disease; E11.40 Type 2 diabetes mellitus with diabetic neuropathy, unspecified; E03.9 Hypothyroidism, unspecified; D53.9 Nutritional anemia, unspecified; D63.1 Anemia in chronic kidney disease; E11.51 Type 2 diabetes mellitus with diabetic peripheral angiopathy without gangrene; E66.01 Morbid (severe) obesity due to excess calories; E78.5 Hyperlipidemia, unspecified; F17.200 Nicotine dependence, unspecified, uncomplicated; G47.33 Obstructive sleep apnea (adult) (pediatric); G89.29 Other chronic pain; H54.8 Legal blindness, as defined in USA; I25.10 Atherosclerotic heart disease of native coronary artery without angina pectoris; I44.7 Left bundle-branch block, unspecified; J45.909 Unspecified asthma, uncomplicated; K21.9 Gastro-esophageal reflux disease without esophagitis; K52.832 Lymphocytic colitis; M10.9 Gout, unspecified; S91.301A Unspecified open wound, right foot, initial encounter; Y84.8 Other medical procedures as the cause of abnormal reaction of the patient, or of later complication, without mention of misadventure at the time of the procedure; Z79.899 Other long term (current) drug therapy; Z79.4 Long term (current) use of insulin; Z80.0 Family history of malignant neoplasm of digestive organs; Z87.442 Personal history of urinary calculi; Z95.1 Presence of aortocoronary bypass graft; Z99.2 Dependence on renal dialysis
CPT/HCPCS: 36415; 71020; 80048; 80053; 80202; 81001; 82728; 83540; 83550; 83605; 84100; 85025; 85027; 85610; 85730; 86850; 86900; 86901; 86920; 87040; 87070; 87077; 87086; 87186; 90935; 93005; 96361; 96365; 99284

== ENCOUNTER 2017-10-21 10:38 | Day surgery (SDC) | payer MEDICARE, OTHER ==
[2017-10-18 10:03] VITALS: BMI 41.4
[~2017-10-21 10:38] MED LIST: SODIUM CHLORIDE 0.9% 1,000 ML in EMPTY BAG 1 BAG IV ONE
[2017-10-21 11:57] LABS: Glucose,Whole Blood 178 mg/dL (75-99)
[2017-10-21] MEDS ORDERED: MIDAZOLAM 2 MG/2 ML VIAL IVP ONE (13:14)
[2017-10-21] MEDS ORDERED: MORPHINE SULFATE 4 MG/ML SYRINGE IVP ONE (13:15)
[2017-10-21] MEDS ORDERED: LIDOCAINE 2% INJ 20 MG/ML SQ ONE (13:17)
[2017-10-21] MEDS ORDERED: IODIXANOL 320 MG/ML 100 ML INTRAARTER ONE (13:55)
[2017-10-21] MEDS ORDERED: hydrOXYzine HCL 25 MG TAB PO PRN (14:06)
[2017-10-21] MEDS ORDERED: HYDROcodone/APAP 7.5-325MG 1 EACH TAB PO PRN (14:06)
[2017-10-21] MEDS ORDERED: ACETAMINOPHEN TAB 325 MG TAB PO PRN (14:06)
[2017-10-21] MEDS ORDERED: ZOLPIDEM 5 MG TAB PO PRN (14:06)
[2017-10-21] MEDS ORDERED: ASPIRIN 81 MG PO SCH (14:15)
[2017-10-21] MEDS ORDERED: SODIUM CHLORIDE 0.9% 1,000 ML IV SCH (14:15)
--- NOTE | 2017-10-21 14:18 | IR ---
EXAMINATION TYPE: IR captain/check airman iliac DATE OF EXAM: 10/21/2017 COMPARISON: NONE HISTORY: Peripheral vascular occlusive disease. Fluoroscopy was provided to the referring clinician. See dictated report from cardiology.
[2017-10-21 14:43] LABS: Glucose,Whole Blood 178 mg/dL (75-99)
--- NOTE | 2017-10-21 14:56 | P.OP ---
Date of Procedure: 10/21/17 Preoperative Diagnosis: Nonhealing ulceration right foot. Postoperative diagnosis: Same plus high-grade right iliac artery stenosis. Procedure: #1 abdominal and pelvic angiogram. #2 selective catheterization right common femoral artery. #3 right femoral angiogram. #4 balloon dilation right iliac artery. Surgeon: David Duque D.O. Anesthesia: Local with IV sedation. EBL: Less than 20 mL's. Complications: None apparent. Total fluoroscopy time: 8.3 minutes. Total contrast volume: 75 ML's Visipaque [id number]. Total sedation time: 38 minutes. Indications: Patient is a 52-year-old male who presents for evaluation in reference to nonhealing ulceration of the right lower extremity. Patient has a long-standing history of chronic kidney diseasestage V and diabetes mellitus. Arterial Doppler demonstrated occlusive disease of the right lower extremity. Physical examination revealed femoral pulse to be intact on the right warm popliteal, DP and PT pulses are absent. Patient was offered angiography for further delineation of his vascular anatomy and possible endovascular repair. Description of procedure and findings: Patient was brought to the special procedure suite. Both groins were sterilely prepped and draped in usual manner. Patient received 2 mg of Versed and 1 mg of morphine sulfate intravenously for conscious sedation purposes. 1% Xylocaine was utilized for local anesthesia of tissues overlying the left femoral artery. Through this anesthetized area a multipurpose needle was utilized to cannulate the artery. Once cannulated soft guidewire was advanced into the iliac artery. The needle was withdrawn and a 5-Thai sheath was placed. 5-Thai pigtail catheter was advanced over guidewire and abdominal aortogram and pelvic imaging was performed. Subsequently the catheter was manipulated across the aortic bifurcation and down to the level common femoral artery. Femoral angiography was performed. Findings: The abdominal aorta distally is unremarkable. Left iliac system demonstrates a normally patent common and external iliac system. The internal iliac arteries occluded at its origin. Right iliac system demonstrates the common and external iliac arteries to be patent. A stent is identified within the common iliac artery distally extending into the external iliac artery. There is a proximally 70% stenosis of the midportion of the stent. The internal iliac artery is occluded. Right femoral angiography demonstrates the common and profundus as well as the superficial femoral artery to be essentially normal. Mild atherosclerotic change is noted. Right popliteal artery is unremarkable. Tubular angiography demonstrates the anterior tibial and peroneal arteries to be normally patent and do cross the ankle mortise. The posterior tibial arteries occluded at its origin is never visualized until the malleolus level or a collateral fills a short segment of the posterior tibial artery. Intervention: A 7 mm x 4 cm balloon dilation catheter was advanced over the guidewire and positioned at the previously identified iliac stenotic segment. Balloon angioplasty of this segment was performed. Completion angiogram demonstrated near complete resolution of the previously identified stenosis. With the above findings noted the guidewire and catheter as well as the sheath was withdrawn and pressure was held at the puncture site until all evidence of bleeding ceased. Patient tolerated the procedure well and was taken to the outpatient surgical area in satisfactory and stable condition. Condition: stable Disposition: same day
[2017-10-21 16:54] LABS: Glucose,Whole Blood 194 mg/dL (75-99)
[2017-10-21] MEDS ORDERED: INSULIN ASPART 100 UNIT/ML 1 ML 10 ML VIAL SQ SCH (17:30)
[2017-10-21] MEDS ORDERED: SEVELAMER 800 MG TAB PO SCH (17:30)
[2017-10-21] MEDS ORDERED: NON-FORMULARY DRUG (Difluprednate [Durezol] 1 DROP) BOTH EYES SCH (18:00)
[2017-10-21 18:19] VITALS: RESP 16
[2017-10-21 18:24] VITALS: BP 138/63; PULSE 77
[2017-10-21] MEDS ORDERED: INSULIN DETEMIR 100 UNIT/ML 10 ML VIAL SQ SCH (21:00)
[2017-10-21] MEDS ORDERED: FLUTICASONE 50MCG/SPRAY NASAL 16GM EA NOSTRIL SCH (21:00)
[2017-10-21] MEDS ORDERED: CINACALCET 30 MG TAB PO SCH (21:00)
[2017-10-21] MEDS ORDERED: ASCORBIC ACID 500 MG TAB PO SCH (21:00)
[2017-10-21] MEDS ORDERED: METOPROLOL TARTRATE 25 MG TAB PO SCH (21:00)
[2017-10-21] MEDS ORDERED: ARTIFICIAL TEARS-HYPROMELLOSE DROPS 15 ML BTL BOTH EYES SCH (21:00)
[2017-10-21] MEDS ORDERED: LORATADINE 10 MG TAB PO SCH (21:00)
[2017-10-22] MEDS ORDERED: DULoxetine HCL 30 MG CAPSULE.DR PO SCH (09:00)
[2017-10-22] MEDS ORDERED: ATROPINE OPHTH SOLN 1% 5ML BTL RIGHT EYE SCH (09:00)
[2017-10-22] MEDS ORDERED: CLOPIDOGREL 75 MG TAB PO SCH ×2 (09:00)
[2017-10-22] MEDS ORDERED: AMIODARONE 100 MG TAB PO SCH (09:00)
[2017-10-22] MEDS ORDERED: ALLOPURINOL 100 MG TAB PO SCH (09:00)
[2017-10-22] MEDS ORDERED: UBIDECARENONE 500 MG PO SCH (09:00)
[2017-10-22] MEDS ORDERED: FAMOTIDINE 20 MG TAB PO SCH (09:00)
[2017-10-22] MEDS ORDERED: MULTIVITAMINS, THERA 1 EACH TAB PO SCH (12:00)
== END 2017-10-21 19:30 ==
LOC: CATHCVL 10:38 → 6SEL 13:55 → CATHCVL 19:30
PROVIDERS: ATTEND Surgery
DX: I70.8 Atherosclerosis of other arteries (principal); L97.519 Non-pressure chronic ulcer of other part of right foot with unspecified severity; E11.51 Type 2 diabetes mellitus with diabetic peripheral angiopathy without gangrene; E11.22 Type 2 diabetes mellitus with diabetic chronic kidney disease; E11.618 Type 2 diabetes mellitus with other diabetic arthropathy; I12.0 Hypertensive chronic kidney disease with stage 5 chronic kidney disease or end stage renal disease; N18.6 End stage renal disease; J45.909 Unspecified asthma, uncomplicated; I25.10 Atherosclerotic heart disease of native coronary artery without angina pectoris; M10.9 Gout, unspecified; E78.5 Hyperlipidemia, unspecified; M19.90 Unspecified osteoarthritis, unspecified site; I73.9 Peripheral vascular disease, unspecified; G47.30 Sleep apnea, unspecified; E03.9 Hypothyroidism, unspecified; Z95.1 Presence of aortocoronary bypass graft; Z79.2 Long term (current) use of antibiotics; Z79.4 Long term (current) use of insulin; Z79.51 Long term (current) use of inhaled steroids; Z79.899 Other long term (current) drug therapy; Z88.8 Allergy status to other drugs, medicaments and biological substances; Z91.018 Allergy to other foods
CPT/HCPCS: 37220; 75625; 75716; 84132; C1769 ×5; C1894; C1725; J2001; J2250; J2270; Q9967

== ENCOUNTER 2017-11-25 08:05 | Inpatient (IN) | payer MEDICARE, OTHER ==
[2017-11-24 08:54] VITALS: BMI 41.5
[~2017-11-25 08:05] MED LIST changes: +DEXAMETHASONE SOD PHOSPHATE 10 MG/ML 1 ML VIAL IV ONE; +MIDAZOLAM 2 MG/2 ML VIAL IV PRN; +ONDANSETRON 4 MG/2 ML VIAL IVP ONE; +SCOPOLAMINE 1.5MG/72HR PATCH TRANSDERM ONE; -SODIUM CHLORIDE 0.9% 1,000 ML in EMPTY BAG 1 BAG IV ONE
[2017-11-25] MEDS ORDERED: LIDOCAINE 1% 20 ML VIAL (10MG/ML) FOR IV START INTRADERMA ONE (08:55)
[2017-11-25] MEDS: LACTATED RINGERS 1,000 ML IV SCH (08:59)
[2017-11-25 09:17] LABS: Glucose,Whole Blood 171 mg/dL (75-99)
[2017-11-25 09:33] LABS: Anisocytosis Slight; Basophils % (A) 1 %; Eosinophils # (A) 0.2 k/uL (0-0.7); Eosinophils % (A) 3 %; HCT 34.9 % (39.0-53.0); HGB 11.5 gm/dL (13.0-17.5); Lymphocytes % (A) 18 %; MCH 32.4 pg (25.0-35.0); MCHC 33.1 g/dL (31.0-37.0); MCV 97.9 fL (80.0-100.0); Macrocytosis Slight; Monocytes # (A) 0.3 k/uL (0-1.0); Monocytes % (A) 6 %; Neutrophils # (A) 4.1 k/uL (1.3-7.7); Neutrophils % (A) 71 %; Platelet Count 210 k/uL (150-450); Poikilocytosis Slight; RBC 3.57 m/uL (4.30-5.90); RDW 17.3 % (11.5-15.5); WBC 5.7 k/uL (3.8-10.6)
[2017-11-25 09:42] LABS: Albumin 4.2 g/dL (3.5-5.0); Calcium 7.9 mg/dL (8.4-10.2); Potassium 4.8 mmol/L (3.5-5.1); Total Bilirubin 0.4 mg/dL (0.2-1.3)
[2017-11-25] MEDS ORDERED: PROPOFOL 10 MG/ML 20 ML VIAL IV ONE (11:14)
[2017-11-25] MEDS ORDERED: ALBUMIN HUMAN 5% 250 ML BOTTLE IVPB ONE (11:14)
[2017-11-25] MEDS ORDERED: ROCURONIUM BROMIDE 10 MG/ML 10 ML VIAL IV ONE (11:14)
[2017-11-25] MEDS ORDERED: SUCCINYLCHOLINE CHLORIDE VIAL 200 MG/10 ML VIAL IV ONE (11:14)
[2017-11-25] MEDS ORDERED: NEOSTIGMINE 1 MG/ML 10 ML VIAL ONE (11:14)
[2017-11-25] MEDS ORDERED: fentaNYL (PF) 50 MCG/ML 2 ML AMP ONE (11:14)
[2017-11-25] MEDS ORDERED: PHENYLEPHRINE-0.9% NACL SYG 1 MG/10 ML SYRINGE ONE (11:14)
[2017-11-25] MEDS ORDERED: GLYCOPYRROLATE 0.2 MG/ML 2 ML VIAL ONE (11:14)
[2017-11-25] MEDS ORDERED: LIDOCAINE 1% INJ 10MG/ML (20 ML MDV) ONE (11:14)
[2017-11-25] MEDS ORDERED: MIDAZOLAM 2 MG/2 ML VIAL ONE (11:14)
[2017-11-25] MEDS ORDERED: HYDROmorphone (PF) 1 MG/ML ONE (11:14)
[2017-11-25] MEDS ORDERED: ePHEDrine 50 MG/ML 1 ML AMP ONE (11:14)
[2017-11-25] MEDS ORDERED: SODIUM CHLORIDE 0.9% 1,000 ML IV ONE (12:52)
[2017-11-25] MEDS ORDERED: DIPHENOX-ATROP 2.5-0.025 MG 1 EACH TAB PO PRN (12:57)
[2017-11-25] MEDS ORDERED: ACETAMINOPHEN TAB 325 MG TAB PO PRN (12:57)
[2017-11-25 13:23] LABS: Glucose,Whole Blood 234 mg/dL (75-99)
--- NOTE | 2017-11-25 13:25 | P.OP ---
Description of Procedure: Preoperative diagnosis: Multiple nonhealing ulcerations right lower extremity. Postoperative diagnosis: Same. Operative procedure: Right below the knee amputation. Her Sean: 11/25/2017. Surgeon David Duque D.O. Anesthesia: Gen. inhalational. EBL: 800 mL's. Specimen right below the knee amputation specimen. Indications: Patient is a 52-year-old male with long-standing history of insulin -dependent diabetes mellitus as well as chronic renal failure which is hemodialysis dependent. He presented with multiple nonhealing ulcerations of the right lower extremity. Workup for this demonstrated palpable femoral and popliteal as well as pedal pulses. Abdominal aortogram with runoff was performed. This demonstrated high-grade right iliac artery stenosis which was excessively balloon dilated. The remainder of the arterial flow to the lower extremity was essentially unremarkable. It was felt his ulcerations were secondary to diabetic vascular changes and in spite of some multiple months of medical therapy these wounds did not heal. Is felt the patient would be best served by a [id number] amputation. The procedure, risk and benefits were discussed with the patient. Patient wished to proceed. F Description of procedure and findings: Patient was brought to the [facility] and placed in the spinal position Mr. general endotracheal anesthesia delivered by the primary anesthesiology. Patient received intravenously administered of lactic antibiotics in the perioperative phase. Right lower extremity was sterilely prepped and draped in usual manner. A 10 cm below the tibial tuberosity on the right a transverse skin incision was made carried down through the anterior and medial compartments. Hemostasis was achieved using electrocautery. The muscles of the anterior compartment were divided with electrocautery. The incision was carried inferiorly both medially and laterally and then posteriorly. Bleeding was encountered in multiple locations. This was controlled with either electrocautery or suture ligation. Periosteal elevator was utilized to elevate periosteum off the tibia and the tibia was transected with a power saw. Subsequently the fibula was transected with power saw. Utilizing the dictation knife the amputation was then completed and the specimen sent to the department of pathology for further evaluation. The wound was irrigated. Bleeding points were controlled with electrocautery as well as ideation. Bleeding was judged to be well controlled. A drain was placed in the wound and brought out both medially and laterally. The fascia was approximated with 2-0 Vicryl suture. Skin edges were reapproximated with skin sasha. Proper dressings as well as medial immobilizer was placed. Patient tolerated procedure well and was transferred to the recovery area satisfactory and stable condition.
[2017-11-25] MEDS ORDERED: INSULIN ASPART 100 UNIT/ML 1 ML 10 ML VIAL SQ ONE (13:42)
[2017-11-25] MEDS: HYDROmorphone 0.5 MG/0.5 ML SYRINGE IVP PRN ×3 (13:54→14:57)
[2017-11-25 14:38] LABS: Glucose,Whole Blood 238 mg/dL (75-99)
[2017-11-25] MEDS ORDERED: ceFAZolin IN SWFI 2 GM/20 ML SYRINGE IVP SCH (16:00)
[2017-11-25] MEDS ORDERED: AMIODARONE 100 MG TAB PO SCH (16:45)
[2017-11-25 17:59] LABS: Glucose,Whole Blood 237 mg/dL (75-99)
[2017-11-25] MEDS: HYDROcodone/APAP 7.5-325MG 1 EACH TAB PO PRN ×2 (18:02→23:54)
[2017-11-25] MEDS: DIFLUPREDNATE EYE BOTH EYES SCH ×2 (18:15→21:13)
[2017-11-25] MEDS: CALCIUM ACETATE 667 MG CAP PO SCH (18:21)
[2017-11-25 20:00] LABS: Glucose,Whole Blood 269 mg/dL (75-99)
[2017-11-25] MEDS: FLUTICASONE 50MCG/SPRAY NASAL 16GM EA NOSTRIL SCH (20:10)
[2017-11-25] MEDS: INSULIN ASPART 100 UNIT/ML 1 ML 10 ML VIAL SQ SCH (20:14)
[2017-11-25] MEDS: INSULIN DETEMIR 100 UNIT/ML 10 ML VIAL SQ SCH (20:14)
[2017-11-25] MEDS: MORPHINE SULFATE 2 MG/ML SYRINGE IVP PRN (20:14)
[2017-11-25] MEDS: ASCORBIC ACID 500 MG TAB PO SCH (20:15)
[2017-11-25] MEDS: METOPROLOL TARTRATE 25 MG TAB PO SCH (20:15)
[2017-11-25] MEDS: LORATADINE 10 MG TAB PO SCH (20:15)
[2017-11-25] MEDS: CINACALCET 30 MG TAB PO SCH (20:15)
[2017-11-25] MEDS: MELATONIN 5 MG TABLET PO SCH (20:15)
[2017-11-25] MEDS: ARTIFICIAL TEARS-HYPROMELLOSE DROPS 15 ML BTL BOTH EYES SCH (20:24)
[2017-11-25] MEDS: ceFAZolin 1,000 MG in DEXTROSE/WATER 1 50ML.BAG IVPB SCH (20:41)
[2017-11-25] MEDS ORDERED: NON-FORMULARY DRUG (Fexofenadine Hcl [Allegra Allergy] 180 MG) PO SCH (21:00)
[2017-11-25 21:02] LABS: Hemoglobin A1C 6.2 % (4.0-6.0)
[2017-11-26] MEDS: ceFAZolin 1,000 MG in DEXTROSE/WATER 1 50ML.BAG IVPB SCH ×2 (03:08→12:26)
[2017-11-26] MEDS: LACTATED RINGERS 1,000 ML IV SCH (04:12)
[2017-11-26] MEDS: HYDROcodone/APAP 7.5-325MG 1 EACH TAB PO PRN (05:31)
[2017-11-26 07:08] LABS: Glucose,Whole Blood 221 mg/dL (75-99)
[2017-11-26] MEDS: METOPROLOL TARTRATE 25 MG TAB PO SCH ×2 (07:42→23:55)
[2017-11-26] MEDS: AMIODARONE 100 MG TAB PO SCH (07:42)
[2017-11-26] MEDS: FAMOTIDINE 20 MG TAB PO SCH (07:48)
[2017-11-26] MEDS: ALLOPURINOL 100 MG TAB PO SCH (07:48)
[2017-11-26] MEDS: CALCIUM ACETATE 667 MG CAP PO SCH ×3 (07:48→23:38)
[2017-11-26] MEDS: ATROPINE OPHTH SOLN 1% 5ML BTL RIGHT EYE SCH (07:48)
[2017-11-26] MEDS: DULoxetine HCL 60 MG CAPSULE.DR PO SCH (07:48)
[2017-11-26] MEDS: SEVELAMER 800 MG TAB PO SCH ×3 (07:48→23:38)
[2017-11-26] MEDS: ARTIFICIAL TEARS-HYPROMELLOSE DROPS 15 ML BTL BOTH EYES SCH ×2 (07:49→23:39)
[2017-11-26] MEDS: INSULIN ASPART 100 UNIT/ML 1 ML 10 ML VIAL SQ SCH ×7 (07:56→23:34)
[2017-11-26 07:59] LABS: Anisocytosis Slight; Basophils % (A) 0 %; Eosinophils % (A) 1 %; HCT 26.7 % (39.0-53.0); Lymphocytes # (A) 0.7 k/uL (1.0-4.8); Lymphocytes % (A) 10 %; MCH 32.1 pg (25.0-35.0); MCHC 32.1 g/dL (31.0-37.0); Macrocytosis Slight; Mean Platelet Volume 7.4; Monocytes # (A) 0.5 k/uL (0-1.0); Monocytes % (A) 7 %; Neutrophils # (A) 5.6 k/uL (1.3-7.7); Neutrophils % (A) 80 %; Platelet Count 189 k/uL (150-450); RBC 2.67 m/uL (4.30-5.90); RDW 17.5 % (11.5-15.5); WBC 6.9 k/uL (3.8-10.6)
[2017-11-26 08:00] LABS: HGB 8.6 gm/dL (13.0-17.5)
[2017-11-26] MEDS: MORPHINE SULFATE 2 MG/ML SYRINGE IVP PRN ×2 (08:09→17:49)
[2017-11-26] MEDS: DIFLUPREDNATE EYE BOTH EYES SCH ×4 (08:11→23:55)
--- NOTE | 2017-11-26 09:10 | CONS ---
CONSULTATION DATE OF SERVICE: 11/25/2017. REASON FOR CONSULTATION: Advice regarding CAD, diabetes mellitus and other multiple medical issues requested by Dr. Duque. HISTORY OF PRESENT ILLNESS: This is a 52-year-old gentleman with past medical history of asthma, CAD, diabetes, hemodialysis, history of hypertension, hyperlipidemia, DJD, renal disorder, history of sleep apnea being followed by Dr. Des Acuña in the outpatient setting is currently in [facility]. The patient underwent right below-knee amputation with multiple nonhealing ulceration of the right lower extremity. The patient is being monitored. There is no history of fever or rigors. No history of headache, loss of consciousness, seizures. PAST MEDICAL HISTORY: CAD, diabetes, hemodialysis, history of hypertension, sleep apnea. MEDICATIONS: Prior to admission include home medications are: 1. Coenzyme Q 500 mg p.o. daily. 2. Renvela 3.2 g p.o. t.i.d. with meals. 3. Tamiflu 30 mg once. 4. Multivitamin 1 p.o. daily. 5. Lopressor 25 mg b.i.d. 6. Melatonin 5 mg. 7. Claritin 10 mg q.h.s. 8. Lantus 42 units subcu q.h.s. 9. Humalog 19 units a.c. t.i.d. 10.Crowley 7.5 q.4 p.r.n. 11.Flonase 1 spray b.i.d. 12.Jeannette 180 mg q.h.s. 13.Pepcid 20 mg p.o. daily. 14.Lomotil 2.5 mg 2 tablets q.4 p.r.n. 15.Durezol 1 drop both eyes q.i.d. 16.Cymbalta 60 mg p.o. daily. 17.Plavix 75 mg p.o. daily. 18.Sensipar 60 mg q.h.s. 19.PhosLo 667 mg p.o. t.i.d. 20.Atropine 1 drop right eye b.i.d. 21.Vitamin C 500 mg q.h.s. 22.Artificial tears 1 drop both eyes b.i.d. 23.Cordarone 100 mg p.o. q.a.m. 24.Zyloprim 100 mg p.o. daily. 25.Tylenol 650 q.6 p.r.n. ALLERGIES: TOMATOES and LOSARTAN. FAMILY HISTORY: History of cancer in the family. SOCIAL HISTORY: History of smoking currently. No history of alcohol intake. REVIEW OF SYSTEMS: ENT: No diminished hearing or vision. CARDIOVASCULAR SYSTEM: As mentioned earlier. RESPIRATORY: As mentioned earlier. GI: No nausea. : No dysuria. NERVOUS SYSTEM: As mentioned earlier. ALLERGY/IMMUNOLOGY: No asthma or hayfever. MUSCULOSKELETAL: As mentioned earlier. RHEUMATOLOGY: No history of anemia. ENDOCRINE: Diabetes mellitus. CONSTITUTIONAL: As mentioned earlier. DERMATOLOGY: A mentioned earlier. PSYCHIATRY: As mentioned earlier. PHYSICAL EXAMINATION: Patient is alert and oriented x3. Pulse is 96, blood pressure 101/56, respiration 15, temperature 98.9, pulse ox 98% on room air. HEENT: Conjunctivae normal, oral mucosa moist. Neck is no jugular venous distention, no carotid bruit, no lymph node enlargement. CARDIOVASCULAR SYSTEM: S1, S2, no S3, no S4. RESPIRATORY: Breath sounds diminished at the bases. A few scattered rhonchi, no crackles. ABDOMEN: Soft, nontender. No mass palpable. LEGS: No edema. No swelling. Status post right below-knee amputation. NERVOUS SYSTEM:: Higher functions as mentioned earlier. Moves all four limbs. No focal deficits LYMPHATICS: No lymph node enlargement in the neck or axillae. SKIN: No ulcer, rash or bleeding. LABS: WBC is 5.7, hemoglobin is 11.5 creatinine 6.6. Blood sugars are noted. ASSESSMENT: 1. Status post right below-knee amputation for multiple nonhealing ulcerations of the right lower extremity. 2. Diabetes mellitus type 2. 3. Chronic renal failure, on hemodialysis. 4. Anemia, normocytic. 5. History of coronary artery disease. 6. History of hypertension. 7. Hyperlipidemia. 8. History of degenerative joint disease. 9. History of prostate disorder. 10.History of sleep apnea. 11.History of atrial fibrillation. 12.Hemodialysis on Wednesday, Wednesday and Wednesday through left upper arm graft. 13.History of diabetic peripheral neuropathy. 14.History of gout next. 15.History of diarrhea. 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 17.History of methicillin-resistant Staphylococcus aureus. RECOMMENDATION: In this 52-year-old gentleman who presented with multiple complex medical issues , will monitor the patient closely, continue with the current management and symptomatic treatment. I would recommend the patient resume the home medications. Otherwise, DVT prophylaxis. Other than that, will monitor blood sugars closely. Prognosis guarded. Further recommendations to follow. Will follow the patient closely with you. Thank you for letting us participate in the care of this patient. MMODL / IJN: [id number] / MTDD
--- NOTE | 2017-11-26 09:21 | P.NPCON ---
History of Present Illness - Reason for Consult end stage renal disease - History of Present Illness Reason for consultation: End-stage renal disease History of present illness: Patient is a 52-year-old male seen in renal consultation for end-stage renal disease. He is maintained on hemodialysis on a Wednesday schedule via left sided permacath. Patient has long-standing history of insulin -dependent diabetes mellitus. Patient was noted to have right lower extremity nonhealing diabetic ulcers for which she underwent right-sided gnlxv-nio-giyg amputation on November 25. He is currently resting in bed. Denies any chest pain or shortness of breath. Oral intake is good. No vomiting. Does admit to intermittent loose bowel movements. Hemodynamically stable. Denies edema. Denies any headaches or dizziness. No active complaints at this time. Vital signs are stable. General: The patient appeared well nourished and normally developed. HEENT: Head exam is unremarkable. Neck is without jugular venous distension. LUNGS: Lungs are clear to auscultation and percussion. Breath sounds decreased. HEART: Rate and Rhythm are regular. First and second heart sounds normal. No murmurs, rubs or gallops. ABDOMEN: Abdominal exam reveals normal bowel sounds. Non-tender and non- distended. No evidence of peritonitis. EXTREMITITES: No clubbing, cyanosis, or edema. Right bczlo-bah-cdxz amputation noted. No obvious drainage noted. Past Medical History Past Medical History: Asthma, Coronary Artery Disease (CAD), Diabetes Mellitus, Dialysis, Eye Disorder, Hyperlipidemia, Hypertension, Osteoarthritis (OA), Osteoarthritis (OA), Prostate Disorder, Renal Disease, Skin Disorder, Sleep Apnea/CPAP/BIPAP, Sleep Apnea/CPAP/BIPAP, Vascular Disorder, Vascular Disorder Additional Past Medical History / Comment(s): POSSIBLE PAST HX OF AFIB PER [facility] HX, Current R foot wound-diaz 2 ulcer-CURRENT DRESSING, ESRD with hemodialysis M,W, F-thru left upper arm graft-diabetic NEUROPATHY in bilateral legs and feet and starting in his hands, legally blind-pt unsure why but thinks could be d/t retinopathy, vertigo, PVD, KIDNEY STONES, gout, frequent diarrhea, DJD, anemia, thrombocytopenia, USES C-PAP MACHINE, hx of cellulitis bilateral legs/feet,bacterial overgrowth syndrome, past L wrist fracture.M,W, F-thru R upper arm graft, diabetic NEUROPATHY bilateral legs and feet and starting in bilateral hands, PVD, KIDNEY STONES, gout, frequent diarrhea, DJD, anemia, Thrombocytopenia. History of Any Multi-Drug Resistant Organisms: MRSA, MRSA, VRE Date of last positivie culture/infection: 10/27/17 MDRO Source:: rt.foot Past Surgical History: Cholecystectomy, Coronary Bypass/CABG, Heart Catheterization, Orthopedic Surgery Additional Past Surgical History / Comment(s): 11/04/15 Keller cath for ABX therapy, AMPUTATION GREAT R TOE , DEBRIDEMENT OF LEG/R foot, left eye surgery including retinal detachment repair and laser surgery and cataract removal, R eye surgery for blood behind eye twice, KIDNEY STONE REMOVAL, R carpal tunnel surgery, CABG-4 vessel, EGD/colonoscopy. Past Anesthesia/Blood Transfusion Reactions: No Reported Reaction Additional Past Anesthesia/Blood Transfusion Reaction / Comment(s): NEVER HAD BLOOD TRANSFUSION Past Psychological History: Depression Additional Psychological History / Comment(s): PT LIVES WITH OF 20 YEARS at [facility]. Smoking Status: Current some day smoker Past Alcohol Use History: None Reported Additional Past Alcohol Use History / Comment(s): Pt states he smokes occasionally, if he has access to a cigarette. He started smoking as a teen. Past Drug Use History: None Reported - Past Family History Mother Family Medical History: No Reported History Additional Family Medical History / Comment(s): Mother is 77yrs old and healthy. She is still working. Father Family Medical History: Cancer Additional Family Medical History / Comment(s): . Sister(s) Family Medical History: Deep Vein Thrombosis (DVT) Medications and Allergies Home Medications Medication Instructions Recorded Confirmed Type Metoprolol Tartrate [Lopressor] 25 mg PO Q12HR 08/09/14 11/25/17 History Ubidecarenone [Co Q-10] 500 mg PO DAILY 08/09/14 11/25/17 History Ascorbic Acid [Vitamin C] 500 mg PO HS 11/04/14 11/25/17 History Sevelamer [Renvela] 3,200 mg PO TID-W/MEALS 02/26/15 11/25/17 History Amiodarone HCl [Cordarone] 100 mg PO QAM 10/26/15 11/25/17 History INSULIN LISPRO (humaLOG) [humaLOG] 19 units SQ AC-TID 10/26/15 11/25/17 History Loratadine [Claritin] 10 mg PO HS 02/04/16 11/25/17 History Allopurinol [Zyloprim] 100 mg PO DAILY 02/16/16 11/25/17 History Multivitamins, Thera [Multivitamin 1 tab PO DAILY 02/16/16 11/25/17 History (formulary)] Atropine Sulfate [Atropine Sulfate 1 drop RIGHT EYE DAILY 11/15/16 11/25/17 History 1%] Cinacalcet HCl [Sensipar] 60 mg PO HS 08/11/17 11/25/17 History Fluticasone Nasal [place] [Flonase 1 spray EA NOSTRIL RT-BID 08/11/17 11/25/17 History Nasal [place]] HYDROcodone/APAP 7.5-325MG [[place] 1 tab PO Q4H PRN 08/11/17 11/25/17 History 7.5-325] Insulin Glargine [Lantus] 42 unit SQ HS 08/11/17 11/25/17 History Acetaminophen Tab [Tylenol] 650 mg PO Q6H PRN 10/18/17 11/25/17 History Artificial Tears-Hypromellose 1 drops BOTH EYES BID 10/18/17 11/25/17 History [Artificial Tear Drops] Difluprednate [Durezol] 1 drop BOTH EYES QID 10/18/17 11/25/17 History Famotidine [Pepcid] 20 mg PO DAILY 10/18/17 11/25/17 History INSULIN LISPRO (HumaLOG) [humaLOG] 0 units SQ ACHS 10/18/17 11/25/17 History Diphenoxylate HCl/Atropine 2 tab PO Q4H PRN 10/21/17 11/25/17 History [Lomotil 2.5-0.025 mg Tablet] Calcium Acetate [Phoslo] 667 mg PO TID 11/24/17 11/25/17 History DULoxetine HCL [Cymbalta] 60 mg PO DAILY 11/24/17 11/25/17 History Fexofenadine HCl [Jeannette Allergy] 180 mg PO HS 11/24/17 11/25/17 History Melatonin 5 mg PO HS 11/24/17 11/25/17 History Clopidogrel [Plavix] 75 mg PO DAILY 11/25/17 11/25/17 History Oseltamivir Phosphate [Tamiflu] 30 mg PO ONCE 11/25/17 11/25/17 History Allergies Allergy/AdvReac Type Severity Reaction Status Date / Time tomato Allergy Unknown Unknown Verified 11/25/17 16:42 losartan potassium AdvReac Unknown LIGHTHEADED Verified 11/25/17 16:42 [From [facility]] Physical Exam Vitals: Vital Signs Temp Pulse Pulse Pulse Pulse Resp BP 11/26/17 07:00 96.3 F L 93 16 78/45 11/26/17 00:00 18 11/25/17 22:34 97.6 F 89 18 11/25/17 19:29 15 11/25/17 18:22 96.9 F L 96 15 11/25/17 18:00 96.8 F L 95 19 11/25/17 16:30 90 16 11/25/17 16:00 92 16 11/25/17 15:45 92 16 11/25/17 15:30 90 16 11/25/17 15:15 89 18 11/25/17 15:00 87 16 11/25/17 14:45 86 16 11/25/17 14:30 84 16 11/25/17 14:15 100 16 11/25/17 14:00 82 16 11/25/17 13:45 83 16 11/25/17 13:30 83 16 11/25/17 13:18 82 16 11/25/17 13:03 84 10 L 11/25/17 09:29 97.2 F L 69 16 BP BP Pulse Ox 11/26/17 07:00 68/40 100 11/26/17 00:00 11/25/17 22:34 108/58 96 11/25/17 19:29 11/25/17 18:22 101/56 96 11/25/17 18:00 94/56 96 11/25/17 16:30 126/58 98 11/25/17 16:00 1110/55 100 11/25/17 15:45 100/45 100 11/25/17 15:30 103/53 100 11/25/17 15:15 98/51 99 11/25/17 15:00 95/44 100 11/25/17 14:45 95/48 98 11/25/17 14:30 100/45 98 11/25/17 14:15 90/45 100 11/25/17 14:00 91/42 99 11/25/17 13:45 92/40 99 11/25/17 13:30 94/40 100 11/25/17 13:18 91/50 100 11/25/17 13:03 100/44 100 11/25/17 09:29 123/60 100 Intake and Output 11/25/17 11/26/17 11/26/17 22:59 06:59 14:59 Intake Total 50 Balance 50 Intake: IV 50 Other: # Voids 1 # Bowel Movements 2 Weight 138.79 kg Results - Lab Results Most recent lab results Calcium 7.9 mg/dL (8.4-10.2) L 11/25/17 09:20 11/26/17 07:15 11/25/17 09:20 Assessment and Plan Plan: Assessment: #1. End-stage renal disease maintained on hemodialysis on a Wednesday schedule via left chest PermCath. #2. Insulin-dependent diabetes mellitus. #3. Nonhealing diabetic ulcers status post right dtlzc-zwx-ebfg amputation on November 25. #4. Chronic kidney disease mineral bone disease maintained on Sensipar as well as Renvela and PhosLo. #5. Anemia of chronic kidney disease. Partially related to intraoperative blood loss. Rule out iron deficiency. Plan: Hemodialysis today with goal 2 liters ultrafiltration. Check phosphorus level. Check iron studies. Thank you for the consultation. I will continue to follow the patient with you during his hospital stay.
--- NOTE | 2017-11-26 10:42 | P.PN ---
Progress Note - Text Progress Note Date: 11/26/[address] Poe Subjective: Patient without significant complaints. Pain control adequate. Objective: Dressing clean and dry. Vital signs stable. Assessment: Patient doing well status post right BKA. Plan: Patient being seen by nephrology to take care of dialysis needs. We'll assess surgical site tomorrow. Plan to return to [facility] on Wednesday.
[2017-11-26 11:40] LABS: Glucose,Whole Blood 197 mg/dL (75-99)
[2017-11-26] MEDS: FLUTICASONE 50MCG/SPRAY NASAL 16GM EA NOSTRIL SCH ×2 (12:26→23:40)
[2017-11-26] MEDS: MULTIVITAMINS, THERA 1 EACH TAB PO SCH (12:29)
--- NOTE | 2017-11-26 14:13 | CDI ---
Last Revision, October 2017 Documentation Clarification Form Date: 11/26/2017 2:05:00 PM From: Julieta Acosta RN, CCDS Admit Date: 11/25/2017 8:05:00 AM Patient Name: Jackson Boston Visit Number: [id number] ATTENTION: The Clinical Documentation Specialists (CDI) and [facility] Coding Staff appreciate your assistance in clarifying documentation. Please respond to the clarification below the line at the bottom and electronically sign. The CDI & [facility] Coding staff will review the response and follow-up if needed. Please note: Queries are made part of the Legal Health Record. If you have any questions, please contact the author of this message via ITS. Dr. Miguel Ford Atrial fibrillation is documented in the medical consult and requires further specificity. History/Risk Factors: ESRD on HD, nonhealing ulcers s/p BKA, CAD, HTN, A Fib Clinical Indicators: EKG/telemetry: not ordered Treatment: Po Cordarone 100mg PO QD Po Lopressor 25 mg PO Q 12 hrs Consults: Vascular In your professional opinion, can you please clarify the type of atrial fibrillation, if known? Chronic/Permanent Paroxysmal Persistent Other, please specify Unable to determine Please continue to document in your progress notes and discharge summary in order to capture severity of illness and risk of mortality. Include clinical findings that support your diagnosis. Paroxysmal MTDD
[2017-11-26 15:14] LABS: Iron Saturation 22.05 (15.00-50.00)
[2017-11-26 17:34] LABS: Glucose,Whole Blood 120 mg/dL (75-99)
[2017-11-26] MEDS ORDERED: HEPARIN SODIUM,PORCINE 5,000 UNIT/ML 1 ML VIAL ONE (19:00)
[2017-11-26 20:16] LABS: Glucose,Whole Blood 143 mg/dL (75-99)
--- NOTE | 2017-11-26 22:49 | PN ---
PROGRESS NOTE DATE OF SERVICE: 11/26/2017. This 52-year-old gentleman is admitted after right below-knee amputation, is being closely monitored. No chest pain. No palpitations. No fever. The patient is followed by Dr. Des Acuañ in the outpatient setting. EXAM: Pulse is 92, blood pressure was 72/43, improved to 100/40, respirations 16, temperature 96.3, pulse ox 100% on BiPAP. HEENT: Conjunctivae normal. NECK: No jugular venous distention. CARDIOVASCULAR: S1, S2 muffled. RESPIRATORY: Breath sounds diminished in the bases. A few scattered rhonchi. No crackles. ABDOMEN: Soft, nontender. LEGS: Status post surgery. NERVOUS SYSTEM: No focal deficits. LABS: WBC 6 9, hemoglobin is 8.6 and platelets 467. ASSESSMENT: 1. Status post right below-knee amputation for multiple nonhealing ulcerations of the right lower extremity. 2. Diabetes mellitus type 2. 3. Chronic renal failure on hemodialysis. 4. Anemia, normocytic. 5. History of coronary artery disease. 6. History of hypertension. 7. History of hyperlipidemia. 8. History of degenerative joint disease. 9. History of prostate disorder. 10.History of sleep apnea. 11.History of atrial fibrillation. 12.Hemodialysis on Wednesday, Wednesday and Wednesday through a left upper arm graft. 13.History of diabetic neuropathy. 14.History of gout. 15.History of diarrhea. 16.History of vancomycin-resistant Enterococcus. 17.History of methicillin-resistant Staphylococcus aureus. RECOMMENDATIONS AND DISCUSSION: Recommend to continue current medical management and symptomatic treatment. Will resume the home medications. DVT prophylaxis, incentive spirometry. Closely follow. Further recommendations to follow. MMODL / IJN: [id number] /
[2017-11-26] MEDS: INSULIN DETEMIR 100 UNIT/ML 10 ML VIAL SQ SCH (23:37)
[2017-11-26] MEDS: ASCORBIC ACID 500 MG TAB PO SCH (23:40)
[2017-11-26] MEDS: CINACALCET 30 MG TAB PO SCH (23:40)
[2017-11-26] MEDS: LORATADINE 10 MG TAB PO SCH (23:41)
[2017-11-26] MEDS: MELATONIN 5 MG TABLET PO SCH (23:56)
[2017-11-27] MEDS: LACTATED RINGERS 1,000 ML IV SCH (06:59)
[2017-11-27 07:26] LABS: Glucose,Whole Blood 235 mg/dL (75-99)
[2017-11-27 07:39] LABS: Anisocytosis Slight; Basophils % (A) 0 %; Eosinophils # (A) 0.1 k/uL (0-0.7); Eosinophils % (A) 1 %; HCT 23.6 % (39.0-53.0); HGB 7.5 gm/dL (13.0-17.5); Lymphocytes # (A) 0.5 k/uL (1.0-4.8); Lymphocytes % (A) 11 %; MCH 32.2 pg (25.0-35.0); MCHC 31.8 g/dL (31.0-37.0); MCV 101.3 fL (80.0-100.0); Macrocytosis Moderate; Mean Platelet Volume 7.4; Monocytes # (A) 0.3 k/uL (0-1.0); Monocytes % (A) 8 %; Neutrophils # (A) 3.5 k/uL (1.3-7.7); Neutrophils % (A) 78 %; Platelet Count 157 k/uL (150-450); Poikilocytosis Slight; RBC 2.33 m/uL (4.30-5.90); WBC 4.5 k/uL (3.8-10.6)
[2017-11-27] MEDS: INSULIN ASPART 100 UNIT/ML 1 ML 10 ML VIAL SQ SCH ×7 (08:57→22:43)
[2017-11-27] MEDS: HYDROcodone/APAP 7.5-325MG 1 EACH TAB PO PRN ×2 (09:01→15:39)
[2017-11-27] MEDS: SEVELAMER 800 MG TAB PO SCH ×3 (09:03→17:26)
[2017-11-27] MEDS: FLUTICASONE 50MCG/SPRAY NASAL 16GM EA NOSTRIL SCH ×2 (09:03→22:59)
[2017-11-27] MEDS: MULTIVITAMINS, THERA 1 EACH TAB PO SCH (09:03)
[2017-11-27] MEDS: AMIODARONE 100 MG TAB PO SCH (09:04)
[2017-11-27] MEDS: DULoxetine HCL 60 MG CAPSULE.DR PO SCH (09:04)
[2017-11-27] MEDS: METOPROLOL TARTRATE 25 MG TAB PO SCH ×2 (09:04→22:59)
[2017-11-27] MEDS: CALCIUM ACETATE 667 MG CAP PO SCH ×3 (09:04→17:26)
[2017-11-27] MEDS: DIFLUPREDNATE EYE BOTH EYES SCH ×4 (09:05→23:07)
[2017-11-27] MEDS: ALLOPURINOL 100 MG TAB PO SCH (09:05)
[2017-11-27] MEDS: ATROPINE OPHTH SOLN 1% 5ML BTL RIGHT EYE SCH (09:05)
[2017-11-27] MEDS: FAMOTIDINE 20 MG TAB PO SCH (09:05)
[2017-11-27] MEDS: ARTIFICIAL TEARS-HYPROMELLOSE DROPS 15 ML BTL BOTH EYES SCH ×2 (09:07→22:58)
[2017-11-27] MEDS ORDERED: MIDODRINE 5 MG TAB PO PRN (11:32)
--- NOTE | 2017-11-27 11:35 | P.PN ---
Subjective Patient is seen in follow-up for end-stage renal disease. He is maintained on hemodialysis on a Wednesday schedule via left chest permacath. Patient underwent right below the knee amputation in November 2014 due to nonhealing diabetic ulcers. He is currently sitting up in chair. Admits to generalized pain. Oral intake is fair. No vomiting or diarrhea. Denies chest pain or shortness of breath. He was not able to tolerate much ultrafiltration yesterday. Vital signs are stable. General: The patient appeared well nourished and normally developed. HEENT: Head exam is unremarkable. Neck is without jugular venous distension. LUNGS: Lungs are clear to auscultation and percussion. Breath sounds decreased. HEART: Rate and Rhythm are regular. First and second heart sounds normal. No murmurs, rubs or gallops. ABDOMEN: Abdominal exam reveals normal bowel sounds. Non-tender and non- distended. No evidence of peritonitis. EXTREMITITES: No edema in the left lower extremity. Right vtmmb-qri-rvyf amputation noted. Objective - Vital Signs Vital signs: Vital Signs Temp 99.5 F 11/27/17 07:00 Pulse 119 H 11/27/17 07:00 Resp 16 11/27/17 07:00 BP 88/53 11/27/17 07:00 Pulse Ox 92 L 11/27/17 07:00 Intake & Output 11/26/17 11/27/17 11/27/17 18:59 06:59 18:59 Intake Total 200 340 Balance 200 340 Weight 138.79 kg Intake: Intake, IV Titration 200 340 Amount Lactated Ringers 1,000 ml 100 240 @ 20 mls/hr IV .Q24H [facility] Rx#:[id number] Sodium Chloride 0.9% 1, 100 000 ml As IV .[facility] Rx#:[id number] ceFAZolin 1,000 mg In 100 Dextrose/Water 1 50ml.bag @ 100 mls/hr IVPB Q8H [facility] Rx#:[id number] - Labs CBC & Chem 7: 11/27/17 07:01 11/25/17 09:20 Labs: Abnormal Lab Results - Last 24 Hours (Table) 11/26/17 11/26/17 11/26/17 Range/Units 07:15 11:39 17:22 RBC (4.30-5.90) m/uL Hgb (13.0-17.5) gm/dL Hct (39.0-53.0) % MCV (80.0-100.0) fL RDW (11.5-15.5) % Lymphocytes # (1.0-4.8) k/uL POC Glucose (mg/dL) 197 H 120 H (75-99) mg/dL Iron 58 L (65-175) ug/dL Ferritin 467.8 H (22.0-322.0) ng/mL 11/26/17 11/27/17 11/27/17 Range/Units 20:12 07:01 07:13 RBC 2.33 L (4.30-5.90) m/uL Hgb 7.5 L (13.0-17.5) gm/dL Hct 23.6 L (39.0-53.0) % MCV 101.3 H (80.0-100.0) fL RDW 18.0 H (11.5-15.5) % Lymphocytes # 0.5 L (1.0-4.8) k/uL POC Glucose (mg/dL) 143 H 235 H (75-99) mg/dL Iron (65-175) ug/dL Ferritin (22.0-322.0) ng/mL Assessment and Plan Plan: Assessment: #1. End-stage renal disease maintained on hemodialysis on a Wednesday schedule via left chest PermCath. #2. Insulin-dependent diabetes mellitus. #3. Nonhealing diabetic ulcers status post right zixuc-iyg-lwbo amputation on November 25. #4. Chronic kidney disease mineral bone disease maintained on Sensipar as well as Renvela and PhosLo. #5. Anemia of chronic kidney disease. Partially related to intraoperative blood loss. Mild iron deficiency noted. Plan: Hemodialysis Wednesday with goal 1 liter ultrafiltration. Resume midodrine 5 mg prior to hemodialysis. Ferrlecit 125 mg IV once today. Start Aranesp. Monitor hemoglobin. Consider blood transfusion it drops further. Hold antihypertensives for systolic blood pressure less than 120. To check blood pressure in the arm without prior fistula or graft.
[2017-11-27 11:50] LABS: Glucose,Whole Blood 164 mg/dL (75-99)
[2017-11-27] MEDS ORDERED: DARBEPOETIN ALFA 40 MCG/0.4 ML SYRINGE SQ SCH (12:00)
[2017-11-27] MEDS ORDERED: SODIUM FERRIC GLUCONAT-SUCROSE 125 MG in SODIUM CHLORIDE 0.9% 100 ML IVPB ONE (13:00)
[2017-11-27 17:37] LABS: Glucose,Whole Blood 111 mg/dL (75-99)
[2017-11-27 20:58] LABS: Glucose,Whole Blood 62 mg/dL (75-99)
[2017-11-27 20:58] LABS: Glucose,Whole Blood 63 mg/dL (75-99)
--- NOTE | 2017-11-27 20:58 | P.PN ---
Progress Note - Text Progress Note Date: 11/27/17 DATE OF SERVICE: 11/27/2017 PRESENTING COMPLAINT: Status post right below the knee amputation, medical management HISTORY OF PRESENT ILLNESS: 52-year-old gentleman with multiple medical problems who is status post right below the knee amputation secondary to multiple nonhealing ulcerations of the right lower extremity. INTERVAL HISTORY: 11/27/2017 Patient lying in bed appears comfortable wearing his CPAP machine. States his pain is well-controlled no nausea no vomiting no chest pain no shortness of breath. Able to get up with some assistance. Tolerating his diet. Last BM . REVIEW OF SYSTEMS: Done for constitutional ,cardiovascular, GI, pulmonary with relevant findings as above. CURRENT MEDICATIONS Tylenol, [place], Zyloprim, Cordarone, ascorbic acid, PhosLo, Sensipar, Aranesp, Lomotil, Cymbalta, Pepcid, NovoLog, Levemir, Claritin, melatonin, Lopressor, ProAmatine, multivitamin, Renvela, morphine IV. PHYSICAL EXAM VITAL SIGNS: Temperature 99.5, pulse 119, respiratory rate 16, blood pressure 88/53, oxygen saturation 92% on room air. GENERAL APPEARANCE: Lying in bed, not in distress. HENT: Normocephalic, JVD not raised. Mass not palpable. Oral cavity normal, external appearance of ears and nose normal. EYES:Pupils equal. Conjunctiva normal. RESPIRATORY: Respiratory effort normal. Lungs diminished to auscultation. CARDIOVASCULAR: First and second sounds normal. No edema. ABDOMEN: Soft. Liver and spleen not palpable. No tenderness. No mass palpable. PSYCHIATRY: Alert and oriented x3. Mood and affect normal. MUSCULOSKELETAL: Right below the knee amputation dressing in place secured with Odilon wrapped. No drainage noted. NEUROLOGIC: Patient is able to visualize fingers and count back. INVESTIGATIONS: Hemoglobin 7.5, Accu-Cheks noted. ASSESSMENT: -Right below-knee amputation for multiple nonhealing ulcers. -Coronary artery disease with prior history of coronary bypass. -Diabetes mellitus type 2, chronically on insulin causing peripheral neuropathy and diabetic retinopathy with vision limited to finger counting. -End-stage kidney disease on hemodialysis Wednesday, Wednesday and Wednesday. -Obstructive sleep apnea uses a CPAP machine. -Peripheral artery disease. -Chronic gout. -Primary osteoarthritis of multiple joints. -Depression not otherwise specified. -Chronic nicotine dependence, patient is an active cigarette smoker. -Anemia of chronic kidney disease. -Acute blood loss anemia secondary as expected from an secondary to surgery -Morbid obesity body mass index 41.5.. PLAN: Hemodialysis on Wednesday with 1 L ultrafiltration, resume it to drain, Ferrlecit IV today, start Aranesp. Hold antihypertensives for systolic blood pressure less than 120 systolic per nephrology. Discharge planning to return to [facility] on Wednesday. [employer]LECT[employer]UITY INSPECTOR statement: Patient was seen and examined by nurse practitioner Lucille Alcantar and all elements of the case discussed with attending Dr. Vivas
[2017-11-27 21:19] LABS: Glucose,Whole Blood 64 mg/dL (75-99)
[2017-11-27 21:26] LABS: Glucose,Whole Blood 86 mg/dL (75-99)
[2017-11-27] MEDS: INSULIN DETEMIR 100 UNIT/ML 10 ML VIAL SQ SCH (22:44)
[2017-11-27] MEDS ORDERED: INSULIN DETEMIR 100 UNIT/ML 10 ML VIAL SQ SCH (22:45)
[2017-11-27] MEDS: CINACALCET 30 MG TAB PO SCH (22:58)
[2017-11-27] MEDS: ASCORBIC ACID 500 MG TAB PO SCH (22:58)
[2017-11-27] MEDS: MELATONIN 5 MG TABLET PO SCH (22:59)
[2017-11-27] MEDS: LORATADINE 10 MG TAB PO SCH (22:59)
[2017-11-28 02:12] LABS: Glucose,Whole Blood 194 mg/dL (75-99)
[2017-11-28 07:37] LABS: Glucose,Whole Blood 206 mg/dL (75-99)
[2017-11-28 07:48] LABS: Glucose,Whole Blood 203 mg/dL (75-99)
--- NOTE | 2017-11-28 07:57 | PN ---
PROGRESS NOTE DATE OF SERVICE: 11/27/17. ATTENDING NOTE: Patient seen and examined by me. I discussed with nurse practitioner, Ms. Alcantar. This is a 52-year-old patient who because of multiple nonhealing ulcers of the right leg, underwent a right total knee amputation. The patient has a supportive cast. Pain is reasonably controlled. Tolerating his diet, being followed by Dr. Olivas. Surgery was done by Dr. Poe. The patient is also on hemodialysis. PHYSICAL EXAMINATION: Temperature 98.4, pulse 92, respiratory 20, blood pressure 105/46, pulse ox 100% on room air, BMI 41.5, sitting up on a chair, comfortable. Lungs fair entry. Cardiovascular first and second sounds normal. INVESTIGATIONS: White count 4.5, hemoglobin 7.5, it was 11.5 on November 25, 2017. Accu-Cheks are noted. Phosphorus 6.3, potassium 4.8, BUN 49, creatinine 6.36. ASSESSMENT: 1. Right below-knee amputation for multiple nonhealing ulcers. 2. Coronary artery disease with prior history of coronary bypass. 3. Diabetes mellitus type 2, chronically on insulin causing peripheral neuropathy and diabetic retinopathy with vision limited to finger counting. 4. End-stage kidney disease on hemodialysis Wednesday, Wednesday and Wednesday. 5. Obstructive sleep apnea uses CPAP machine. 6. Peripheral artery disease. 7. Chronic gout. 8. Primary osteoarthritis multiple joints. 9. Depression not otherwise specified. 10.Chronic nicotine dependence, patient active cigarette smoker. 11.Anemia of chronic kidney disease. 12.Acute blood loss anemia secondary to surgery as expected from the surgery. 13.Morbid obesity BMI 41.5. PLAN: Continue current medication and treatment plan. Care was discussed with the patient. Accu-Cheks to be closely followed. Patient iron stores are good as per the iron studies done. Hemodialysis to continue. Care was discussed with the patient. MMODL / IJN: [id number] /
[2017-11-28] MEDS: LACTATED RINGERS 1,000 ML IV SCH (08:44)
[2017-11-28 08:45] LABS: Calcium 8.4 mg/dL (8.4-10.2); Potassium 4.9 mmol/L (3.5-5.1)
[2017-11-28] MEDS: INSULIN ASPART 100 UNIT/ML 1 ML 10 ML VIAL SQ SCH ×7 (08:46→22:34)
[2017-11-28] MEDS: SEVELAMER 800 MG TAB PO SCH ×3 (08:46→17:54)
[2017-11-28] MEDS: CALCIUM ACETATE 667 MG CAP PO SCH ×3 (08:48→17:55)
[2017-11-28] MEDS: HYDROcodone/APAP 7.5-325MG 1 EACH TAB PO PRN ×2 (08:48→16:09)
[2017-11-28] MEDS: ATROPINE OPHTH SOLN 1% 5ML BTL RIGHT EYE SCH (08:49)
[2017-11-28] MEDS: ALLOPURINOL 100 MG TAB PO SCH (08:50)
[2017-11-28] MEDS: ARTIFICIAL TEARS-HYPROMELLOSE DROPS 15 ML BTL BOTH EYES SCH ×2 (08:50→22:35)
[2017-11-28] MEDS: DIFLUPREDNATE EYE BOTH EYES SCH ×4 (08:50→22:38)
[2017-11-28] MEDS: FAMOTIDINE 20 MG TAB PO SCH (08:51)
[2017-11-28] MEDS: AMIODARONE 100 MG TAB PO SCH (08:51)
[2017-11-28] MEDS: DULoxetine HCL 60 MG CAPSULE.DR PO SCH (08:52)
[2017-11-28] MEDS: MULTIVITAMINS, THERA 1 EACH TAB PO SCH (08:52)
[2017-11-28] MEDS: FLUTICASONE 50MCG/SPRAY NASAL 16GM EA NOSTRIL SCH ×2 (08:52→22:36)
[2017-11-28] MEDS: METOPROLOL TARTRATE 25 MG TAB PO SCH ×2 (08:52→22:36)
--- NOTE | 2017-11-28 11:41 | P.PN ---
Subjective Patient is seen in follow-up for end-stage renal disease. He is maintained on hemodialysis on a Wednesday schedule via left chest permacath. Patient underwent right below the knee amputation in November 2014 due to nonhealing diabetic ulcers. He is currently resting in bed. Oral intake is fair. No vomiting or diarrhea. Denies chest pain or shortness of breath. No active complaints at this time. Vital signs are stable. General: The patient appeared well nourished and normally developed. HEENT: Head exam is unremarkable. Neck is without jugular venous distension. LUNGS: Lungs are clear to auscultation and percussion. Breath sounds decreased. HEART: Rate and Rhythm are regular. First and second heart sounds normal. No murmurs, rubs or gallops. ABDOMEN: Abdominal exam reveals normal bowel sounds. Non-tender and non- distended. No evidence of peritonitis. EXTREMITITES: No edema in the left lower extremity. Right yclhb-lvu-aqko amputation noted. Objective - Vital Signs Vital signs: Vital Signs Temp 97.0 F L 11/28/17 07:00 Pulse 96 11/28/17 07:00 Resp 18 11/28/17 07:00 BP 107/53 11/28/17 07:00 Pulse Ox 96 11/28/17 10:27 Intake & Output 11/27/17 11/28/17 11/28/17 18:59 06:59 18:59 Intake Total 100 310 Balance 100 310 Intake: Intake, IV Titration 100 60 Amount Lactated Ringers 1,000 ml 60 @ 20 mls/hr IV .Q24H [facility] Rx#:[id number] Sodium Ferric Gluconat- 100 Sucrose 125 mg In Sodium Chloride 0.9% 100 ml @ 100 mls/hr IVPB [facility] Rx#:[id number] Oral 250 - Labs CBC & Chem 7: 11/27/17 07:01 11/28/17 07:17 Labs: Abnormal Lab Results - Last 24 Hours (Table) 11/27/17 11/27/17 11/27/17 Range/Units 11:49 17:34 20:42 Carbon Dioxide (22-30) mmol/L BUN (9-20) mg/dL Creatinine (0.66-1.25) mg/dL Glucose (74-99) mg/dL POC Glucose (mg/dL) 164 H 111 H 63 L (75-99) mg/dL 11/27/17 11/27/17 11/28/17 Range/Units 20:43 21:04 02:09 Carbon Dioxide (22-30) mmol/L BUN (9-20) mg/dL Creatinine (0.66-1.25) mg/dL Glucose (74-99) mg/dL POC Glucose (mg/dL) 62 L 64 L 194 H (75-99) mg/dL 11/28/17 11/28/17 11/28/17 Range/Units 07:17 07:22 07:38 Carbon Dioxide 18 L (22-30) mmol/L BUN 61 H (9-20) mg/dL Creatinine 8.26 H* (0.66-1.25) mg/dL Glucose 183 H (74-99) mg/dL POC Glucose (mg/dL) 206 H 203 H (75-99) mg/dL Assessment and Plan Plan: Assessment: #1. End-stage renal disease maintained on hemodialysis on a Wednesday schedule via left chest PermCath. #2. Insulin-dependent diabetes mellitus. #3. Nonhealing diabetic ulcers status post right vkvcj-qfu-cmat amputation on November 25. #4. Chronic kidney disease mineral bone disease maintained on Sensipar as well as Renvela and PhosLo. #5. Anemia of chronic kidney disease. Partially related to intraoperative blood loss. Mild iron deficiency noted. Plan: Hemodialysis Wednesday with goal 1-1.5 liter ultrafiltration. Resume midodrine 5 mg prior to hemodialysis. Ferrlecit 125 mg IV once today. This will be his second dose. Maintain Aranesp. Monitor hemoglobin. Consider blood transfusion it drops further. Hold antihypertensives for systolic blood pressure less than 120. To check blood pressure in the arm without prior fistula or graft.
[2017-11-28 11:55] LABS: Glucose,Whole Blood 146 mg/dL (75-99)
[2017-11-28] MEDS ORDERED: SODIUM FERRIC GLUCONAT-SUCROSE 125 MG in SODIUM CHLORIDE 0.9% 100 ML IVPB ONE (13:00)
--- NOTE | 2017-11-28 15:49 | P.PN ---
Progress Note - Text Progress Note Date: 11/28/17 DATE OF SERVICE: 11/28/2017 PRESENTING COMPLAINT: Status post right below the knee amputation, medical management HISTORY OF PRESENT ILLNESS: 52-year-old gentleman with multiple medical problems who is status post right below the knee amputation secondary to multiple nonhealing ulcerations of the right lower extremity. INTERVAL HISTORY: 11/28/2017: lying in bed appears comfortable wearing his CPAP mask. Right lower extremity in the leg brace per surgical preference. Pain well controlled, no nausea, no vomiting, no chest pain, no shortness of breath. Up with assistance. Tolerating his diet.last BM 11/26/2017. 11/27/2017 Patient lying in bed appears comfortable wearing his CPAP machine. States his pain is well-controlled no nausea no vomiting no chest pain no shortness of breath. Able to get up with some assistance.vision is limited to finger counting. Tolerating his diet. Last BM 11/26/2017. REVIEW OF SYSTEMS: Done for constitutional ,cardiovascular, GI, pulmonary with relevant findings as above. CURRENT MEDICATIONS Tylenol, [place], Zyloprim, Cordarone, ascorbic acid, PhosLo, Sensipar, Aranesp, Lomotil, Cymbalta, Pepcid, NovoLog, Levemir, Claritin, melatonin, Lopressor, ProAmatine, multivitamin, Renvela, morphine IV. PHYSICAL EXAM VITAL SIGNS: temperature 97.0, pulse 96, respiratory rate 18, blood pressure 107/53, oxygen saturation 98% on room air. GENERAL APPEARANCE: Lying in bed, not in distress. HENT: Normocephalic, JVD not raised. Mass not palpable. Oral cavity normal, external appearance of ears and nose normal. EYES:Pupils equal. Conjunctiva normal. RESPIRATORY: Respiratory effort normal. Lungs diminished to auscultation. CARDIOVASCULAR: First and second sounds normal. No edema. ABDOMEN: Soft. Liver and spleen not palpable. No tenderness. No mass palpable. PSYCHIATRY: Alert and oriented x3. Mood and affect normal. MUSCULOSKELETAL: Right below the knee amputation dressing in place secured with Odilon wrapped. No drainage noted. NEUROLOGIC: Patient is able to visualize fingers and count back. INVESTIGATIONS: carbon dioxide 18, BUN 61, creatinine 8.26, Accu-Cheks noted. ASSESSMENT: -Right below-knee amputation for multiple nonhealing ulcers. -Coronary artery disease with prior history of coronary bypass. -Diabetes mellitus type 2, chronically on insulin causing peripheral neuropathy and diabetic retinopathy with vision limited to finger counting. -End-stage kidney disease on hemodialysis Wednesday, Wednesday and Wednesday. -Obstructive sleep apnea uses a CPAP machine. -Peripheral artery disease. -Chronic gout. -Primary osteoarthritis of multiple joints. -Depression not otherwise specified. -Chronic nicotine dependence, patient is an active cigarette smoker. -Anemia of chronic kidney disease. -Acute blood loss anemia secondary as expected from an secondary to surgery -Morbid obesity body mass index 41.5.. PLAN: Hemodialysis on Wednesday with 1 L ultrafiltration, resume it to drain, Ferrlecit IV today,Continue Aranesp, monitor hemoglobin and transfuse if continues to fall. Hold antihypertensives for systolic blood pressure less than 120 systolic per nephrology. Discharge planning to return to [facility] on Wednesday after dialysis. 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 Vivas
[2017-11-28] MEDS ORDERED: DEXTROSE 50%-WATER 50 ML SYRINGE IVP ONE (16:20)
[2017-11-28 16:21] LABS: Glucose,Whole Blood 36 mg/dL (75-99)
[2017-11-28] MEDS ORDERED: DEXTROSE 50%-WATER 50 ML SYRINGE IVP STA (16:21)
[2017-11-28 16:53] LABS: Glucose,Whole Blood 134 mg/dL (75-99)
[2017-11-28 17:31] LABS: Glucose,Whole Blood 128 mg/dL (75-99)
[2017-11-28 19:53] LABS: Glucose,Whole Blood 208 mg/dL (75-99)
--- NOTE | 2017-11-28 20:15 | PN ---
PROGRESS NOTE DATE OF SERVICE: 11/28/17. ATTENDING NOTE: The patient seen and examined by me. I discussed with nurse practitioner, Ms. Alcantar. Patient is status post a right lower extremity below-knee amputation. Pain is controlled. Tolerating his diet. PHYSICAL EXAMINATION: On examination, afebrile, pulse 96, respiration 18, blood pressure 107/58, pulse ox 98% on room air. Lungs fair entry. Cardiovascular: First and second sounds normal. INVESTIGATIONS: Potassium 4.9, BUN 61, creatinine 8.26. ASSESSMENT: 1. Right below-knee amputation, multiple nonhealing ulcers. 2. Coronary artery disease. 3. Diabetes mellitus type 2 with complications. 4. End-stage kidney disease on hemodialysis. PLAN: Continue medication and treatment plan. We will follow up with vascular surgery and see when and where the patient can be discharged. AGATA / YOLIEN: [id number] /
[2017-11-28] MEDS: INSULIN DETEMIR 100 UNIT/ML 10 ML VIAL SQ SCH (22:36)
[2017-11-28] MEDS: MELATONIN 5 MG TABLET PO SCH (22:36)
[2017-11-28] MEDS: ASCORBIC ACID 500 MG TAB PO SCH (22:36)
[2017-11-28] MEDS: LORATADINE 10 MG TAB PO SCH (22:36)
[2017-11-28] MEDS: CINACALCET 30 MG TAB PO SCH (22:36)
[2017-11-28 22:44] LABS: Glucose,Whole Blood 227 mg/dL (75-99)
[2017-11-29 02:00] LABS: Glucose,Whole Blood 215 mg/dL (75-99)
[2017-11-29 07:00] LABS: Glucose,Whole Blood 153 mg/dL (75-99)
[2017-11-29] MEDS ORDERED: ONDANSETRON 4 MG/2 ML VIAL IVP PRN (08:48)
[2017-11-29] MEDS: INSULIN ASPART 100 UNIT/ML 1 ML 10 ML VIAL SQ SCH ×7 (09:19→21:51)
--- NOTE | 2017-11-29 09:53 | P.PN ---
Subjective Patient is seen in follow-up for end-stage renal disease. He is maintained on hemodialysis on a Wednesday schedule via left chest permacath. Patient underwent right below the knee amputation in November 25 due to nonhealing diabetic ulcers. He is currently resting in bed. Oral intake is fair. No vomiting or diarrhea. Denies chest pain or shortness of breath. No active complaints at this time. Vital signs are stable. General: The patient appeared well nourished and normally developed. HEENT: Head exam is unremarkable. Neck is without jugular venous distension. LUNGS: Lungs are clear to auscultation and percussion. Breath sounds decreased. HEART: Rate and Rhythm are regular. First and second heart sounds normal. No murmurs, rubs or gallops. ABDOMEN: Abdominal exam reveals normal bowel sounds. Non-tender and non- distended. No evidence of peritonitis. EXTREMITITES: No edema in the left lower extremity. Right [id number] amputation noted. Objective - Vital Signs Vital signs: Vital Signs Temp 96.1 F L 11/29/17 07:00 Pulse 84 11/29/17 08:00 Resp 18 11/29/17 08:00 BP 123/54 11/29/17 07:00 Pulse Ox 100 11/29/17 07:00 Intake & Output 11/28/17 11/29/17 11/29/17 18:59 06:59 18:59 Intake Total 240 Output Total 50 Balance 240 -50 Intake: Intake, IV Titration 240 Amount Lactated Ringers 1,000 ml 140 @ 20 mls/hr IV .Q24H [facility] Rx#:[id number] Sodium Ferric Gluconat- 100 Sucrose 125 mg In Sodium Chloride 0.9% 100 ml @ 100 mls/hr IVPB ONCE ONE Rx#:[id number] Output: Urine 50 Other: # Voids 0 # Bowel Movements 0 - Labs CBC & Chem 7: 11/27/17 07:01 11/28/17 07:17 Labs: Abnormal Lab Results - Last 24 Hours (Table) 11/28/17 11/28/17 11/28/17 Range/Units 11:37 16:18 16:33 POC Glucose (mg/dL) 146 H 36 L 134 H (75-99) mg/dL 11/28/17 11/28/17 11/28/17 Range/Units 17:14 19:50 22:19 POC Glucose (mg/dL) 128 H 208 H 227 H (75-99) mg/dL 11/29/17 11/29/17 Range/Units 01:58 06:59 POC Glucose (mg/dL) 215 H 153 H (75-99) mg/dL Assessment and Plan Plan: Assessment: #1. End-stage renal disease maintained on hemodialysis on a Wednesday schedule via left chest PermCath. #2. Insulin-dependent diabetes mellitus. #3. Nonhealing diabetic ulcers status post right [id number] amputation on November 25. #4. Chronic kidney disease mineral bone disease maintained on Sensipar as well as Renvela and PhosLo. #5. Anemia of chronic kidney disease. Partially related to intraoperative blood loss. Mild iron deficiency noted. Plan: Hemodialysis today with goal 1-1.5 liter ultrafiltration. Resume midodrine 5 mg prior to hemodialysis. Ferrlecit 125 mg IV once today. This will be his third dose. Maintain Aranesp. Monitor hemoglobin. Consider blood transfusion it drops further. Hold antihypertensives for systolic blood pressure less than 120. To check blood pressure in the arm without prior fistula or graft.
[2017-11-29] MEDS: CALCIUM ACETATE 667 MG CAP PO SCH ×3 (10:36→17:50)
[2017-11-29] MEDS: SEVELAMER 800 MG TAB PO SCH ×3 (10:36→17:50)
[2017-11-29] MEDS: METOPROLOL TARTRATE 25 MG TAB PO SCH ×2 (10:39→21:52)
[2017-11-29] MEDS: DULoxetine HCL 60 MG CAPSULE.DR PO SCH (10:52)
[2017-11-29] MEDS: ALLOPURINOL 100 MG TAB PO SCH (10:52)
[2017-11-29] MEDS: AMIODARONE 100 MG TAB PO SCH (10:52)
[2017-11-29] MEDS: ARTIFICIAL TEARS-HYPROMELLOSE DROPS 15 ML BTL BOTH EYES SCH ×2 (10:53→21:50)
[2017-11-29] MEDS: FLUTICASONE 50MCG/SPRAY NASAL 16GM EA NOSTRIL SCH ×2 (10:53→21:51)
[2017-11-29] MEDS: ATROPINE OPHTH SOLN 1% 5ML BTL RIGHT EYE SCH (10:53)
[2017-11-29] MEDS: FAMOTIDINE 20 MG TAB PO SCH (10:54)
[2017-11-29 11:45] LABS: Glucose,Whole Blood 192 mg/dL (75-99)
[2017-11-29] MEDS: DIFLUPREDNATE EYE BOTH EYES SCH ×4 (11:57→21:54)
[2017-11-29] MEDS: MULTIVITAMINS, THERA 1 EACH TAB PO SCH (12:58)
--- NOTE | 2017-11-29 14:17 | P.PN ---
Progress Note - Text Progress Note Date: 11/29/17 Subjective: Pain is under good control. No significant complaints. Objective: Afebrile. Stump looks fine. Assessment: Good postop status from right below knee amputation. Plan: Patient can be discharged per internal medicine. Patient can shower briefly and packed the stump dry after. Stump should remain Odilon wrapped and in his knee immobilizer until seen by Dr. Poe. Patient can follow up with Dr. Poe in about a week.
[2017-11-29] MEDS: HYDROcodone/APAP 7.5-325MG 1 EACH TAB PO PRN (16:10)
--- NOTE | 2017-11-29 16:18 | P.DS ---
Providers Date of admission: 11/25/17 08:05 Expected date of discharge: 11/29/17 Attending physician: Conor Vivas Consults: 11/25/17 13:11 Consult Physician Routine Consulting Provider: Des Acuña Consult Reason/Comments: medical mgt Do you want consulting provider notified?: Yes 11/25/17 13:42 Consult Physician Routine Consulting Provider: Lizzy Wilks Consult Reason/Comments: renal failure Do you want consulting provider notified?: Yes 11/27/17 10:57 Consult Physician Routine Consulting Provider: Armani Olivas Consult Reason/Comments: Post surgical monitoring Do you want consulting provider notified?: Already Contacted Primary care physician: [facility] Course: FINAL DIAGNOSES: -Right below-knee amputation for multiple nonhealing ulcers. -Coronary artery disease with prior history of coronary bypass. -Diabetes mellitus type 2, chronically on insulin causing peripheral neuropathy and diabetic retinopathy with vision limited to finger counting. -End-stage kidney disease on hemodialysis Wednesday, Wednesday and Wednesday. -Obstructive sleep apnea uses a CPAP machine. -Peripheral artery disease. -Chronic gout. -Primary osteoarthritis of multiple joints. -Depression not otherwise specified. -Chronic nicotine dependence, patient is an active cigarette smoker. -Anemia of chronic kidney disease. -Acute blood loss anemia secondary as expected from an secondary to surgery -Morbid obesity body mass index 41.5.. HOSPTIAL COURSE: 52-year-old male with a long-standing history of insulin dependent diabetes, on hemodialysis and nonhealing right lower extremity wounds presented for and is status post right [id number] amputation.nephrology consulted for management of hemodialysis patient is currently on Wednesday and Wednesday.daily labs followed, hemoglobin was stable, dressing changes performed per vascular surgery recommendations. Right lower extremity brace remained in place per their instructions. has history of obstructive sleep apnea uses CPAP machine periodically throughout the day. Patient up with assistance. Tolerating his diet.. Moving his bowels. patient scheduled for hemodialysis today. Consultants agree once hemodialysis complete patient is stable for discharge back to [facility]. PHYSICAL EXAM: CARDIOVASCULAR: first and second sounds noted no edema. RESPIRATORY: respiratory effort normal lung sounds diminished bilaterally, uses a CPAP machine GI:abdomen soft nontender liver and spleen not palpable. MUSKULOSKELETAL:right lower extremity Odilon wrapped and brace in place per vascular surgery echo conditions. PSYCHIATRY: Alert and oriented 3 mood and affect normal. Patient was seen and examined by nurse practitioner Lucille Alcantar in all elements of the case discussed with attending Dr. Vivas DISPOSITION:transfer to [facility]. Patient Condition at Discharge: Stable Plan - Discharge Summary Discharge Rx Participant: Yes New Discharge Prescriptions: New Midodrine [ProAmatine] 5 mg PO DAILY PRN tab PRN Reason: prior to dialysis Continue Metoprolol Tartrate [Lopressor] 25 mg PO Q12HR Ubidecarenone [Co Q-10] 500 mg PO DAILY Ascorbic Acid [Vitamin C] 500 mg PO HS Sevelamer [Renvela] 3,200 mg PO TID-W/MEALS INSULIN LISPRO (humaLOG) [humaLOG] 19 units SQ AC-TID Amiodarone HCl [Cordarone] 100 mg PO QAM Loratadine [Claritin] 10 mg PO HS Allopurinol [Zyloprim] 100 mg PO DAILY Multivitamins, Thera [Multivitamin (formulary)] 1 tab PO DAILY Atropine Sulfate [Atropine Sulfate 1%] 1 drop RIGHT EYE DAILY Cinacalcet HCl [Sensipar] 60 mg PO HS Fluticasone Nasal Arpin [Flonase Nasal Arpin] 1 spray EA NOSTRIL RT-BID HYDROcodone/APAP 7.5-325MG [[place] 7.5-325] 1 tab PO Q4H PRN PRN Reason: Pain Insulin Glargine [Lantus] 42 unit SQ HS Acetaminophen Tab [Tylenol] 650 mg PO Q6H PRN PRN Reason: Pain Artificial Tears-Hypromellose [Artificial Tear Drops] 1 drops BOTH EYES BID Difluprednate [Durezol] 1 drop BOTH EYES QID Famotidine [Pepcid] 20 mg PO DAILY INSULIN LISPRO (HumaLOG) [humaLOG] 0 units SQ ACHS Diphenoxylate HCl/Atropine [Lomotil 2.5-0.025 mg Tablet] 2 tab PO Q4H PRN PRN Reason: Diarrhea Fexofenadine HCl [Jeannette Allergy] 180 mg PO HS Calcium Acetate [PhosLo] 667 mg PO TID DULoxetine HCL [Cymbalta] 60 mg PO DAILY Melatonin 5 mg PO HS Clopidogrel [Plavix] 75 mg PO DAILY No Action Oseltamivir Phosphate [Tamiflu] 30 mg PO ONCE Discharge Medication List Metoprolol Tartrate [Lopressor] 25 mg PO Q12HR 08/09/14 [History] Ubidecarenone [Co Q-10] 500 mg PO DAILY 08/09/14 [History] Ascorbic Acid [Vitamin C] 500 mg PO HS 11/04/14 [History] Sevelamer [Renvela] 3,200 mg PO TID-W/MEALS 02/26/15 [History] Amiodarone HCl [Cordarone] 100 mg PO QAM 10/26/15 [History] INSULIN LISPRO (humaLOG) [humaLOG] 19 units SQ AC-TID 10/26/15 [History] Loratadine [Claritin] 10 mg PO HS 02/04/16 [History] Allopurinol [Zyloprim] 100 mg PO DAILY 02/16/16 [History] Multivitamins, Thera [Multivitamin (formulary)] 1 tab PO DAILY 02/16/16 [History ] Atropine Sulfate [Atropine Sulfate 1%] 1 drop RIGHT EYE DAILY 11/15/16 [History] Cinacalcet HCl [Sensipar] 60 mg PO HS 08/11/17 [History] Fluticasone Nasal Arpin [Flonase Nasal Arpin] 1 spray EA NOSTRIL RT-BID [History] HYDROcodone/APAP 7.5-325MG [[place] 7.5-325] 1 tab PO Q4H PRN 08/11/17 [History] Insulin Glargine [Lantus] 42 unit SQ HS 08/11/17 [History] Acetaminophen Tab [Tylenol] 650 mg PO Q6H PRN 10/18/17 [History] Artificial Tears-Hypromellose [Artificial Tear Drops] 1 drops BOTH EYES BID [History] Difluprednate [Durezol] 1 drop BOTH EYES QID 10/18/17 [History] Famotidine [Pepcid] 20 mg PO DAILY 10/18/17 [History] INSULIN LISPRO (HumaLOG) [humaLOG] 0 units SQ ACHS 10/18/17 [History] Diphenoxylate HCl/Atropine [Lomotil 2.5-0.025 mg Tablet] 2 tab PO Q4H PRN [History] Calcium Acetate [PhosLo] 667 mg PO TID 11/24/17 [History] DULoxetine HCL [Cymbalta] 60 mg PO DAILY 11/24/17 [History] Fexofenadine HCl [Jeannette Allergy] 180 mg PO HS 11/24/17 [History] Melatonin 5 mg PO HS 11/24/17 [History] Clopidogrel [Plavix] 75 mg PO DAILY 11/25/17 [History] Oseltamivir Phosphate [Tamiflu] 30 mg PO ONCE 11/25/17 [History] Midodrine [ProAmatine] 5 mg PO DAILY PRN tab 11/29/17 [Rx] Follow up Appointment(s)/Referral(s): Ronni Khalil MD [STAFF PHYSICIAN] - 11/30/17 David Duque DO [Doctor of Osteopathic Medicine] - 1 Week Marbin Avendaño DO [STAFF PHYSICIAN] - 1 Week Ambulatory/Diagnostic Orders: Basic Metabolic Panel [LAB.AMB] Location: Determined By Patient Activity/Diet/Wound Care/Special Instructions: Hold antihypertensives fpr SBP less than 120, check blood pressure in the arm with out prior fistula or graft Consistent Carbohydrate diet, low potassium low phosphorous Discharge Disposition: TRANSFER TO SNF/ECF
[2017-11-29 17:07] LABS: Glucose,Whole Blood 132 mg/dL (75-99)
[2017-11-29 20:04] LABS: Glucose,Whole Blood 157 mg/dL (75-99)
[2017-11-29] MEDS: ASCORBIC ACID 500 MG TAB PO SCH (21:50)
[2017-11-29] MEDS: CINACALCET 30 MG TAB PO SCH (21:51)
[2017-11-29] MEDS: MELATONIN 5 MG TABLET PO SCH (21:52)
[2017-11-29] MEDS: LORATADINE 10 MG TAB PO SCH (21:52)
[2017-11-29] MEDS: INSULIN DETEMIR 100 UNIT/ML 10 ML VIAL SQ SCH (21:52)
[2017-11-30 06:55] LABS: Glucose,Whole Blood 151 mg/dL (75-99)
--- NOTE | 2017-11-30 07:20 | DS ---
DISCHARGE SUMMARY DATE OF SERVICE: 11/29/2017 ATTENDING NOTE: Patient seen and examined by me. I discussed with nurse practitioner, Katharine. Patient is status post right below-knee amputation. Pain is controlled. Tolerating his diet. Patient is due to get hemodialysis later today and then supposed to go to the ECF. PHYSICAL EXAMINATION: Temperature 96.1, pulse 84, respiration 18, blood pressure 123/54. LUNGS: Fair entry. CARDIOVASCULAR: First and second sounds are normal. ASSESSMENT: 1. Right below-knee amputation. 2. Other medical condition stable. PLAN: Patient will be discharged to the ECF after hemodialysis today. If cannot make it today, then patient will go tomorrow morning. Care was discussed with the patient. Patient has also been cleared by Dr. Olivas to go, I did talk to him. AGATA / YOLIEN: [id number] /
[2017-11-30] MEDS: CALCIUM ACETATE 667 MG CAP PO SCH (07:48)
[2017-11-30] MEDS: INSULIN ASPART 100 UNIT/ML 1 ML 10 ML VIAL SQ SCH ×2 (07:48)
[2017-11-30] MEDS: FAMOTIDINE 20 MG TAB PO SCH (07:49)
[2017-11-30] MEDS: ALLOPURINOL 100 MG TAB PO SCH (07:49)
[2017-11-30] MEDS: DULoxetine HCL 60 MG CAPSULE.DR PO SCH (07:49)
[2017-11-30] MEDS: ATROPINE OPHTH SOLN 1% 5ML BTL RIGHT EYE SCH (07:49)
[2017-11-30] MEDS: AMIODARONE 100 MG TAB PO SCH (07:49)
[2017-11-30] MEDS: METOPROLOL TARTRATE 25 MG TAB PO SCH (07:49)
[2017-11-30] MEDS: SEVELAMER 800 MG TAB PO SCH (07:49)
[2017-11-30] MEDS: ARTIFICIAL TEARS-HYPROMELLOSE DROPS 15 ML BTL BOTH EYES SCH (07:50)
[2017-11-30] MEDS: DIFLUPREDNATE EYE BOTH EYES SCH (07:50)
[2017-11-30] MEDS: FLUTICASONE 50MCG/SPRAY NASAL 16GM EA NOSTRIL SCH (07:51)
[2017-11-30] MEDS: HYDROcodone/APAP 7.5-325MG 1 EACH TAB PO PRN (08:01)
[2017-11-30 09:22] VITALS: BP 129/86; PULSE 90; RESP 20; TEMP 97
--- NOTE | 2017-11-30 11:15 | P.PN ---
Subjective Patient is seen in follow-up for end-stage renal disease. He is maintained on hemodialysis on a Wednesday schedule via left chest permacath. Patient underwent right below the knee amputation in November 25 due to nonhealing diabetic ulcers. He is currently sitting up in chair. Oral intake is fair. No vomiting or diarrhea. Denies chest pain or shortness of breath. No active complaints at this time. Vital signs are stable. General: The patient appeared well nourished and normally developed. HEENT: Head exam is unremarkable. Neck is without jugular venous distension. LUNGS: Lungs are clear to auscultation and percussion. Breath sounds decreased. HEART: Rate and Rhythm are regular. First and second heart sounds normal. No murmurs, rubs or gallops. ABDOMEN: Abdominal exam reveals normal bowel sounds. Non-tender and non- distended. No evidence of peritonitis. EXTREMITITES: No edema in the left lower extremity. Right [id number] amputation noted. Objective - Vital Signs Vital signs: Vital Signs Temp 97.0 F L 11/30/17 07:00 Pulse 90 11/30/17 07:00 Resp 20 11/30/17 07:00 BP 129/86 11/30/17 07:00 Pulse Ox 100 11/30/17 07:00 Intake & Output 11/29/17 11/30/17 11/30/17 18:59 06:59 18:59 Intake Total 700 240 Balance 700 240 Weight 138.79 kg Intake: Intake, IV Titration 700 Amount Sodium Chloride 0.9% 1, 700 000 ml As IV .[facility] Rx#:[id number] Oral 240 Other: Voiding Method Bedside Commode Bedside Commode Bedside Commode # Voids 0 - Labs CBC & Chem 7: 11/27/17 07:01 11/28/17 07:17 Labs: Abnormal Lab Results - Last 24 Hours (Table) 11/29/17 11/29/17 11/29/17 Range/Units 11:43 17:04 19:58 POC Glucose (mg/dL) 192 H 132 H 157 H (75-99) mg/dL 11/30/17 Range/Units 06:52 POC Glucose (mg/dL) 151 H (75-99) mg/dL Assessment and Plan Plan: Assessment: #1. End-stage renal disease maintained on hemodialysis on a Wednesday schedule via left chest PermCath. #2. Insulin-dependent diabetes mellitus. #3. Nonhealing diabetic ulcers status post right [id number] amputation on November 25. #4. Chronic kidney disease mineral bone disease maintained on Sensipar as well as Renvela and PhosLo. #5. Anemia of chronic kidney disease. Partially related to intraoperative blood loss. Mild iron deficiency noted - s/p IV iron. Plan: Hemodialysis tomorrow with goal 1-1.5 liter ultrafiltration. Maintain midodrine 5 mg prior to hemodialysis. Maintain Aranesp. Hold antihypertensives for systolic blood pressure less than 120. To check blood pressure in the arm without prior fistula or graft. Anticipate discharge back to ECF soon.
[2017-11-30 11:32] LABS: Glucose,Whole Blood 62 mg/dL (75-99)
[2017-11-30 12:02] LABS: Glucose,Whole Blood 104 mg/dL (75-99)
[2017-11-30 12:02] LABS: Glucose,Whole Blood 68 mg/dL (75-99)
--- NOTE | 2017-11-30 19:10 | P.PN ---
Progress Note - Text Progress Note Date: 11/29/17 DATE OF SERVICE: 11/29/2017 PRESENTING COMPLAINT: Status post right below the knee amputation, medical management HISTORY OF PRESENT ILLNESS: 52-year-old gentleman with multiple medical problems who is status post right below the knee amputation secondary to multiple nonhealing ulcerations of the right lower extremity. INTERVAL HISTORY: 11/29/2017: Lying in bed appears comfortable. Wearing a CPAP mask. Right lower extremity remains in the leg brace per surgical preference. Pain is well-controlled, no nausea no vomiting no chest pain no shortness of breath. Up with assistance. Tolerating his diet last BM 11/26/2017. 11/28/2017: lying in bed appears comfortable wearing his CPAP mask. Right lower extremity in the leg brace per surgical preference. Pain well controlled, no nausea, no vomiting, no chest pain, no shortness of breath. Up with assistance. Tolerating his diet.last BM 11/26/2017. 11/27/2017 Patient lying in bed appears comfortable wearing his CPAP machine. States his pain is well-controlled no nausea no vomiting no chest pain no shortness of breath. Able to get up with some assistance.vision is limited to finger counting. Tolerating his diet. Last BM 11/26/2017. REVIEW OF SYSTEMS: Done for constitutional ,cardiovascular, GI, pulmonary with relevant findings as above. CURRENT MEDICATIONS Tylenol, [place], Zyloprim, Cordarone, ascorbic acid, PhosLo, Sensipar, Aranesp, Lomotil, Cymbalta, Pepcid, NovoLog, Levemir, Claritin, melatonin, Lopressor, ProAmatine, multivitamin, Renvela, morphine IV. PHYSICAL EXAM VITAL SIGNS: Temperature 96.1, pulse 84, respirations 18, blood pressure 123/54, oxygen saturation 100% on CPAP. GENERAL APPEARANCE: Lying in bed, not in distress. HENT: Normocephalic, JVD not raised. Mass not palpable. Oral cavity normal, external appearance of ears and nose normal. EYES:Pupils equal. Conjunctiva normal. RESPIRATORY: Respiratory effort normal. Lungs diminished to auscultation. CARDIOVASCULAR: First and second sounds normal. No edema. ABDOMEN: Soft. Liver and spleen not palpable. No tenderness. No mass palpable. PSYCHIATRY: Alert and oriented x3. Mood and affect normal. MUSCULOSKELETAL: Right below the knee amputation dressing in place secured with Odilon wrapped. No drainage noted. NEUROLOGIC: Patient is able to visualize fingers and count back. INVESTIGATIONS: Accu-Cheks noted. ASSESSMENT: -Right below-knee amputation for multiple nonhealing ulcers. -Coronary artery disease with prior history of coronary bypass. -Diabetes mellitus type 2, chronically on insulin causing peripheral neuropathy and diabetic retinopathy with vision limited to finger counting. -End-stage kidney disease on hemodialysis Wednesday, Wednesday and Wednesday. -Obstructive sleep apnea uses a CPAP machine. -Peripheral artery disease. -Chronic gout. -Primary osteoarthritis of multiple joints. -Depression not otherwise specified. -Chronic nicotine dependence, patient is an active cigarette smoker. -Anemia of chronic kidney disease. -Acute blood loss anemia secondary as expected from an secondary to surgery -Morbid obesity body mass index 41.5.. PLAN: Hemodialysis on Wednesday with 1 L ultrafiltration, Ferrlecit IV today,Continue Aranesp, monitor hemoglobin and transfuse if continues to fall. Hold antihypertensives for systolic blood pressure less than 120 systolic per nephrology. Discharge planning to return [facility] Wednesday after dialysis. 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 Vivas
--- NOTE | 2017-11-30 19:12 | P.DS ---
Providers Date of admission: 11/25/17 08:05 Expected date of discharge: 11/30/17 Attending physician: Conor Vivas Consults: 11/25/17 13:11 Consult Physician Routine Consulting Provider: Des Acuña Consult Reason/Comments: medical mgt Do you want consulting provider notified?: Yes 11/25/17 13:42 Consult Physician Routine Consulting Provider: Lizzy Wilks Consult Reason/Comments: renal failure Do you want consulting provider notified?: Yes 11/27/17 10:57 Consult Physician Routine Consulting Provider: Armani Olivas Consult Reason/Comments: Post surgical monitoring Do you want consulting provider notified?: Already Contacted Primary care physician: [facility] Course: FINAL DIAGNOSES: -Right below-knee amputation for multiple nonhealing ulcers. -Coronary artery disease with prior history of coronary bypass. -Diabetes mellitus type 2, chronically on insulin causing peripheral neuropathy and diabetic retinopathy with vision limited to finger counting. -End-stage kidney disease on hemodialysis Wednesday, Wednesday and Wednesday. -Obstructive sleep apnea uses a CPAP machine. -Peripheral artery disease. -Chronic gout. -Primary osteoarthritis of multiple joints. -Depression not otherwise specified. -Chronic nicotine dependence, patient is an active cigarette smoker. -Anemia of chronic kidney disease. -Acute blood loss anemia secondary as expected from an secondary to surgery -Morbid obesity body mass index 41.5.. HOSPTIAL COURSE: 52-year-old male with a long-standing history of insulin dependent diabetes, on hemodialysis and nonhealing right lower extremity wounds presented for and is status post right [id number] amputation.nephrology consulted for management of hemodialysis patient is currently on Wednesday and Wednesday.daily labs followed, hemoglobin was stable, dressing changes performed per vascular surgery recommendations. Right lower extremity brace remained in place per their instructions. has history of obstructive sleep apnea uses CPAP machine periodically throughout the day. Patient up with assistance. Tolerating his diet.. Moving his bowels. patient scheduled for hemodialysis today. Consultants agree once hemodialysis complete patient is stable for discharge back to [facility]. PHYSICAL EXAM: CARDIOVASCULAR: first and second sounds noted no edema. RESPIRATORY: respiratory effort normal lung sounds diminished bilaterally, uses a CPAP machine GI:abdomen soft nontender liver and spleen not palpable. MUSKULOSKELETAL:right lower extremity Odilon wrapped and brace in place per vascular surgery echo conditions. PSYCHIATRY: Alert and oriented 3 mood and affect normal. Patient was seen and examined by nurse practitioner Lucille Alcantar in all elements of the case discussed with attending Dr. Vivas DISPOSITION:transfer to [facility]. Patient Condition at Discharge: Stable Plan - Discharge Summary Discharge Rx Participant: Yes New Discharge Prescriptions: New Midodrine [ProAmatine] 5 mg PO DAILY PRN tab PRN Reason: prior to dialysis Continue Metoprolol Tartrate [Lopressor] 25 mg PO Q12HR Ubidecarenone [Co Q-10] 500 mg PO DAILY Ascorbic Acid [Vitamin C] 500 mg PO HS Sevelamer [Renvela] 3,200 mg PO TID-W/MEALS INSULIN LISPRO (humaLOG) [humaLOG] 19 units SQ AC-TID Amiodarone HCl [Cordarone] 100 mg PO QAM Loratadine [Claritin] 10 mg PO HS Allopurinol [Zyloprim] 100 mg PO DAILY Multivitamins, Thera [Multivitamin (formulary)] 1 tab PO DAILY Atropine Sulfate [Atropine Sulfate 1%] 1 drop RIGHT EYE DAILY Cinacalcet HCl [Sensipar] 60 mg PO HS Fluticasone Nasal [place] [Flonase Nasal [place]] 1 spray EA NOSTRIL RT-BID HYDROcodone/APAP 7.5-325MG [Festus 7.5-325] 1 tab PO Q4H PRN PRN Reason: Pain Insulin Glargine [Lantus] 42 unit SQ HS Acetaminophen Tab [Tylenol] 650 mg PO Q6H PRN PRN Reason: Pain Artificial Tears-Hypromellose [Artificial Tear Drops] 1 drops BOTH EYES BID Difluprednate [Durezol] 1 drop BOTH EYES QID Famotidine [Pepcid] 20 mg PO DAILY INSULIN LISPRO (HumaLOG) [humaLOG] 0 units SQ ACHS Diphenoxylate HCl/Atropine [Lomotil 2.5-0.025 mg Tablet] 2 tab PO Q4H PRN PRN Reason: Diarrhea Fexofenadine HCl [Jeannette Allergy] 180 mg PO HS Calcium Acetate [PhosLo] 667 mg PO TID DULoxetine HCL [Cymbalta] 60 mg PO DAILY Melatonin 5 mg PO HS Clopidogrel [Plavix] 75 mg PO DAILY No Action Oseltamivir Phosphate [Tamiflu] 30 mg PO ONCE Discharge Medication List Metoprolol Tartrate [Lopressor] 25 mg PO Q12HR 08/09/14 [History] Ubidecarenone [Co Q-10] 500 mg PO DAILY 08/09/14 [History] Ascorbic Acid [Vitamin C] 500 mg PO HS 11/04/14 [History] Sevelamer [Renvela] 3,200 mg PO TID-W/MEALS 02/26/15 [History] Amiodarone HCl [Cordarone] 100 mg PO QAM 10/26/15 [History] INSULIN LISPRO (humaLOG) [humaLOG] 19 units SQ AC-TID 10/26/15 [History] Loratadine [Claritin] 10 mg PO HS 02/04/16 [History] Allopurinol [Zyloprim] 100 mg PO DAILY 02/16/16 [History] Multivitamins, Thera [Multivitamin (formulary)] 1 tab PO DAILY 02/16/16 [History ] Atropine Sulfate [Atropine Sulfate 1%] 1 drop RIGHT EYE DAILY 11/15/16 [History] Cinacalcet HCl [Sensipar] 60 mg PO HS 08/11/17 [History] Fluticasone Nasal [place] [Flonase Nasal [place]] 1 spray EA NOSTRIL RT-BID [History] HYDROcodone/APAP 7.5-325MG [Festus 7.5-325] 1 tab PO Q4H PRN 08/11/17 [History] Insulin Glargine [Lantus] 42 unit SQ HS 08/11/17 [History] Acetaminophen Tab [Tylenol] 650 mg PO Q6H PRN 10/18/17 [History] Artificial Tears-Hypromellose [Artificial Tear Drops] 1 drops BOTH EYES BID [History] Difluprednate [Durezol] 1 drop BOTH EYES QID 10/18/17 [History] Famotidine [Pepcid] 20 mg PO DAILY 10/18/17 [History] INSULIN LISPRO (HumaLOG) [humaLOG] 0 units SQ ACHS 10/18/17 [History] Diphenoxylate HCl/Atropine [Lomotil 2.5-0.025 mg Tablet] 2 tab PO Q4H PRN [History] Calcium Acetate [PhosLo] 667 mg PO TID 11/24/17 [History] DULoxetine HCL [Cymbalta] 60 mg PO DAILY 11/24/17 [History] Fexofenadine HCl [Jeannette Allergy] 180 mg PO HS 11/24/17 [History] Melatonin 5 mg PO HS 11/24/17 [History] Clopidogrel [Plavix] 75 mg PO DAILY 11/25/17 [History] Oseltamivir Phosphate [Tamiflu] 30 mg PO ONCE 11/25/17 [History] Midodrine [ProAmatine] 5 mg PO DAILY PRN tab 11/29/17 [Rx] Follow up Appointment(s)/Referral(s): Ronni Khalil MD [STAFF PHYSICIAN] - 11/30/17 David Duque DO [Doctor of Osteopathic Medicine] - 1 Week Marbin Avendaño DO [STAFF PHYSICIAN] - 1 Week Ambulatory/Diagnostic Orders: Basic Metabolic Panel [LAB.AMB] Location: Determined By Patient Activity/Diet/Wound Care/Special Instructions: Hold antihypertensives fpr SBP less than 120, check blood pressure in the arm with out prior fistula or graft Consistent Carbohydrate diet, low potassium low phosphorous Discharge Disposition: TRANSFER TO SNF/ECF
== END 2017-11-30 12:50 | DRG 617 ==
LOC: 2ORMAIN 08:05 → 5MS5E 16:29
PROVIDERS: ADMIT Hospitalist; ATTEND Hospitalist
PROC: 0Y6H0Z2 Detachment at Right Lower Leg, Mid, Open Approach (ICD-10-PCS; 2017-11-25)
PROC: 5A1D70Z Performance of Urinary Filtration, Intermittent, Less than 6 Hours Per Day (ICD-10-PCS; principal; 2017-11-25 10:00)
DX: E11.622 Type 2 diabetes mellitus with other skin ulcer (principal); I12.0 Hypertensive chronic kidney disease with stage 5 chronic kidney disease or end stage renal disease; E11.22 Type 2 diabetes mellitus with diabetic chronic kidney disease; D62 Acute posthemorrhagic anemia; E11.51 Type 2 diabetes mellitus with diabetic peripheral angiopathy without gangrene; E66.01 Morbid (severe) obesity due to excess calories; L97.919 Non-pressure chronic ulcer of unspecified part of right lower leg with unspecified severity; Z68.41 Body mass index [BMI] 40.0-44.9, adult; E11.42 Type 2 diabetes mellitus with diabetic polyneuropathy; E11.319 Type 2 diabetes mellitus with unspecified diabetic retinopathy without macular edema; I48.0 Paroxysmal atrial fibrillation; E61.1 Iron deficiency; E78.5 Hyperlipidemia, unspecified; F17.210 Nicotine dependence, cigarettes, uncomplicated; F32.9 Major depressive disorder, single episode, unspecified; G47.33 Obstructive sleep apnea (adult) (pediatric); H54.8 Legal blindness, as defined in USA; I25.10 Atherosclerotic heart disease of native coronary artery without angina pectoris; I70.8 Atherosclerosis of other arteries; J45.909 Unspecified asthma, uncomplicated; M19.91 Primary osteoarthritis, unspecified site; M1A.9XX0 Chronic gout, unspecified, without tophus (tophi); N18.6 End stage renal disease; D63.1 Anemia in chronic kidney disease; Z79.4 Long term (current) use of insulin; Z79.899 Other long term (current) drug therapy; Z80.9 Family history of malignant neoplasm, unspecified; Z86.14 Personal history of Methicillin resistant Staphylococcus aureus infection; Z87.442 Personal history of urinary calculi; Z79.02 Long term (current) use of antithrombotics/antiplatelets; Z95.1 Presence of aortocoronary bypass graft; Z99.2 Dependence on renal dialysis; Z88.4 Allergy status to anesthetic agent; Z91.018 Allergy to other foods; Z79.51 Long term (current) use of inhaled steroids; Z79.891 Long term (current) use of opiate analgesic
CPT/HCPCS: 80048; 80053; 82728; 83036; 83540; 83550; 84100; 85025; 86850; 86900; 86901; 90935; 94760

== ENCOUNTER 2018-12-12 18:33 | Inpatient (IN) | payer MEDICARE, OTHER ==
[2018-12-12] MEDS ORDERED: ACETAMINOPHEN TAB 325 MG TAB PO STA (18:42)
--- NOTE | 2018-12-12 18:48 | ED ---
Altered Mental Status HPI - General Stated Complaint: Poss Sepsis Time Seen by Provider: 12/12/18 18:38 Source: EMS, RN notes reviewed, old records reviewed Mode of arrival: EMS Limitations: altered mental status - History of Present Illness Initial Comments: This is a 53-year-old male with a history of chronic renal failure with dialysis today history of diabetes and right below the knee amputation normally is awake alert oriented 4 after dialysis today was found to have this confusion with being awake and alert oriented times one is found have a temperature 103.7. He is noted to be tachycardic. Reportedly had a sluggish left pupil he is blind in his right eye. No focal deficits. No trauma reported no other modifying factors MD Complaint: altered mental status - Related Data Home Medications Medication Instructions Recorded Confirmed Ubidecarenone [Co Q-10] 500 mg PO DAILY 08/09/14 12/12/18 Ascorbic Acid [Vitamin C] 500 mg PO HS 11/04/14 12/12/18 Sevelamer [Renvela] 3,200 mg PO TID-W/MEALS 02/26/15 12/12/18 INSULIN LISPRO (humaLOG) [humaLOG] 28 units SQ AC-TID 10/26/15 12/12/18 Allopurinol [Zyloprim] 100 mg PO DAILY@0800 02/16/16 12/12/18 Multivitamins, Thera [Multivitamin 1 tab PO DAILY 02/16/16 12/12/18 (formulary)] Atropine Sulfate [Atropine Sulfate 1 drop RIGHT EYE DAILY@0800 11/15/16 12/12/18 1%] Fluticasone Nasal [place] [Flonase 1 spray EA NOSTRIL RT-BID 08/11/17 12/12/18 Nasal [place]] HYDROcodone/APAP 7.5-325MG [[place] 1 tab PO Q4H PRN 08/11/17 12/12/18 7.5-325] Insulin Glargine [Lantus] 66 unit SQ HS 08/11/17 12/12/18 Famotidine [Pepcid] 20 mg PO DAILY@0800 10/18/17 12/12/18 INSULIN LISPRO (HumaLOG) [humaLOG] 0 units SQ ACHS 10/18/17 12/12/18 Diphenoxylate HCl/Atropine 2 tab PO Q6H PRN 10/21/17 12/12/18 [Lomotil 2.5-0.025 mg Tablet] Calcium Acetate [PhosLo] 667 mg PO TID@0800,1200,1800 11/24/17 12/12/18 DULoxetine HCL [Cymbalta] 60 mg PO DAILY@0800 11/24/17 12/12/18 Fexofenadine HCl [Jeannette Allergy] 180 mg PO HS 11/24/17 12/12/18 Melatonin 5 mg PO HS 11/24/17 12/12/18 Clopidogrel [Plavix] 75 mg PO DAILY@1600 11/25/17 12/12/18 Albuterol Nebulized [Ventolin 2.5 mg INHALATION RT-Q6H PRN 12/12/18 12/12/18 Nebulized] Cinacalcet HCl [Sensipar] 30 mg PO DAILY@0800 12/12/18 12/12/18 Gabapentin [Neurontin] 300 mg PO HS 12/12/18 12/12/18 Midodrine HCl [ProAmatine] 10 mg PO DAILY@0800,1200,1800 12/12/18 12/12/18 Warfarin [Coumadin] 5 mg PO DAILY 12/12/18 12/12/18 busPIRone HCL [Buspar] 7.5 mg PO BID 12/12/18 12/12/18 Allergies Allergy/AdvReac Type Severity Reaction Status Date / Time tomato Allergy Unknown Unknown Verified 12/12/18 19:32 losartan potassium AdvReac Unknown LIGHTHEADED Verified 12/12/18 19:32 [From Jam] Review of Systems ROS Statement: Those systems with pertinent positive or pertinent negative responses have been documented in the HPI. ROS Other: All systems not noted in ROS Statement are negative. Past Medical History Past Medical History: Asthma, Coronary Artery Disease (CAD), Diabetes Mellitus, Dialysis, Eye Disorder, Hyperlipidemia, Hypertension, Osteoarthritis (OA), Osteoarthritis (OA), Prostate Disorder, Renal Disease, Skin Disorder, Sleep Apnea/CPAP/BIPAP, Sleep Apnea/CPAP/BIPAP, Vascular Disorder, Vascular Disorder Additional Past Medical History / Comment(s): POSSIBLE PAST HX OF AFIB PER MEDILODGE HX, Current R foot wound-diaz 2 ulcer-CURRENT DRESSING, ESRD with hemodialysis M,W, F-thru left upper arm graft-diabetic NEUROPATHY in bilateral legs and feet and starting in his hands, legally blind-pt unsure why but thinks could be d/t retinopathy, vertigo, PVD, KIDNEY STONES, gout, frequent diarrhea, DJD, anemia, thrombocytopenia, USES C-PAP MACHINE, hx of cellulitis bilateral legs/feet,bacterial overgrowth syndrome, past L wrist fracture.M,W, F-thru R upper arm graft, diabetic NEUROPATHY bilateral legs and feet and starting in bilateral hands, PVD, KIDNEY STONES, gout, frequent diarrhea, DJD, anemia, Thrombocytopenia. History of Any Multi-Drug Resistant Organisms: MRSA, MRSA, VRE Date of last positivie culture/infection: 06/01/18 MDRO Source:: rt.foot Past Surgical History: Cholecystectomy, Coronary Bypass/CABG, Heart Catheterization, Orthopedic Surgery Additional Past Surgical History / Comment(s): 11/04/15 Keller cath for ABX therapy, AMPUTATION GREAT R TOE , DEBRIDEMENT OF LEG/R foot, left eye surgery including retinal detachment repair and laser surgery and cataract removal, R eye surgery for blood behind eye twice, KIDNEY STONE REMOVAL, R carpal tunnel surgery, CABG-4 vessel, EGD/colonoscopy. Past Anesthesia/Blood Transfusion Reactions: No Reported Reaction Additional Past Anesthesia/Blood Transfusion Reaction / Comment(s): NEVER HAD BLOOD TRANSFUSION Past Psychological History: Depression Smoking Status: Current some day smoker Past Alcohol Use History: None Reported Past Drug Use History: None Reported - Past Family History Mother Family Medical History: No Reported History Additional Family Medical History / Comment(s): Mother is 77yrs old and healthy. She is still working. Father Family Medical History: Cancer Additional Family Medical History / Comment(s): . Sister(s) Family Medical History: Deep Vein Thrombosis (DVT) General Exam - General Exam Comments Initial Comments: Is a well-developed well-nourished awake alert confused male Limitations: altered mental status General appearance: alert, lethargic Head exam: Present: atraumatic, normocephalic, normal inspection Eye exam: Present: normal appearance, PERRL, EOMI. Absent: scleral icterus, conjunctival injection, periorbital swelling Pupils: Present: other (Blind in right eye) ENT exam: Present: mucous membranes dry Neck exam: Present: normal inspection, full ROM, other (No stridor JVD or bruits ). Absent: tenderness, meningismus, lymphadenopathy Respiratory exam: Present: normal lung sounds bilaterally. Absent: respiratory distress, wheezes, rales, rhonchi, stridor Cardiovascular Exam: Present: normal rhythm, tachycardia, normal heart sounds. Absent: systolic murmur, diastolic murmur, rubs, gallop, clicks GI/Abdominal exam: Present: soft, normal bowel sounds. Absent: distended, tenderness, guarding, rebound, rigid Rectal exam: Present: deferred Extremities exam: Present: full ROM, normal capillary refill, other (Right below -knee amputation). Absent: tenderness, pedal edema, joint swelling, calf tenderness Back exam: Present: normal inspection Neurological exam: Present: alert, altered, CN II-XII intact. Absent: motor sensory deficit Psychiatric exam: Present: normal mood, flat affect Skin exam: Present: warm, dry, intact, normal color. Absent: rash Course Vital Signs 12/12/18 12/12/18 12/12/18 18:40 19:00 19:10 Temperature 102.7 F H Pulse Rate 125 H 124 H 126 H Respiratory 20 18 13 Rate Blood Pressure 118/100 118/100 167/70 O2 Sat by Pulse 97 88 L 92 L Oximetry 12/12/18 12/12/18 12/12/18 19:20 19:50 20:10 Temperature Pulse Rate 125 H 125 H Respiratory 15 16 12 Rate Blood Pressure 167/70 161/101 142/52 O2 Sat by Pulse 98 100 Oximetry 12/12/18 12/12/18 12/12/18 20:40 21:10 21:20 Temperature Pulse Rate 121 H 120 H 118 H Respiratory 15 15 11 L Rate Blood Pressure 162/75 161/72 161/72 O2 Sat by Pulse 100 Oximetry 12/12/18 12/12/18 12/12/18 21:40 22:20 22:30 Temperature 98.4 F Pulse Rate 115 H 112 H 109 H Respiratory 16 22 7 L Rate Blood Pressure 156/67 141/67 141/67 O2 Sat by Pulse 100 97 Oximetry 12/12/18 12/12/18 12/12/18 22:40 23:10 23:40 Temperature Pulse Rate 107 H 106 H 107 H Respiratory 6 L Rate Blood Pressure 145/61 122/73 151/80 O2 Sat by Pulse 98 99 Oximetry 12/13/18 00:09 Temperature 99.0 F Pulse Rate Respiratory Rate Blood Pressure O2 Sat by Pulse Oximetry - Reevaluation(s) Reevaluation #1: 12/12/18 23:53 Reevaluation patient reveals he is more awake and alert oriented 3 he's wondering why he is at the hospital. Medical Decision Making - Medical Decision Making I did reevaluate the patient again he is awake alert oriented history he will be admitted for inpatient treatment of UTI troponin is slightly elevated likely secondary to renal failure - Lab Data Result diagrams: 12/12/18 19:09 12/12/18 19:09 Lab Results 12/12/18 12/12/18 12/12/18 Range/Units 19:09 19:09 19:09 WBC 11.2 H (3.8-10.6) k/uL RBC 3.45 L (4.30-5.90) m/uL Hgb 10.2 L (13.0-17.5) gm/dL Hct 31.8 L (39.0-53.0) % MCV 92.4 (80.0-100.0) fL MCH 29.7 (25.0-35.0) pg MCHC 32.2 (31.0-37.0) g/dL RDW 17.3 H (11.5-15.5) % Plt Count 248 (150-450) k/uL Neutrophils % 92 % Lymphocytes % 2 % Monocytes % 4 % Eosinophils % 1 % Basophils % 0 % Neutrophils # 10.3 H (1.3-7.7) k/uL Lymphocytes # 0.3 L (1.0-4.8) k/uL Monocytes # 0.4 (0-1.0) k/uL Eosinophils # 0.1 (0-0.7) k/uL Basophils # 0.0 (0-0.2) k/uL Hypochromasia Moderate Poikilocytosis Slight Anisocytosis Slight PT (9.0-12.0) sec INR (<1.2) APTT (22.0-30.0) sec Sodium 139 (137-145) mmol/L Potassium 4.3 (3.5-5.1) mmol/L Chloride 92 L (98-107) mmol/L Carbon Dioxide 36 H (22-30) mmol/L Anion Gap 11 mmol/L BUN 27 H (9-20) mg/dL Creatinine 3.96 H (0.66-1.25) mg/dL Est GFR (CKD-EPI)AfAm 18 (>60 ml/min/1.73 sqM) Est GFR (CKD-EPI)NonAf 16 (>60 ml/min/1.73 sqM) Glucose 195 H (74-99) mg/dL Plasma Lactic Acid Rambo (0.7-2.0) mmol/L Calcium 9.0 (8.4-10.2) mg/dL Total Bilirubin 1.0 (0.2-1.3) mg/dL AST 21 (17-59) U/L ALT 28 (21-72) U/L Alkaline Phosphatase 100 (38-126) U/L Total Creatine Kinase 38 L (55-170) U/L CK-MB (CK-2) 1.1 (0.0-2.4) ng/mL CK-MB (CK-2) Rel Index 2.9 Troponin I 0.044 H* (0.000-0.034) ng/mL Total Protein 7.0 (6.3-8.2) g/dL Albumin 4.1 (3.5-5.0) g/dL Cortisol 43 ug/dL Urine Color Urine Appearance (Clear) Urine pH (5.0-8.0) Ur Specific [place] (1.001-1.035) Urine Protein (Negative) Urine Glucose (UA) (Negative) Urine Ketones (Negative) Urine Blood (Negative) Urine Nitrite (Negative) Urine Bilirubin (Negative) Urine Urobilinogen (<2.0) mg/dL Ur Leukocyte Esterase (Negative) Urine RBC (0-5) /hpf Urine WBC (0-5) /hpf Urine WBC Clumps (None) /hpf Urine Bacteria (None) /hpf Influenza Type A RNA (Not Detectd) Influenza Type B (PCR) (Not Detectd) 12/12/18 12/12/18 12/12/18 Range/Units 19:09 19:09 19:16 WBC (3.8-10.6) k/uL RBC (4.30-5.90) m/uL Hgb (13.0-17.5) gm/dL Hct (39.0-53.0) % MCV (80.0-100.0) fL MCH (25.0-35.0) pg MCHC (31.0-37.0) g/dL RDW (11.5-15.5) % Plt Count (150-450) k/uL Neutrophils % % Lymphocytes % % Monocytes % % Eosinophils % % Basophils % % Neutrophils # (1.3-7.7) k/uL Lymphocytes # (1.0-4.8) k/uL Monocytes # (0-1.0) k/uL Eosinophils # (0-0.7) k/uL Basophils # (0-0.2) k/uL Hypochromasia Poikilocytosis Anisocytosis PT 19.5 H (9.0-12.0) sec INR 2.0 H (<1.2) APTT 38.1 H (22.0-30.0) sec Sodium (137-145) mmol/L Potassium (3.5-5.1) mmol/L Chloride (98-107) mmol/L Carbon Dioxide (22-30) mmol/L Anion Gap mmol/L BUN (9-20) mg/dL Creatinine (0.66-1.25) mg/dL Est GFR (CKD-EPI)AfAm (>60 ml/min/1.73 sqM) Est GFR (CKD-EPI)NonAf (>60 ml/min/1.73 sqM) Glucose (74-99) mg/dL Plasma Lactic Acid Rambo 1.9 (0.7-2.0) mmol/L Calcium (8.4-10.2) mg/dL Total Bilirubin (0.2-1.3) mg/dL AST (17-59) U/L ALT (21-72) U/L Alkaline Phosphatase (38-126) U/L Total Creatine Kinase (55-170) U/L CK-MB (CK-2) (0.0-2.4) ng/mL CK-MB (CK-2) Rel Index Troponin I (0.000-0.034) ng/mL Total Protein (6.3-8.2) g/dL Albumin (3.5-5.0) g/dL Cortisol ug/dL Urine Color Urine Appearance (Clear) Urine pH (5.0-8.0) Ur Specific [place] (1.001-1.035) Urine Protein (Negative) Urine Glucose (UA) (Negative) Urine Ketones (Negative) Urine Blood (Negative) Urine Nitrite (Negative) Urine Bilirubin (Negative) Urine Urobilinogen (<2.0) mg/dL Ur Leukocyte Esterase (Negative) Urine RBC (0-5) /hpf Urine WBC (0-5) /hpf Urine WBC Clumps (None) /hpf Urine Bacteria (None) /hpf Influenza Type A RNA Not Detected (Not Detectd) Influenza Type B (PCR) Not Detected (Not Detectd) 12/12/18 Range/Units 22:59 WBC (3.8-10.6) k/uL RBC (4.30-5.90) m/uL Hgb (13.0-17.5) gm/dL Hct (39.0-53.0) % MCV (80.0-100.0) fL MCH (25.0-35.0) pg MCHC (31.0-37.0) g/dL RDW (11.5-15.5) % Plt Count (150-450) k/uL Neutrophils % % Lymphocytes % % Monocytes % % Eosinophils % % Basophils % % Neutrophils # (1.3-7.7) k/uL Lymphocytes # (1.0-4.8) k/uL Monocytes # (0-1.0) k/uL Eosinophils # (0-0.7) k/uL Basophils # (0-0.2) k/uL Hypochromasia Poikilocytosis Anisocytosis PT (9.0-12.0) sec INR (<1.2) APTT (22.0-30.0) sec Sodium (137-145) mmol/L Potassium (3.5-5.1) mmol/L Chloride (98-107) mmol/L Carbon Dioxide (22-30) mmol/L Anion Gap mmol/L BUN (9-20) mg/dL Creatinine (0.66-1.25) mg/dL Est GFR (CKD-EPI)AfAm (>60 ml/min/1.73 sqM) Est GFR (CKD-EPI)NonAf (>60 ml/min/1.73 sqM) Glucose (74-99) mg/dL Plasma Lactic Acid [place] (0.7-2.0) mmol/L Calcium (8.4-10.2) mg/dL Total Bilirubin (0.2-1.3) mg/dL AST (17-59) U/L ALT (21-72) U/L Alkaline Phosphatase (38-126) U/L Total Creatine Kinase (55-170) U/L CK-MB (CK-2) (0.0-2.4) ng/mL CK-MB (CK-2) Rel Index Troponin I (0.000-0.034) ng/mL Total Protein (6.3-8.2) g/dL Albumin (3.5-5.0) g/dL Cortisol ug/dL Urine Color Yellow Urine Appearance Turbid (Clear) Urine pH 7.5 (5.0-8.0) Ur Specific [place] 1.009 (1.001-1.035) Urine Protein 3+ H (Negative) Urine Glucose (UA) Negative (Negative) Urine Ketones Negative (Negative) Urine Blood Small H (Negative) Urine Nitrite Negative (Negative) Urine Bilirubin Negative (Negative) Urine Urobilinogen <2.0 (<2.0) mg/dL Ur Leukocyte Esterase Large H (Negative) Urine RBC 13 H (0-5) /hpf Urine WBC >182 H (0-5) /hpf Urine WBC Clumps Many H (None) /hpf Urine Bacteria Moderate H (None) /hpf Influenza Type A RNA (Not Detectd) Influenza Type B (PCR) (Not Detectd) - EKG Data -: EKG Interpreted by Pa EKG shows normal: sinus rhythm (Sinus tachycardia of 125 MS interval 176 QRS duration 140 QT since QTC 336/44 left exodeviation a bundle-branch block) - Radiology Data Radiology results: report reviewed (CT report and imaging was reviewed no acute findings.), image reviewed Disposition Clinical Impression: Delirium due to general medical condition, Urinary tract infection, Febrile illness, acute, Chronic renal failure syndrome Disposition: ADMITTED IP TO THIS [facility] Condition: Stable Referrals: Leodan Ch MD [Primary Care Provider] - 1-2 days
[2018-12-12 19:33] LABS: Anisocytosis Slight; Basophils % (A) 0 %; Eosinophils # (A) 0.1 k/uL (0-0.7); Eosinophils % (A) 1 %; HCT 31.8 % (39.0-53.0); HGB 10.2 gm/dL (13.0-17.5); Hypochromasia Moderate; Lymphocytes # (A) 0.3 k/uL (1.0-4.8); Lymphocytes % (A) 2 %; MCH 29.7 pg (25.0-35.0); MCHC 32.2 g/dL (31.0-37.0); MCV 92.4 fL (80.0-100.0); Mean Platelet Volume 6.5; Monocytes # (A) 0.4 k/uL (0-1.0); Monocytes % (A) 4 %; Neutrophils # (A) 10.3 k/uL (1.3-7.7); Neutrophils % (A) 92 %; Platelet Count 248 k/uL (150-450); Poikilocytosis Slight; RBC 3.45 m/uL (4.30-5.90); RDW 17.3 % (11.5-15.5); WBC 11.2 k/uL (3.8-10.6)
[2018-12-12] MEDS: SODIUM CHLORIDE 0.9% 500 ML 500 ML IV SCH ×2 (19:44→19:47)
[2018-12-12 19:47] LABS: Albumin 4.1 g/dL (3.5-5.0); Potassium 4.3 mmol/L (3.5-5.1)
[2018-12-12 19:52] LABS: Partial Thromboplastin Time 38.1 sec (22.0-30.0); Prothrombin Time 19.5 sec (9.0-12.0)
[2018-12-12 20:02] LABS: Creatine Kinase MB 1.1 ng/mL (0.0-2.4)
[2018-12-12 20:08] LABS: Troponin I 0.044 ng/mL (0.000-0.034)
--- NOTE | 2018-12-12 20:08 | CT ---
EXAMINATION TYPE: CT brain wo con DATE OF EXAM: 12/12/2018 HISTORY: possible sepsis. pt would not stay still CT DLP: 1185.4 mGycm. Automated Exposure Control for Dose Reduction was Utilized. TECHNIQUE: CT scan of the head is performed without contrast. COMPARISON: CT brain October 26, 2015 FINDINGS: There is suboptimal due to patient motion artifact degradation There is no acute intracran ial hemorrhage or midline shift identified. There is diffuse ventricular and sulcal prominence consis tent with diffuse age-related cerebral atrophy. There is low-attenuation in the periventricular whit e matter consistent with chronic small vessel ischemic change. Persistent anterior metopic suture is incidentally seen. Air-fluid level visualized portion of right maxillary sinus is now noted. Globes a re intact bilaterally. IMPRESSION: No acute intracranial hemorrhage or midline shift. There is mild to moderate diffuse ag e-related cerebral atrophy and mild chronic small vessel ischemic change redemonstrated without signi ficant interval change. New acute right maxillary sinus disease noted.
[2018-12-12 23:32] LABS: Appearance,Urine Turbid (Clear); Bacteria,Urine Moderate /hpf; Bilirubin,Urine Negative (Negative); Blood,Urine Small (Negative); Color,Urine Yellow; Glucose,Urine (UA) Negative (Negative); Ketones,Urine Negative (Negative); Leukocyte Esterase,Urine Large (Negative); Nitrite,Urine Negative (Negative); PH, Urine 7.5 (5.0-8.0); Protein,Urine 3+ (Negative); RBC,Urine 13 /hpf (0-5); Specific Gravity,Urine 1.009 (1.001-1.035); Urobilinogen,Urine <2.0 mg/dL (<2.0); WBC,Urine >182 /hpf (0-5)
--- NOTE | 2018-12-13 00:17 | XR ---
EXAM: XR Chest, 2 Views CLINICAL HISTORY: ITS.REASON XR Reason: cough TECHNIQUE: Frontal and lateral views of the chest. COMPARISON: 08/11/17 chest x-ray IMPRESSION: Left-sided central line terminates in the right atrium. No consolidation or pleural effusion. Cardiomegaly.
[2018-12-13] MEDS ORDERED: NALOXONE 0.4 MG/ML 1 ML VIAL IV PRN (00:52)
[2018-12-13] MEDS ORDERED: DIPHENOX-ATROP 2.5-0.025 MG 1 EACH TAB PO PRN (00:55)
[2018-12-13 03:39] VITALS: BMI 33.2
[2018-12-13] MEDS: ACETAMINOPHEN TAB 325 MG TAB PO PRN ×2 (03:40→11:50)
[2018-12-13] MEDS: SODIUM CHLORIDE 0.9% 1,000 ML IV SCH (03:44)
[2018-12-13] MEDS ORDERED: SODIUM CHLORIDE 0.9% 500 ML 500 ML IV ONE (04:01)
[2018-12-13] MEDS: HYDROmorphone 0.5 MG/0.5 ML SYRINGE IVP PRN (04:20)
[2018-12-13 07:07] LABS: Glucose,Whole Blood 218 mg/dL (75-99)
[2018-12-13] MEDS ORDERED: CALCIUM ACETATE 667 MG CAP PO SCH (08:00)
[2018-12-13] MEDS ORDERED: HEPARIN SODIUM,PORCINE 5,000 UNIT/ML 1 ML VIAL SQ SCH (08:00)
[2018-12-13] MEDS: INSULIN ASPART (NovoLOG) 100 UNIT/ML VIAL SQ SCH ×7 (08:35→23:09)
[2018-12-13] MEDS: PANTOPRAZOLE 40 MG/10 ML VIAL IV SCH (08:35)
[2018-12-13] MEDS ORDERED: UBIDECARENONE 500 MG PO SCH (09:00)
[2018-12-13] MEDS: SEVELAMER 800 MG TAB PO SCH ×3 (11:05→18:23)
[2018-12-13] MEDS: ALLOPURINOL 100 MG TAB PO SCH (11:05)
[2018-12-13] MEDS: ATROPINE OPHTH SOLN 1% 5ML BTL RIGHT EYE SCH (11:06)
[2018-12-13] MEDS: MIDODRINE 5 MG TAB PO SCH ×3 (11:06→17:55)
[2018-12-13] MEDS: busPIRone HCl 5 MG TAB PO SCH ×2 (11:06→23:03)
[2018-12-13] MEDS: DULoxetine HCL 60 MG CAPSULE.DR PO SCH (11:06)
[2018-12-13] MEDS: FLUTICASONE 50MCG/SPRAY NASAL 16GM EA NOSTRIL SCH ×2 (11:06→21:56)
[2018-12-13] MEDS: CINACALCET 30 MG TAB PO SCH (11:06)
[2018-12-13] MEDS: FAMOTIDINE 20 MG TAB PO SCH (11:06)
--- NOTE | 2018-12-13 11:19 | P.HPIM ---
History of Present Illness this is a pleasant 53 yo M with pmh of ESRD on hemodialysis, coronary artery disease, asthma, DM, HTN, HLP,sleep apnea on CPAP/BiPAP. , kidney stones, legally blind. Peripheral vascular disease, vertigo, gout. Patient was sent for high fever of 103.7 and confusion. The patient was lying in bed feeling distress due to shivering and chills. Other he felt confused or more tired however patient didn't want to give much information however patient states that he has pain in the penile area which an examination he has no deformity or signs symptoms of inflammation in his genital area, no swelling and tenderness. Patient also denies chest pain or abdominal pain. No dyspnea. Her nausea vomiting or sweating. On admission he had fever of 102.7 and 103.1. WBC 11.2 K. INR 2.0. Creatinine 3.9. Electrolytes within normal limits. Troponins elevated at 0.04 and 0.4. Urinalysis showing large leukocyte esterase with urine WBC more than 182. Moderate bacteria. Influenza was checked and was negative. Chest x-ray: No consultation. On admission he got 1 dose of ceftriaxone and IV fluids. Review of Systems CONSTITUTIONAL: No fever, no malaise, no fatigue. HEENT: No recent visual problems or hearing problems. Denied any sore throat. CARDIOVASCULAR: No orthopnea, PND, no palpitations, no syncope. PULMONARY: No shortness of breath, no cough, no hemoptysis. GASTROINTESTINAL: No diarrhea, no nausea, no vomiting, no abdominal pain. Normoactive bowel sounds. NEUROLOGICAL: No headaches, no weakness, no numbness. HEMATOLOGICAL: Denies any bleeding or petechiae. GENITOURINARY: Denies any burning micturition, frequency, or urgency. MUSCULOSKELETAL/RHEUMATOLOGICAL: Denies any joint pain, swelling, or any muscle pain. ENDOCRINE: Denies any polyuria or polydipsia. Past Medical History Past Medical History: Asthma, Coronary Artery Disease (CAD), Diabetes Mellitus, Dialysis, Eye Disorder, Hyperlipidemia, Hypertension, Osteoarthritis (OA), Osteoarthritis (OA), Prostate Disorder, Renal Disease, Skin Disorder, Sleep Apnea/CPAP/BIPAP, Sleep Apnea/CPAP/BIPAP, Vascular Disorder, Vascular Disorder Additional Past Medical History / Comment(s): POSSIBLE PAST HX OF AFIB PER MEDILODGE HX, Current R foot wound-diaz 2 ulcer-CURRENT DRESSING, ESRD with hemodialysis M,W, F-thru left upper arm graft-diabetic NEUROPATHY in bilateral legs and feet and starting in his hands, legally blind-pt unsure why but thinks could be d/t retinopathy, vertigo, PVD, KIDNEY STONES, gout, frequent diarrhea, DJD, anemia, thrombocytopenia, USES C-PAP MACHINE, hx of cellulitis bilateral legs/feet,bacterial overgrowth syndrome, past L wrist fracture.M,W, F-thru R upper arm graft, diabetic NEUROPATHY bilateral legs and feet and starting in bilateral hands, PVD, KIDNEY STONES, gout, frequent diarrhea, DJD, anemia, Thrombocytopenia. History of Any Multi-Drug Resistant Organisms: MRSA, MRSA, VRE Date of last positivie culture/infection: 06/01/18 MDRO Source:: rt.foot Past Surgical History: Cholecystectomy, Coronary Bypass/CABG, Heart Catheterization, Orthopedic Surgery Additional Past Surgical History / Comment(s): 11/04/15 [place] cath for ABX therapy, AMPUTATION GREAT R TOE , DEBRIDEMENT OF LEG/R foot, left eye surgery including retinal detachment repair and laser surgery and cataract removal, R eye surgery for blood behind eye twice, KIDNEY STONE REMOVAL, R carpal tunnel surgery, CABG-4 vessel, EGD/colonoscopy. Past Anesthesia/Blood Transfusion Reactions: No Reported Reaction Additional Past Anesthesia/Blood Transfusion Reaction / Comment(s): NEVER HAD BLOOD TRANSFUSION Past Psychological History: Depression Additional Psychological History / Comment(s): PT LIVES WITH OF 20 YEARS at [facility]. Smoking Status: Current some day smoker Past Alcohol Use History: None Reported Additional Past Alcohol Use History / Comment(s): Pt states he smokes occasionally, if he has access to a cigarette. He started smoking as a teen. Past Drug Use History: None Reported - Past Family History Mother Family Medical History: No Reported History Additional Family Medical History / Comment(s): Mother is 77yrs old and healthy. She is still working. Father Family Medical History: Cancer Additional Family Medical History / Comment(s): . Sister(s) Family Medical History: Deep Vein Thrombosis (DVT) Medications and Allergies Home Medications Medication Instructions Recorded Confirmed Type Ubidecarenone [Co Q-10] 500 mg PO DAILY 08/09/14 12/12/18 History Ascorbic Acid [Vitamin C] 500 mg PO HS 11/04/14 12/12/18 History Sevelamer [Renvela] 3,200 mg PO TID-W/MEALS 02/26/15 12/12/18 History INSULIN LISPRO (humaLOG) [humaLOG] 28 units SQ AC-TID 10/26/15 12/12/18 History Allopurinol [Zyloprim] 100 mg PO DAILY@0800 02/16/16 12/12/18 History Multivitamins, Thera [Multivitamin 1 tab PO DAILY 02/16/16 12/12/18 History (formulary)] Atropine Sulfate [Atropine Sulfate 1 drop RIGHT EYE DAILY@0800 11/15/16 History 1%] Fluticasone Nasal [place] [Flonase 1 spray EA NOSTRIL RT-BID 08/11/17 12/12/18 History Nasal [place]] HYDROcodone/APAP 7.5-325MG [[place] 1 tab PO Q4H PRN 08/11/17 12/12/18 History 7.5-325] Insulin Glargine [Lantus] 66 unit SQ HS 08/11/17 12/12/18 History Famotidine [Pepcid] 20 mg PO DAILY@0800 10/18/17 12/12/18 History INSULIN LISPRO (HumaLOG) [humaLOG] 0 units SQ ACHS 10/18/17 12/12/18 History Diphenoxylate HCl/Atropine 2 tab PO Q6H PRN 10/21/17 12/12/18 History [Lomotil 2.5-0.025 mg Tablet] Calcium Acetate [PhosLo] 667 mg PO TID@0800,1200,1800 11/24/17 12/12/18 History DULoxetine HCL [Cymbalta] 60 mg PO DAILY@0800 11/24/17 12/12/18 History Fexofenadine HCl [Jeannette Allergy] 180 mg PO HS 11/24/17 12/12/18 History Melatonin 5 mg PO HS 11/24/17 12/12/18 History Clopidogrel [Plavix] 75 mg PO DAILY@1600 11/25/17 12/12/18 History Albuterol Nebulized [Ventolin 2.5 mg INHALATION RT-Q6H PRN 12/12/18 12/12/18 History Nebulized] Cinacalcet HCl [Sensipar] 30 mg PO DAILY@0800 12/12/18 12/12/18 History Gabapentin [Neurontin] 300 mg PO HS 12/12/18 12/12/18 History Midodrine HCl [ProAmatine] 10 mg PO DAILY@0800,1200,1800 12/12/18 12/12/18 History Warfarin [Coumadin] 5 mg PO DAILY 12/12/18 12/12/18 History busPIRone HCL [Buspar] 7.5 mg PO BID 12/12/18 12/12/18 History Allergies Allergy/AdvReac Type Severity Reaction Status Date / Time tomato Allergy Unknown Unknown Verified 12/12/18 19:32 losartan potassium AdvReac Unknown LIGHTHEADED Verified 12/12/18 19:32 [From Jam] Physical Exam Vitals: Vital Signs Temp Pulse Pulse Resp BP BP Pulse Ox 12/13/18 06:36 98.0 F 88 18 98/61 100 12/13/18 05:59 18 101/61 100 12/13/18 05:41 98.8 F 91 18 92/55 99 12/13/18 05:21 98.3 F 98 18 96/59 98 12/13/18 05:08 102.6 F H 99 20 96/61 99 12/13/18 04:39 101.2 F H 106 H 22 142/71 97 12/13/18 03:32 103.1 F H 110 H 22 98 12/13/18 03:18 111 H 16 137/74 96 12/13/18 03:00 98.4 F 112 H 16 162/61 98 12/13/18 02:20 117 H 170/81 12/13/18 01:00 111 H 146/66 12/13/18 00:40 108 H 146/66 12/13/18 00:09 99.0 F 12/13/18 00:07 106 H 151/80 12/12/18 23:40 107 H 151/80 12/12/18 23:10 106 H 122/73 99 12/12/18 22:40 107 H 6 L 145/61 98 12/12/18 22:30 109 H 7 L 141/67 97 12/12/18 22:20 98.4 F 112 H 22 141/67 100 12/12/18 21:40 115 H 16 156/67 02/11/19 21:20 118 H 11 L 161/72 12/12/18 21:10 120 H 15 161/72 12/12/18 20:40 121 H 15 162/75 100 12/12/18 20:10 125 H 12 142/52 100 12/12/18 19:50 16 161/101 12/12/18 19:20 125 H 15 167/70 98 12/12/18 19:10 126 H 13 167/70 92 L 12/12/18 19:00 124 H 18 118/100 88 L 12/12/18 18:40 102.7 F H 125 H 20 118/100 97 Intake and Output 12/12/18 12/13/18 12/13/18 22:59 06:59 14:59 Other: Weight 131.496 kg GENERAL: The patient is alert and oriented x3, not in any acute distress. Well developed, well nourished. HEENT: Pupils are round and equally reacting to light. EOMI. No scleral icterus. No conjunctival pallor. Normocephalic, atraumatic. No pharyngeal erythema. No thyromegaly. CARDIOVASCULAR: S1 and S2 present. No murmurs, rubs, or gallops. PULMONARY: Chest is clear to auscultation, no wheezing or crackles. ABDOMEN: Soft, nontender, nondistended, normoactive bowel sounds. No palpable organomegaly. MUSCULOSKELETAL: No joint swelling or deformity. EXTREMITIES: No cyanosis, clubbing, or pedal edema. NEUROLOGICAL: Gross neurological examination did not reveal any focal deficits. SKIN: No rashes. Results CBC & Chem 7: 12/12/18 19:09 12/12/18 19:09 Labs: Abnormal Lab Results - Last 24 Hours (Table) 12/12/18 12/12/18 12/12/18 Range/Units 19:09 19:09 19:09 WBC 11.2 H (3.8-10.6) k/uL RBC 3.45 L (4.30-5.90) m/uL Hgb 10.2 L (13.0-17.5) gm/dL Hct 31.8 L (39.0-53.0) % RDW 17.3 H (11.5-15.5) % Neutrophils # 10.3 H (1.3-7.7) k/uL Lymphocytes # 0.3 L (1.0-4.8) k/uL PT (9.0-12.0) sec INR (<1.2) APTT (22.0-30.0) sec Chloride 92 L (98-107) mmol/L Carbon Dioxide 36 H (22-30) mmol/L BUN 27 H (9-20) mg/dL Creatinine 3.96 H (0.66-1.25) mg/dL Glucose 195 H (74-99) mg/dL POC Glucose (mg/dL) (75-99) mg/dL Total Creatine Kinase 38 L (55-170) U/L Troponin I 0.044 H* (0.000-0.034) ng/mL Urine Protein (Negative) Urine Blood (Negative) Ur Leukocyte Esterase (Negative) Urine RBC (0-5) /hpf Urine WBC (0-5) /hpf Urine WBC Clumps (None) /hpf Urine Bacteria (None) /hpf 12/12/18 12/12/18 12/13/18 Range/Units 19:09 22:59 06:43 WBC (3.8-10.6) k/uL RBC (4.30-5.90) m/uL Hgb (13.0-17.5) gm/dL Hct (39.0-53.0) % RDW (11.5-15.5) % Neutrophils # (1.3-7.7) k/uL Lymphocytes # (1.0-4.8) k/uL PT 19.5 H (9.0-12.0) sec INR 2.0 H (<1.2) APTT 38.1 H (22.0-30.0) sec Chloride (98-107) mmol/L Carbon Dioxide (22-30) mmol/L BUN (9-20) mg/dL Creatinine (0.66-1.25) mg/dL Glucose (74-99) mg/dL POC Glucose (mg/dL) (75-99) mg/dL Total Creatine Kinase (55-170) U/L Troponin I 0.400 H* (0.000-0.034) ng/mL Urine Protein 3+ H (Negative) Urine Blood Small H (Negative) Ur Leukocyte Esterase Large H (Negative) Urine RBC 13 H (0-5) /hpf Urine WBC >182 H (0-5) /hpf Urine WBC Clumps Many H (None) /hpf Urine Bacteria Moderate H (None) /hpf 12/13/18 Range/Units 06:46 WBC (3.8-10.6) k/uL RBC (4.30-5.90) m/uL Hgb (13.0-17.5) gm/dL Hct (39.0-53.0) % RDW (11.5-15.5) % Neutrophils # (1.3-7.7) k/uL Lymphocytes # (1.0-4.8) k/uL PT (9.0-12.0) sec INR (<1.2) APTT (22.0-30.0) sec Chloride (98-107) mmol/L Carbon Dioxide (22-30) mmol/L BUN (9-20) mg/dL Creatinine (0.66-1.25) mg/dL Glucose (74-99) mg/dL POC Glucose (mg/dL) 218 H (75-99) mg/dL Total Creatine Kinase (55-170) U/L Troponin I (0.000-0.034) ng/mL Urine Protein (Negative) Urine Blood (Negative) Ur Leukocyte Esterase (Negative) Urine RBC (0-5) /hpf Urine WBC (0-5) /hpf Urine WBC Clumps (None) /hpf Urine Bacteria (None) /hpf Thrombosis Risk Factor Assmnt - Choose All That Apply Any of the Below Risk Factors Present?: Yes Each Factor Represents 1 point: Abnormal pulmonary function (COPD), Age 41-60 years, Obesity (BMI >25), Sepsis (< 1month) Each Risk Factor Represents 3 Points: Family history of DVT/PE Thrombosis Risk Factor Assessment Total Risk Factor Score: 7 Thrombosis Risk Factor Assessment Level: High Risk Assessment and Plan Assessment: Systemic inflammatory response on admission with fever, leukocytosis with WBC 11 point UTI mostly pyelonephritis History of kidney stone End-stage renal disease on hemodialysis Elevated troponin History of coronary artery disease Diabetes mellitus, type II History of asthma Essential hypertension Hyperlipidemia Sleep apnea on CPAP/BiPAP Legally blind History of peripheral vascular disease History of gout Plan: This is a pleasant 53 years old male who presents because of sepsis secondary cord to be in view to urinary tract infection. Patient is started on antibiotics and will call infectious disease consult and check renal ultrasound. Patient is in the stage renal disease on hemodialysis and call nephrology's for management. Also will call cardiology for elevated troponin. Patient is on Plavix Labs and medication were reviewed.. Continue same treatment. Continue with symptomatic treatment. Resume home medication. Monitor lytes and vitals. DVT and GI prophylaxis. Further recommendations of the clinical course of the patient DVT prophylaxis: On warfarin GI prophylaxis: Protonix Prognosis is guarded
--- NOTE | 2018-12-13 11:21 | ECHOF ---
Referral Reason:abnormal trops MEASUREMENTS -------- HEIGHT: 180.3 cm WEIGHT: 131.1 kg BP: IVSd: 1.5 cm (0.6 - 1.1) LVIDd: 4.4 cm (3.9 - 5.3) LVPWd: 1.9 cm (0.6 - 1.1) IVSs: 2.1 cm LVIDs: 2.9 cm LVPWs: 2.3 cm Ao Diam: 2.8 cm (2.0 - 3.7) AV Cusp: 1.6 cm (1.5 - 2.6) LA Diam: 3.8 cm (2.7 - 3.8) MV E Alexei: 1.69 m/s MV DecT: 94 ms MV A Alexei: 1.68 m/s MV E/A Ratio: 1.01 RAP: 5.00 mmHg RVSP: 12.23 mmHg FINDINGS -------- Resting tachycardia (HR>100bpm). This was a technically difficult study with suboptimal views. Limited Study The left ventricular size is normal. There is moderate concentric left ventricular hypertrophy. O verall left ventricular systolic function is normal with, an EF between 60 - 65 %. The RV was not well visualized. The left atrium was not well visualized. The right atrium was not well visualized. Lumason used The aortic valve was not well visualized. The mitral valve was not well visualized. Mild mitral regurgitation is present. The tricuspid valve was not well visualized. Mild tricuspid regurgitation present. The right vent ricular systolic pressure, as measured by Doppler, is 12.23mmHg. The pulmonic valve was not well visualized. The pericardium is normal. CONCLUSIONS -------- 1. Resting tachycardia (HR>100bpm). 2. This was a technically difficult study with suboptimal views. 3. Limited Study 4. The left ventricular size is normal. 5. There is moderate concentric left ventricular hypertrophy. 6. Overall left ventricular systolic function is normal with, an EF between 60 - 65 %. 7. The RV was not well visualized. 8. The left atrium was not well visualized. 9. The right atrium was not well visualized. 10. Lumason used 11. The aortic valve was not well visualized. 12. The mitral valve was not well visualized. 13. Mild mitral regurgitation is present. 14. The tricuspid valve was not well visualized. 15. Mild tricuspid regurgitation present. 16. The right ventricular systolic pressure, as measured by Doppler, is 12.23mmHg. 17. The pulmonic valve was not well visualized. 18. The pericardium is normal. ORIENTAL MEDICINE PRACTITIONER: Wen Killian RDCS
[2018-12-13] MEDS ORDERED: VANCOMYCIN IV PER PHARMACY 1 EACH MISC MISCELLANE PRN (11:28)
[2018-12-13] MEDS: ONDANSETRON 4 MG/2 ML VIAL IVP PRN (11:47)
[2018-12-13 11:49] LABS: Glucose,Whole Blood 139 mg/dL (75-99)
[2018-12-13] MEDS ORDERED: VANCOMYCIN 2,500 MG in SODIUM CHLORIDE 0.9% 500 ML 500 ML IVPB ONE (12:00)
--- NOTE | 2018-12-13 12:06 | US ---
EXAMINATION TYPE: US kidneys/renal and bladder DATE OF EXAM: 12/13/2018 COMPARISON: Ultrasound abdomen 02/15/2016 CLINICAL HISTORY: [place]. bladder pain, poor historian EXAM MEASUREMENTS: Right Kidney: 9.8 x 4.0 x 4.5 cm Left Kidney: 7.7 x 3.9 x 4.8 cm Limited exam due to patient body habitus, patient unable to tolerate exam and uncooperative Right Kidney: Poor visualization. Appears echogenic in appearance. Cortical thinning. Possible cys tic appearing lesion - 0.5 x 0.6 x 0.5 cm Left Kidney: Poor visualization. Appears echogenic in appearance. Cortical thinning. Small in size. Bladder: Posterior internal echoes visualized. Patient unable to tolerate pressure on bladder= subop timal visualization Bilateral Jets not seen There is loss of normal cortical medullary differentiation IMPRESSION: Findings compatible with chronic renal failure, medical renal disease. Splenomegaly.
[2018-12-13] MEDS: MULTIVITAMINS, THERA 1 EACH TAB PO SCH (13:17)
--- NOTE | 2018-12-13 15:48 | P.CRDCN ---
History of Present Illness History of present illness: This is a pleasant 53-year-old male past medical history significant for end-stage renal disease on hemodialysis, coronary artery disease status post bypass grafting 2012 in [place], ischemic cardiomyopathy, left carotid endarterectomy 2012 hypertension, dyslipidemia, paroxysmal atrial fibrillation on long-term anticoagulation and diabetes mellitus. He apparently underwent dialysis yesterday as regularly scheduled after dialysis he was found to be significantly altered. He was found to have a temperature of 103.7F. He was immediately sent to the hospital for further evaluation. Upon arrival to the emergency department blood pressure was 118/100 heart rate 125 and temperature 102.7F. He was also hypoxic with pulse oxygenation level of 88%. He was started on antibiotics in the form of Rocephin and vancomycin. He is currently being treated for sepsis secondary to urinary tract infection. We have been asked to see him in consultation secondary to troponin elevation on admission. Echocardiogram obtained and reviewed and reveals preserved left ventricular systolic function with EF 60-65%. EKG reveals sinus tachycardia heart rate 125, left bundle branch block and left axis deviation. Chest x-ray is negative for an acute cardiopulmonary process. CT brain reveals no evidence of acute intracranial hemorrhage or midline shift with mild to moderate diffuse age-related cerebral atrophy and mild chronic small vessel ischemic changes without significant change and a new acute right maxillary sinus disease noted. Laboratory data reviewed, WBC 11.2, hemoglobin 10.2, platelets 248, INR 2.0, sodium 139, potassium 4.3, creatinine 3.96, troponin 0.044, 0.400, 0.332. Current cardiac medications include Plavix 75 mg daily and Coumadin 5 mg daily. Most recent echocardiogram obtained in the office December 2017 reveals preserved left ventricular systolic function with ejection fraction 50%, moderate concentric left ventricular hypertrophy, mildly dilated left atrium and mild to moderate mitral regurgitation. Most recent stress test performed in the office 2014 with a Lexiscan stress test which revealed atypical septal wall motion secondary to bypass surgery, fixed perfusion defect involving the inferior wall with diminished endocardial thickening suggestive of prior myocardial infarction with no evidence of reversible perfusion defects, ejection fraction 44%. Unable to obtain accurate review of systems secondary to altered mental status. Blood pressure 134/58 heart rate 118 fever 101.8F maintaining oxygen saturation on nasal cannula GENERAL: This is a 53-year-old in no apparent distress at the time of my examination. HEENT: Head is atraumatic, normocephalic. Mucous membranes of the mouth are moist. Neck is supple. There is no jugular venous distention. No carotid bruit is heard. LUNGS: Clear to auscultation no wheezes, rales or rhonchi. No chest wall tenderness is noted on palpation or with deep breathing. HEART: Regular rate and rhythm, tachycardic with murmur at the left sternal border, no rubs or gallops. S1 and S2 heard. ABDOMEN: Soft, nontender. Bowel sounds are heard. No organomegaly noted. EXTREMITIES: No evidence of peripheral edema and no calf tenderness noted. Right BKA. NEUROLOGIC: Altered mental status, not responding appropriately. ASSESSMENT Sepsis Febrile illness Altered mental status Urinary tract infection Mild troponin leak secondary to septic picture with no evidence of acute ischemia End stage renal disease on hemodialysis History of coronary artery disease s/p bypass grafting Hypertension Dyslipidemia Diabetes mellitus Paroxysmal atrial fibrillation on long-term anticoagulation with Coumadin Chronic nicotine dependence Right BKA Peripheral vascular disease status post carotid endarterectomy maintained on Plavix PLAN Higher-level care should be considered. Ongoing medical management of sepsis. Continue his coumadin for thromboembolic protection. Difficult to assess for chest pain or anginal equivalent due to altered mental status. Echocardiogram obtained and reviewed. EKG with no signs of acute ischemia. Further recommendations to follow based on clinical course. Thank you kindly for this consultation. Nurse Practitioner note has been reviewed, I agree with a documented findings and plan of care. Patient was seen and examined. Past Medical History Past Medical History: Asthma, Coronary Artery Disease (CAD), Diabetes Mellitus, Dialysis, Eye Disorder, Hyperlipidemia, Hypertension, Osteoarthritis (OA), Osteoarthritis (OA), Prostate Disorder, Renal Disease, Skin Disorder, Sleep Apnea/CPAP/BIPAP, Sleep Apnea/CPAP/BIPAP, Vascular Disorder, Vascular Disorder Additional Past Medical History / Comment(s): POSSIBLE PAST HX OF AFIB PER MEDILODGE HX, Current R foot wound-diaz 2 ulcer-CURRENT DRESSING, ESRD with hemodialysis M,W, F-thru left upper arm graft-diabetic NEUROPATHY in bilateral legs and feet and starting in his hands, legally blind-pt unsure why but thinks could be d/t retinopathy, vertigo, PVD, KIDNEY STONES, gout, frequent diarrhea, DJD, anemia, thrombocytopenia, USES C-PAP MACHINE, hx of cellulitis bilateral legs/feet,bacterial overgrowth syndrome, past L wrist fracture.M,W, F-thru R upper arm graft, diabetic NEUROPATHY bilateral legs and feet and starting in bilateral hands, PVD, KIDNEY STONES, gout, frequent diarrhea, DJD, anemia, Thrombocytopenia. History of Any Multi-Drug Resistant Organisms: MRSA, MRSA, VRE Date of last positivie culture/infection: 06/01/18 MDRO Source:: [email or web address].foot Past Surgical History: Cholecystectomy, Coronary Bypass/CABG, Heart Catheterization, Orthopedic Surgery Additional Past Surgical History / Comment(s): 11/04/15 [place] cath for ABX therapy, AMPUTATION GREAT R TOE , DEBRIDEMENT OF LEG/R foot, left eye surgery including retinal detachment repair and laser surgery and cataract removal, R eye surgery for blood behind eye twice, KIDNEY STONE REMOVAL, R carpal tunnel surgery, CABG-4 vessel, EGD/colonoscopy. Past Anesthesia/Blood Transfusion Reactions: No Reported Reaction Additional Past Anesthesia/Blood Transfusion Reaction / Comment(s): NEVER HAD BLOOD TRANSFUSION Past Psychological History: Depression Additional Psychological History / Comment(s): PT LIVES WITH OF 20 YEARS at [facility]. Smoking Status: Current some day smoker Past Alcohol Use History: None Reported Additional Past Alcohol Use History / Comment(s): Pt states he smokes occasionally, if he has access to a cigarette. He started smoking as a teen. Past Drug Use History: None Reported - Past Family History Mother Family Medical History: No Reported History Additional Family Medical History / Comment(s): Mother is 77yrs old and healthy. She is still working. Father Family Medical History: Cancer Additional Family Medical History / Comment(s): . Sister(s) Family Medical History: Deep Vein Thrombosis (DVT) Medications and Allergies Home Medications Medication Instructions Recorded Confirmed Type Ubidecarenone [Co Q-10] 500 mg PO DAILY 08/09/14 12/12/18 History Ascorbic Acid [Vitamin C] 500 mg PO HS 11/04/14 12/12/18 History Sevelamer [Renvela] 3,200 mg PO TID-W/MEALS 02/26/15 12/12/18 History INSULIN LISPRO (humaLOG) [humaLOG] 28 units SQ AC-TID 10/26/15 12/12/18 History Allopurinol [Zyloprim] 100 mg PO DAILY@0800 02/16/16 12/12/18 History Multivitamins, Thera [Multivitamin 1 tab PO DAILY 02/16/16 12/12/18 History (formulary)] Atropine Sulfate [Atropine Sulfate 1 drop RIGHT EYE DAILY@0800 11/15/16 History 1%] Fluticasone Nasal [place] [Flonase 1 spray EA NOSTRIL RT-BID 08/11/17 12/12/18 History Nasal [place]] HYDROcodone/APAP 7.5-325MG [[place] 1 tab PO Q4H PRN 08/11/17 12/12/18 History 7.5-325] Insulin Glargine [Lantus] 66 unit SQ HS 08/11/17 12/12/18 History Famotidine [Pepcid] 20 mg PO DAILY@0800 10/18/17 12/12/18 History INSULIN LISPRO (HumaLOG) [humaLOG] 0 units SQ ACHS 10/18/17 12/12/18 History Diphenoxylate HCl/Atropine 2 tab PO Q6H PRN 10/21/17 12/12/18 History [Lomotil 2.5-0.025 mg Tablet] Calcium Acetate [PhosLo] 667 mg PO TID@0800,1200,1800 11/24/17 12/12/18 History DULoxetine HCL [Cymbalta] 60 mg PO DAILY@0800 11/24/17 12/12/18 History Fexofenadine HCl [Jeannette Allergy] 180 mg PO HS 11/24/17 12/12/18 History Melatonin 5 mg PO HS 11/24/17 12/12/18 History Clopidogrel [Plavix] 75 mg PO DAILY@1600 11/25/17 12/12/18 History Albuterol Nebulized [Ventolin 2.5 mg INHALATION RT-Q6H PRN 12/12/18 12/12/18 History Nebulized] Cinacalcet HCl [Sensipar] 30 mg PO DAILY@0800 12/12/18 12/12/18 History Gabapentin [Neurontin] 300 mg PO HS 12/12/18 12/12/18 History Midodrine HCl [ProAmatine] 10 mg PO DAILY@0800,1200,1800 12/12/18 12/12/18 History Warfarin [Coumadin] 5 mg PO DAILY 12/12/18 12/12/18 History busPIRone HCL [Buspar] 7.5 mg PO BID 12/12/18 12/12/18 History Allergies Allergy/AdvReac Type Severity Reaction Status Date / Time tomato Allergy Unknown Unknown Verified 12/12/18 19:32 losartan potassium AdvReac Unknown LIGHTHEADED Verified 12/12/18 19:32 [From [facility]] Physical Exam Vitals: Vital Signs Temp Pulse Pulse Resp BP BP Pulse Ox 12/13/18 14:32 101.8 F H 12/13/18 12:45 99.7 F H 12/13/18 12:14 91 L 12/13/18 11:20 101.1 F H 118 H 134/58 12/13/18 06:36 98.0 F 88 18 98/61 100 12/13/18 05:59 18 101/61 100 12/13/18 05:41 98.8 F 91 18 92/55 99 12/13/18 05:21 98.3 F 98 18 96/59 98 12/13/18 05:08 102.6 F H 99 20 96/61 99 12/13/18 04:39 101.2 F H 106 H 22 142/71 97 12/13/18 03:32 103.1 F H 110 H 22 98 12/13/18 03:18 111 H 16 137/74 96 12/13/18 03:00 98.4 F 112 H 16 162/61 98 12/13/18 02:20 117 H 170/81 12/13/18 01:00 111 H 146/66 12/13/18 00:40 108 H 146/66 12/13/18 00:09 99.0 F 12/13/18 00:07 106 H 151/80 12/12/18 23:40 107 H 151/80 12/12/18 23:10 106 H 122/73 99 12/12/18 22:40 107 H 6 L 145/61 98 12/12/18 22:30 109 H 7 L 141/67 97 12/12/18 22:20 98.4 F 112 H 22 141/67 100 12/12/18 21:40 115 H 16 156/67 12/12/18 21:20 118 H 11 L 161/72 12/12/18 21:10 120 H 15 161/72 12/12/18 20:40 121 H 15 162/75 100 12/12/18 20:10 125 H 12 142/52 100 12/12/18 19:50 16 161/101 12/12/18 19:20 125 H 15 167/70 98 12/12/18 19:10 126 H 13 167/70 92 L 12/12/18 19:00 124 H 18 118/100 88 L 12/12/18 18:40 102.7 F H 125 H 20 118/100 97 Intake and Output 12/13/18 12/13/18 12/13/18 06:59 14:59 22:59 Intake Total 160 Balance 160 Intake: Intake, IV Titration 160 Amount Sodium Chloride 0.9% 1, 160 000 ml @ 20 mls/hr IV . Q24H [facility] Rx#:[id number] Results 12/12/18 19:09 12/12/18 19:09 Cardiac Enzymes 12/12/18 12/12/18 12/13/18 Range/Units 19:09 19:09 06:43 AST 21 (17-59) U/L CK-MB (CK-2) 1.1 (0.0-2.4) ng/mL Troponin I 0.044 H* 0.400 H* (0.000-0.034) ng/mL 12/13/18 Range/Units 11:04 AST (17-59) U/L CK-MB (CK-2) (0.0-2.4) ng/mL Troponin I 0.332 H* (0.000-0.034) ng/mL Coagulation 12/12/18 Range/Units 19:09 PT 19.5 H (9.0-12.0) sec APTT 38.1 H (22.0-30.0) sec CBC 12/12/18 Range/Units 19:09 WBC 11.2 H (3.8-10.6) k/uL RBC 3.45 L (4.30-5.90) m/uL Hgb 10.2 L (13.0-17.5) gm/dL Hct 31.8 L (39.0-53.0) % Plt Count 248 (150-450) k/uL Comprehensive Metabolic Panel 12/12/18 Range/Units 19:09 Sodium 139 (137-145) mmol/L Potassium 4.3 (3.5-5.1) mmol/L Chloride 92 L (98-107) mmol/L Carbon Dioxide 36 H (22-30) mmol/L BUN 27 H (9-20) mg/dL Creatinine 3.96 H (0.66-1.25) mg/dL Glucose 195 H (74-99) mg/dL Calcium 9.0 (8.4-10.2) mg/dL AST 21 (17-59) U/L ALT 28 (21-72) U/L Alkaline Phosphatase 100 (38-126) U/L Total Protein 7.0 (6.3-8.2) g/dL Albumin 4.1 (3.5-5.0) g/dL Current Medications Generic Name Dose Route Start Last Admin Trade Name Freq PRN Reason Stop Dose Admin Acetaminophen 650 mg 12/13/18 00:52 12/13/18 11:50 Tylenol Tab PO 650 mg Q6HR PRN Administration Mild Pain or Fever > 100.5 Hydrocodone Bitart/Acetaminophen 1 each 12/13/18 00:55 [place] 7.5-325 PO Q4H PRN Pain Albuterol Sulfate 2.5 mg 12/13/18 00:55 Ventolin Nebulized INHALATION RT-Q6H PRN Shortness Of Breath Allopurinol 100 mg 12/13/18 08:00 12/13/18 11:05 Zyloprim PO Not Given DAILY@0800 [facility] Ascorbic Acid 500 mg 12/13/18 21:00 Vitamin C PO HS [facility] Atropine Sulfate 1 drops 12/13/18 08:00 12/13/18 11:06 Isopto Atropine 1% 5ml RIGHT EYE Not Given DAILY@0800 [facility] Buspirone HCl 7.5 mg 12/13/18 09:00 12/13/18 11:06 Buspar PO Not Given BID [facility] Cinacalcet 30 mg 12/13/18 08:00 12/13/18 11:06 Sensipar PO Not Given DAILY@0800 [facility] Clopidogrel Bisulfate 75 mg 12/13/18 16:00 Plavix PO DAILY@1600 [facility] Diphenoxylate HCl/Atropine 2 each 12/13/18 00:55 Lomotil PO Q6H PRN Diarrhea Duloxetine HCl 60 mg 12/13/18 08:00 12/13/18 11:06 Cymbalta PO Not Given DAILY@0800 [facility] Famotidine 20 mg 12/13/18 08:00 12/13/18 11:06 Pepcid PO Not Given DAILY@0800 [facility] Fluticasone Propionate 1 spray 12/13/18 08:00 12/13/18 11:06 Flonase Nasal [place] EA NOSTRIL Not Given RT-BID [facility] Gabapentin 300 mg 12/13/18 21:00 Neurontin PO HS [facility] Hydromorphone HCl 0.5 mg 12/13/18 00:52 12/13/18 04:20 Dilaudid IVP 0.5 mg Q3HR PRN Administration Moderate Pain Ceftriaxone Sodium 1 gm/ 50 mls @ 100 mls/hr 12/13/18 18:00 Sodium Chloride IVPB Q24H [facility] Sodium Chloride 1,000 mls @ 20 mls/hr 12/13/18 01:00 12/13/18 03:44 Saline 0.9% IV 20 mls/hr .Q24H PRISCILLA Administration Insulin Aspart 0 unit 12/13/18 07:30 12/13/18 13:17 Novolog SQ Not Given ACHS [facility] Protocol Insulin Aspart 28 unit 12/13/18 07:30 12/13/18 13:27 Novolog SQ Not Given AC-TID [facility] Insulin Detemir 66 unit 12/13/18 21:00 Levemir SQ HS [facility] Loratadine 10 mg 12/13/18 21:00 Claritin PO HS [facility] Melatonin 5 mg 12/13/18 21:00 Melatonin PO HS [facility] Midodrine 10 mg 12/13/18 08:00 12/13/18 13:17 Proamatine PO Not Given DAILY@0800,1200,1800 [facility] Miscellaneous Information 1 each 12/13/18 11:28 Pharmacy To Dose Iv Vancomycin MISCELLANE DIRECTED PRN Per Protocol Multivitamins 1 each 12/13/18 12:00 12/13/18 13:17 Theragran PO Not Given DAILY@1200 [facility] Naloxone HCl 0.2 mg 12/13/18 00:52 Narcan IV Q2M PRN Opioid Reversal Ondansetron HCl 4 mg 12/13/18 11:23 12/13/18 11:47 Zofran IVP 4 mg Q6HR PRN Administration Nausea And Vomiting Pantoprazole Sodium 40 mg 12/13/18 09:00 12/13/18 08:35 Protonix IV 40 mg DAILY PRISCILLA Administration Sevelamer Carbonate 3,200 mg 12/13/18 07:30 12/13/18 13:27 Renvela PO Not Given TID-W/MEALS [facility] Warfarin Sodium 5 mg 12/13/18 18:00 Coumadin PO DAILY@1800 [facility] Intake and Output 12/13/18 12/13/18 12/13/18 06:59 14:59 22:59 Intake Total 160 Balance 160 Intake: Intake, IV Titration 160 Amount Sodium Chloride 0.9% 1, 160 000 ml @ 20 mls/hr IV . Q24H [facility] Rx#:[id number] 12/12/18 19:09 12/12/18 19:09
--- NOTE | 2018-12-13 15:59 | P.CNPUL ---
History of Present Illness Consult date: 12/13/18 Requesting physician: Colton E Sheet Reason for consult: other (urinary tract infection and sepsis) Chief complaint: fever and confusion History of present illness: this is a 53-year-old white male, known history of end-stage renal disease, on hemodialysis, coronary artery disease, type 2 diabetes, hypertension, osteoarthritis, obstructive sleep apnea syndrome, normally on CPAP, diabetic neuropathy, legally blind, patient presented to the ER with high fever as high as 103.7. And has been noticed to be more confused. Workup in the ER including a urinalysis which came back showing evidence of bacteriuria and pyuria, patient was also noted to have slight leukocytosis, initially admitted to regular medical floor, however after I evaluated the patient noted that the patient has been spiking fevers, he seems to be quite confused, lethargic, tends to fall asleep easily, hence I have arranged for the patient to be transferred immediately to the ICU. Patient was hemodynamically stable.his INR was noted to be 2.0. BUN 27 creatinine 3.96,troponin was slightly elevated. CT of the brain on admission was unremarkable, influenza screening was negative.chest x-ray showed no evidence of active pulmonary disease. Review of Systems cannot be obtained, patient is lethargic, poor historian. And no family members available. Past Medical History Past Medical History: Asthma, Coronary Artery Disease (CAD), Diabetes Mellitus, Dialysis, Eye Disorder, Hyperlipidemia, Hypertension, Osteoarthritis (OA), Osteoarthritis (OA), Prostate Disorder, Renal Disease, Skin Disorder, Sleep Apnea/CPAP/BIPAP, Sleep Apnea/CPAP/BIPAP, Vascular Disorder, Vascular Disorder Additional Past Medical History / Comment(s): POSSIBLE PAST HX OF AFIB PER MEDILODGE HX, Current R foot wound-diaz 2 ulcer-CURRENT DRESSING, ESRD with hemodialysis M,W, F-thru left upper arm graft-diabetic NEUROPATHY in bilateral legs and feet and starting in his hands, legally blind-pt unsure why but thinks could be d/t retinopathy, vertigo, PVD, KIDNEY STONES, gout, frequent diarrhea, DJD, anemia, thrombocytopenia, USES C-PAP MACHINE, hx of cellulitis bilateral legs/feet,bacterial overgrowth syndrome, past L wrist fracture.M,W, F-thru R upper arm graft, diabetic NEUROPATHY bilateral legs and feet and starting in bilateral hands, PVD, KIDNEY STONES, gout, frequent diarrhea, DJD, anemia, Thrombocytopenia. History of Any Multi-Drug Resistant Organisms: MRSA, MRSA, VRE Date of last positivie culture/infection: 06/01/18 MDRO Source:: rt.foot Past Surgical History: Cholecystectomy, Coronary Bypass/CABG, Heart Catheterization, Orthopedic Surgery Additional Past Surgical History / Comment(s): 11/04/15 [place] cath for ABX therapy, AMPUTATION GREAT R TOE , DEBRIDEMENT OF LEG/R foot, left eye surgery including retinal detachment repair and laser surgery and cataract removal, R eye surgery for blood behind eye twice, KIDNEY STONE REMOVAL, R carpal tunnel surgery, CABG-4 vessel, EGD/colonoscopy. Past Anesthesia/Blood Transfusion Reactions: No Reported Reaction Additional Past Anesthesia/Blood Transfusion Reaction / Comment(s): NEVER HAD BLOOD TRANSFUSION Past Psychological History: Depression Additional Psychological History / Comment(s): PT LIVES WITH OF 20 YEARS at [facility]. Smoking Status: Current some day smoker Past Alcohol Use History: None Reported Additional Past Alcohol Use History / Comment(s): Pt states he smokes occasionally, if he has access to a cigarette. He started smoking as a teen. Past Drug Use History: None Reported - Past Family History Mother Family Medical History: No Reported History Additional Family Medical History / Comment(s): Mother is 77yrs old and healthy. She is still working. Father Family Medical History: Cancer Additional Family Medical History / Comment(s): . Sister(s) Family Medical History: Deep Vein Thrombosis (DVT) Medications and Allergies Home Medications Medication Instructions Recorded Confirmed Type Ubidecarenone [Co Q-10] 500 mg PO DAILY 08/09/14 12/12/18 History Ascorbic Acid [Vitamin C] 500 mg PO HS 11/04/14 12/12/18 History Sevelamer [Renvela] 3,200 mg PO TID-W/MEALS 02/26/15 12/12/18 History INSULIN LISPRO (humaLOG) [humaLOG] 28 units SQ AC-TID 10/26/15 12/12/18 History Allopurinol [Zyloprim] 100 mg PO DAILY@0800 02/16/16 12/12/18 History Multivitamins, Thera [Multivitamin 1 tab PO DAILY 02/16/16 12/12/18 History (formulary)] Atropine Sulfate [Atropine Sulfate 1 drop RIGHT EYE DAILY@0800 11/15/16 History 1%] Fluticasone Nasal [place] [Flonase 1 spray EA NOSTRIL RT-BID 08/11/17 12/12/18 History Nasal [place]] HYDROcodone/APAP 7.5-325MG [[place] 1 tab PO Q4H PRN 08/11/17 12/12/18 History 7.5-325] Insulin Glargine [Lantus] 66 unit SQ HS 08/11/17 12/12/18 History Famotidine [Pepcid] 20 mg PO DAILY@0800 10/18/17 12/12/18 History INSULIN LISPRO (HumaLOG) [humaLOG] 0 units SQ ACHS 10/18/17 12/12/18 History Diphenoxylate HCl/Atropine 2 tab PO Q6H PRN 10/21/17 12/12/18 History [Lomotil 2.5-0.025 mg Tablet] Calcium Acetate [PhosLo] 667 mg PO TID@0800,1200,1800 11/24/17 12/12/18 History DULoxetine HCL [Cymbalta] 60 mg PO DAILY@0800 11/24/17 12/12/18 History Fexofenadine HCl [Jeannette Allergy] 180 mg PO HS 11/24/17 12/12/18 History Melatonin 5 mg PO HS 11/24/17 12/12/18 History Clopidogrel [Plavix] 75 mg PO DAILY@1600 11/25/17 12/12/18 History Albuterol Nebulized [Ventolin 2.5 mg INHALATION RT-Q6H PRN 12/12/18 12/12/18 History Nebulized] Cinacalcet HCl [Sensipar] 30 mg PO DAILY@0800 12/12/18 12/12/18 History Gabapentin [Neurontin] 300 mg PO HS 12/12/18 12/12/18 History Midodrine HCl [ProAmatine] 10 mg PO DAILY@0800,1200,1800 12/12/18 12/12/18 History Warfarin [Coumadin] 5 mg PO DAILY 12/12/18 12/12/18 History busPIRone HCL [Buspar] 7.5 mg PO BID 12/12/18 12/12/18 History Allergies Allergy/AdvReac Type Severity Reaction Status Date / Time tomato Allergy Unknown Unknown Verified 12/12/18 19:32 losartan potassium AdvReac Unknown LIGHTHEADED Verified 12/12/18 19:32 [From Jam] Physical Exam Vitals: Vital Signs Temp Pulse Pulse Resp BP BP Pulse Ox 12/13/18 14:32 101.8 F H 12/13/18 12:45 99.7 F H 12/13/18 12:14 91 L 12/13/18 11:20 101.1 F H 118 H 134/58 12/13/18 06:36 98.0 F 88 18 98/61 100 12/13/18 05:59 18 101/61 100 12/13/18 05:41 98.8 F 91 18 92/55 99 12/13/18 05:21 98.3 F 98 18 96/59 98 12/13/18 05:08 102.6 F H 99 20 96/61 99 12/13/18 04:39 101.2 F H 106 H 22 142/71 97 12/13/18 03:32 103.1 F H 110 H 22 98 12/13/18 03:18 111 H 16 137/74 96 12/13/18 03:00 98.4 F 112 H 16 162/61 98 12/13/18 02:20 117 H 170/81 12/13/18 01:00 111 H 146/66 12/13/18 00:40 108 H 146/66 12/13/18 00:09 99.0 F 12/13/18 00:07 106 H 151/80 12/12/18 23:40 107 H 151/80 12/12/18 23:10 106 H 122/73 99 12/12/18 22:40 107 H 6 L 145/61 98 12/12/18 22:30 109 H 7 L 141/67 97 12/12/18 22:20 98.4 F 112 H 22 141/67 100 12/12/18 21:40 115 H 16 156/67 12/12/18 21:20 118 H 11 L 161/72 12/12/18 21:10 120 H 15 161/72 12/12/18 20:40 121 H 15 162/75 100 12/12/18 20:10 125 H 12 142/52 100 12/12/18 19:50 16 161/101 12/12/18 19:20 125 H 15 167/70 98 12/12/18 19:10 126 H 13 167/70 92 L 12/12/18 19:00 124 H 18 118/100 88 L 12/12/18 18:40 102.7 F H 125 H 20 118/100 97 Intake and Output 12/13/18 12/13/18 12/13/18 06:59 14:59 22:59 Intake Total 160 Balance 160 Intake: Intake, IV Titration 160 Amount Sodium Chloride 0.9% 1, 160 000 ml @ 20 mls/hr IV . Q24H [facility] Rx#:[id number] Physical Exam: Revealed a 53-year-old white male, lethargic, noted to be quite warm and febrile, in no form of respiratory distress. Head: Atraumatic, normocephalic. HEENT:[short obese neck,Neck is supple.] [No neck masses.] [No thyromegaly.] [ No JVD.]PERRLA, EOMI, no icterus. Chest: [Clear throughout, no crackles, no rhonchi, no wheezes.] Cardiac Exam: [Normal S1 and S2, no S3 gallop, no murmur.] Abdomen: [morbidly obese,Soft, nontender, no megaly, no rebound, no guarding, normal bowel sounds.] Extremities: [No clubbing, no edema, no cyanosis.]evidence of a catheter noted in the left arm going into the subclavian area/dialysis catheter Neurological Exam: lethargic, arousable but drifts back to sleep again, confused , otherwise no gross focal deficit. Followed simple instructions with difficulty. Psychiatric: Cannot be assessed. Skin: No rashes. Lymphatics: No lymphadenopathy. Results - Laboratory Findings CBC and BMP: 12/12/18 19:09 12/12/18 19:09 PT/INR, D-dimer PT 19.5 sec (9.0-12.0) H 12/12/18 19:09 INR 2.0 (<1.2) H 12/12/18 19:09 Abnormal lab findings: Abnormal Labs 12/12/18 12/12/18 12/12/18 19:09 19:09 19:09 WBC 11.2 H RBC 3.45 L Hgb 10.2 L Hct 31.8 L RDW 17.3 H Neutrophils # 10.3 H Lymphocytes # 0.3 L PT INR APTT Chloride 92 L Carbon Dioxide 36 H BUN 27 H Creatinine 3.96 H Glucose 195 H POC Glucose (mg/dL) Total Creatine Kinase 38 L Troponin I 0.044 H* Urine Protein Urine Blood Ur Leukocyte Esterase Urine RBC Urine WBC Urine WBC Clumps Urine Bacteria 12/12/18 12/12/18 12/13/18 19:09 22:59 06:43 WBC RBC Hgb Hct RDW Neutrophils # Lymphocytes # PT 19.5 H INR 2.0 H APTT 38.1 H Chloride Carbon Dioxide BUN Creatinine Glucose POC Glucose (mg/dL) Total Creatine Kinase Troponin I 0.400 H* Urine Protein 3+ H Urine Blood Small H Ur Leukocyte Esterase Large H Urine RBC 13 H Urine WBC >182 H Urine WBC Clumps Many H Urine Bacteria Moderate H 12/13/18 12/13/18 12/13/18 06:46 11:04 11:36 WBC RBC Hgb Hct RDW Neutrophils # Lymphocytes # PT INR APTT Chloride Carbon Dioxide BUN Creatinine Glucose POC Glucose (mg/dL) 218 H 139 H Total Creatine Kinase Troponin I 0.332 H* Urine Protein Urine Blood Ur Leukocyte Esterase Urine RBC Urine WBC Urine WBC Clumps Urine Bacteria - Diagnostic Findings Chest x-ray: image reviewed (no evidence of active disease per) Additional studies: CT of the brain was unremarkable on admission. Assessment and Plan Assessment: impression: 1 sepsis secondary to urinary tract infection 2 urinary tract infection, acute. 3 metabolic encephalopathy secondary to sepsis 4 coronary artery disease, elevated troponin, significance of which is not clear , patient will have to be seen by cardiology. 5 type 2 diabetes 6 benign essential hypertension 7 obstructive sleep apnea syndrome normally on CPAP. 8 legally blind secondary to diabetic retinopathy 9 history of gout Recommendation: Considering the patient is still spiking fevers, considering his mental status, I felt it would be more reasonable to manage the patient in the ICU. Hence arrangements were made for the patient to be transferred immediately. ABG will be checked upon arrival to the ICU, will continue present antibiotics including Rocephin and vancomycin. Cultures including blood cultures and urine cultures were ordered, and results of which are pending. Continue DVT prophylaxis patient is normally on Coumadin. And continue GI prophylaxis. He is on Protonix. Prognosis is relatively guarded, we'll continue to follow. Time with Patient: Greater than 30
[2018-12-13 16:35] LABS: Anisocytosis Slight; Basophils % (A) 0 %; Eosinophils % (A) 0 %; HCT 27.9 % (39.0-53.0); Hypochromasia Marked; Lymphocytes # (A) 0.4 k/uL (1.0-4.8); Lymphocytes % (A) 4 %; MCH 30.3 pg (25.0-35.0); MCHC 32.2 g/dL (31.0-37.0); MCV 94.1 fL (80.0-100.0); Mean Platelet Volume 7.5; Monocytes # (A) 0.3 k/uL (0-1.0); Monocytes % (A) 3 %; Neutrophils # (A) 8.5 k/uL (1.3-7.7); Neutrophils % (A) 90 %; Platelet Count 191 k/uL (150-450); Poikilocytosis Slight; RBC 2.97 m/uL (4.30-5.90); RDW 17.6 % (11.5-15.5); WBC 9.5 k/uL (3.8-10.6)
[2018-12-13 16:37] LABS: Glucose,Whole Blood 125 mg/dL (75-99)
[2018-12-13 16:43] LABS: INR 1.5 (<1.2); Prothrombin Time 15.2 sec (9.0-12.0)
[2018-12-13 16:47] LABS: Calcium 8.9 mg/dL (8.4-10.2)
[2018-12-13 17:09] LABS: ABG Base Excess 7.5 mmol/L; ABG HCO3 31 mmol/L (21-25); ABG Oxygen Saturation 87.9 % (94-97); ABG PCO2 42 mmHg (35-45); ABG PH 7.48 (7.35-7.45); ABG TCO2 32 mmol/L (19-24)
[2018-12-13 17:16] LABS: ABG PO2 51 mmHg (83-108)
[2018-12-13] MEDS ORDERED: WARFARIN 5 MG TAB PO SCH (18:00)
[2018-12-13] MEDS: CLOPIDOGREL 75 MG TAB PO SCH (18:24)
[2018-12-13] MEDS: ALBUTEROL NEBULIZED 2.5 MG/3 ML INHALATION PRN (18:32)
--- NOTE | 2018-12-13 20:11 | CONS ---
CONSULTATION REASON FOR CONSULT: End-stage renal disease. HISTORY OF PRESENT ILLNESS: Patient is a 53-year-old male with end-stage renal disease, on hemodialysis on a Wednesday, Wednesday, Wednesday schedule. Patient was admitted to the hospital with complaints of weakness and not feeling well. He did have some nausea as well. The patient had a fever of 103.7 degrees. He had been confused at the time of admission. The patient was hypotensive yesterday and received IV fluid boluses. He is found to have a urinary tract infection. Blood cultures were positive for MRSA. The patient has not had any diarrhea. He did have some vague abdominal pain. Blood pressure remained on the lower side this morning but had improved to about 130 systolic. PAST MEDICAL HISTORY: Significant for end-stage renal disease, anemia of chronic disease, peripheral vascular disease, diabetes with retinopathy, osteoarthritis, previous wound infections, atrial fibrillation, kidney stones, peripheral neuropathy, cytopenia, previous history of C difficile colitis. PAST SURGICAL HISTORY: Cholecystectomy, coronary artery bypass surgery, AV graft, currently with a HERO graft, EGD, colonoscopy, eye surgeries, amputation of the right great toe, surgery for retinal detachment. SOCIAL HISTORY: Patient is a current smoker. No history of drug abuse or alcohol abuse. MEDICATIONS: Medications at home prior to admission include vitamin C, Renvela, insulin, Zyloprim, Pepcid, Cymbalta, melatonin, Plavix, Sensipar, Neurontin, midodrine, Coumadin, BuSpar. ALLERGIES: INCLUDE LOSARTAN CAUSES LIGHTHEADEDNESS AND TOMATOES. PHYSICAL EXAMINATION: On examination patient is currently awake. He is sleeping. He is complaining of nausea. He is not in any acute distress. Blood pressure this morning was 134/58, heart rate 118 per minute. The patient had a temperature of 101 degrees Fahrenheit. Examination of the heart S1, S2. Examination of lungs bilateral breath sounds are heard. Abdomen is soft, distended, nontender. Examination of lower extremities shows chronic skin changes. No significant edema is noted. CLOTH CALENDER exam shows patient is moving all 4 extremities. LAB: Show sodium of 136, potassium 5.0, chloride 94, BUN 46, serum creatinine 5.79, hemoglobin 9.0 g/dL. Troponin 0.293. ASSESSMENT: 1. End-stage renal disease, on hemodialysis on a Wednesday, Wednesday, Wednesday schedule. We will arrange for hemodialysis in a.m. 2. Sepsis. Source is likely urinary tract infection. However, the blood cultures are growing MRSA. We need to look for another possible source of MRSA as well. 3. Elevated troponins. Currently decreasing. No evidence of acute coronary syndrome. 4. Anemia of chronic disease. 5. Altered mentation secondary to underlying sepsis. 6. CKD mineral bone disorder, maintained on Sensipar, which we will continue. 7. History of hyperuricemia, currently on Zyloprim. 8. History of depression, maintained on Cymbalta. 9. Type 2 diabetes with diabetic retinopathy and retinal detachment. PLAN: Hemodialysis in a.m. May repeat another fluid bolus if blood pressure drops. Currently patient is hemodynamically stable. Continue with IV antibiotics. Continue with Sensipar. Thank you for this consultation. We will continue to follow the patient with you during his hospitalization. MMODL / IJN: [id number] /
[2018-12-13 21:06] LABS: Glucose,Whole Blood 151 mg/dL (75-99)
[2018-12-13] MEDS: LORATADINE 10 MG TAB PO SCH (21:55)
[2018-12-13] MEDS: HYDROcodone/APAP 7.5-325MG 1 EACH TAB PO PRN (21:55)
[2018-12-13] MEDS: GABAPENTIN 300 MG CAP PO SCH (21:55)
[2018-12-13] MEDS: ASCORBIC ACID 500 MG TAB PO SCH (23:04)
[2018-12-13] MEDS: INSULIN DETEMIR (LEVEMIR) 100 UNIT/ML SYR SQ SCH (23:04)
[2018-12-13] MEDS: MELATONIN 5 MG TABLET PO SCH (23:04)
[2018-12-14 03:49] LABS: Glucose,Whole Blood 200 mg/dL (75-99)
[2018-12-14] MEDS: INSULIN ASPART (NovoLOG) 100 UNIT/ML VIAL SQ SCH ×8 (04:14→21:27)
[2018-12-14 04:59] LABS: Anisocytosis Slight; Basophils % (A) 0 %; Eosinophils % (A) 0 %; HCT 24.8 % (39.0-53.0); Hypochromasia Marked; Lymphocytes # (A) 0.6 k/uL (1.0-4.8); Lymphocytes % (A) 9 %; MCH 30.4 pg (25.0-35.0); MCHC 32.4 g/dL (31.0-37.0); MCV 93.9 fL (80.0-100.0); Mean Platelet Volume 6.7; Monocytes # (A) 0.4 k/uL (0-1.0); Monocytes % (A) 5 %; Neutrophils % (A) 83 %; Platelet Count 176 k/uL (150-450); Poikilocytosis Slight; RBC 2.64 m/uL (4.30-5.90); RDW 17.7 % (11.5-15.5); WBC 7.2 k/uL (3.8-10.6)
[2018-12-14 05:06] LABS: INR 1.4 (<1.2); Prothrombin Time 14.2 sec (9.0-12.0)
[2018-12-14 05:07] LABS: Calcium 8.6 mg/dL (8.4-10.2); Potassium 4.8 mmol/L (3.5-5.1)
[2018-12-14 05:12] LABS: Vancomycin,Random 17.7 ug/mL
[2018-12-14 07:11] LABS: Glucose,Whole Blood 162 mg/dL (75-99)
--- NOTE | 2018-12-14 08:13 | CONS ---
CONSULTATION DATE OF SERVICE: 12/13/2018 REASON FOR CONSULTATION: Sepsis and MRSA bacteremia. HISTORY OF PRESENT ILLNESS: The patient is a 53-year-old male with a past medical history significant for end-stage renal disease on hemodialysis Wednesday, Wednesday, Wednesday through a left arm AV graft, the patient has for a couple of years now. Patient apparently went for his dialysis and after dialysis, the patient not feeling well, was feeling weak and tired and no energy. The patient did spike a fever of 102.7 degrees Fahrenheit. He was hypertensive. With these symptoms, the patient had been sent to the ER. On arrival to the ER, the patient did have a brain CT that was negative for any bleed. Chest x-ray shows no consolidation but did show the left central line and in the right atrium. The patient who did have a fever of 102.7 degrees Fahrenheit. The patient continue spiking a fever throughout the day and was seen lethargic but patient to be transferred to the ICU where the patient has been hemodynamically stable after fluid boluses and did not require any pressor support. Patient himself is a very poor historian, would not provide any reliable history, who denies any headache, some nausea but no vomiting. No abdominal pain. No diarrhea. The patient is a dialysis patient, hardly makes any urine. The patient noticed to have elevated white count of 11.1. UA was positive. Troponin is slightly elevated, blood culture came positive with MRSA. Urine culture pending. Patient's diagnosis possible UTI. Infection Disease was consulted for further recommendation of antibiotic treatment. Most of the information has been obtained from thorough review of the chart and talking to the nursing staff. Patient remains to be not a good historian. Patient currently with no open wounds. The patient did have a right BKA stump that seemed to have healed with no open wound and no other IV access. REVIEW OF SYSTEMS: Could not be reliably obtained. The positive points have been mentioned in HPI. PAST MEDICAL HISTORY: Significant for end-stage renal disease on hemodialysis, peripheral vascular disease, diabetes mellitus, atrial fibrillation, right leg wound and right BKA stump wound, C difficile colitis. PAST SURGICAL HISTORY: Cholecystectomy, coronary bypass grafting, AV graft, EGD, colonoscopy, and right BKA. SOCIAL HISTORY: Current smoker. Denies any drinking or drug use. FAMILY HISTORY: No pertinent findings noticed. ALLERGIES: To LOSARTAN with lightheadedness. MEDICATIONS: The patient is currently on: 1. Tylenol. 2. [place]. 3. Ventolin. 4. Zyloprim. 5. Vitamin C. 6. Atropine. 7. BuSpar. 8. Sensipar. 9. . 10. . 11.Cymbalta. 12.Pepcid. 13.Neurontin. 14.Dilaudid. 15.NovoLog. 16.Levemir. 17.Claritin. 18.Melatonin. 19.Vancomycin pharmacy to dose. 20.Coumadin. 21.Rocephin 1 g daily. PHYSICAL EXAMINATION: Blood pressure 142/68 with a pulse of 100, T-max is 102. He is 94% on 4 L nasal cannula. General description is middle-aged male, lying in bed in no distress. No tachypnea or accessory muscle for respiration use. HEENT EXAMINATION: Shows slight pallor. No scleral icterus. Oral mucosa is dry. No pharyngeal erythema pressure. NECK: Trachea central, no thyromegaly. LUNGS: Unlabored breathing, clear to auscultation anteriorly. No wheeze or crackle. HEART: S1, S2. Regular rate and rhythm. ABDOMEN: Soft, no tenderness. No guarding or rigidity. EXTREMITIES: No edema of feet. SKIN EXAMINATION: No rash or mass palpable. The right BK stump looks clean in the wound. NEUROLOGICAL: Patient awake, alert, oriented x3. Mood and affect normal. LABS: Hemoglobin 9.4, white count 11.2. BUN of 46, creatinine 5.761. UA with large leukocyte esterase, more than 100 RBC. Influenza serology was negative. Chest x-ray negative for any pneumonia. DIAGNOSTIC IMPRESSION AND PLAN: Patient admitted to the hospital with sepsis in this patient who did have fever of 102 Fahrenheit. The patient did have tachycardia, elevated white count, meeting criteria for SIRS/sepsis, now with evidence of MRSA bacteremia of the soft tissue with central line late and less likely the source of this patient will have a positive UA as he hardly makes any urine with urine staying in the blood for a long time. The chest x-ray mentioning the central line ending in the right atrium. This need to be investigated further as that could be the likely source of the infection. PLAN: 1. Vancomycin, pharmacy to dose target of 15. 2. Blood cultures repeated with clearance of bacteremia. 3. Will follow up on clinical condition and culture to further adjust medication if needed. Thank you for this consultation. Will follow this patient along with you. MMODL / IJN: [id number] /
[2018-12-14] MEDS: HYDROcodone/APAP 7.5-325MG 1 EACH TAB PO PRN ×2 (09:32→21:31)
[2018-12-14] MEDS: PANTOPRAZOLE 40 MG/10 ML VIAL IV SCH (09:34)
[2018-12-14] MEDS: SEVELAMER 800 MG TAB PO SCH ×3 (09:34→17:51)
[2018-12-14] MEDS: DULoxetine HCL 60 MG CAPSULE.DR PO SCH (09:34)
[2018-12-14] MEDS: MIDODRINE 5 MG TAB PO SCH ×3 (09:34→17:51)
[2018-12-14] MEDS: FAMOTIDINE 20 MG TAB PO SCH (09:34)
[2018-12-14] MEDS: ALLOPURINOL 100 MG TAB PO SCH (09:34)
[2018-12-14] MEDS: CINACALCET 30 MG TAB PO SCH (09:35)
[2018-12-14] MEDS: busPIRone HCl 5 MG TAB PO SCH ×2 (09:35→21:29)
[2018-12-14] MEDS: ATROPINE OPHTH SOLN 1% 5ML BTL RIGHT EYE SCH (09:36)
[2018-12-14] MEDS: FLUTICASONE 50MCG/SPRAY NASAL 16GM EA NOSTRIL SCH ×2 (09:36→21:26)
[2018-12-14] MEDS ORDERED: VANCOMYCIN 2,000 MG in SODIUM CHLORIDE 0.9% 500 ML 500 ML IVPB ONE (10:00)
--- NOTE | 2018-12-14 10:00 | P.PN ---
Subjective this is a pleasant 53 yo M with pmh of ESRD on hemodialysis, coronary artery disease, asthma, DM, HTN, HLP,sleep apnea on CPAP/BiPAP. , kidney stones, legally blind. Peripheral vascular disease, vertigo, gout. Patient was sent for high fever of 103.7 and confusion. The patient was lying in bed feeling distress due to shivering and chills. Other he felt confused or more tired however patient didn't want to give much information however patient states that he has pain in the penile area which an examination he has no deformity or signs symptoms of inflammation in his genital area, no swelling and tenderness. Patient also denies chest pain or abdominal pain. No dyspnea. Her nausea vomiting or sweating. On admission he had fever of 102.7 and 103.1. WBC 11.2 K. INR 2.0. Creatinine 3.9. Electrolytes within normal limits. Troponins elevated at 0.04 and 0.4. Urinalysis showing large leukocyte esterase with urine WBC more than 182. Moderate bacteria. Influenza was checked and was negative. Chest x-ray: No consultation. On admission he got 1 dose of ceftriaxone and IV fluids. 12/14/2018 Patient is more awake in the ICU today and he is oriented to time place and person. He is complaining of from dysuria and suprapubic tenderness. Bladder scan is ordered and talked to the staff. Blood pressure is improved and currently 137/67. His blood culture came back positive for MRSA and he is currently on vancomycin pharmacy to dose with infectious disease consult. He is going for hemodialysis today under the supervision of nephrology team. CBC unremarkable and his INR today is 1.4. Decreased his Coumadin from 5 up to 7 mg daily. Review of systems CONSTITUTIONAL: No fever, no malaise, no fatigue. HEENT: No recent visual problems or hearing problems. Denied any sore throat. CARDIOVASCULAR: No orthopnea, PND, no palpitations, no syncope. PULMONARY: No shortness of breath, no cough, no hemoptysis. GASTROINTESTINAL: No diarrhea, no nausea, no vomiting, no abdominal pain. Normoactive bowel sounds. NEUROLOGICAL: No headaches, no weakness, no numbness. HEMATOLOGICAL: Denies any bleeding or petechiae. GENITOURINARY: Denies any burning micturition, frequency, or urgency. MUSCULOSKELETAL/RHEUMATOLOGICAL: Denies any joint pain, swelling, or any muscle pain. ENDOCRINE: Denies any polyuria or polydipsia. Medication:Tylenol, albuterol, allopurinol, vitamin C, atropine sulfate eyedrops , Sensipar, aspirin, Plavix, Lomotil, Cymbalta, Pepcid, Flonase, gabapentin, [place], Dilaudid, NovoLog, Levemir, Claritin, melatonin, medodrine,vancomycin, multivitamin, Zofran, Protonix, and warfarin. Objective - Vital Signs Vital signs: Vital Signs Temp 100.2 F H 12/14/18 02:00 Pulse 93 12/14/18 06:00 Resp 24 12/14/18 06:00 BP 137/67 12/14/18 06:00 Pulse Ox 98 12/14/18 06:00 Intake & Output 12/13/18 12/14/18 12/14/18 18:59 06:59 18:59 Intake Total 270 260 Output Total 80 0 Balance 190 260 Weight 127.3 kg Intake: IV 60 260 .9 20 60 260 Intake, IV Titration 210 Amount Sodium Chloride 0.9% 1, 160 000 ml @ 20 mls/hr IV . Q24H [facility] Rx#:[id number] cefTRIAXone 1 gm In 50 Sodium Chloride 0.9% 50 ml @ 100 mls/hr IVPB ONCE STA Rx#:[id number] Output: Urine 80 0 Other: Voiding Method Urinal Urinal - Exam GENERAL: The patient is alert and oriented x3, not in any acute distress. Well developed, well nourished. HEENT: Pupils are round and equally reacting to light. EOMI. No scleral icterus. No conjunctival pallor. Normocephalic, atraumatic. No pharyngeal erythema. No thyromegaly. CARDIOVASCULAR: S1 and S2 present. No murmurs, rubs, or gallops. PULMONARY: Chest is clear to auscultation, no wheezing or crackles. -ABDOMEN: Soft, suprapubic tenderness with no rebound tenderness, nondistended, normoactive bowel sounds. No palpable organomegaly. MUSCULOSKELETAL: No joint swelling or deformity. EXTREMITIES: No cyanosis, clubbing, or pedal edema. NEUROLOGICAL: Gross neurological examination did not reveal any focal deficits. SKIN: No rashes. - Labs CBC & Chem 7: 12/14/18 04:02 12/14/18 04:02 Labs: Abnormal Lab Results - Last 24 Hours (Table) 12/13/18 12/13/18 12/13/18 Range/Units 11:04 11:36 15:49 RBC (4.30-5.90) m/uL Hgb (13.0-17.5) gm/dL Hct (39.0-53.0) % RDW (11.5-15.5) % Neutrophils # (1.3-7.7) k/uL Lymphocytes # (1.0-4.8) k/uL PT (9.0-12.0) sec INR (<1.2) ABG pH (7.35-7.45) ABG pO2 (83-108) mmHg ABG HCO3 (21-25) mmol/L ABG Total CO2 (19-24) mmol/L ABG O2 Saturation (94-97) % Sodium (137-145) mmol/L Chloride (98-107) mmol/L BUN (9-20) mg/dL Creatinine (0.66-1.25) mg/dL Glucose (74-99) mg/dL POC Glucose (mg/dL) 139 H (75-99) mg/dL Troponin I 0.332 H* 0.293 H* (0.000-0.034) ng/mL 12/13/18 12/13/18 12/13/18 Range/Units 15:49 15:49 15:49 RBC 2.97 L (4.30-5.90) m/uL Hgb 9.0 L (13.0-17.5) gm/dL Hct 27.9 L (39.0-53.0) % RDW 17.6 H (11.5-15.5) % Neutrophils # 8.5 H (1.3-7.7) k/uL Lymphocytes # 0.4 L (1.0-4.8) k/uL PT 15.2 H (9.0-12.0) sec INR 1.5 H (<1.2) ABG pH (7.35-7.45) ABG pO2 (83-108) mmHg ABG HCO3 (21-25) mmol/L ABG Total CO2 (19-24) mmol/L ABG O2 Saturation (94-97) % Sodium 136 L (137-145) mmol/L Chloride 94 L (98-107) mmol/L BUN 46 H (9-20) mg/dL Creatinine 5.79 H (0.66-1.25) mg/dL Glucose 115 H (74-99) mg/dL POC Glucose (mg/dL) (75-99) mg/dL Troponin I (0.000-0.034) ng/mL 12/13/18 12/13/18 12/13/18 Range/Units 16:06 17:07 20:55 RBC (4.30-5.90) m/uL Hgb (13.0-17.5) gm/dL Hct (39.0-53.0) % RDW (11.5-15.5) % Neutrophils # (1.3-7.7) k/uL Lymphocytes # (1.0-4.8) k/uL PT (9.0-12.0) sec INR (<1.2) ABG pH 7.48 H (7.35-7.45) ABG pO2 51 L* (83-108) mmHg ABG HCO3 31 H (21-25) mmol/L ABG Total CO2 32 H (19-24) mmol/L ABG O2 Saturation 87.9 L (94-97) % Sodium (137-145) mmol/L Chloride (98-107) mmol/L BUN (9-20) mg/dL Creatinine (0.66-1.25) mg/dL Glucose (74-99) mg/dL POC Glucose (mg/dL) 125 H 151 H (75-99) mg/dL Troponin I (0.000-0.034) ng/mL 12/14/18 12/14/18 12/14/18 Range/Units 03:19 04:02 04:02 RBC 2.64 L (4.30-5.90) m/uL Hgb 8.0 L (13.0-17.5) gm/dL Hct 24.8 L (39.0-53.0) % RDW 17.7 H (11.5-15.5) % Neutrophils # (1.3-7.7) k/uL Lymphocytes # 0.6 L (1.0-4.8) k/uL PT (9.0-12.0) sec INR (<1.2) ABG pH (7.35-7.45) ABG pO2 (83-108) mmHg ABG HCO3 (21-25) mmol/L ABG Total CO2 (19-24) mmol/L ABG O2 Saturation (94-97) % Sodium 133 L (137-145) mmol/L Chloride 94 L (98-107) mmol/L BUN 56 H (9-20) mg/dL Creatinine 6.74 H (0.66-1.25) mg/dL Glucose 165 H (74-99) mg/dL POC Glucose (mg/dL) 200 H (75-99) mg/dL Troponin I (0.000-0.034) ng/mL 12/14/18 12/14/18 Range/Units 04:02 07:00 RBC (4.30-5.90) m/uL Hgb (13.0-17.5) gm/dL Hct (39.0-53.0) % RDW (11.5-15.5) % Neutrophils # (1.3-7.7) k/uL Lymphocytes # (1.0-4.8) k/uL PT 14.2 H (9.0-12.0) sec INR 1.4 H (<1.2) ABG pH (7.35-7.45) ABG pO2 (83-108) mmHg ABG HCO3 (21-25) mmol/L ABG Total CO2 (19-24) mmol/L ABG O2 Saturation (94-97) % Sodium (137-145) mmol/L Chloride (98-107) mmol/L BUN (9-20) mg/dL Creatinine (0.66-1.25) mg/dL Glucose (74-99) mg/dL POC Glucose (mg/dL) 162 H (75-99) mg/dL Troponin I (0.000-0.034) ng/mL Microbiology - Last 24 Hours (Table) 12/13/18 11:04 Blood Culture Gram Stain - Preliminary Blood 12/13/18 11:04 Blood Culture - Final Blood 12/12/18 19:17 Blood Culture Gram Stain - Preliminary Blood Blood Culture - Preliminary Methicillin resist S. aureus 12/12/18 19:17 Blood Culture - Final Blood 12/12/18 22:59 Urine Culture - Preliminary Urine,Catheterized Assessment and Plan Assessment: Systemic inflammatory response on admission with fever, leukocytosis with WBC 11 point UTI MRSA septicemia on admission mostly pyelonephritis History of kidney stone End-stage renal disease on hemodialysis Elevated troponin History of coronary artery disease Diabetes mellitus, type II History of asthma Essential hypertension Hyperlipidemia Sleep apnea on CPAP/BiPAP Legally blind History of peripheral vascular disease History of gout Plan: This is a pleasant 53 years old male who presents because of sepsis secondary to urinary tract infection. Patient is started on antibiotics and will call infectious disease consult and check renal ultrasound. Patient is in the stage renal disease on hemodialysis and call nephrology's for management. Also will call cardiology for elevated troponin. Patient is on Plavix Labs and medication were reviewed.. Continue same treatment. Continue with symptomatic treatment. Resume home medication. Monitor lytes and vitals. DVT and GI prophylaxis. Further recommendations of the clinical course of the patient DVT prophylaxis: On warfarin GI prophylaxis: Protonix Prognosis is guarded
--- NOTE | 2018-12-14 10:49 | PN ---
PROGRESS NOTE Mr. Boston is 53-year-old male with known history of end-stage renal disease on hemodialysis, who presented to the hospital with febrile episodes and change in mental status. He was transferred to the ICU. He was seen by Dr. Nguyen on the floor. He is feeling better today. His breathing is stable. He is nauseated. He has no chest pain. He denies any dizziness or palpitation. Hemodynamically, he is stable. He has not required any pressors. He has continued to be at this time on Plavix 75 mg daily, Protonix, vancomycin, Coumadin. PHYSICAL EXAMINATION: Blood pressure 147/60 with the heart rate in the 90s. LUNGS: Clear. HEART: Regular rate and rhythm. S1, S2. No S3. No rub appreciated. ABDOMEN: Soft, nontender, obese. EXTREMITIES: Status post right BKA and left lower extremity no edema. LAB DATA: Lab data revealed a INR 1.4. BUN creatinine 56 and 6.74. Hemoglobin of 8. Echocardiogram performed yesterday revealed a normal left ventricular size and systolic function with mild mitral and tricuspid regurgitation with pulmonary hypertension. IMPRESSION: 1. Sepsis with urinary tract infection. 2. End-stage renal disease, on hemodialysis. 3. Status post amputation. 4. Minimal troponin elevation does not appear to be related to acute event. 5. Status post coronary artery bypass grafting stable. 6. Paroxysmal atrial fibrillation, anticoagulated. 7. Peripheral vascular disease. RECOMMENDATION: From the cardiac standpoint, the patient is stable. We will continue present therapy I would expect he should be able to be transferred out of the ICU back to the medical floor and continue the present regimen. MMODL / IJN: [id number] /
[2018-12-14] MEDS: HYDROmorphone 0.5 MG/0.5 ML SYRINGE IVP PRN ×2 (11:38→15:33)
[2018-12-14 12:23] LABS: Glucose,Whole Blood 176 mg/dL (75-99)
--- NOTE | 2018-12-14 12:44 | P.PN ---
Subjective Progress Note Date: 12/14/18 Principal diagnosis: Acute MRSA sepsis and bacteremia this is a 53-year-old white male, known history of end-stage renal disease, on hemodialysis, coronary artery disease, type 2 diabetes, hypertension, osteoarthritis, obstructive sleep apnea syndrome, normally on CPAP, diabetic neuropathy, legally blind, patient presented to the ER with high fever as high as 103.7. And has been noticed to be more confused. Workup in the ER including a urinalysis which came back showing evidence of bacteriuria and pyuria, patient was also noted to have slight leukocytosis, initially admitted to regular medical floor, however after I evaluated the patient noted that the patient has been spiking fevers, he seems to be quite confused, lethargic, tends to fall asleep easily, hence I have arranged for the patient to be transferred immediately to the ICU. Patient was hemodynamically stable.his INR was noted to be 2.0. BUN 27 creatinine 3.96,troponin was slightly elevated. CT of the brain on admission was unremarkable, influenza screening was negative.chest x-ray showed no evidence of active pulmonary disease. Patient was reevaluated today on 12/14/2018, he is feeling and doing much better today compared to yesterday. His blood cultures came back positive for MRSA. Patient is hemodynamically stable. He is more awake, alert oriented 3, denies any specific complaints. He is hemodynamically stable blood pressure is 137/67 , he is on vancomycin empirically but now that we know that he has MRSA in the blood cultures, we'll continue MRSA. Labs were reviewed today WBC count is 7.2 hemoglobin is 8 INR is 1.4 lites are normal BUN is 56 creatinine 6.74. Objective - Vital Signs Vital signs: Vital Signs Temp 98.2 F 12/14/18 08:00 Pulse 99 12/14/18 11:00 Resp 10 L 12/14/18 11:00 BP 128/58 12/14/18 11:00 Pulse Ox 96 12/14/18 11:00 Intake & Output 12/13/18 12/14/18 12/14/18 18:59 06:59 18:59 Intake Total 270 260 Output Total 80 0 Balance 190 260 Weight 127.3 kg Intake: IV 60 260 .9 20 60 260 Intake, IV Titration 210 Amount Sodium Chloride 0.9% 1, 160 000 ml @ 20 mls/hr IV . Q24H [facility] Rx#:[id number] cefTRIAXone 1 gm In 50 Sodium Chloride 0.9% 50 ml @ 100 mls/hr IVPB ONCE STA Rx#:[id number] Output: Urine 80 0 Other: Voiding Method Urinal Urinal - Exam Physical Exam: Revealed a 53-year-old white male, awake, oriented, in no distress. Head: Atraumatic, normocephalic. HEENT:[short obese neck,Neck is supple.] [No neck masses.] [No thyromegaly.] [ No JVD.]PERRLA, EOMI, no icterus. Chest: [Clear throughout, no crackles, no rhonchi, no wheezes.] Cardiac Exam: [Normal S1 and S2, no S3 gallop, no murmur.] Abdomen: [morbidly obese,Soft, nontender, no megaly, no rebound, no guarding, normal bowel sounds.] Extremities: [No clubbing, no edema, no cyanosis.]evidence of a catheter noted in the left arm going into the subclavian area/dialysis catheter, right below- knee amputation noted. Neurological Exam: Alert and oriented 3, no gross focal neurologic deficit. Psychiatric: Normal mood, affect and mental status examination. Skin: No rashes. Lymphatics: No lymphadenopathy. - Labs CBC & Chem 7: 12/14/18 04:02 12/14/18 04:02 Labs: Abnormal Lab Results - Last 24 Hours (Table) 12/13/18 12/13/18 12/13/18 Range/Units 11:04 15:49 15:49 RBC 2.97 L (4.30-5.90) m/uL Hgb 9.0 L (13.0-17.5) gm/dL Hct 27.9 L (39.0-53.0) % RDW 17.6 H (11.5-15.5) % Neutrophils # 8.5 H (1.3-7.7) k/uL Lymphocytes # 0.4 L (1.0-4.8) k/uL PT (9.0-12.0) sec INR (<1.2) ABG pH (7.35-7.45) ABG pO2 (83-108) mmHg ABG HCO3 (21-25) mmol/L ABG Total CO2 (19-24) mmol/L ABG O2 Saturation (94-97) % Sodium (137-145) mmol/L Chloride (98-107) mmol/L BUN (9-20) mg/dL Creatinine (0.66-1.25) mg/dL Glucose (74-99) mg/dL POC Glucose (mg/dL) (75-99) mg/dL Troponin I 0.332 H* 0.293 H* (0.000-0.034) ng/mL 12/13/18 12/13/18 12/13/18 Range/Units 15:49 15:49 16:06 RBC (4.30-5.90) m/uL Hgb (13.0-17.5) gm/dL Hct (39.0-53.0) % RDW (11.5-15.5) % Neutrophils # (1.3-7.7) k/uL Lymphocytes # (1.0-4.8) k/uL PT 15.2 H (9.0-12.0) sec INR 1.5 H (<1.2) ABG pH (7.35-7.45) ABG pO2 (83-108) mmHg ABG HCO3 (21-25) mmol/L ABG Total CO2 (19-24) mmol/L ABG O2 Saturation (94-97) % Sodium 136 L (137-145) mmol/L Chloride 94 L (98-107) mmol/L BUN 46 H (9-20) mg/dL Creatinine 5.79 H (0.66-1.25) mg/dL Glucose 115 H (74-99) mg/dL POC Glucose (mg/dL) 125 H (75-99) mg/dL Troponin I (0.000-0.034) ng/mL 12/13/18 12/13/18 12/14/18 Range/Units 17:07 20:55 03:19 RBC (4.30-5.90) m/uL Hgb (13.0-17.5) gm/dL Hct (39.0-53.0) % RDW (11.5-15.5) % Neutrophils # (1.3-7.7) k/uL Lymphocytes # (1.0-4.8) k/uL PT (9.0-12.0) sec INR (<1.2) ABG pH 7.48 H (7.35-7.45) ABG pO2 51 L* (83-108) mmHg ABG HCO3 31 H (21-25) mmol/L ABG Total CO2 32 H (19-24) mmol/L ABG O2 Saturation 87.9 L (94-97) % Sodium (137-145) mmol/L Chloride (98-107) mmol/L BUN (9-20) mg/dL Creatinine (0.66-1.25) mg/dL Glucose (74-99) mg/dL POC Glucose (mg/dL) 151 H 200 H (75-99) mg/dL Troponin I (0.000-0.034) ng/mL 12/14/18 12/14/18 12/14/18 Range/Units 04:02 04:02 04:02 RBC 2.64 L (4.30-5.90) m/uL Hgb 8.0 L (13.0-17.5) gm/dL Hct 24.8 L (39.0-53.0) % RDW 17.7 H (11.5-15.5) % Neutrophils # (1.3-7.7) k/uL Lymphocytes # 0.6 L (1.0-4.8) k/uL PT 14.2 H (9.0-12.0) sec INR 1.4 H (<1.2) ABG pH (7.35-7.45) ABG pO2 (83-108) mmHg ABG HCO3 (21-25) mmol/L ABG Total CO2 (19-24) mmol/L ABG O2 Saturation (94-97) % Sodium 133 L (137-145) mmol/L Chloride 94 L (98-107) mmol/L BUN 56 H (9-20) mg/dL Creatinine 6.74 H (0.66-1.25) mg/dL Glucose 165 H (74-99) mg/dL POC Glucose (mg/dL) (75-99) mg/dL Troponin I (0.000-0.034) ng/mL 12/14/18 12/14/18 12/14/18 Range/Units 07:00 10:39 11:55 RBC (4.30-5.90) m/uL Hgb (13.0-17.5) gm/dL Hct (39.0-53.0) % RDW (11.5-15.5) % Neutrophils # (1.3-7.7) k/uL Lymphocytes # (1.0-4.8) k/uL PT (9.0-12.0) sec INR (<1.2) ABG pH (7.35-7.45) ABG pO2 (83-108) mmHg ABG HCO3 (21-25) mmol/L ABG Total CO2 (19-24) mmol/L ABG O2 Saturation (94-97) % Sodium (137-145) mmol/L Chloride (98-107) mmol/L BUN (9-20) mg/dL Creatinine (0.66-1.25) mg/dL Glucose (74-99) mg/dL POC Glucose (mg/dL) 162 H 176 H (75-99) mg/dL Troponin I 0.154 H* (0.000-0.034) ng/mL Microbiology - Last 24 Hours (Table) 12/13/18 11:04 Blood Culture Gram Stain - Preliminary Blood 12/13/18 11:04 Blood Culture - Final Blood 12/12/18 19:17 Blood Culture Gram Stain - Preliminary Blood Blood Culture - Preliminary Methicillin resist S. aureus 12/12/18 19:17 Blood Culture - Final Blood 12/12/18 22:59 Urine Culture - Preliminary Urine,Catheterized Assessment and Plan Assessment: impression: 1 acute MRSA sepsis, most likely source is urine. Although other sources would have to be considered. 2 urinary tract infection, acute. 3 metabolic encephalopathy secondary to sepsis, significantly improved today. 4 coronary artery disease, elevated troponin, significance of which is not clear , patient will have to be seen by cardiology. 5 type 2 diabetes 6 benign essential hypertension 7 obstructive sleep apnea syndrome normally on CPAP. 8 legally blind secondary to diabetic retinopathy 9 history of gout Recommendation: Continue present course of treatment including antibiotics, continue dialysis as recommended by nephrology on the case. Patient could be considered for transfer out of the ICU to a monitor bed on selective. All his meds were reviewed, vancomycin remains on board, patient will be seen by infectious disease on consultation. Continue GI and DVT prophylaxis. We will continue to follow. Time with Patient: Less than 30
[2018-12-14] MEDS ORDERED: GELATIN SPONGE,ABSORB (LARGE) 1 EACH SPONGE ONE (13:20)
[2018-12-14] MEDS: MULTIVITAMINS, THERA 1 EACH TAB PO SCH (13:32)
[2018-12-14] MEDS: CLOPIDOGREL 75 MG TAB PO SCH (15:33)
[2018-12-14] MEDS: ALBUTEROL NEBULIZED 2.5 MG/3 ML INHALATION PRN (15:33)
[2018-12-14 15:56] LABS: Hemoglobin A1C 5.4 % (4.0-6.0)
--- NOTE | 2018-12-14 17:13 | PN ---
PROGRESS NOTE DATE OF SERVICE: 12/14/2018 REASON FOR FOLLOWUP: MRSA bacteremia. INTERVAL HISTORY: The patient is currently afebrile. He is breathing comfortably. Denies having any chest pain or any cough. No abdominal pain or any diarrhea. PHYSICAL EXAMINATION: Blood pressure is 120/58 with a pulse of 99, temperature 98. He is 96% on room air. General description is a middle-aged male lying in bed in no distress. RESPIRATORY SYSTEM: Unlabored breathing with decreased breath sounds at the base. No wheeze. HEART: S1, S2. Regular rate and rhythm. ABDOMEN: Soft. No tenderness. Right BKA stump currently with no cellulitis. LABS: Hemoglobin 8, white count 7.2, BUN of 56, creatinine 6.74. Vancomycin 17.7. Blood culture done yesterday also showing gram-positive cocci. Urine with gram-negative bacilli. DIAGNOSTIC IMPRESSION AND PLAN: Patient with sepsis with methicillin-resistant Staphylococcus aeruginosa bacteremia. Concern is likely for a possible dialysis access catheter infection, as apparently the patient did have a HeRO graft and did mention that he has some of the graft left over in order to completely cure this MRSA bacteremia catheter has to come out and may need to be transferred to his vascular surgeon. He is currently on vancomycin. That will be continued at this point. 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 Continue supportive care. MMODL / IJN: [id number] /
[2018-12-14 17:26] LABS: Glucose,Whole Blood 222 mg/dL (75-99)
[2018-12-14] MEDS: WARFARIN 2 MG TAB PO SCH (18:25)
[2018-12-14] MEDS: WARFARIN 5 MG TAB PO SCH (18:25)
--- NOTE | 2018-12-14 18:58 | PN ---
PROGRESS NOTE Patient is seen for followup for end-stage renal disease. He is just finishing his dialysis treatment. Patient tolerated the procedure well. We had about 1200 mL of ultrafiltration. Blood pressure remained stable with systolic around 120s to 130s. Patient will be transferred out of the ICU. On examination this afternoon, blood pressure was 128/58, heart rate 97 per minute. He is afebrile. EXAMINATION OF THE HEART: S1, S2. EXAMINATION OF LUNGS: Bilateral breath sounds are heard. ABDOMEN: Soft, non-tender, obese. Examination of lower extremities shows no significant edema. Patient has right below- knee amputation. Patient has a HERO graft. [employer] exam is grossly intact. Labs show sodium 133, potassium 4.8, hemoglobin 8.0. Troponin was 0.154. ASSESSMENT: 1. End-stage renal disease, on hemodialysis on a Wednesday, Wednesday, Wednesday schedule via left arm hero HERO graft. 2. Sepsis from urinary tract infection. Blood cultures grew MRSA. Patient does have the HERO graft; however, it does not appear to be infected at this time. Repeat blood cultures on 12/13/2018 also show evidence of gram-positive cocci. We will need to further evaluate this for possible source of the MRSA bacteremia. 3. Urinary tract infection. Urine culture growing gram-negative bacilli. 4. Hypotension from sepsis. 5. Sepsis. 6. Anemia of chronic disease. No active bleeding noted at this time. PLAN: Continue with vancomycin. Follow up on repeat blood cultures. Patient may need removal of the older portion of the HERO graft and detailed evaluation by Vascular Surgery. I will discuss this further with Infectious Disease. MMODL / IJN: [id number] /
[2018-12-14] MEDS: SODIUM CHLORIDE 0.9% 1,000 ML IV SCH (21:05)
[2018-12-14] MEDS: INSULIN DETEMIR (LEVEMIR) 100 UNIT/ML SYR SQ SCH (21:27)
[2018-12-14] MEDS: MELATONIN 5 MG TABLET PO SCH (21:29)
[2018-12-14] MEDS: ASCORBIC ACID 500 MG TAB PO SCH (21:30)
[2018-12-14] MEDS: GABAPENTIN 300 MG CAP PO SCH (21:30)
[2018-12-14] MEDS: LORATADINE 10 MG TAB PO SCH (21:30)
[2018-12-15] MEDS: SODIUM CHLORIDE 0.9% 1,000 ML IV SCH (01:30)
[2018-12-15 02:07] LABS: Glucose,Whole Blood 170 mg/dL (75-99)
[2018-12-15] MEDS: INSULIN ASPART (NovoLOG) 100 UNIT/ML VIAL SQ SCH ×8 (02:14→21:58)
[2018-12-15] MEDS: HYDROcodone/APAP 7.5-325MG 1 EACH TAB PO PRN (02:14)
[2018-12-15] MEDS: ONDANSETRON 4 MG/2 ML VIAL IVP PRN ×2 (07:11→14:28)
[2018-12-15 07:15] LABS: Glucose,Whole Blood 71 mg/dL (75-99)
[2018-12-15] MEDS: FAMOTIDINE 20 MG TAB PO SCH (07:16)
[2018-12-15] MEDS: MULTIVITAMINS, THERA 1 EACH TAB PO SCH (07:16)
[2018-12-15] MEDS: MIDODRINE 5 MG TAB PO SCH ×3 (07:16→20:38)
[2018-12-15] MEDS: DULoxetine HCL 60 MG CAPSULE.DR PO SCH (07:16)
[2018-12-15] MEDS: ALLOPURINOL 100 MG TAB PO SCH (07:16)
[2018-12-15] MEDS: CINACALCET 30 MG TAB PO SCH (07:17)
[2018-12-15] MEDS: PANTOPRAZOLE 40 MG TABLET PO SCH (07:17)
[2018-12-15] MEDS: busPIRone HCl 5 MG TAB PO SCH ×2 (07:17→22:15)
[2018-12-15 07:37] LABS: Anisocytosis Slight; Basophils % (A) 0 %; Eosinophils # (A) 0.2 k/uL (0-0.7); Eosinophils % (A) 2 %; HCT 25.6 % (39.0-53.0); HGB 8.2 gm/dL (13.0-17.5); Hypochromasia Marked; Lymphocytes # (A) 0.6 k/uL (1.0-4.8); Lymphocytes % (A) 10 %; MCH 29.9 pg (25.0-35.0); MCHC 32.1 g/dL (31.0-37.0); MCV 93.3 fL (80.0-100.0); Mean Platelet Volume 6.9; Monocytes # (A) 0.4 k/uL (0-1.0); Monocytes % (A) 5 %; Neutrophils # (A) 5.2 k/uL (1.3-7.7); Neutrophils % (A) 78 %; Platelet Count 177 k/uL (150-450); Poikilocytosis Slight; RBC 2.75 m/uL (4.30-5.90); RDW 17.5 % (11.5-15.5); WBC 6.7 k/uL (3.8-10.6)
[2018-12-15 07:44] LABS: INR 1.4 (<1.2)
[2018-12-15 07:58] LABS: Calcium 8.6 mg/dL (8.4-10.2); Potassium 4.3 mmol/L (3.5-5.1)
[2018-12-15] MEDS: SEVELAMER 800 MG TAB PO SCH ×3 (08:45→20:36)
[2018-12-15] MEDS: FLUTICASONE 50MCG/SPRAY NASAL 16GM EA NOSTRIL SCH ×2 (08:45→22:15)
[2018-12-15] MEDS: ATROPINE OPHTH SOLN 1% 5ML BTL RIGHT EYE SCH (08:45)
--- NOTE | 2018-12-15 11:28 | P.PN ---
Subjective Progress Note Date: 12/15/18 Principal diagnosis: Acute MRSA sepsis and bacteremia this is a 53-year-old white male, known history of end-stage renal disease, on hemodialysis, coronary artery disease, type 2 diabetes, hypertension, osteoarthritis, obstructive sleep apnea syndrome, normally on CPAP, diabetic neuropathy, legally blind, patient presented to the ER with high fever as high as 103.7. And has been noticed to be more confused. Workup in the ER including a urinalysis which came back showing evidence of bacteriuria and pyuria, patient was also noted to have slight leukocytosis, initially admitted to regular medical floor, however after I evaluated the patient noted that the patient has been spiking fevers, he seems to be quite confused, lethargic, tends to fall asleep easily, hence I have arranged for the patient to be transferred immediately to the ICU. Patient was hemodynamically stable.his INR was noted to be 2.0. BUN 27 creatinine 3.96,troponin was slightly elevated. CT of the brain on admission was unremarkable, influenza screening was negative.chest x-ray showed no evidence of active pulmonary disease. Patient was reevaluated today on 12/14/2018, he is feeling and doing much better today compared to yesterday. His blood cultures came back positive for MRSA. Patient is hemodynamically stable. He is more awake, alert oriented 3, denies any specific complaints. He is hemodynamically stable blood pressure is 137/67 , he is on vancomycin empirically but now that we know that he has MRSA in the blood cultures, we'll continue MRSA. Labs were reviewed today WBC count is 7.2 hemoglobin is 8 INR is 1.4 lites are normal BUN is 56 creatinine 6.74. On 12/15/2018 patient seen in follow-up on medical surgical floor. Patient is resting comfortably in bed, except and answers questions appropriately, he is oriented 3. Confusion on today's exam. Fever pattern has improved. Patient is afebrile today. Room air pulse ox is 97%, patient did have his dialysis yesterday would removal of 1.2 L of fluid. Patient was found to have MRSA bacteremia, urine culture showed ESBL E. coli. ID service is following. Fever or chills. Lung sounds are relatively clear. No cough, no chest congestion. Echo showed EF of 55-60% and mild mitral regurg and mild tricuspid regurg. Today's labs have been noted, white blood cell, 6.7, hemoglobin is 8.2, INR is 1.4, electrodes were within normal limits, BUN is 44 creatinine is 5.42. [place] any chest pain, denies any difficulty breathing. Maintaining good oxygenation on room air. Objective - Vital Signs Vital signs: Vital Signs Temp 97.8 F 12/15/18 07:00 Pulse 87 12/15/18 07:00 Resp 14 12/15/18 07:10 BP 102/65 12/15/18 07:00 Pulse Ox 97 12/15/18 07:00 Intake & Output 12/14/18 12/15/18 12/15/18 18:59 06:59 18:59 Intake Total 1340 410 Balance 1340 410 Intake: IV 220 160 .9 20 220 160 Intake, IV Titration 500 Amount Vancomycin 2,000 mg In 500 Sodium Chloride 0.9% 500 ml 500 ml @ 167 mls/hr IVPB ONCE ONE Rx#: [id number] Oral 620 250 Other: Voiding Method Urinal Incontinent Incontinent # Voids 1 # Bowel Movements 1 - Exam GENERAL EXAM: Alert, pleasant, 53-year-old obese white male comfortable in no apparent distress. HEAD: Normocephalic/atraumatic. EYES: Normal reaction of pupils, equal size. Conjunctiva pink, sclera white. NOSE: Clear with pink turbinates. THROAT: No erythema or exudates. NECK: No masses, no JVD, no thyroid enlargement, no adenopathy. CHEST: No chest wall deformity. Symmetrical expansion. LUNGS: Equal air entry with no crackles, wheeze, rhonchi or dullness. CVS: Regular rate and rhythm, normal S1 and S2, no gallops, no murmurs, no rubs ABDOMEN: Soft, nontender. No hepatosplenomegaly, normal bowel sounds, no guarding or rigidity. EXTREMITIES: No clubbing, no edema, no cyanosis, 2+ pulses and upper and lower extremities. MUSCULOSKELETAL: Muscle strength and tone normal. SPINE: No scoliosis or deformity SKIN: No rashes CENTRAL NERVOUS SYSTEM: Alert and oriented -3. No focal deficits, tone is normal in all 4 extremities. PSYCHIATRIC: Alert and oriented -3. Appropriate affect. Intact judgment and insight. - Labs CBC & Chem 7: 12/15/18 06:51 12/15/18 06:51 Labs: Abnormal Lab Results - Last 24 Hours (Table) 12/14/18 12/14/18 12/14/18 Range/Units 10:39 11:55 17:14 RBC (4.30-5.90) m/uL Hgb (13.0-17.5) gm/dL Hct (39.0-53.0) % RDW (11.5-15.5) % Lymphocytes # (1.0-4.8) k/uL PT (9.0-12.0) sec INR (<1.2) BUN (9-20) mg/dL Creatinine (0.66-1.25) mg/dL Glucose (74-99) mg/dL POC Glucose (mg/dL) 176 H 222 H (75-99) mg/dL Troponin I 0.154 H* (0.000-0.034) ng/mL 12/15/18 12/15/18 12/15/18 Range/Units 02:05 06:51 06:51 RBC 2.75 L (4.30-5.90) m/uL Hgb 8.2 L (13.0-17.5) gm/dL Hct 25.6 L (39.0-53.0) % RDW 17.5 H (11.5-15.5) % Lymphocytes # 0.6 L (1.0-4.8) k/uL PT (9.0-12.0) sec INR (<1.2) BUN 44 H (9-20) mg/dL Creatinine 5.42 H (0.66-1.25) mg/dL Glucose 73 L (74-99) mg/dL POC Glucose (mg/dL) 170 H (75-99) mg/dL Troponin I (0.000-0.034) ng/mL 12/15/18 12/15/18 Range/Units 06:51 07:11 RBC (4.30-5.90) m/uL Hgb (13.0-17.5) gm/dL Hct (39.0-53.0) % RDW (11.5-15.5) % Lymphocytes # (1.0-4.8) k/uL PT 14.0 H (9.0-12.0) sec INR 1.4 H (<1.2) BUN (9-20) mg/dL Creatinine (0.66-1.25) mg/dL Glucose (74-99) mg/dL POC Glucose (mg/dL) 71 L (75-99) mg/dL Troponin I (0.000-0.034) ng/mL Microbiology - Last 24 Hours (Table) 12/12/18 22:59 Urine Culture - Final Urine,Catheterized Escherichia coli 12/12/18 19:17 Blood Culture Gram Stain - Final Blood Blood Culture - Final Methicillin resist S. aureus 12/13/18 11:04 Blood Culture Gram Stain - Preliminary Blood Blood Culture - Preliminary Presumptive Staph aureus Assessment and Plan Plan: Assessment: 1 acute MRSA sepsis, most likely source is urine. Although other sources would have to be considered. 2 urinary tract infection, acute, related to ESBL E. coli 3 metabolic encephalopathy secondary to sepsis, significantly improved today. 4 coronary artery disease, elevated troponin, significance of which is not clear , patient will have to be seen by cardiology. 5 type 2 diabetes 6 benign essential hypertension 7 obstructive sleep apnea syndrome normally on CPAP. 8 legally blind secondary to diabetic retinopathy 9 history of gout Plan: Patient is awake and alert, mentation is appropriate, oriented 3, no signs of delirium. Vital signs are stable, fever pattern is improving. No difficulty breathing, no chest pain. Urine culture showed ESBL E. coli, infectious disease service following, and and will make the antibiotic choice. Continue with vancomycin for MRSA bacteremia. Clinically patient is improving. Hemodynamically stable. I performed a history & physical examination of the patient and discussed their management with my nurse practitioner, Niki Del Rio. I reviewed the nurse practitioner's note and agree with the documented findings and plan of care. Lung sounds are clear, diminished breath sounds, The findings and the impression was discussed with the patient. I attest to the documentation by the nurse practitioner. Time with Patient: Less than 30
[2018-12-15 11:46] LABS: Glucose,Whole Blood 94 mg/dL (75-99)
[2018-12-15] MEDS: MEROPENEM 1 GM in SODIUM CHLORIDE 0.9% 100 ML IVPB SCH (15:49)
[2018-12-15] MEDS: CLOPIDOGREL 75 MG TAB PO SCH (16:32)
[2018-12-15 16:55] LABS: Glucose,Whole Blood 79 mg/dL (75-99)
--- NOTE | 2018-12-15 19:45 | P.PN ---
Subjective this is a pleasant 53 yo M with pmh of ESRD on hemodialysis, coronary artery disease, asthma, DM, HTN, HLP,sleep apnea on CPAP/BiPAP. , kidney stones, legally blind. Peripheral vascular disease, vertigo, gout. Patient was sent for high fever of 103.7 and confusion. The patient was lying in bed feeling distress due to shivering and chills. Other he felt confused or more tired however patient didn't want to give much information however patient states that he has pain in the penile area which an examination he has no deformity or signs symptoms of inflammation in his genital area, no swelling and tenderness. Patient also denies chest pain or abdominal pain. No dyspnea. Her nausea vomiting or sweating. On admission he had fever of 102.7 and 103.1. WBC 11.2 K. INR 2.0. Creatinine 3.9. Electrolytes within normal limits. Troponins elevated at 0.04 and 0.4. Urinalysis showing large leukocyte esterase with urine WBC more than 182. Moderate bacteria. Influenza was checked and was negative. Chest x-ray: No consultation. On admission he got 1 dose of ceftriaxone and IV fluids. 12/14/2018 Patient is more awake in the ICU today and he is oriented to time place and person. He is complaining of from dysuria and suprapubic tenderness. Bladder scan is ordered and talked to the staff. Blood pressure is improved and currently 137/67. His blood culture came back positive for MRSA and he is currently on vancomycin pharmacy to dose with infectious disease consult. He is going for hemodialysis today under the supervision of nephrology team. CBC unremarkable and his INR today is 1.4. Decreased his Coumadin from 5 up to 7 mg daily. 12/15/2018 pt remains drowsy , although he is oriented to time , place and person and time , he knows why he is in the hospital , he is still on vancomycin for MRSA septicemia, and his urine culture growing ESBL E. coli., infectious disease are following the case , neurologist are managing his dialysis , he had hemodialysis yesterday. there is suspicion for infected graft , vascular surgery service has been called. Review of systems CONSTITUTIONAL: No fever, no malaise, no fatigue. HEENT: No recent visual problems or hearing problems. Denied any sore throat. CARDIOVASCULAR: No orthopnea, PND, no palpitations, no syncope. PULMONARY: No shortness of breath, no cough, no hemoptysis. GASTROINTESTINAL: No diarrhea, no nausea, no vomiting, no abdominal pain. Normoactive bowel sounds. NEUROLOGICAL: No headaches, no weakness, no numbness. HEMATOLOGICAL: Denies any bleeding or petechiae. GENITOURINARY: Denies any burning micturition, frequency, or urgency. MUSCULOSKELETAL/RHEUMATOLOGICAL: Denies any joint pain, swelling, or any muscle pain. ENDOCRINE: Denies any polyuria or polydipsia. Medication:Tylenol, albuterol, allopurinol, vitamin C, atropine sulfate eyedrops , Sensipar, aspirin, Plavix, Lomotil, Cymbalta, Pepcid, Flonase, gabapentin, [place], Dilaudid, NovoLog, Levemir, Claritin, melatonin, medodrine,vancomycin, multivitamin, Zofran, Protonix, and warfarin. Objective - Vital Signs Vital signs: Vital Signs Temp 97.6 F 12/15/18 15:00 Pulse 92 12/15/18 15:00 Resp 17 12/15/18 15:00 BP 112/67 12/15/18 15:00 Pulse Ox 97 12/15/18 07:00 Intake & Output 12/15/18 12/15/18 12/16/18 06:59 18:59 06:59 Intake Total 410 660 Balance 410 660 Intake: IV 160 .9 20 160 Intake, IV Titration 160 Amount Sodium Chloride 0.9% 1, 160 000 ml @ 20 mls/hr IV . Q24H [facility] Rx#:[id number] Oral 250 500 Other: Voiding Method Incontinent Incontinent # Voids 1 # Bowel Movements 1 - Exam GENERAL: The patient is alert and oriented x3, not in any acute distress. Well developed, well nourished. HEENT: Pupils are round and equally reacting to light. EOMI. No scleral icterus. No conjunctival pallor. Normocephalic, atraumatic. No pharyngeal erythema. No thyromegaly. CARDIOVASCULAR: S1 and S2 present. No murmurs, rubs, or gallops. PULMONARY: Chest is clear to auscultation, no wheezing or crackles. -ABDOMEN: Soft, suprapubic tenderness with no rebound tenderness, nondistended, normoactive bowel sounds. No palpable organomegaly. MUSCULOSKELETAL: No joint swelling or deformity. EXTREMITIES: No cyanosis, clubbing, or pedal edema. NEUROLOGICAL: Gross neurological examination did not reveal any focal deficits. SKIN: No rashes. - Labs CBC & Chem 7: 12/15/18 06:51 12/15/18 06:51 Labs: Abnormal Lab Results - Last 24 Hours (Table) 12/15/18 12/15/18 12/15/18 Range/Units 02:05 06:51 06:51 RBC 2.75 L (4.30-5.90) m/uL Hgb 8.2 L (13.0-17.5) gm/dL Hct 25.6 L (39.0-53.0) % RDW 17.5 H (11.5-15.5) % Lymphocytes # 0.6 L (1.0-4.8) k/uL PT (9.0-12.0) sec INR (<1.2) BUN 44 H (9-20) mg/dL Creatinine 5.42 H (0.66-1.25) mg/dL Glucose 73 L (74-99) mg/dL POC Glucose (mg/dL) 170 H (75-99) mg/dL 12/15/18 12/15/18 Range/Units 06:51 07:11 RBC (4.30-5.90) m/uL Hgb (13.0-17.5) gm/dL Hct (39.0-53.0) % RDW (11.5-15.5) % Lymphocytes # (1.0-4.8) k/uL PT 14.0 H (9.0-12.0) sec INR 1.4 H (<1.2) BUN (9-20) mg/dL Creatinine (0.66-1.25) mg/dL Glucose (74-99) mg/dL POC Glucose (mg/dL) 71 L (75-99) mg/dL Microbiology - Last 24 Hours (Table) 12/12/18 22:59 Urine Culture - Final Urine,Catheterized Escherichia coli 12/12/18 19:17 Blood Culture Gram Stain - Final Blood Blood Culture - Final Methicillin resist S. aureus 12/13/18 11:04 Blood Culture Gram Stain - Preliminary Blood Blood Culture - Preliminary Presumptive Staph aureus Assessment and Plan Assessment: Systemic inflammatory response on admission with fever (at home ), leukocytosis with WBC 11,000 on admission UTI, with E.coli MRSA septicemia on admission mostly pyelonephritis possible infected graft History of kidney stone End-stage renal disease on hemodialysis Elevated troponin History of coronary artery disease Diabetes mellitus, type II History of asthma Essential hypertension Hyperlipidemia Sleep apnea on CPAP/BiPAP Legally blind History of peripheral vascular disease History of gout Plan: This is a pleasant 53 years old male who presents because of sepsis secondary to urinary tract infection. Patient is started on antibiotics and will call infectious disease consult and check renal ultrasound. Patient is in the stage renal disease on hemodialysis and call nephrology's for management. Also will call cardiology for elevated troponin. Patient is on Plavix. consult vascular surgery Labs and medication were reviewed.. Continue same treatment. Continue with symptomatic treatment. Resume home medication. Monitor lytes and vitals. DVT and GI prophylaxis. Further recommendations of the clinical course of the patient DVT prophylaxis: On warfarin GI prophylaxis: Protonix Prognosis is guarded
[2018-12-15 19:57] LABS: Glucose,Whole Blood 234 mg/dL (75-99)
--- NOTE | 2018-12-15 20:14 | PN ---
PROGRESS NOTE Patient is seen for followup for end-stage renal disease. He has MRSA bacteremia on blood cultures drawn 12/12 as well as 12/13. Patient also has underlying urinary tract infection with ESBL E coli. Presumed source of bacteremia is the HERO graft; however, it does not look grossly infected. It could still be seeded, and patient's vascular surgeon is out of [place]. There has been communication regarding possible transfer to [place]; however, patient would like to wait unless absolutely necessary. On examination this morning, blood pressure was 102/65, heart rate 87 per minute. He is afebrile. EXAMINATION OF THE HEART: S1, S2. EXAMINATION OF LUNGS: Bilateral breath sounds are heard. ABDOMEN: Soft, non-tender. Examination of lower extremities shows no significant edema. Patient has right BKA. There are no wounds or ulcers noted anywhere else and no evidence of infection in the HERO graft. Labs show hemoglobin 8.2, sodium 140, potassium 4.3 from today. ASSESSMENT: 1. End-stage renal disease, on hemodialysis on a Wednesday, Wednesday, Wednesday schedule. Patient will be dialyzed tomorrow. 2. Methicillin-resistant Staphylococcus aeruginosa bacteremia, source most likely HERO graft. There is no other obvious source that can be seen. An echocardiogram is being considered. Patient's vascular surgeon is out of [place], and he will need to be transferred there for vascular surgery input. Currently patient is maintained on vancomycin. 3. Urinary tract infection with Escherichia coli, maintained on meropenem. 4. Chronic kidney disease mineral bone disorder, currently on Sensipar and Renvela for phosphate binders. 5. Chronic atrial fibrillation, maintained on Coumadin. PLAN: Continue antibiotics, hemodialysis in a.m. Consider echocardiogram. Patient will need to be transferred to [place], as his vascular surgeon is out of the [place] area. MMODL / IJN: [id number] /
[2018-12-15] MEDS: WARFARIN 5 MG TAB PO SCH (20:37)
[2018-12-15] MEDS: WARFARIN 2 MG TAB PO SCH (20:37)
[2018-12-15 20:46] LABS: Glucose,Whole Blood 121 mg/dL (75-99)
[2018-12-15] MEDS: INSULIN DETEMIR (LEVEMIR) 100 UNIT/ML SYR SQ SCH (22:13)
[2018-12-15] MEDS: ASCORBIC ACID 500 MG TAB PO SCH (22:15)
[2018-12-15] MEDS: GABAPENTIN 300 MG CAP PO SCH (22:15)
[2018-12-15] MEDS: LORATADINE 10 MG TAB PO SCH (22:15)
[2018-12-15] MEDS: MELATONIN 5 MG TABLET PO SCH (22:15)
[2018-12-16 00:47] VITALS: RESP 16
[2018-12-16] MEDS: MEROPENEM 1 GM in SODIUM CHLORIDE 0.9% 100 ML IVPB SCH ×2 (00:59→11:43)
[2018-12-16] MEDS: SODIUM CHLORIDE 0.9% 1,000 ML IV SCH (01:00)
[2018-12-16 02:13] LABS: Glucose,Whole Blood 90 mg/dL (75-99)
[2018-12-16] MEDS: INSULIN ASPART (NovoLOG) 100 UNIT/ML VIAL SQ SCH ×5 (02:14→13:36)
--- NOTE | 2018-12-16 05:26 | PN ---
PROGRESS NOTE DATE OF SERVICE: 12/15/2018 REASON FOR FOLLOWUP: MRSA bacteremia, concern for dialysis graft infection. INTERVAL HISTORY: The patient is afebrile. He has been breathing comfortably, not feeling as good as yesterday. Denies having any chest pain or cough. No abdominal pain. No diarrhea. PHYSICAL EXAMINATION: On examination, blood pressure 112/67 with a pulse of 50, temperature 97.6. He is 97% on room air. General description is a middle-aged male lying in bed in no distress. RESPIRATORY SYSTEM: Unlabored breathing, decreased breath sounds in the bases. No wheeze. HEART: S1, S2. Regular rate and rhythm. ABDOMEN: Soft, no tenderness. EXTREMITIES: No edema of the feet. LABS: Hemoglobin 8.2, white count 6.7, BUN of 44, creatinine 5.42. Blood cultures from 12/13 has been positive as well urine with an ESBL E coli. DIAGNOSTIC IMPRESSION AND PLAN: 1. Patient admitted to the hospital with sepsis. Source is likely dialysis AV graft infection. The patient did have HeRO graft. Blood culture will be repeated today as well as tomorrow. However, not be able to clear this bacteremia without removal of the same graft and may benefit from transfer to his vascular surgeon in [place]. 2. Patient did have positive urine culture with an ESBL Escherichia coli. The patient hardly makes any urine and is dialysis patient. Clinically doubt any significance of this positive culture or treatment for the same. Continue supportive care. MMODL / IJN: [id number] /
[2018-12-16 07:22] LABS: Glucose,Whole Blood 69 mg/dL (75-99)
[2018-12-16 07:29] LABS: Glucose,Whole Blood 73 mg/dL (75-99)
[2018-12-16 07:48] LABS: Anisocytosis Slight; Basophils % (A) 0 %; Eosinophils # (A) 0.2 k/uL (0-0.7); Eosinophils % (A) 3 %; HCT 29.1 % (39.0-53.0); Hypochromasia Marked; Lymphocytes # (A) 0.7 k/uL (1.0-4.8); Lymphocytes % (A) 9 %; MCH 29.2 pg (25.0-35.0); MCV 94.3 fL (80.0-100.0); Monocytes # (A) 0.4 k/uL (0-1.0); Monocytes % (A) 5 %; Neutrophils # (A) 6.9 k/uL (1.3-7.7); Neutrophils % (A) 82 %; Platelet Count 209 k/uL (150-450); Poikilocytosis Slight; RBC 3.08 m/uL (4.30-5.90); RDW 17.1 % (11.5-15.5); WBC 8.3 k/uL (3.8-10.6)
[2018-12-16 07:56] LABS: INR 1.9 (<1.2); Prothrombin Time 18.7 sec (9.0-12.0)
[2018-12-16 08:22] LABS: Calcium 8.8 mg/dL (8.4-10.2); Potassium 4.4 mmol/L (3.5-5.1)
[2018-12-16 08:38] VITALS: BP 147/78; PULSE 89; TEMP 97.6
[2018-12-16 08:58] LABS: Vancomycin,Random 23.8 ug/mL
[2018-12-16] MEDS: FAMOTIDINE 20 MG TAB PO SCH (09:31)
[2018-12-16] MEDS: MULTIVITAMINS, THERA 1 EACH TAB PO SCH (09:31)
[2018-12-16] MEDS: ALLOPURINOL 100 MG TAB PO SCH (09:31)
[2018-12-16] MEDS: MIDODRINE 5 MG TAB PO SCH ×2 (09:31→13:36)
[2018-12-16] MEDS: DULoxetine HCL 60 MG CAPSULE.DR PO SCH (09:31)
[2018-12-16] MEDS: PANTOPRAZOLE 40 MG TABLET PO SCH (09:31)
[2018-12-16] MEDS: busPIRone HCl 5 MG TAB PO SCH (09:31)
[2018-12-16] MEDS: ATROPINE OPHTH SOLN 1% 5ML BTL RIGHT EYE SCH (09:32)
[2018-12-16] MEDS: SEVELAMER 800 MG TAB PO SCH ×2 (09:32→13:36)
[2018-12-16] MEDS: FLUTICASONE 50MCG/SPRAY NASAL 16GM EA NOSTRIL SCH (09:32)
[2018-12-16] MEDS: CINACALCET 30 MG TAB PO SCH (09:33)
--- NOTE | 2018-12-16 11:12 | P.PN ---
Subjective Patient is seen in follow-up for end-stage renal disease. He is maintained on hemodialysis on a Wednesday schedule. He was noted to have MRSA bacteremia as well as UTI with urine culture positive for E. coli. The concern is that the hero graft is infected. Infectious disease is following. Patient is awake and alert. Denies chest pain or shortness of breath. Vital signs are stable. General: The patient appeared well nourished and normally developed. HEENT: Head exam is unremarkable. Neck is without jugular venous distension. LUNGS: Lungs are clear to auscultation and percussion. Breath sounds decreased. HEART: Rate and Rhythm are regular. First and second heart sounds normal. No murmurs, rubs or gallops. ABDOMEN: Abdominal exam reveals normal bowel sounds. Non-tender and non- distended. No evidence of peritonitis. EXTREMITITES: No clubbing, cyanosis, or edema. Amputation noted. Objective - Vital Signs Vital signs: Vital Signs Temp 97.6 F 12/16/18 07:29 Pulse 89 12/16/18 07:29 Resp 16 12/15/18 23:45 BP 147/78 12/16/18 07:29 Pulse Ox 99 12/16/18 07:29 Intake & Output 12/15/18 12/16/18 12/16/18 18:59 06:59 18:59 Intake Total 660 100 Balance 660 100 Intake: Intake, IV Titration 160 100 Amount Meropenem 1 gm In Sodium 100 Chloride 0.9% 100 ml @ 200 mls/hr IVPB Q8HR [facility] Rx#:[id number] Sodium Chloride 0.9% 1, 160 000 ml @ 20 mls/hr IV . Q24H [facility] Rx#:[id number] Oral 500 Other: Voiding Method Incontinent Incontinent # Voids 1 - Labs CBC & Chem 7: 12/16/18 07:02 12/16/18 07:02 Labs: Abnormal Lab Results - Last 24 Hours (Table) 12/14/18 12/15/18 12/16/18 Range/Units 21:22 20:45 07:02 RBC 3.08 L (4.30-5.90) m/uL Hgb 9.0 L (13.0-17.5) gm/dL Hct 29.1 L (39.0-53.0) % RDW 17.1 H (11.5-15.5) % Lymphocytes # 0.7 L (1.0-4.8) k/uL PT (9.0-12.0) sec INR (<1.2) BUN (9-20) mg/dL Creatinine (0.66-1.25) mg/dL Glucose (74-99) mg/dL POC Glucose (mg/dL) 234 H 121 H (75-99) mg/dL 12/16/18 12/16/18 12/16/18 Range/Units 07:02 07:02 07:11 RBC (4.30-5.90) m/uL Hgb (13.0-17.5) gm/dL Hct (39.0-53.0) % RDW (11.5-15.5) % Lymphocytes # (1.0-4.8) k/uL PT 18.7 H (9.0-12.0) sec INR 1.9 H (<1.2) BUN 59 H (9-20) mg/dL Creatinine 7.46 H* (0.66-1.25) mg/dL Glucose 71 L (74-99) mg/dL POC Glucose (mg/dL) 69 L (75-99) mg/dL 12/16/18 Range/Units 07:27 RBC (4.30-5.90) m/uL Hgb (13.0-17.5) gm/dL Hct (39.0-53.0) % RDW (11.5-15.5) % Lymphocytes # (1.0-4.8) k/uL PT (9.0-12.0) sec INR (<1.2) BUN (9-20) mg/dL Creatinine (0.66-1.25) mg/dL Glucose (74-99) mg/dL POC Glucose (mg/dL) 73 L (75-99) mg/dL Microbiology - Last 24 Hours (Table) 12/13/18 11:04 Blood Culture Gram Stain - Final Blood Blood Culture - Final Methicillin resist S. aureus 12/12/18 22:59 Urine Culture - Final Urine,Catheterized Escherichia coli 12/12/18 19:17 Blood Culture Gram Stain - Final Blood Blood Culture - Final Methicillin resist S. aureus Assessment and Plan Plan: Assessment: 1. End-stage renal disease maintained on hemodialysis on a Wednesday schedule. 2. MRSA bacteremia with concern that the HERO graft is infected. 3. UTI with urine culture positive for E. coli. 4. Anemia of chronic kidney disease 5. Chronic kidney disease mineral bone disease maintained on Sensipar and Renvela. Plan: Hemodialysis today. Potential transfer to [facility] as he follows with vascular surgery over there is an outpatient. Add Aranesp. Antibiotics per infectious disease.
[2018-12-16] MEDS ORDERED: DARBEPOETIN ALFA 40 MCG/0.4 ML SYRINGE SQ SCH (11:15)
--- NOTE | 2018-12-16 11:39 | CONS ---
CONSULTATION This is a 53-year-old gentleman who has a history of chronic renal failure, peripheral vascular disease, post BKA amputation in the past. The patient has been admitted positive for MRSA bacteremia under care of Infectious Disease. The patient had this HeRO graft placed at [place] because of his central venous stenosis including subclavian vein. The patient also had a graft placed in [place] on the right upper arm which has been occluded chronically. The patient was seen in his room. Patient has a left upper arm [place] graft. I see no local sign of infection or tenderness noted along the graft area. This could be source of infection, could be due to the HeRO catheter. Discussed with the hospitalist. Patient is going to be transferred to [place] in the meantime. Patient is continued on IV antibiotic. MMODL / IJN: [id number] /
[2018-12-16 11:40] LABS: Glucose,Whole Blood 116 mg/dL (75-99)
--- NOTE | 2018-12-16 11:50 | P.PN ---
Subjective this is a pleasant 53 yo M with pmh of ESRD on hemodialysis, coronary artery disease, asthma, DM, HTN, HLP,sleep apnea on CPAP/BiPAP. , kidney stones, legally blind. Peripheral vascular disease, vertigo, gout. Patient was sent for high fever of 103.7 and confusion. The patient was lying in bed feeling distress due to shivering and chills. Other he felt confused or more tired however patient didn't want to give much information however patient states that he has pain in the penile area which an examination he has no deformity or signs symptoms of inflammation in his genital area, no swelling and tenderness. Patient also denies chest pain or abdominal pain. No dyspnea. Her nausea vomiting or sweating. On admission he had fever of 102.7 and 103.1. WBC 11.2 K. INR 2.0. Creatinine 3.9. Electrolytes within normal limits. Troponins elevated at 0.04 and 0.4. Urinalysis showing large leukocyte esterase with urine WBC more than 182. Moderate bacteria. Influenza was checked and was negative. Chest x-ray: No consultation. On admission he got 1 dose of ceftriaxone and IV fluids. 12/14/2018 Patient is more awake in the ICU today and he is oriented to time place and person. He is complaining of from dysuria and suprapubic tenderness. Bladder scan is ordered and talked to the staff. Blood pressure is improved and currently 137/67. His blood culture came back positive for MRSA and he is currently on vancomycin pharmacy to dose with infectious disease consult. He is going for hemodialysis today under the supervision of nephrology team. CBC unremarkable and his INR today is 1.4. Decreased his Coumadin from 5 up to 7 mg daily. 12/15/2018 pt remains drowsy , although he is oriented to time , place and person and time , he knows why he is in the hospital , he is still on vancomycin for MRSA septicemia, and his urine culture growing ESBL E. coli., infectious disease are following the case , neurologist are managing his dialysis , he had hemodialysis yesterday. there is suspicion for infected graft , vascular surgery service has been called. 12/16/2018 Patient is fully awake oriented today, back to his baseline. Remains on IV vancomycin for MRSA septicemia/bacteremia. And imipenem for E. coli in his urine culture. Discuss the plan with the copra processor and vascular surgeon on the case, recommended to transfer to his surgeon at [facility] for possible infected left graft and catheter. I called Dr. Barrios that it [phone], he referred me to the vascular surgeon team with Dr. Hamlin [phone], which were page and the result is pending. Review of systems CONSTITUTIONAL: No fever, no malaise, no fatigue. HEENT: No recent visual problems or hearing problems. Denied any sore throat. CARDIOVASCULAR: No orthopnea, PND, no palpitations, no syncope. PULMONARY: No shortness of breath, no cough, no hemoptysis. GASTROINTESTINAL: No diarrhea, no nausea, no vomiting, no abdominal pain. Normoactive bowel sounds. NEUROLOGICAL: No headaches, no weakness, no numbness. HEMATOLOGICAL: Denies any bleeding or petechiae. GENITOURINARY: Denies any burning micturition, frequency, or urgency. MUSCULOSKELETAL/RHEUMATOLOGICAL: Denies any joint pain, swelling, or any muscle pain. ENDOCRINE: Denies any polyuria or polydipsia. Medication:Tylenol, albuterol, allopurinol, vitamin C, atropine sulfate eyedrops , Sensipar, aspirin, Plavix, Lomotil, Cymbalta, Pepcid, Flonase, gabapentin, Tuckerman, Dilaudid, NovoLog, Levemir, Claritin, melatonin, medodrine,vancomycin, multivitamin, Zofran, Protonix, and warfarin. Objective - Vital Signs Vital signs: Vital Signs Temp 97.6 F 12/16/18 07:29 Pulse 89 12/16/18 07:29 Resp 16 12/15/18 23:45 BP 147/78 12/16/18 07:29 Pulse Ox 99 12/16/18 07:29 Intake & Output 12/15/18 12/16/18 12/16/18 18:59 06:59 18:59 Intake Total 660 100 Balance 660 100 Intake: Intake, IV Titration 160 100 Amount Meropenem 1 gm In Sodium 100 Chloride 0.9% 100 ml @ 200 mls/hr IVPB Q8HR [facility] Rx#:[id number] Sodium Chloride 0.9% 1, 160 000 ml @ 20 mls/hr IV . Q24H [facility] Rx#:[id number] Oral 500 Other: Voiding Method Incontinent Incontinent # Voids 1 - Exam GENERAL: The patient is alert and oriented x3, not in any acute distress. Well developed, well nourished. HEENT: Pupils are round and equally reacting to light. EOMI. No scleral icterus. No conjunctival pallor. Normocephalic, atraumatic. No pharyngeal erythema. No thyromegaly. CARDIOVASCULAR: S1 and S2 present. No murmurs, rubs, or gallops. PULMONARY: Chest is clear to auscultation, no wheezing or crackles. -ABDOMEN: Soft, suprapubic tenderness with no rebound tenderness, nondistended, normoactive bowel sounds. No palpable organomegaly. MUSCULOSKELETAL: No joint swelling or deformity. -EXTREMITIES: No cyanosis, clubbing, or pedal edema. Right BKA NEUROLOGICAL: Gross neurological examination did not reveal any focal deficits. SKIN: No rashes. - Labs CBC & Chem 7: 12/16/18 07:02 12/16/18 07:02 Labs: Abnormal Lab Results - Last 24 Hours (Table) 12/14/18 12/15/18 12/16/18 Range/Units 21:22 20:45 07:02 RBC 3.08 L (4.30-5.90) m/uL Hgb 9.0 L (13.0-17.5) gm/dL Hct 29.1 L (39.0-53.0) % RDW 17.1 H (11.5-15.5) % Lymphocytes # 0.7 L (1.0-4.8) k/uL PT (9.0-12.0) sec INR (<1.2) BUN (9-20) mg/dL Creatinine (0.66-1.25) mg/dL Glucose (74-99) mg/dL POC Glucose (mg/dL) 234 H 121 H (75-99) mg/dL 12/16/18 12/16/18 12/16/18 Range/Units 07:02 07:02 07:11 RBC (4.30-5.90) m/uL Hgb (13.0-17.5) gm/dL Hct (39.0-53.0) % RDW (11.5-15.5) % Lymphocytes # (1.0-4.8) k/uL PT 18.7 H (9.0-12.0) sec INR 1.9 H (<1.2) BUN 59 H (9-20) mg/dL Creatinine 7.46 H* (0.66-1.25) mg/dL Glucose 71 L (74-99) mg/dL POC Glucose (mg/dL) 69 L (75-99) mg/dL 12/16/18 12/16/18 Range/Units 07:27 11:39 RBC (4.30-5.90) m/uL Hgb (13.0-17.5) gm/dL Hct (39.0-53.0) % RDW (11.5-15.5) % Lymphocytes # (1.0-4.8) k/uL PT (9.0-12.0) sec INR (<1.2) BUN (9-20) mg/dL Creatinine (0.66-1.25) mg/dL Glucose (74-99) mg/dL POC Glucose (mg/dL) 73 L 116 H (75-99) mg/dL Microbiology - Last 24 Hours (Table) 12/13/18 11:04 Blood Culture Gram Stain - Final Blood Blood Culture - Final Methicillin resist S. aureus 12/12/18 22:59 Urine Culture - Final Urine,Catheterized Escherichia coli 12/12/18 19:17 Blood Culture Gram Stain - Final Blood Blood Culture - Final Methicillin resist S. aureus Assessment and Plan Assessment: Systemic inflammatory response on admission with fever (at home ), leukocytosis with WBC 11,000 on admission UTI, with E.coli MRSA septicemia on admission mostly pyelonephritis possible infected graft History of kidney stone End-stage renal disease on hemodialysis Elevated troponin History of coronary artery disease Diabetes mellitus, type II History of asthma Essential hypertension Hyperlipidemia Sleep apnea on CPAP/BiPAP Legally blind History of peripheral vascular disease History of gout Plan: This is a pleasant 53 years old male who presents because of sepsis secondary to urinary tract infection. Patient is started on antibiotics and will call infectious disease consult and check renal ultrasound. Patient is in the stage renal disease on hemodialysis and call nephrology's for management. Also will call cardiology for elevated troponin. Patient is on Plavix. consult vascular surgery Labs and medication were reviewed.. Continue same treatment. Continue with symptomatic treatment. Resume home medication. Monitor lytes and vitals. DVT and GI prophylaxis. Further recommendations of the clinical course of the patient DVT prophylaxis: On warfarin GI prophylaxis: Protonix Prognosis is guarded
--- NOTE | 2018-12-16 15:42 | PN ---
PROGRESS NOTE DATE OF SERVICE: 12/16/2018. REASON FOR FOLLOWUP: MRSA bacteremia likely infected dialysis catheter. INTERVAL HISTORY: The patient is afebrile. He was seen on rounds early this afternoon in the hospital. The patient denies having any chest pain or any cough. No abdominal pain. No diarrhea. PHYSICAL EXAMINATION: Blood pressure 147/78 with a pulse of 89. Temperature 97.6. He is 99% on room air. General description is a middle-aged male lying in bed in no distress. Respiratory system: Unlabored breathing. Clear to auscultation anteriorly. Heart S1, S2. Regular rate and rhythm. ABDOMEN: Soft, no tenderness. LABS: Hemoglobin is 9 with white count 8.3, BUN of 59, creatinine of 7.46. Blood culture from December 15 positive as well. DIAGNOSTIC IMPRESSION AND PLAN: Patient with persistent MRSA bacteremia, source is likely dialysis catheter and dialysis graft infection. In order to completely clear this infection, the graft will have to come out for which the patient in the process of getting transferred to [facility] to be ordered by his surgeon. Continue supportive care. MMODL / IJN: [id number] /
== END 2018-12-16 13:34 | disposition short-term general hospital (02) | DRG 314 ==
LOC: EC 18:33 → 4SSUR 12-13 00:58 → 2SICU 12-13 15:58 → 4SSUR 12-14 22:02
PROVIDERS: ADMIT Internal Medicine; ATTEND Internal Medicine
PROC: 5A1D70Z Performance of Urinary Filtration, Intermittent, Less than 6 Hours Per Day (ICD-10-PCS; principal; 2018-12-16)
DX: T82.7XXA Infection and inflammatory reaction due to other cardiac and vascular devices, implants and grafts, initial encounter (principal); R65.20 Severe sepsis without septic shock; A41.02 Sepsis due to Methicillin resistant Staphylococcus aureus; G93.41 Metabolic encephalopathy; N18.6 End stage renal disease; H33.20 Serous retinal detachment, unspecified eye; I12.0 Hypertensive chronic kidney disease with stage 5 chronic kidney disease or end stage renal disease; I87.1 Compression of vein; N12 Tubulo-interstitial nephritis, not specified as acute or chronic; B96.20 Unspecified Escherichia coli [E. coli] as the cause of diseases classified elsewhere; D63.1 Anemia in chronic kidney disease; E11.22 Type 2 diabetes mellitus with diabetic chronic kidney disease; E11.319 Type 2 diabetes mellitus with unspecified diabetic retinopathy without macular edema; E11.40 Type 2 diabetes mellitus with diabetic neuropathy, unspecified; E11.51 Type 2 diabetes mellitus with diabetic peripheral angiopathy without gangrene; E66.9 Obesity, unspecified; Z68.38 Body mass index [BMI] 38.0-38.9, adult; E78.5 Hyperlipidemia, unspecified; F17.210 Nicotine dependence, cigarettes, uncomplicated; F32.9 Major depressive disorder, single episode, unspecified; G47.33 Obstructive sleep apnea (adult) (pediatric); H54.8 Legal blindness, as defined in USA; I08.1 Rheumatic disorders of both mitral and tricuspid valves; I25.10 Atherosclerotic heart disease of native coronary artery without angina pectoris; I25.2 Old myocardial infarction; I25.5 Ischemic cardiomyopathy; I44.7 Left bundle-branch block, unspecified; I48.2 Chronic atrial fibrillation; J45.909 Unspecified asthma, uncomplicated; M10.9 Gout, unspecified; M89.9 Disorder of bone, unspecified; Z87.442 Personal history of urinary calculi; R09.02 Hypoxemia; Y83.8 Other surgical procedures as the cause of abnormal reaction of the patient, or of later complication, without mention of misadventure at the time of the procedure; Z79.01 Long term (current) use of anticoagulants; Z79.02 Long term (current) use of antithrombotics/antiplatelets; Z79.4 Long term (current) use of insulin; Z79.899 Other long term (current) drug therapy; Z89.511 Acquired absence of right leg below knee; Z95.1 Presence of aortocoronary bypass graft; Z99.2 Dependence on renal dialysis; Z99.89 Dependence on other enabling machines and devices; Z98.49 Cataract extraction status, unspecified eye; Z80.9 Family history of malignant neoplasm, unspecified; Z83.2 Family history of diseases of the blood and blood-forming organs and certain disorders involving the immune mechanism; Z86.14 Personal history of Methicillin resistant Staphylococcus aureus infection; R74.8 Abnormal levels of other serum enzymes; Z90.49 Acquired absence of other specified parts of digestive tract; Z88.8 Allergy status to other drugs, medicaments and biological substances
CPT/HCPCS: 36415; 70450; 71046; 76770; 80048; 80053; 80202; 81001; 82533; 82550; 82553; 82805; 83036; 83605; 84484; 85025; 85610; 85730; 87040; 87077; 87086; 87186; 87502; 90935; 93005; 93306; 94640; 94660; 96365; 96366; 99285